=== PATIENT | male | born 1960 | race Caucasian/White ===

== ENCOUNTER 2019-10-15 21:32 | Emergency (ER) | payer OTHER, SELFPAY ==
--- NOTE | ~2019-10-15 | CT_ITS ---
EXAMINATION: CT abdomen pelvis w con DATE: 10/15/2019 22:41 INDICATION: Abdominal pain. TECHNIQUE: Computed tomography (CT) of the abdomen and pelvis was performed with 100 mL Omnipaque 350 intravenous contrast. Automated exposure control and iterative reconstruction technique were employe d. The dose-length product was 1466.07 mGy-cm. COMPARISON: None. FINDINGS: The visualized portions of the lung bases demonstrate mild atelectasis. Scattered calcified pulmonary nodules and calcified hilar and mediastinal lymph nodes are consistent with old granulomat ous disease. No pleural effusion. The heart size is normal. There are coronary artery calcifications. No pericardial effusion. The liver and gallbladder are normal. Calcifications in the spleen are cons istent with old granulomatous disease. The pancreas, adrenal glands, and left kidney are normal. Ther e is an 8 mm cyst in right kidney. There is a decreased right-sided contrast nephrogram. There is mil d right hydronephrosis and hydroureter. There is a 4 mm stone at right ureterovesicular junction. The prostate is mildly enlarged. There is diverticulosis of the colon without evidence of diverticulitis . There are no dilated loops of bowel. The appendix is normal. There are no pathologically enlarged l ymph nodes. There is no free intraperitoneal fluid. There is moderate lumbar spondylosis and mild tho racic spondylosis. IMPRESSION: 1. 4 mm stone at right ureterovesicular junction with mild right hydronephrosis and hydroureter. Reviewed, dictated and finalized at location A.
[2019-10-15 21:39] VITALS: BP 143/84; PULSE 74; RESP 16; TEMP 36.6; O2SAT 98
--- NOTE | 2019-10-15 21:49 | ED.ABDPAIN ---
HPI - Abdominal Pain General Chief Complaint: Abdominal Pain Stated Complaint: abd pain Time Seen by Provider: 10/15/19 21:45 Source: patient Mode of arrival: EMS Limitations: no limitations History of Present Illness HPI narrative: Right abdominal pain started at 4:30 PM today, steady, associated with nausea and vomiting. Sharp, stabbing. No aggravating or relieving factors. History of diabetes, hypertension, hyperlipidemia, patient does not smoke and drinks daily. Currently patient feeling much better after getting Toradol in the ambulance. Related Data Home Medications Medication Instructions Recorded Confirmed pen needle, diabetic 32 gauge x #100 each 06/19/19 10/05/1903/06 aspirin 81 mg tablet,delayed 81 mg PO DAILY 06/22/19 10/05/19 release Allergies Allergy/AdvReac Type Severity Reaction Status Date / Time latex Allergy Mild Redness of Verified 10/15/19 21:41 Skin No Known Drug Allergies Allergy Unknown Unknown Verified 10/15/19 21:41 Review of Systems Review of Systems: Narrative: CONSTITUTIONAL: Denies fever, chills, or sweats. EYES: Denies visual changes, redness, or discharge. ENT: Denies rhinorrhea, congestion, sore throat, or otalgia. CARDIOVASCULAR: Denies chest pain, palpitations, or edema. RESPIRATORY: Denies cough or dyspnea. GASTROINTESTINAL: Denies abdominal pain, nausea, vomiting, or diarrhea. GENITOURINARY: Denies dysuria or hematuria. SKIN: Denies rash or itching. MUSCULOSKELETAL: Denies back pain, joint pain, or myalgia. NEUROLOGIC: Denies headache, numbness, or weakness. PSYCHIATRIC: Denies anxiety or depression. PMFSH Past Medical History Medical History Urinary frequency Family History Family History Mother Hypertension Father Patient's father is in good health Social History Social History Social History: no Smoking status: Former smoker Tobacco type: cigarettes Second hand tobacco smoke exposure: No Alcohol intake: current Drinks per week: 3 Substance use: never Substance use type: does not use Gender identity (if verbalized by the patient): Male Exam Narrative: Exam Narrative: General appearance: Well-developed, well-nourished, obese, not in pain or distress Skin: Normal color Head: Normocephalic, nontraumatic Eyes: Clear conjunctiva ENT: Oropharynx normal, ears normal, nose normal Neck: Supple, nontender Chest and respiratory: Airway patent, no respiratory distress, no accessory muscle use Heart: Regular rate/rhythm Abdomen: Soft, moderate tenderness left lower quadrant and right flank, no organomegaly, quiet bowel sounds Vascular: Normal peripheral pulses, normal capillary refill. 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, no gross motor deficit Course Course Emergency Course: Stable Vital Signs Vital signs: Vital Signs Temperature 36.6 C 10/15/19 21:39 Pulse Rate 74 10/15/19 21:39 Respiratory Rate 16 10/15/19 21:39 Blood Pressure 143/84 H 10/15/19 21:39 Pulse Oximetry 98 10/15/19 21:39 Temperature 36.6 C 10/15/19 21:39 Pulse Rate 75 10/15/19 23:30 Respiratory Rate 16 10/15/19 23:30 Blood Pressure 152/82 H 10/15/19 23:30 Pulse Oximetry 98 10/15/19 23:30 MDM - Abdominal Pain MDM Narrative Medical decision making narrative: The plan to get labs, CT abdomen and pelvis with IV contrast, IV fluid, IV morphine and Zofran. Further plan to follow Blood work-up in the CAT scan showed 5 mm kidne
[2019-10-15 22:00] LABS: Basophils Percent Auto 0.3 % (0.2-1.2); Eosinophils Percent Auto 0.2 % (0-4.4); Hematocrit 41.6 % (42.0-52.0); Hemoglobin 14.5 g/dL (14.0-18.0); Immature Granulocyte Absolute 0.08 K/mm3 (0.00-0.031); Immature Granulocyte Percent A 0.5 % (0-0.5); Lymphocytes Absolute Auto 0.88 K/mm3 (0.9-3.2); Mean Corpuscular HGB Conc 34.9 g/dl (32-36); Mean Corpuscular Hemoglobin 31.3 pg (26-34); Mean Corpuscular Volume 89.7 fl (80-100); Mean Platelet Volume 9.8 fl (7.4-10.4); Monocytes Absolute Auto 0.5 K/mm3 (0.1-0.6); Monocytes Percent Auto 3.4 % (2.6-8.5); Neutrophils Absolute Auto 13.1 K/mm3 (1.3-6.7); Neutrophils Percent Auto 89.6 % (45.5-73.1); Platelet Count Result 155 k/mm3 (150-375); Red Blood Count 4.64 M/mm3 (4.6-6.20); Red Cell Distribution Width 12.6 % (11.5-14.5); White Blood Count 14.6 K/mm3 (4.5-10.0)
[2019-10-15 22:09] LABS: Anion Gap 8 mmol/L (8-16); Blood Urea Nitrogen 16 mg/dL (9-20); Carbon Dioxide 23 mmol/L (22-30); Chloride 107 mmol/L (98-107); Estimated CRCL calculation 99 ml/min; Estimated Glomerular Filt Rate > 60; Glucose 170 mg/dL (75-110); Potassium 4.7 mmol/L (3.4-5.0); Sodium 138 mmol/L (137-145)
[2019-10-15] MEDS: SODIUM CHLORIDE 0.9% IV 1,000 ML 999 ML IV CONT (22:26)
[2019-10-15 22:29] LABS: Add Urine Microscopic? YES; Appearance Urine Clear (Clear); Bilirubin Urine Negative (Negative); Blood Urine 1+ (Negative); Color Urine Yellow (Yellow); Glucose Urine UA Negative (Negative); Ketones Urine 1+ mg/dL (Negative); Leukocyte Esterase Ur Negative LEU/UL (Negative); Mucus Urine Rare /lpf; Nitrate Urine Negative (Negative); Protein Urine Negative (Negative); RBC Urine 51-75 /hpf (0-2); Specific Grav Ur 1.028 (1.001-1.035); Squamous Epithelial Cell Urine Rare /hpf (Few); Urobilinogen Urine Negative mg/dL (<2.0); WBC Urine 0-3 /hpf
[2019-10-15 23:30] VITALS: BP 152/82; PULSE 75; RESP 16; O2SAT 98
[2019-10-16] MEDS: TAMSULOSIN HCL 0.4 MG CAPSULE PO (00:12)
[2019-10-16 00:34] VITALS: BP 147/79; PULSE 86; RESP 18; TEMP 36.2; O2SAT 100
== END 2019-10-16 00:39 | disposition home or self-care (01) ==
PROVIDERS: Emergency Medicine; Emergency Provider Emergency Medicine; PCP Nurse Practitioner
DX: N13.2 Hydronephrosis with renal and ureteral calculous obstruction (principal); I10 Essential (primary) hypertension; E78.5 Hyperlipidemia, unspecified; E11.9 Type 2 diabetes mellitus without complications; Z79.82 Long term (current) use of aspirin; Z87.891 Personal history of nicotine dependence
CPT/HCPCS: 36415; 51701; 74177; 80048; 81001; 85025; 99284; A9270; J7030; Q9967

== ENCOUNTER 2022-05-19 13:59 | Outpatient (CLI) | payer OTHER, SELFPAY ==
--- NOTE | 2022-05-19 | ECG_ITS ---
Measurements Intervals [place] Rate: 85 P: 70 LA: 144 QRS: 34 QRSD: 139 T: 43 QT: 405 QTc: 483 Interpretive Statements SINUS RHYTHM RIGHT BUNDLE BRANCH BLOCK ABNORMAL ECG NO PREVIOUS ECG AVAILABLE FOR COMPARISON Electronically Signed On 05-19-2022 14:33:40 CDT by Josh Carrasco D.O.
--- NOTE | ~2022-05-19 | XR_ITS ---
EXAMINATION: XR chest 2V DATE: 05/19/2022 14:39 INDICATION: Encounter for other preprocedural examination TECHNIQUE: Frontal and lateral views of the chest are obtained COMPARISON: None available FINDINGS: There is a nodular opacity of the right midlung zone. Calcified pulmonary nodules and calci fied bilateral hilar and mediastinal lymph nodes are consistent with old granulomatous disease. No p leural effusion or pneumothorax. The cardiomediastinal silhouette is normal. There is mild thoracic s pondylosis. A suture anchor is noted in the left humeral head. IMPRESSION: 1. Nodular opacity of the right midlung zone. Further evaluation with CT of the chest is recommended. Reviewed, dictated and finalized at location L.
== END 2022-05-19 14:00 | disposition home or self-care (01) ==
LOC: ANHLAB 14:02 → ANHCARD 14:03
PROVIDERS: PCP Internal Medicine; Visit Provider Internal Medicine
DX: Z01.818 Encounter for other preprocedural examination (principal); R91.8 Other nonspecific abnormal finding of lung field; I45.10 Unspecified right bundle-branch block
CPT/HCPCS: 71046; 93005

== ENCOUNTER 2022-05-27 14:38 | Outpatient (CLI) | payer OTHER, SELFPAY ==
--- NOTE | ~2022-05-27 | CT_ITS ---
EXAMINATION: CT diagnostic chest wo con DATE: 05/27/2022 15:00 INDICATION: Nodular opacity right mid lung zone identified on 05/19/2022 2 view chest radiographic exa mination TECHNIQUE: Computed tomography (CT) of the chest was performed without intravenous contrast. Automate d exposure control and iterative reconstruction technique were employed. Exam dose: 548.01 mGy-cm to chelly exam DLP. COMPARISON: 05/19/2022 2 view chest FINDINGS: There are numerous calcified pulmonary granulomas scattered throughout both lungs. There ar e calcified bilateral hilar and mediastinal lymph nodes, numerous calcifications spleen, consistent w ith old granulomatous disease. No pulmonary infiltrate or consolidation or suspicious pulmonary mass lesion. Normal heart size. No thoracic aortic aneurysm. There is aortic, great vessel and prominent coronary artery calcification. No pericardial or pleural effusion. No hilar or mediastinal mass lesion or lymphadenopathy is detected. Normal morphology of the adrenal glands. Degenerative changes of the cervical and thoracic spine. IMPRESSION: Extensive old pulmonary granulomatous disease; no suspicious pulmonary mass lesion Reviewed, dictated and finalized at Location A. Reviewed, dictated and finalized at location B. IMPRESSION: Extensive old pulmonary granulomatous disease; no suspicious pulmo nary mass lesion
== END 2022-05-27 14:39 | disposition home or self-care (01) ==
PROVIDERS: PCP Internal Medicine; Visit Provider Internal Medicine
DX: R91.1 Solitary pulmonary nodule (principal); R91.8 Other nonspecific abnormal finding of lung field
CPT/HCPCS: 71250

== ENCOUNTER 2022-10-03 15:14 | Inpatient (IN) | payer OTHER, SELFPAY ==
[2022-10-03] VITALS (9 sets, daily range): BP systolic 137–149; BP diastolic 59–78; PULSE 75–81; RESP 16–18; TEMP 35.6–36.6; O2SAT 94–100; BMI 37.2
--- NOTE | ~2022-10-03 | US_ITS ---
EXAMINATION: US renal BI DATE: 10/09/2022 12:50 INDICATION: Acute kidney injury. TECHNIQUE: Multiple ultrasound grayscale images of the kidneys were obtained. COMPARISON: CT abdomen and pelvis 10/15/2019 FINDINGS: The right kidney measures 13.2 x 7.5 x 7.9 cm. The left kidney measures 13.2 x 6.6 x 5.7 cm. The kidn eys demonstrate normal parenchymal echogenicity. There is no hydronephrosis. The bladder is not well distended. IMPRESSION: 1. Normal kidneys. No hydronephrosis. Reviewed, dictated and finalized at location A.
--- NOTE | ~2022-10-03 | XR_ITS ---
Left foot Technique: AP, oblique, and lateral views were obtained. Clinical History: Gangrenous great toe Findings: No acute fracture or dislocation is seen. Osseous alignment is anatomic. Joint spaces are p reserved without erosive or degenerative change. Soft tissue ulcer noted the medial aspect of the gre at toe distally. Impression: No radiographic evidence for osteomyelitis. Soft tissue ulcer at the medial aspect of the distal great toe. Reviewed, dictated and finalized at location M. Impression: No radiographic evidence for osteomyelitis. Soft tissue ulcer at the medial aspect of the distal great toe.
--- NOTE | ~2022-10-03 | US_ITS ---
EXAMINATION: US arterial duplex LE DATE: 10/04/2022 10:45 INDICATION: Swelling and poor vascular flow to the lower extremities TECHNIQUE: Multiple grayscale and Doppler ultrasound images of the arteries of the bilateral lower li mbs were obtained. COMPARISON: None FINDINGS: Mild scattered atherosclerotic plaque without evident hemodynamically significant stenosis on the gra yscale imaging of the visualized portion of the right common femoral, femoral, profunda femoral, popl iteal, posterior tibial, anterior tibial and dorsalis pedis arteries. The right peroneal artery is no t clearly visualized. Arterial waveforms with brisk systolic upstrokes throughout the arteries of the right lower limb. Mild scattered atherosclerotic plaque without evident hemodynamically significant stenosis on the gra yscale imaging of the visualized portion of the right common femoral, femoral, profunda femoral, popl iteal, posterior tibial, anterior tibial and dorsalis pedis arteries. The left peroneal artery is not clearly visualized. Arterial waveforms with brisk systolic upstrokes throughout the arteries of the right lower limb. IMPRESSION: 1. Mild nonhemodynamically significant plaque scattered throughout the arteries of both lower limbs, all with brisk systolic upstrokes on spectral color Doppler Reviewed, dictated and finalized at location B. IMPRESSION: 1. Mild nonhemodynamically significant plaque scattered throughout the arteries of both lower limbs, all with brisk systolic upstrokes on spectral color Doppl er
--- NOTE | 2022-10-03 15:32 | ED.EXTPRO ---
HPI - Extremity Problem General Chief complaint: Extremity Problem,Nontraumatic Stated complaint: L LEG WOUNDS, DIABETIC Time Seen by Provider: 10/03/22 15:28 Source: patient Mode of arrival: ambulatory Limitations: no limitations History of Present Illness HPI Narrative: 61 years old white male came to the emergency room by private car complaining of right and left big toe. Patient reports intermittent trouble with that toe over 1 year. Got worse in June 2022, was seen by his family physician within 10 days ago who ordered blood test for that toe. Patient could not take it anymore, pain got worse and stinky and more rotten looking. He denies any fever, chills, nausea, vomiting or trouble breathing. History of diabetes on metformin., Hypertension, drinks alcohol daily, no smoking or drug abuse. Related Data Home Medications Medication Instructions Recorded Confirmed aspirin 81 mg tablet,delayed 81 mg PO DAILY 06/22/19 08/31/22 release Allergies Allergy/AdvReac Type Severity Reaction Status Date / Time latex Allergy Mild Redness of Verified 08/31/22 08:00 Skin Review of Systems Review of Systems: All systems reviewed & are unremarkable except as noted in HPI and below PMFSH Past Medical History Medical History Benign essential hypertension DM w/o complication type II, uncontrolled Elevated PSA Morbid obesity JO (obstructive sleep apnea) Other and unspecified hyperlipidemia Urinary frequency Surgical History Surgical History S/P rotator cuff repair Family History Family History Mother Hypertension Father Patient's father is in good health Social History Social History Smoking packs per day: 2 Smoking cigarettes per day: 40.0 Years smoked: 20 Smoking pack-years: 40.00 Smoking status: Former smoker Tobacco type: cigarettes Second hand tobacco smoke exposure: No Smoking end date: 03/01/00 Alcohol intake: current Drinks per week: 30 Substance use: never Substance use type: does not use Lack of Transportation: No Lack of Food: Never True Current Housing: I Have Housing Concerned About Future Housing: No Difficulty Paying Gas/Electric Bills: No Difficulty Paying for Meds: No Currently Unemployed: No Education: Trade/Vocational Certificate Difficulty w/ Childcare or Family Care: No Gender identity (if verbalized by the patient): Male Exam Narrative: General appearance: Well-developed, well-nourished Skin: Normal color Head: Normocephalic, nontraumatic Eyes: Clear conjunctiva ENT: Oropharynx normal, ears normal, nose normal Neck: Supple, nontender Chest and respiratory: Airway patent, no respiratory distress, no accessory muscle use Heart: Regular rate/rhythm Abdomen: Soft, nontender, no organomegaly, quiet bowel sounds Vascular: Normal peripheral pulses, diminution of capillary refill Musculoskeletal: Left big toe black, gangrenous, stinky Neurologic: Alert and oriented ?3, [employer]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
--- NOTE | 2022-10-03 15:41 | ECG_ITS ---
Measurements Intervals [place] Rate: 72 P: 50 OH: 149 QRS: 14 QRSD: 134 T: -6 QT: 407 QTc: 447 Interpretive Statements SINUS RHYTHM RIGHT BUNDLE BRANCH BLOCK [120+ ms QRS DURATION, UPRIGHT V1, 40+ ms S IN I/aVL/V4/V5/V6] LOW VOLTAGE EKG COMPARED TO ECG 05/19/2022 14:21:00 NO SIGNIFICANT CHANGES Electronically Signed On 10-04-2022 8:30:01 CDT by Heide Campuzano M.D.
[2022-10-03 15:56] LABS: Basophils Percent Auto 0.4 % (0.2-1.2); Eosinophils Absolute Auto 0.4 K/mm3 (0-0.3); Eosinophils Percent Auto 4.3 % (0-4.4); Hematocrit 39.9 % (42.0-52.0); Hemoglobin 12.9 g/dL (14.0-18.0); Immature Granulocyte Absolute 0.05 K/mm3 (0.00-0.031); Immature Granulocyte Percent A 0.5 % (0-0.5); Lymphocytes Absolute Auto 1.12 K/mm3 (0.9-3.2); Lymphocytes Percent Auto 10.9 % (18.3-44.2); Mean Corpuscular HGB Conc 32.3 g/dl (32-36); Mean Corpuscular Hemoglobin 30.1 pg (26-34); Mean Corpuscular Volume 93.2 fl (80-100); Mean Platelet Volume 9.2 fl (7.4-10.4); Monocytes Absolute Auto 0.6 K/mm3 (0.1-0.6); Monocytes Percent Auto 5.9 % (2.6-8.5); Platelet Count Result 320 k/mm3 (150-375); Red Blood Count 4.28 M/mm3 (4.6-6.20); Red Cell Distribution Width 14.8 % (11.5-14.5); White Blood Count 10.3 K/mm3 (4.5-10.0)
[2022-10-03 16:07] LABS: INR 1.1; Prothrombin Time 14.5 Seconds (11.1-14.7)
[2022-10-03 16:08] LABS: Partial Thromboplastin Time 39.1 SECONDS (22.3-36.8)
[2022-10-03 16:13] LABS: Alanine Aminotransferase 16 U/L (6-50); Albumin Level 4.1 g/dL (3.5-5.1); Alkaline Phosphatase 71 U/L (38-126); Anion Gap 10 mmol/L (8-16); Aspartate Amino Transferase 22 U/L (17-59); Bilirubin,Total 0.8 mg/dL (0.2-1.3); Blood Urea Nitrogen 12 mg/dL (9-20); Calcium 9.5 mg/dL (8.4-10.2); Carbon Dioxide 27 mmol/L (22-30); Chloride 102 mmol/L (98-107); Estimated CRCL calculation 125 ml/min; Estimated Glomerular Filt Rate > 60; Glucose 128 mg/dL (65-110); Potassium 4.5 mmol/L (3.4-5.0); Sodium 139 mmol/L (137-145)
[2022-10-03] MEDS: SODIUM CHLORIDE 0.9% IV 1,000 ML 999 ML IV CONT (16:18)
[2022-10-03] MEDS: VANCOMYCIN 1,250 MG/NS 250 ML 1,250 MG/250 ML BAG 166.67 MG IVPB ×2 (16:40→18:34)
[2022-10-03] MEDS: PIPERACILLN/TAZ 3.375GM/NS50ML 3.375 GM/50 ML BAG IVPB ×2 (16:49→23:54)
--- NOTE | 2022-10-03 18:53 | PC.NURSE ---
Patient arrived to the floor at shift change. He was oriented to room and vital signs were taken. Patient has no questions at this time.
--- NOTE | 2022-10-03 19:56 | PM.IMHP ---
H&P: HPI History of Present Illness Date/Time: 10/03/22 19:56 Chief Complaint: Wound to left great toe Narrative: This is a 61-year-old male patient who has hypertension and diabetes. The patient came to the emergency room with complaints of left big toe infection. The patient stated that this infection started 1 year ago. The patient stated that he believes it started as is sore from a new pair of boots that he wore to work. The patient saw his primary care doctor 10 days ago ordered blood test. The patient stated that he was supposed to have arterial Dopplers performed and see a vascular physician but he will be another month before he get in. The patient stated that he is having a large amount of drainage to his left great toe. The patient stated he change dressing to the left great toe 3 times today. His white count is 10.3. H&H is 12.9 and 39.9. Foot x-ray shows no radiographic evidence of osteomyelitis. Soft tissue ulcer at the medial aspect of the distal great toe. However the left toe has gangrene and has black eschar. Patient has a odorous smell coming from the left great toe. The patient was started on vanco and Zosyn. Surgery was consulted. The patient is being admitted to inpatient status on the date of service of 10/04/2019 3p Review of Systems Review of Systems: All systems reviewed & are unremarkable except as noted in HPI and below Constitutional: Constitutional: Reports as per HPI and Reports no additional constitutional complaints Eyes: Eyes: Reports as per HPI and Reports no additional eye complaints ENT: Reports system reviewed and no additional complaints, except as documented and Reports Normal hearing present Cardiovascular: Cardiovascular: Reports no additional cardiovascular complaints Respiratory: Respiratory: Reports no additional respiratory complaints and Reports no additional respiratory complaints Gastrointestinal: Gastrointestinal: Reports as per HPI and Reports no additional gastrointestinal complaints Musculoskeletal: Musculoskeletal: Reports no additional musculoskeletal complaints Integumentary/Breasts: Skin/Breast: Reports system reviewed and no additional complaints, except as docu and Reports as per HPI Neurologic: Reports system reviewed and no additional complaints, except as documented, Reports as per HPI and Reports Normal hearing present Psychiatric: Psychiatric: Reports no additional psychiatric complaints and Reports as per HPI Endocrine: Endocrine: Reports no additional endocrine complaints Hematologic/Lymphatic: Hematologic/Lymphatic: Reports no additional hematologic/lymphatic complaints Allergic/Immunologic: Allergic/Immunologic: Reports no additional allergic/immunologic complaints PMFSH Past Medical History Medical History Benign essential hypertension DM w/o complication type II, uncontrolled Elevated PSA Morbid obesity JO (obstructive sleep apnea) Other and unspecified hyperlipidemia Urinary frequency Surgical History Surgical History (Updated 10/04/22 @ 00:31 by Hermila Gibson NP) History of total knee arthroplasty S/P rotator cuff repair Family History Family History Mother Hypertension Father Patient's father is in good health Social History Social History (Updated 10/04/22 @ 00:32 by Hermila Gibson NP) Social History: The patient was 1 time for a year and is now . He is currently unemployed. 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 He has no children. He is a former smoker. No alcohol marijuana or illicit drugs. Code status full code Smoking packs per day: 2 Smoking cigarettes per day: 40.0 Years smoked: 20 Smoking pack-years: 40.00 Smoking status: Former smoker Tobacco type: cigarettes Second hand tobacco smoke exposure: Yes
[2022-10-03 20:47] LABS: Glucose Point of Care 68 mg/dl (65-105)
[2022-10-03 22:34] LABS: Glucose Point of Care 133 mg/dl (65-105)
[2022-10-03] MEDS: diphenhydrAMINE HCl CAP 25 MG CAPSULE PO (23:16)
[2022-10-03] MEDS: SODIUM CHLORIDE 0.9% IV 1,000 ML 125 ML IV CONT (23:53)
[2022-10-04] MEDS: HYDROmorphone HCL INJ (*CRX) 1 MG/ML SYR 0.5 MG IV PUSH ×3 (00:01→09:08)
[2022-10-04 02:08] VITALS: RESP 15
[2022-10-04 06:00] VITALS: BP 134/74; PULSE 69; RESP 20; TEMP 36.6; O2SAT 100
[2022-10-04] MEDS: PIPERACILLN/TAZ 3.375GM/NS50ML 3.375 GM/50 ML BAG IVPB ×3 (06:00→20:55)
[2022-10-04 06:36] LABS: Basophils Percent Auto 0.4 % (0.2-1.2); Eosinophils Absolute Auto 0.6 K/mm3 (0-0.3); Eosinophils Percent Auto 6.2 % (0-4.4); Hematocrit 33.8 % (42.0-52.0); Hemoglobin 10.5 g/dL (14.0-18.0); Immature Granulocyte Absolute 0.05 K/mm3 (0.00-0.031); Immature Granulocyte Percent A 0.6 % (0-0.5); Lymphocytes Absolute Auto 1.31 K/mm3 (0.9-3.2); Lymphocytes Percent Auto 14.7 % (18.3-44.2); Mean Corpuscular HGB Conc 31.1 g/dl (32-36); Mean Corpuscular Hemoglobin 29.4 pg (26-34); Mean Corpuscular Volume 94.7 fl (80-100); Mean Platelet Volume 9.4 fl (7.4-10.4); Monocytes Absolute Auto 0.8 K/mm3 (0.1-0.6); Monocytes Percent Auto 8.9 % (2.6-8.5); Neutrophils Absolute Auto 6.2 K/mm3 (1.3-6.7); Neutrophils Percent Auto 69.2 % (45.5-73.1); Platelet Count Result 269 k/mm3 (150-375); Red Blood Count 3.57 M/mm3 (4.6-6.20); Red Cell Distribution Width 14.6 % (11.5-14.5); White Blood Count 8.9 K/mm3 (4.5-10.0)
[2022-10-04 06:41] LABS: Lactic Acid Reflex 1.1 mmol/L (0.7-2.0)
[2022-10-04 06:42] LABS: Alanine Aminotransferase 13 U/L (6-50); Alkaline Phosphatase 53 U/L (38-126); Anion Gap 3 mmol/L (8-16); Aspartate Amino Transferase 18 U/L (17-59); Bilirubin,Total 0.5 mg/dL (0.2-1.3); Blood Urea Nitrogen 10 mg/dL (9-20); Calcium 8.2 mg/dL (8.4-10.2); Carbon Dioxide 25 mmol/L (22-30); Chloride 106 mmol/L (98-107); Estimated CRCL calculation 125 ml/min; Estimated Glomerular Filt Rate > 60; Glucose 130 mg/dL (65-110); Potassium 4.1 mmol/L (3.4-5.0); Sodium 134 mmol/L (137-145)
[2022-10-04 07:20] LABS: Hemoglobin A1C 5.3 % (<5.7)
[2022-10-04 07:43] LABS: Glucose Point of Care 125 mg/dl (65-105)
[2022-10-04] MEDS: lisinopriL 10 MG TABLET 30 MG PO (09:04)
[2022-10-04] MEDS: ASPIRIN 81 MG ENTERIC TABLET PO (09:04)
[2022-10-04] MEDS: SODIUM CHLORIDE 0.9% IV 1,000 ML 125 ML IV CONT (09:04)
[2022-10-04] MEDS: PIOGLITAZONE HCL 30 MG TABLET PO (09:04)
[2022-10-04 09:39] VITALS: O2SAT 95
[2022-10-04 11:34] LABS: Glucose Point of Care 109 mg/dl (65-105)
--- NOTE | 2022-10-04 12:14 | PM.CNGS ---
Assessment and Plan Assessment and plan (1) Gangrenous toe: Code(s): I96 - Gangrene, not elsewhere classified Status: Acute Assessment and Plan: The patient has evidence of a gangrenous left great toe. The skin and subcutaneous tissue appears to be extensively involved. I discussed with patient that even if there is no signs of osteomyelitis, once the infection was adequately treated he would have no tissue overlying the bone and would have exposed bone. Amputation of the great toe appears to be the only reasonable treatment option to gain control of this infection. Will continue IV antibiotics today to control infection. Ordered local wound care with Dakin's solution. Will plan for left great toe amputation tomorrow in the OR. I have discussed the procedure as well as the typical healing recovery. Questions were answered. (2) Diabetic foot infection: Code(s): E11.628 - Type 2 diabetes mellitus with other skin complications; L08.9 - Local infection of the skin and subcutaneous tissue, unspecified Status: Acute (3) Wound of left lower extremity: Qualifiers: Encounter type: initial encounter Qualified Code(s): S81.802A - Unspecified open wound, left lower leg, initial encounter Code(s): S81.802A - Unspecified open wound, left lower leg, initial encounter Status: Acute Assessment and Plan: Patient also has a chronic wound of his left lateral lower leg. This appears to be chronic and does not appear infected. Will apply a silver gel to wound daily to help with autolytic debridement. (4) DM type 2 (diabetes mellitus, type 2): Qualifiers: Diabetes mellitus group home insulin use: without group home use Diabetes mellitus complication status: without complication Qualified Code(s): E11.9 - Type 2 diabetes mellitus without complications Code(s): E11.9 - Type 2 diabetes mellitus without complications Status: Acute (5) JO on CPAP: Code(s): G47.33 - Obstructive sleep apnea (adult) (pediatric); Z99.89 - Dependence on other enabling machines and devices Status: Acute History of Present Illness Consult details Consult date: 10/04/22 Reason for consult: other (Gangrene of left great toe) Requesting physician: Angel Low MD Narrative: This is a 61-year-old man who presented to the emergency department yesterday with a worsening infection on his toe. He states that over the past 3-4 days he has had significant changes to a wound on his left great toe. He has a history of an infection several years ago but then this resolved with local wound care. Over the past couple months he has started to notice some problems with a wound on his toe but this was fairly stable. It then all the sudden got much worse in the last several days and he started experiencing more redness on his foot and black discoloration on the toe itself. He has a history of diabetes but this has been well controlled lately. He denies any claudication or any other history of vascular insufficiency. In the emergency department he was noticed to have a gangrenous left great toe. He was also noted to have another wound infection on his left calf area. An x-ray was performed of his foot which showed evidence of soft tissue infection but no clear evidence of osteomyelitis. He was then admitted for further treatment. Review of Systems Review of Systems: All systems reviewed & are unremarkable except as noted in HPI and below Constitutional: Constitutional: Denies chills and Denies fever(s) Eyes: Eyes: Denies change in vision ENT: Denies hearing loss, Denies neck pain and Denies sore throat Cardiovascular: Cardiovascular: Denies chest pain and Denies dyspnea Respiratory: Respiratory: Denies cough, Denies dyspnea and Denies wheezing Gastrointestinal: Gastrointestinal: Denies change in bowel habits, Denies nausea and Denies vomiting Genitourinary: Genitourinary: Denies hematuria
--- NOTE | 2022-10-04 13:29 | PM.IMPN ---
Progress Note: A&P Assessment and Plan (1) Gangrenous toe: Code(s): I96 - Gangrene, not elsewhere classified Status: Acute Assessment and Plan: Surgery has been consulted. He has gangrene to the left great toe. Patient was started on vancomycin and Zosyn. Blood cultures and wound cultures are pending. Continue with analgesics. Arteriolar Dopplers have been ordered. White count is 10.3. Continue to monitor CBC and lactic. (2) JO on CPAP: Code(s): G47.33 - Obstructive sleep apnea (adult) (pediatric); Z99.89 - Dependence on other enabling machines and devices Status: Acute Assessment and Plan: Continue with home settings. (3) DM type 2 (diabetes mellitus, type 2): Qualifiers: Diabetes mellitus terminal manager insulin use: without correction use Diabetes mellitus complication status: without complication Qualified Code(s): E11.9 - Type 2 diabetes mellitus without complications Code(s): E11.9 - Type 2 diabetes mellitus without complications Status: Acute Assessment and Plan: Accu-Cheks AC and and HS with sliding scale insulin and hypoglycemic protocol. Check A1c continue with Actos. (4) Benign essential hypertension: Code(s): I10 - Essential (primary) hypertension Status: Acute Assessment and Plan: Continue with lisinopril. Subjective Date/time seen: 10/04/22 13:29 Interval history: no new issues Exam Const: General: cooperative, comfortable, no acute distress, well developed, alert, awake, Physically active, ill appearing, average body habitus, well nourished and overweight Nutritional Appearance: average body habitus, well nourished and overweight Orientation/consciousness: oriented to person, oriented to place, oriented to time and patient oriented x3 Limitations: no limitations HENMT: Head: normal to inspection, No palpable skull fracture present, normocephalic and atraumatic Ears: hearing grossly normal bilaterally and external ears normal Face/Nose/Sinus: Normal external nose present and Normal nares present Mouth: Yes Normal oral and palatal mucosa present Eyes: General: appearance normal, both eyes and all related structures Alignment and Position: alignment normal Periorbital: periorbital findings normal Eyelids: eyelids normal Sclera: sclerae normal Pupils: Equal, round and reactive pupils present EOM: EOMs intact bilaterally Neck: Neck: normal visual inspection, full ROM, no lymphadenopathy, trachea midline and supple Chest: Chest palpation & inspection: normal inspection of the chest Resp: Effort & Inspection: normal respiratory effort Auscultation: clear to auscultation bilaterally Cardio: Palpation: normal PMI Rate: regular rate Rhythm: regular rhythm Heart sounds: S1 normal heart sound present and S2 normal heart sound present Peripheral pulses: Peripheral pulses 2+ throughout GI: Inspection: normal to inspection Auscultation: normal bowel sounds Rectal Exam: deferred Back/Spine/Pelvis: Cervical Spine: cervical ROM normal Skin: General skin exam: normal color Lesions: no lesions Rashes: no rashes Trauma: no lacerations or abrasions Hair: male pattern alopecia Nails: normal Other: Necrotic great toe on the left Neuro: General: oriented to person, oriented to place, oriented to time and patient oriented x3 Cranial nerves: Yes Equal, round and reactive pupils present and Yes Normal hearing present Cognition (Neuro): normal cognition Speech: normal speech Sensory Exam: normal sensation Extrem: General: normal to inspection Right upper extremity: normal to inspection and shoulder/upper arm Left upper extremity: normal to inspection and shoulder/upper arm Right lower extremity: normal to inspection Left lower extremity: edema Details: 2+ and foot Other: Gangrenous necrotic left great toe Psych: Appearance: grossly normal Mental Status: mental status grossly normal Speech and movement:
[2022-10-04] MEDS: HYDROcodone/acetaminophen (*CRX) 5-325 MG TABLET 1 TAB PO ×2 (13:40→19:12)
[2022-10-04 14:00] VITALS: BP 123/60; PULSE 70; RESP 20; TEMP 37.2; O2SAT 99
[2022-10-04 16:47] LABS: Glucose Point of Care 136 mg/dl (65-105)
--- NOTE | 2022-10-04 18:19 | PC.NURSE ---
When I was administering morning medications, pt's 0600 zosyn was not given per the MAR. This RN called the night RN to clarify if they had given the 0600 dose. They stated they had, but that they had forgotten to scan it. This RN documented against it to show it had been given and to allow me to give the daytime doses. Pharmacy and hot car charger aware.
[2022-10-04 20:00] VITALS: PULSE 70; RESP 16; O2SAT 98
[2022-10-04 22:00] VITALS: BP 121/68; PULSE 70; RESP 20; TEMP 36.6; O2SAT 98
[2022-10-04 22:12] LABS: Glucose Point of Care 146 mg/dl (65-105)
[2022-10-05] VITALS (12 sets, daily range): BP systolic 130–166; BP diastolic 57–78; PULSE 67–75; RESP 12–20; TEMP 36.1–36.6; O2SAT 94–100
[2022-10-05] MEDS: PIPERACILLN/TAZ 3.375GM/NS50ML 3.375 GM/50 ML BAG IVPB ×5 (00:10→23:56)
[2022-10-05] MEDS: HYDROcodone/acetaminophen (*CRX) 5-325 MG TABLET 1 TAB PO ×2 (00:11→10:50)
[2022-10-05] MEDS: SODIUM CHLORIDE 0.9% IV 1,000 ML 125 ML IV CONT ×2 (05:21→10:53)
[2022-10-05 05:41] LABS: Basophils Absolute Auto 0.1 K/mm3 (0.0-0.1); Basophils Percent Auto 0.7 % (0.2-1.2); Eosinophils Absolute Auto 0.5 K/mm3 (0-0.3); Eosinophils Percent Auto 5.5 % (0-4.4); Hematocrit 34.5 % (42.0-52.0); Hemoglobin 10.9 g/dL (14.0-18.0); Immature Granulocyte Absolute 0.05 K/mm3 (0.00-0.031); Immature Granulocyte Percent A 0.6 % (0-0.5); Lymphocytes Absolute Auto 1.21 K/mm3 (0.9-3.2); Lymphocytes Percent Auto 14.2 % (18.3-44.2); Mean Corpuscular HGB Conc 31.6 g/dl (32-36); Mean Corpuscular Hemoglobin 29.9 pg (26-34); Mean Corpuscular Volume 94.5 fl (80-100); Mean Platelet Volume 9.1 fl (7.4-10.4); Monocytes Absolute Auto 0.7 K/mm3 (0.1-0.6); Monocytes Percent Auto 7.9 % (2.6-8.5); Neutrophils Absolute Auto 6.1 K/mm3 (1.3-6.7); Neutrophils Percent Auto 71.1 % (45.5-73.1); Platelet Count Result 276 k/mm3 (150-375); Red Blood Count 3.65 M/mm3 (4.6-6.20); Red Cell Distribution Width 14.8 % (11.5-14.5); White Blood Count 8.5 K/mm3 (4.5-10.0)
[2022-10-05 05:51] LABS: Anion Gap 6 mmol/L (8-16); Blood Urea Nitrogen 7 mg/dL (9-20); Calcium 8.5 mg/dL (8.4-10.2); Carbon Dioxide 27 mmol/L (22-30); Chloride 104 mmol/L (98-107); Estimated CRCL calculation 125 ml/min; Estimated Glomerular Filt Rate > 60; Glucose 105 mg/dL (65-110); Potassium 3.9 mmol/L (3.4-5.0); Sodium 137 mmol/L (137-145)
[2022-10-05 06:12] LABS: Vancomycin Trough 12.4 ug/mL (10.0-20.0)
[2022-10-05 08:12] LABS: Glucose Point of Care 142 mg/dl (65-105)
[2022-10-05] MEDS: PIOGLITAZONE HCL 30 MG TABLET PO (08:49)
[2022-10-05] MEDS: lisinopriL 10 MG TABLET 30 MG PO (08:50)
[2022-10-05] MEDS: ASPIRIN 81 MG ENTERIC TABLET PO (08:56)
--- NOTE | 2022-10-05 11:10 | PM.IMPN ---
Progress Note: A&P Assessment and Plan (1) Gangrenous toe: Code(s): I96 - Gangrene, not elsewhere classified Status: Acute Assessment and Plan: Surgery has been consulted. He has gangrene to the left great toe. Patient was started on vancomycin and Zosyn. Blood cultures and wound cultures are pending. Continue with analgesics. Arteriolar Dopplers have been ordered. White count is 10.3. Continue to monitor CBC and lactic. (2) JO on CPAP: Code(s): G47.33 - Obstructive sleep apnea (adult) (pediatric); Z99.89 - Dependence on other enabling machines and devices Status: Acute Assessment and Plan: Continue with home settings. (3) DM type 2 (diabetes mellitus, type 2): Qualifiers: Diabetes mellitus patient monitor insulin use: without fpc use Diabetes mellitus complication status: without complication Qualified Code(s): E11.9 - Type 2 diabetes mellitus without complications Code(s): E11.9 - Type 2 diabetes mellitus without complications Status: Acute Assessment and Plan: Accu-Cheks AC and and HS with sliding scale insulin and hypoglycemic protocol. Check A1c continue with Actos. (4) Benign essential hypertension: Code(s): I10 - Essential (primary) hypertension Status: Acute Assessment and Plan: Continue with lisinopril. Subjective Date/time seen: 10/05/22 11:10 Interval history: No complaints Exam Const: General: cooperative, comfortable, no acute distress, well developed, alert, awake, Physically active, ill appearing, average body habitus, well nourished and overweight Nutritional Appearance: average body habitus, well nourished and overweight Orientation/consciousness: oriented to person, oriented to place, oriented to time and patient oriented x3 Limitations: no limitations HENMT: Head: normal to inspection, No palpable skull fracture present, normocephalic and atraumatic Ears: hearing grossly normal bilaterally and external ears normal Face/Nose/Sinus: Normal external nose present and Normal nares present Mouth: Yes Normal oral and palatal mucosa present Eyes: General: appearance normal, both eyes and all related structures Alignment and Position: alignment normal Periorbital: periorbital findings normal Eyelids: eyelids normal Sclera: sclerae normal Pupils: Equal, round and reactive pupils present EOM: EOMs intact bilaterally Neck: Neck: normal visual inspection, full ROM, no lymphadenopathy, trachea midline and supple Chest: Chest palpation & inspection: normal inspection of the chest Resp: Effort & Inspection: normal respiratory effort Auscultation: clear to auscultation bilaterally Cardio: Palpation: normal PMI Rate: regular rate Rhythm: regular rhythm Heart sounds: S1 normal heart sound present and S2 normal heart sound present Peripheral pulses: Peripheral pulses 2+ throughout GI: Inspection: normal to inspection Auscultation: normal bowel sounds Rectal Exam: deferred Back/Spine/Pelvis: Cervical Spine: cervical ROM normal Skin: General skin exam: normal color Lesions: no lesions Rashes: no rashes Trauma: no lacerations or abrasions Hair: male pattern alopecia Nails: normal Other: Necrotic great toe on the left Neuro: General: oriented to person, oriented to place, oriented to time and patient oriented x3 Cranial nerves: Yes Equal, round and reactive pupils present and Yes Normal hearing present Cognition (Neuro): normal cognition Speech: normal speech Sensory Exam: normal sensation Extrem: General: normal to inspection Right upper extremity: normal to inspection and shoulder/upper arm Left upper extremity: normal to inspection and shoulder/upper arm Right lower extremity: normal to inspection Left lower extremity: edema Details: 2+ and foot Other: Gangrenous necrotic left great toe Psych: Appearance: grossly normal Mental Status: mental status grossly normal Speech and movement:
[2022-10-05 11:57] LABS: Glucose Point of Care 121 mg/dl (65-105)
--- NOTE | 2022-10-05 13:38 | WPDHPUPDATE1 ---
History and Physical Update Update Date/Time: 10/05/22 13:38 History and Physical has been reviewed, including an updated exam of the patient. There are NO changes in the patient's condition. Risks, benefits, and alternatives have been discussed and questions answered. Patient agrees to proceed with procedure.
[2022-10-05 14:17] LABS: Glucose Point of Care 109 mg/dl (65-105)
--- NOTE | 2022-10-05 14:55 | WPDANESEPPF ---
Anes - Initial Pre Proc Eval Procedure: Operation Date: 10/05/22 16:00 Proposed Procedures p Left Great Toe Amputation - Ritchie Torres DO Date/Time: 10/05/22 14:55 Surgeon: Bradley Cifuentes MD Pre Op Diagnosis: Diabetic Foot, Gangrenous Left Big Toe Patient Data Age: 61 Gender: M Height: 1.8 m Weight: 121 kg Last Vital Signs Temp 36.2 C L 10/05/22 14:05 Pulse 72 10/05/22 14:05 Resp 16 10/05/22 14:05 BP 146/70 H 10/05/22 14:05 Pulse Ox 99 10/05/22 14:05 O2 Del Method Room Air 10/05/22 14:05 Allergies Allergy/AdvReac Type Severity Reaction Status Date / Time latex Allergy Mild Redness of Verified 08/31/22 08:00 Skin Home Medications Medication Instructions Recorded Confirmed Type aspirin 81 mg tablet,delayed 81 mg PO DAILY 06/22/19 10/03/22 History release pioglitazone 30 mg tablet 30 mg PO DAILY #90 tabs 02/06/22 10/03/22 Rx lisinopril 30 mg tablet 30 mg PO DAILY #90 tabs 08/24/22 10/03/22 Rx metformin 1,000 mg tablet 1,000 mg PO BID 10/03/22 10/03/22 History Laboratory Tests 10/04/22 10/04/22 10/05/22 16:40 20:47 05:32 WBC 8.5 K/mm3 (4.5-10.0) RBC 3.65 L M/mm3 (4.6-6.20) Hgb 10.9 L g/dL (14.0-18.0) Hct 34.5 L % (42.0-52.0) MCV 94.5 fl (80-100) MCH 29.9 pg (26-34) MCHC 31.6 L g/dl (32-36) RDW 14.8 H % (11.5-14.5) Plt Count 276 k/mm3 (150-375) MPV 9.1 fl (7.4-10.4) Immature Gran % (Auto) 0.6 H % (0-0.5) Neut % (Auto) 71.1 % (45.5-73.1) Lymph % (Auto) 14.2 L % (18.3-44.2) [place] % (Auto) 7.9 % (2.6-8.5) Eos % (Auto) 5.5 H % (0-4.4) Baso % (Auto) 0.7 % (0.2-1.2) Lymph # (Auto) 1.21 K/mm3 (0.9-3.2) [place] # (Auto) 0.7 H K/mm3 (0.1-0.6) Eos # (Auto) 0.5 H K/mm3 (0-0.3) Baso # (Auto) 0.1 K/mm3 (0.0-0.1) Abs Immat Gran (auto) 0.05 H K/mm3 (0.00-0.031) Absolute Neuts (auto) 6.1 K/mm3 (1.3-6.7) Absolute Nucleated RBC 0.0 K/mm3 (0.0-0.012) Nucleated RBC % 0.0 % (0.0-0.2) Sodium 137 mmol/L (137-145) Potassium 3.9 mmol/L (3.4-5.0) Chloride 104 mmol/L (98-107) Carbon Dioxide 27 mmol/L (22-30) Anion Gap 6 L mmol/L (8-16) BUN 7 L mg/dL (9-20) Creatinine 0.70 mg/dL (0.7-1.3) Estim Creat Clear Calc 125 ml/min Estimated GFR > 60 (59 - ) Glucose 105 mg/dL (65-110) POC Capillary Glucose 136 H mg/dl 146 H mg/dl (65-105) (65-105) Calcium 8.5 mg/dL (8.4-10.2) Vancomycin Trough 12.4 ug/mL (10.0-20.0) 10/05/22 10/05/22 10/05/22 07:54 11:44 14:13 WBC RBC Hgb Hct MCV MCH MCHC RDW Plt Count MPV Immature Gran % (Auto) Neut % (Auto) Lymph % (Auto) [place] % (Auto) Eos % (Auto) Baso % (Auto) Lymph # (Auto) [place] # (Auto) Eos # (Auto) Baso # (Auto) Abs Immat Gran (auto) Absolute Neuts (auto) Absolute Nucleated RBC Nucleated RBC % Sodium Potassium Chloride Carbon Dioxide Anion Gap BUN Creatinine Estim Creat Clear Calc Estimated GFR Glucose POC Capillary Glucose 142 H mg/dl 121 H mg/dl 109 H mg/dl (65-105) (65-105) (65-105) Calcium Vancomycin Trough Patient hx anesthesia problems: none Family hx anesthesia problems: none Results Review: All pre-operative results and documents have been reviewed as p
--- NOTE | 2022-10-05 16:46 | P.OP_ITS ---
Procedure Note - Detailed Date of Procedure 10/05/22 Pre-op Diagnosis Diabetic Foot, Gangrenous Left Great Toe Post-op Diagnosis Same Procedure Performed Left 1st toe ray amputation Surgeon Ritchie Torres, DO Anesthesia General and Local (0.5% bupivacaine) Indications This is a 61-year-old man who presented with a gangrenous left great toe. He was experiencing a wound on his toe that worsened over the past several days. It has become black and has a foul smelling odor. Most of the toe appeared necrotic and gangrenous. He was admitted to the hospital and started on broad- spectrum IV antibiotics. I discussed treatment options with the patient. Decision was made to proceed with left great toe amputation. Findings Left great toe ray amputation was performed. The great toe had evidence of gangrenous necrosis. An incision was made back on the forefoot to excise all of the necrotic tissue. The metatarsal head was also excised to allow for tissue coverage over the remaining bone. The specimen was sent to the lab for pathology. Description of Procedure Procedure as well as risks, benefits, and alternatives were discussed with the patient. Written consent was obtained and placed in chart prior to procedure. Patient was brought back to surgical suite. He was placed supine on operating table. Time-out was done to confirm patient and procedure. He was then intubated by the anesthesia department. His left foot was prepped and draped in sterile fashion using Betadine prep. 0.5% bupivacaine was infiltrated locally around the medial forefoot and toe. An elliptical incision was made using a 15 blade scalpel. This encompassed the necrotic toes and and was back proximal enough on the forefoot skin to allow for healthy tissue for healing. The subcutaneous tissue was then dissected using electrocautery and then the muscular and tendinous attachments around the phalanx was dissected free using electrocautery. Then identified the metatarsal head and dissected the attachments to this to allow for resection of the metatarsal head. There appeared to be adequate healthy muscle and soft tissue to close over the wound. The bone was then transected just proximal to the metatarsal head using the [place] saw. Hemostasis was then achieved with electrocautery. There were a few remaining ligamentous attachments along the posterior side of the bone in these were then transected using electrocautery. This freed up the specimen completely it was removed and sent to the lab for pathology. A rasp was then used to curve the edges of the proximal bone. The area was then irrigated with sterile saline. No other abnormalities were noted. Hemostasis appeared adequate. The soft tissue was then closed over the bone using 0 Vicryl simple interrupted sutures. The skin edges appeared to come together without tension. The skin was then reapproximated using 3-0 Prolene simple interrupted sutures. Xeroform gauze, 4x4s, and Kerlix wrap was then used for dressings. The patient was then awakened from anesthesia, extubated, and transferred to recovery. Estimated Blood Loss 10 Pathology Yes (Left great toe) Complications No immediate complications Condition Stable Disposition Floor [facility] Billing Surgery - Charge Forward: Surgery Billing
[2022-10-05] MEDS: LACTATED RINGERS 1,000 ML 30 ML IV CONT ×2 (16:47→17:15)
[2022-10-05 17:07] LABS: Glucose Point of Care 87 mg/dl (65-105)
[2022-10-05] MEDS: HYDROmorphone HCL INJ (*CRX) 1 MG/ML SYR 0.5 MG IV PUSH (18:55)
[2022-10-05 20:24] LABS: Glucose Point of Care 93 mg/dl (65-105)
[2022-10-05] MEDS: HYDROmorphone HCL INJ (*CRX) 1 MG/ML SYR IV PUSH (20:46)
[2022-10-06] MEDS: HYDROcodone/acetaminophen (*CRX) 10-325 MG TABLET 1 TAB PO ×4 (00:26→20:29)
--- NOTE | 2022-10-06 00:30 | PC.NURSE ---
Patient c/o difficulty urinating. Was able to void 200 ml. Bladder scan done, showing 746 ml. Patient then able to void [address] Woodward orders to straight cath patient and if retaining again, to put in dupont catheter.
[2022-10-06] MEDS: ONDANSETRON INJ 4 MG/2 ML VIAL IV PUSH (00:42)
[2022-10-06 03:16] VITALS: BP 141/77; PULSE 75; RESP 12; TEMP 36.3; O2SAT 100
[2022-10-06] MEDS: PIPERACILLN/TAZ 3.375GM/NS50ML 3.375 GM/50 ML BAG IVPB (05:58)
[2022-10-06] MEDS: LACTATED RINGERS 1,000 ML 100 ML IV CONT (05:59)
[2022-10-06 07:27] LABS: Estimated CRCL calculation 82 ml/min; Estimated Glomerular Filt Rate > 60
[2022-10-06 08:15] LABS: Glucose Point of Care 137 mg/dl (65-105)
--- NOTE | 2022-10-06 08:57 | PCPTNOTE ---
Attempted PT evaluation, pt in too much pain at this time and just received pain medication. Will follow.
[2022-10-06] MEDS: ASPIRIN 81 MG ENTERIC TABLET PO (09:05)
[2022-10-06] MEDS: lisinopriL 10 MG TABLET 30 MG PO (09:05)
[2022-10-06] MEDS: PIOGLITAZONE HCL 30 MG TABLET PO (09:05)
--- NOTE | 2022-10-06 09:13 | WPDANESPN ---
Anes - Prog Note Post-Op Date/Time: 10/06/22 09:13 Cardiovascular status: normal Respiratory status: normal Airway patency: baseline Mental status: baseline Post-Op hydration status: normal Vital Signs: Last Vital Signs Temp 36.3 C L 10/06/22 03:16 Pulse 75 10/06/22 03:16 Resp 12 10/06/22 03:16 BP 141/77 H 10/06/22 03:16 Pulse Ox 100 10/06/22 03:16 O2 Del Method Room Air 10/05/22 20:00 O2 Flow Rate 10 10/05/22 17:00 Pain Score (VAS): 0 I/O: Intake & Output 10/05/22 10/06/22 10/06/22 23:59 07:59 15:59 Intake Total 1400 850 Output Total 1400 Balance 1400 -550 Laboratory Tests 10/05/22 05:32 10/06/22 07:05 10/05/22 10/05/22 10/05/22 11:44 14:13 17:04 Creatinine Estim Creat Clear Calc Estimated GFR POC Capillary Glucose 121 H 109 H 87 10/05/22 10/06/22 10/06/22 20:22 07:05 08:01 Creatinine 1.10 Estim Creat Clear Calc 82 Estimated GFR > 60 POC Capillary Glucose 93 137 H Microbiology 10/04/22 04:57 Toe Left Great Wound Culture - Preliminary Staphylococcus aureus Proteus Mirabilis Post-procedural complaints: none Patient Feedback: Patient satisfied with anesthetic care.
[2022-10-06 09:45] VITALS: BP 140/72; PULSE 68; RESP 16; TEMP 36.6; O2SAT 100
--- NOTE | 2022-10-06 10:45 | PM.PNGS ---
Progress Note: A&P Assessment and Plan (1) Gangrenous toe: Code(s): I96 - Gangrene, not elsewhere classified Status: Acute Assessment and Plan: Doing well on POD#1. PT/OT ordered for help with ambulation and weight bearing. Subjective Subjective Date/Time Seen: 10/06/22 10:45 Interval history: Doing well this AM. Tolerating diet. Had some urinary retention last night but doing better this AM. Pain controlled. Exam Skin: Other: Dressing dry. No significant tenderness or erythema. Objective Data Vital Signs Vital Signs: Vital Signs - 24 hr 10/05/22 14:05 10/05/22 16:47 10/05/22 17:00 Temperature 36.2 C L 36.2 C L Pulse Rate 72 75 71 Respiratory Rate 16 18 19 Blood Pressure 146/70 H 130/57 L 144/67 H Pulse Oximetry 99 100 100 Oxygen Delivery Room Air Simple Face Mask Simple Face Mask Oxygen Flow Rate 6 10 10/05/22 17:15 10/05/22 17:30 10/05/22 17:45 Temperature Pulse Rate 73 73 69 Respiratory Rate 16 14 13 Blood Pressure 149/78 H 141/77 H 166/72 H Pulse Oximetry 98 95 94 Oxygen Delivery Room Air Room Air Room Air Oxygen Flow Rate 10/05/22 20:00 10/05/22 19:37 10/05/22 22:48 Temperature 36.1 C L 36.1 C L Pulse Rate 72 72 67 Respiratory Rate 12 12 14 Blood Pressure 145/68 H 137/70 Pulse Oximetry 98 98 99 Oxygen Delivery Room Air Oxygen Flow Rate 10/06/22 03:16 10/06/22 09:45 Temperature 36.3 C L 36.6 C Pulse Rate 75 68 Respiratory Rate 12 16 Blood Pressure 141/77 H 140/72 Pulse Oximetry 100 100 Oxygen Delivery Oxygen Flow Rate Intake/Output Intake/Output: Intake & Output 10/03/22 10/04/22 10/05/22 10/06/22 23:59 23:59 23:59 23:59 Intake Total 1300 4162 3100 1330 Output Total 1400 Balance 1300 4162 3100 -70 Meds/Results Medications: Active Medications Generic Name Dose Route Start Last Admin Trade Name Freq PRN Reason Stop Dose Admin Acetaminophen 650 mg 10/03/22 18:07 Acetaminophen 325 Mg Tablet PO Q4H PRN Mild Pain (1-3) or Fever Hydrocodone Bitart/Acetaminophen 1 tab 10/05/22 17:52 Hydrocodone/Acetaminophen (*Crx) 5-325 Mg Tablet PO Q4H PRN Pain Rated 4-6 Hydrocodone Bitart/Acetaminophen 1 tab 10/05/22 17:52 10/06/22 08:30 Hydrocodone/Acetaminophen (*Crx) 10-325 Mg Tablet PO 1 tab Q6H PRN Administration Pain Rated 7-10 Aspirin 81 mg 10/04/22 09:00 10/05/22 08:56 Aspirin 81 Mg Enteric Tablet PO 81 mg DAILY SANTY Administration Dextrose 12.5 gm 10/04/22 00:22 Dextrose 50% 25 Gm/50 Ml Syringe IV PUSH PRN PRN Hypoglycemia Protocol Enoxaparin Sodium 40 mg 10/06/22 09:00 Enoxaparin 40 Mg/0.4 Ml Syringe SUB-Q DAILY SANTY Glucagon 1 mg 10/04/22 00:22 Glucagon For Inj 1 Mg Vial IM PRN PRN Hypoglycemia Protocol Glucose 15 gm 10/04/22 00:22 Glucose Oral Gel 15 Gm Of Glucse In 37.5 Gm Tube PO PRN PRN Hypoglycemia Protocol Hydromorphone HCl 0.5 mg 10/05/22 17:52 10/05/22 18:55 Hydromorphone Hcl Inj (*Crx) 1 Mg/Ml Syr IV PUSH 0.5 mg Q2H PRN Administration Pain Rated 4-6 Hydromorphone HCl 1 mg 10/05/22 17:52 10/05/22 20:46 Hydromorphone Hcl Inj (*Crx) 1 Mg/Ml Syr IV PUSH 1 mg Q2H PRN Administration Pain Rated 7-10 Piperacillin/Tazobactam/Dextrose 3.375 gm in 50 mls @ 100 mls/hr 10/04/22 00:00 10/06/22 06:28 Zosyn 3.375 Gm/Ns 50 Ml IVPB Infused Q6H SANTY Infusion Dextrose 1,000 mls @ 100 mls/hr 10/04/22 00:22 Dextrose 5% 1,000 Ml IVPB PRN PRN Hypoglycemia Protocol Vancomycin HCl 1,750 mg in 500 mls @ 250 mls/hr 10/05/22 07:00 10/06/22 06:30 Vancomycin 1,750 Mg/D5w 500 Ml IVPB 250 mls/hr Q12H SANTY Administration Insulin Aspart 2 - 5 units 10/04/22 08:00 10/05/22 19:01 Insulin Aspart (*Bkc) 100 Units/Ml SUB-Q Not Given [facility] Protocol Insulin Aspart 1 - 2 units 10/04/22 21:00 10/05/22 20:34 Insu
[2022-10-06 11:49] LABS: Glucose Point of Care 156 mg/dl (65-105)
--- NOTE | 2022-10-06 11:53 | PM.IMPN ---
Progress Note: A&P Assessment and Plan (1) Gangrenous toe: Code(s): I96 - Gangrene, not elsewhere classified Status: Acute Assessment and Plan: sp surgical intervention Patient was started on vancomycin and Zosyn. Blood cultures and wound cultures are pending. (2) JO on CPAP: Code(s): G47.33 - Obstructive sleep apnea (adult) (pediatric); Z99.89 - Dependence on other enabling machines and devices Status: Acute Assessment and Plan: Continue with home settings. (3) DM type 2 (diabetes mellitus, type 2): Qualifiers: Diabetes mellitus custodial insulin use: without extermination supervisor use Diabetes mellitus complication status: without complication Qualified Code(s): E11.9 - Type 2 diabetes mellitus without complications Code(s): E11.9 - Type 2 diabetes mellitus without complications Status: Acute Assessment and Plan: Accu-Cheks AC and and HS with sliding scale insulin and hypoglycemic protocol. Check A1c continue with Actos. (4) Benign essential hypertension: Code(s): I10 - Essential (primary) hypertension Status: Acute Assessment and Plan: Continue with lisinopril. Subjective Date/time seen: 10/06/22 11:53 Interval history: no complaints Exam Const: General: cooperative, comfortable, no acute distress, well developed, alert, awake, Physically active, ill appearing, average body habitus, well nourished and overweight Nutritional Appearance: average body habitus, well nourished and overweight Orientation/consciousness: oriented to person, oriented to place, oriented to time and patient oriented x3 Limitations: no limitations HENMT: Head: normal to inspection, No palpable skull fracture present, normocephalic and atraumatic Ears: hearing grossly normal bilaterally and external ears normal Face/Nose/Sinus: Normal external nose present and Normal nares present Mouth: Yes Normal oral and palatal mucosa present Eyes: General: appearance normal, both eyes and all related structures Alignment and Position: alignment normal Periorbital: periorbital findings normal Eyelids: eyelids normal Sclera: sclerae normal Pupils: Equal, round and reactive pupils present EOM: EOMs intact bilaterally Neck: Neck: normal visual inspection, full ROM, no lymphadenopathy, trachea midline and supple Chest: Chest palpation & inspection: normal inspection of the chest Resp: Effort & Inspection: normal respiratory effort Auscultation: clear to auscultation bilaterally Cardio: Palpation: normal PMI Rate: regular rate Rhythm: regular rhythm Heart sounds: S1 normal heart sound present and S2 normal heart sound present Peripheral pulses: Peripheral pulses 2+ throughout GI: Inspection: normal to inspection Auscultation: normal bowel sounds Rectal Exam: deferred Back/Spine/Pelvis: Cervical Spine: cervical ROM normal Skin: General skin exam: normal color Lesions: no lesions Rashes: no rashes Trauma: no lacerations or abrasions Hair: male pattern alopecia Nails: normal Other: Necrotic great toe on the left Neuro: General: oriented to person, oriented to place, oriented to time and patient oriented x3 Cranial nerves: Yes Equal, round and reactive pupils present and Yes Normal hearing present Cognition (Neuro): normal cognition Speech: normal speech Sensory Exam: normal sensation Extrem: General: normal to inspection Right upper extremity: normal to inspection and shoulder/upper arm Left upper extremity: normal to inspection and shoulder/upper arm Right lower extremity: normal to inspection Left lower extremity: edema Details: 2+ and foot Other: Gangrenous necrotic left great toe Psych: Appearance: grossly normal Mental Status: mental status grossly normal Speech and movement: Normal speech and movement present Affect: normal affect Attitude: cooperative Thought process: Normal thought process present Insight: Good insight present (Psych)
[2022-10-06] MEDS: cefTRIAXone 2 GM/NS 100 ML 2 GM/100 ML BAG IVPB (12:45)
[2022-10-06 14:46] VITALS: BP 152/86; PULSE 72; RESP 18; TEMP 36.6; O2SAT 99
[2022-10-06 17:31] LABS: Glucose Point of Care 121 mg/dl (65-105)
[2022-10-06 18:27] LABS: Vancomycin Trough 27.2 ug/mL (10.0-20.0)
[2022-10-06] MEDS: ENOXAPARIN 40 MG/0.4 ML SYRINGE SUB-Q (18:39)
[2022-10-06 19:37] VITALS: BP 165/76; PULSE 80; RESP 18; TEMP 35.8; O2SAT 96
[2022-10-06 21:58] LABS: Glucose Point of Care 132 mg/dl (65-105)
[2022-10-07] VITALS (7 sets, daily range): BP systolic 130–164; BP diastolic 64–88; PULSE 68–85; RESP 16–20; TEMP 35.7–36.4; O2SAT 97–100
[2022-10-07] MEDS: HYDROcodone/acetaminophen (*CRX) 10-325 MG TABLET 1 TAB PO ×3 (05:09→18:30)
[2022-10-07 08:19] LABS: Glucose Point of Care 113 mg/dl (65-105)
[2022-10-07] MEDS: ASPIRIN 81 MG ENTERIC TABLET PO (08:33)
[2022-10-07] MEDS: ENOXAPARIN 40 MG/0.4 ML SYRINGE SUB-Q (08:34)
[2022-10-07] MEDS: lisinopriL 10 MG TABLET 30 MG PO (08:35)
[2022-10-07] MEDS: SILVERGEL (ELTA) 45 ML 1 APPLIC TOPICAL (08:36)
[2022-10-07] MEDS: PIOGLITAZONE HCL 30 MG TABLET PO (08:37)
[2022-10-07] MEDS: ONDANSETRON INJ 4 MG/2 ML VIAL IV PUSH (09:19)
--- NOTE | 2022-10-07 11:18 | PM.PNGS ---
Progress Note: A&P Assessment and Plan (1) Gangrenous toe: Code(s): I96 - Gangrene, not elsewhere classified Status: Acute Assessment and Plan: Continue PT/OT and local wound care. Stimulate bowels Hopefully home in next 1-2 days. Subjective Subjective Date/Time Seen: 10/07/22 11:18 Interval history: Tolerating foot pain. Mostly having nausea and dry heaves. No BM for several days. Exam Extrem: Other: Mild ecchymosis at inferior part of incision. Incision intact with sutures. Mild erythema across forefoot. Objective Data Vital Signs Vital Signs: Vital Signs - 24 hr 10/06/22 14:22 10/06/22 14:46 10/06/22 20:10 Temperature 36.6 C Pulse Rate 72 Respiratory Rate 18 Blood Pressure 152/86 H Pulse Oximetry 99 Oxygen Delivery Room Air Room Air Fraction of Inspired Oxygen 10/07/22 00:30 10/06/22 19:37 10/07/22 03:07 Temperature 35.8 C L Pulse Rate 80 Respiratory Rate 16 18 Blood Pressure 165/76 H Pulse Oximetry 96 Oxygen Delivery Autopap Autopap Fraction of Inspired Oxygen 10/07/22 06:06 10/07/22 04:45 10/07/22 08:37 Temperature 35.7 C L Pulse Rate 85 Respiratory Rate 19 20 Blood Pressure 154/88 H Pulse Oximetry 97 97 Oxygen Delivery Autopap Room Air Fraction of Inspired Oxygen 21 Intake/Output Intake/Output: Intake & Output 10/04/22 10/05/22 10/06/22 10/07/22 23:59 23:59 23:59 23:59 Intake Total 4162 3100 2760 440 Output Total 1400 Balance 4162 3100 1360 440 Meds/Results Medications: Active Medications Generic Name Dose Route Start Last Admin Trade Name Freq PRN Reason Stop Dose Admin Acetaminophen 650 mg 10/03/22 18:07 Acetaminophen 325 Mg Tablet PO Q4H PRN Mild Pain (1-3) or Fever Hydrocodone Bitart/Acetaminophen 1 tab 10/05/22 17:52 Hydrocodone/Acetaminophen (*Crx) 5-325 Mg Tablet PO Q4H PRN Pain Rated 4-6 Hydrocodone Bitart/Acetaminophen 1 tab 10/05/22 17:52 10/07/22 05:09 Hydrocodone/Acetaminophen (*Crx) 10-325 Mg Tablet PO 1 tab Q6H PRN Administration Pain Rated 7-10 Al Hydrox/Mg Hydrox/Simethicone 30 ml 10/07/22 09:31 Mag Hydrox/Al Hydrox/Simeth 30 Ml Udc PO Q6H PRN Indigestion Aspirin 81 mg 10/04/22 09:00 10/07/22 08:33 Aspirin 81 Mg Enteric Tablet PO 81 mg DAILY SANTY Administration Dextrose 12.5 gm 10/04/22 00:22 Dextrose 50% 25 Gm/50 Ml Syringe IV PUSH PRN PRN Hypoglycemia Protocol Enoxaparin Sodium 40 mg 10/06/22 09:00 10/07/22 08:34 Enoxaparin 40 Mg/0.4 Ml Syringe SUB-Q 40 mg DAILY SANTY Administration Glucagon 1 mg 10/04/22 00:22 Glucagon For Inj 1 Mg Vial IM PRN PRN Hypoglycemia Protocol Glucose 15 gm 10/04/22 00:22 Glucose Oral Gel 15 Gm Of Glucse In 37.5 Gm Tube PO PRN PRN Hypoglycemia Protocol Hydromorphone HCl 0.5 mg 10/05/22 17:52 10/05/22 18:55 Hydromorphone Hcl Inj (*Crx) 1 Mg/Ml Syr IV PUSH 0.5 mg Q2H PRN Administration Pain Rated 4-6 Hydromorphone HCl 1 mg 10/05/22 17:52 10/05/22 20:46 Hydromorphone Hcl Inj (*Crx) 1 Mg/Ml Syr IV PUSH 1 mg Q2H PRN Administration Pain Rated 7-10 Dextrose 1,000 mls @ 100 mls/hr 10/04/22 00:22 Dextrose 5% 1,000 Ml IVPB PRN PRN Hypoglycemia Protocol Ceftriaxone Sodium 2 gm in 100 mls @ 200 mls/hr 10/06/22 12:30 10/06/22 13:15 Rocephin 2 Gm/Ns 100 Ml IVPB Infused DAILY@1200 SANTY Infusion Vancomycin HCl 1,750 mg in 500 mls @ 250 mls/hr 10/07/22 09:00 Vancomycin 1,750 Mg/D5w 500 Ml IVPB Q18H [facility] Insulin Aspart 2 - 5 units 10/04/22 08:00 10/07/22 08:25 Insulin Aspart (*Bkc) 100 Units/Ml SUB-Q Not Given TIDWM [facility] Protocol Insulin Aspart 1 - 2 units 10/04/22 21:00 10/07/22 05:07 Insulin Aspart (*Bkc) 100 Units/Ml SUB-Q Not Given HS [facility] Protocol Lisinopril 30 mg 10/04/22 09:00 10/07/22 08:35
--- NOTE | 2022-10-07 11:18 | PM.IMPN ---
Progress Note: A&P Assessment and Plan (1) Gangrenous toe: Code(s): I96 - Gangrene, not elsewhere classified Status: Acute Assessment and Plan: Cultures noted Status post surgical intervention. Continue vanc and Rocephin. (2) JO on CPAP: Code(s): G47.33 - Obstructive sleep apnea (adult) (pediatric); Z99.89 - Dependence on other enabling machines and devices Status: Acute Assessment and Plan: Continue with home settings. (3) DM type 2 (diabetes mellitus, type 2): Qualifiers: Diabetes mellitus termite control servicer insulin use: without termite control servicer use Diabetes mellitus complication status: without complication Qualified Code(s): E11.9 - Type 2 diabetes mellitus without complications Code(s): E11.9 - Type 2 diabetes mellitus without complications Status: Acute Assessment and Plan: Accu-Cheks AC and and HS with sliding scale insulin and hypoglycemic protocol. Check A1c continue with Actos. (4) Benign essential hypertension: Code(s): I10 - Essential (primary) hypertension Status: Acute Assessment and Plan: Continue with lisinopril. Subjective Date/time seen: 10/07/22 11:18 Interval history: No new complaint Exam Const: General: cooperative, comfortable, no acute distress, well developed, alert, awake, Physically active, ill appearing, average body habitus, well nourished and overweight Nutritional Appearance: average body habitus, well nourished and overweight Orientation/consciousness: oriented to person, oriented to place, oriented to time and patient oriented x3 Limitations: no limitations HENMT: Head: normal to inspection, No palpable skull fracture present, normocephalic and atraumatic Ears: hearing grossly normal bilaterally and external ears normal Face/Nose/Sinus: Normal external nose present and Normal nares present Mouth: Yes Normal oral and palatal mucosa present Eyes: General: appearance normal, both eyes and all related structures Alignment and Position: alignment normal Periorbital: periorbital findings normal Eyelids: eyelids normal Sclera: sclerae normal Pupils: Equal, round and reactive pupils present EOM: EOMs intact bilaterally Neck: Neck: normal visual inspection, full ROM, no lymphadenopathy, trachea midline and supple Chest: Chest palpation & inspection: normal inspection of the chest Resp: Effort & Inspection: normal respiratory effort Auscultation: clear to auscultation bilaterally Cardio: Palpation: normal PMI Rate: regular rate Rhythm: regular rhythm Heart sounds: S1 normal heart sound present and S2 normal heart sound present Peripheral pulses: Peripheral pulses 2+ throughout GI: Inspection: normal to inspection Auscultation: normal bowel sounds Rectal Exam: deferred Back/Spine/Pelvis: Cervical Spine: cervical ROM normal Skin: General skin exam: normal color Lesions: no lesions Rashes: no rashes Trauma: no lacerations or abrasions Hair: male pattern alopecia Nails: normal Other: Necrotic great toe on the left Neuro: General: oriented to person, oriented to place, oriented to time and patient oriented x3 Cranial nerves: Yes Equal, round and reactive pupils present and Yes Normal hearing present Cognition (Neuro): normal cognition Speech: normal speech Sensory Exam: normal sensation Extrem: General: normal to inspection Right upper extremity: normal to inspection and shoulder/upper arm Left upper extremity: normal to inspection and shoulder/upper arm Right lower extremity: normal to inspection Left lower extremity: edema Details: 2+ and foot Other: Gangrenous necrotic left great toe Psych: Appearance: grossly normal Mental Status: mental status grossly normal Speech and movement: Normal speech and movement present Affect: normal affect Attitude: cooperative Thought process: Normal thought process present Insight: Good insight present (Psych) Judgement: Good judgement present (
[2022-10-07 12:22] LABS: Glucose Point of Care 154 mg/dl (65-105)
[2022-10-07] MEDS: cefTRIAXone 2 GM/NS 100 ML 2 GM/100 ML BAG IVPB (15:03)
[2022-10-07 16:48] LABS: Glucose Point of Care 148 mg/dl (65-105)
--- NOTE | 2022-10-07 17:14 | PC.NURSE ---
I have reviewed and agree with Mary SOUSA's charting.
[2022-10-07] MEDS: LORATADINE 5 MG TABLET PO (17:42)
[2022-10-07 21:12] LABS: Glucose Point of Care 151 mg/dl (65-105)
[2022-10-08 00:35] VITALS: RESP 17
[2022-10-08] MEDS: HYDROcodone/acetaminophen (*CRX) 10-325 MG TABLET 1 TAB PO ×2 (04:54→14:53)
[2022-10-08 06:00] VITALS: BP 150/81; PULSE 70; RESP 20; TEMP 35.5; O2SAT 98
[2022-10-08 06:33] LABS: Estimated CRCL calculation 33 ml/min; Estimated Glomerular Filt Rate 23
[2022-10-08 07:59] LABS: Glucose Point of Care 135 mg/dl (65-105)
[2022-10-08] MEDS: LORATADINE 5 MG TABLET PO (09:23)
[2022-10-08] MEDS: ENOXAPARIN 40 MG/0.4 ML SYRINGE SUB-Q (09:24)
[2022-10-08] MEDS: lisinopriL 10 MG TABLET 30 MG PO (09:25)
[2022-10-08] MEDS: polyethylene glycoL 3350 17 GM POWD.PACK PO (09:26)
[2022-10-08] MEDS: PIOGLITAZONE HCL 30 MG TABLET PO (09:26)
[2022-10-08] MEDS: ASPIRIN 81 MG ENTERIC TABLET PO (09:26)
--- NOTE | 2022-10-08 11:37 | PM.DS ---
DS: Admitting Diagnosis Discharge Date October 08, 2022 Admitting Diagnosis Diabetic foot ulcer DS: Discharge Diagnosis Discharge Diagnosis (1) Gangrenous toe: Code(s): I96 - Gangrene, not elsewhere classified Status: Acute Assessment and Plan: Cultures noted Status post surgical intervention. Continue vanc and Rocephin. (2) JO on CPAP: Code(s): G47.33 - Obstructive sleep apnea (adult) (pediatric); Z99.89 - Dependence on other enabling machines and devices Status: Acute Assessment and Plan: Continue with home settings. (3) DM type 2 (diabetes mellitus, type 2): Qualifiers: Diabetes mellitus intermediate project manager insulin use: without skilled nursing use Diabetes mellitus complication status: without complication Qualified Code(s): E11.9 - Type 2 diabetes mellitus without complications Code(s): E11.9 - Type 2 diabetes mellitus without complications Status: Acute Assessment and Plan: Accu-Cheks AC and and HS with sliding scale insulin and hypoglycemic protocol. Check A1c continue with Actos. (4) Benign essential hypertension: Code(s): I10 - Essential (primary) hypertension Status: Acute Assessment and Plan: Continue with lisinopril. DS: Summary Hospital Course Hospital Course: Patient was admitted foot diabetic foot ulcer had toe amputation. Did well postop. Seven days of antibiotics on discharge. Follow-up with surgery after discharge. Otherwise patient is stable and can be discharged Time Spent with Patient Time attestation: Total time spent providing and/or coordinating discharge services: Exam Const: General: cooperative, comfortable, no acute distress, well developed, alert, awake, Physically active, ill appearing, average body habitus, well nourished and overweight Nutritional Appearance: average body habitus, well nourished and overweight Orientation/consciousness: oriented to person, oriented to place, oriented to time and patient oriented x3 Limitations: no limitations HENMT: Head: normal to inspection, No palpable skull fracture present, normocephalic and atraumatic Ears: hearing grossly normal bilaterally and external ears normal Face/Nose/Sinus: Normal external nose present and Normal nares present Mouth: Yes Normal oral and palatal mucosa present Eyes: General: appearance normal, both eyes and all related structures Alignment and Position: alignment normal Periorbital: periorbital findings normal Eyelids: eyelids normal Sclera: sclerae normal Pupils: Equal, round and reactive pupils present EOM: EOMs intact bilaterally Neck: Neck: normal visual inspection, full ROM, no lymphadenopathy, trachea midline and supple Chest: Chest palpation & inspection: normal inspection of the chest Resp: Effort & Inspection: normal respiratory effort Auscultation: clear to auscultation bilaterally Cardio: Palpation: normal PMI Rate: regular rate Rhythm: regular rhythm Heart sounds: S1 normal heart sound present and S2 normal heart sound present Peripheral pulses: Peripheral pulses 2+ throughout GI: Inspection: normal to inspection Auscultation: normal bowel sounds Rectal Exam: deferred Back/Spine/Pelvis: Cervical Spine: cervical ROM normal Skin: General skin exam: normal color Lesions: no lesions Rashes: no rashes Trauma: no lacerations or abrasions Hair: male pattern alopecia Nails: normal Other: Necrotic great toe on the left Neuro: General: oriented to person, oriented to place, oriented to time and patient oriented x3 Cranial nerves: Yes Equal, round and reactive pupils present and Yes Normal hearing present Cognition (Neuro): normal cognition Speech: normal speech Sensory Exam: normal sensation Extrem: General: normal to inspection Right upper extremity: normal to inspection and shoulder/upper arm Left upper extremity: normal to inspection and shoulder/upper arm Right lower extremity: normal to inspection Left lower
[2022-10-08] MEDS: HYDROcodone/acetaminophen (*CRX) 5-325 MG TABLET 1 TAB PO (11:54)
[2022-10-08 11:57] LABS: Glucose Point of Care 150 mg/dl (65-105)
[2022-10-08] MEDS: cefTRIAXone 2 GM/NS 100 ML 2 GM/100 ML BAG IVPB (14:06)
[2022-10-08 14:55] VITALS: BP 152/95; PULSE 70; RESP 18; TEMP 36.4; O2SAT 100
[2022-10-08] MEDS: SODIUM CHLORIDE 0.9% IV 1,000 ML 50 ML IV CONT (16:26)
--- NOTE | 2022-10-08 16:30 | PM.PNGS ---
Progress Note: A&P Assessment and Plan (1) Gangrenous toe: Code(s): I96 - Gangrene, not elsewhere classified Status: Acute Assessment and Plan: Continue PT/OT and local wound care. Stimulate bowels Home tomorrow if kidney function improved. Subjective Subjective Date/Time Seen: 10/08/22 16:30 Interval history: nausea improved, he thinks it was the higher dose hydrocodone that caused it. was hoping to discharge today but Cr elevated and discharge on hold. Exam Extrem: Other: Mild ecchymosis at inferior part of incision. Incision intact with sutures. Mild erythema across forefoot. Objective Data Vital Signs Vital Signs: Vital Signs - 24 hr 10/07/22 20:10 10/07/22 22:00 10/08/22 00:35 Temperature 36.2 C L Pulse Rate 68 80 Respiratory Rate 16 16 17 Blood Pressure 164/77 H Pulse Oximetry 100 100 Oxygen Delivery Room Air Autopap Fraction of Inspired Oxygen 21 10/08/22 06:00 10/08/22 14:55 10/08/22 09:20 Temperature 35.5 C L 36.4 C Pulse Rate 70 70 Respiratory Rate 20 18 Blood Pressure 150/81 H 152/95 H Pulse Oximetry 98 100 Oxygen Delivery Room Air Fraction of Inspired Oxygen Intake/Output Intake/Output: Intake & Output 10/05/22 10/06/22 10/07/22 10/08/22 23:59 23:59 23:59 23:59 Intake Total 3100 2760 1920 930 Output Total 1400 Balance 3100 1360 1920 930 Meds/Results Medications: Active Medications Generic Name Dose Route Start Last Admin Trade Name Freq PRN Reason Stop Dose Admin Acetaminophen 650 mg 10/03/22 18:07 Acetaminophen 325 Mg Tablet PO Q4H PRN Mild Pain (1-3) or Fever Hydrocodone Bitart/Acetaminophen 1 tab 10/05/22 17:52 10/08/22 11:54 Hydrocodone/Acetaminophen (*Crx) 5-325 Mg Tablet PO 1 tab Q4H PRN Administration Pain Rated 4-6 Hydrocodone Bitart/Acetaminophen 1 tab 10/05/22 17:52 10/08/22 14:53 Hydrocodone/Acetaminophen (*Crx) 10-325 Mg Tablet PO 1 tab Q6H PRN Administration Pain Rated 7-10 Al Hydrox/Mg Hydrox/Simethicone 30 ml 10/07/22 09:31 Mag Hydrox/Al Hydrox/Simeth 30 Ml Udc PO Q6H PRN Indigestion Amoxicillin/Clavulanate Potassium 1 tablet 10/09/22 09:00 Amoxicillin/Clavulanate K 875-125 Mg Tab PO Q12HR [facility]ANT[facility] Aspirin 81 mg 10/04/22 09:00 10/08/22 09:26 Aspirin 81 Mg Enteric Tablet PO 81 mg DAILY SANTY Administration Dextrose 12.5 gm 10/04/22 00:22 Dextrose 50% 25 Gm/50 Ml Syringe IV PUSH PRN PRN Hypoglycemia Protocol Doxycycline Hyclate 100 mg 10/08/22 21:00 Doxycycline Hyclate 100 Mg Tablet PO Q12HR [facility] Enoxaparin Sodium 40 mg 10/06/22 09:00 10/08/22 09:24 Enoxaparin 40 Mg/0.4 Ml Syringe SUB-Q 40 mg DAILY SANTY Administration Glucagon 1 mg 10/04/22 00:22 Glucagon For Inj 1 Mg Vial IM PRN PRN Hypoglycemia Protocol Glucose 15 gm 10/04/22 00:22 Glucose Oral Gel 15 Gm Of Glucse In 37.5 Gm Tube PO PRN PRN Hypoglycemia Protocol Hydromorphone HCl 0.5 mg 10/05/22 17:52 10/05/22 18:55 Hydromorphone Hcl Inj (*Crx) 1 Mg/Ml Syr IV PUSH 0.5 mg Q2H PRN Administration Pain Rated 4-6 Hydromorphone HCl 1 mg 10/05/22 17:52 10/05/22 20:46 Hydromorphone Hcl Inj (*Crx) 1 Mg/Ml Syr IV PUSH 1 mg Q2H PRN Administration Pain Rated 7-10 Dextrose 1,000 mls @ 100 mls/hr 10/04/22 00:22 Dextrose 5% 1,000 Ml IVPB PRN PRN Hypoglycemia Protocol Sodium Chloride 1,000 mls @ 50 mls/hr 10/08/22 14:40 10/08/22 16:26 Normal Saline Iv IV CONT 50 mls/hr .Q20H SANT[facility] Administration Insulin Aspart 2 - 5 units 10/04/22 08:00 10/08/22 13:47 Insulin Aspart (*Bkc) 100 Units/Ml SUB-Q Not Given TIDWM [facility] Protocol Insulin Aspart 1 - 2 units 10/04/22 21:00 10/08/22 02:43 Insulin Aspart (*Bkc) 100 Units/Ml SUB-Q Not Given HS [facility] Protocol Lisinopril 30 mg 10/04/22 09:00 10/08/22 09:25 Lisin
[2022-10-08 17:04] LABS: Glucose Point of Care 107 mg/dl (65-105)
--- NOTE | 2022-10-08 18:42 | PC.NURSE ---
I reviewed Mary Linares's charting and agree with her charting
[2022-10-08 20:55] LABS: Glucose Point of Care 131 mg/dl (65-105)
[2022-10-08] MEDS: SENNA/DOCUSATE SODIUM TABLET 1 TAB PO (21:21)
[2022-10-08] MEDS: DOXYCYCLINE HYCLATE 100 MG TABLET PO (21:21)
[2022-10-08 22:00] VITALS: BP 169/93; PULSE 77; RESP 16; TEMP 36.1; O2SAT 100
[2022-10-08] MEDS: ONDANSETRON INJ 4 MG/2 ML VIAL IV PUSH (22:05)
[2022-10-08 22:15] VITALS: O2SAT 99
[2022-10-08] MEDS: diphenhydrAMINE HCl CAP 25 MG CAPSULE PO (23:29)
[2022-10-09 00:30] VITALS: RESP 19
[2022-10-09 06:00] VITALS: BP 141/68; PULSE 73; RESP 16; TEMP 36.1; O2SAT 99
[2022-10-09 06:46] LABS: Anion Gap 8 mmol/L (8-16); Blood Urea Nitrogen 20 mg/dL (9-20); Carbon Dioxide 23 mmol/L (22-30); Chloride 107 mmol/L (98-107); Estimated CRCL calculation 31 ml/min; Estimated Glomerular Filt Rate 21; Glucose 118 mg/dL (65-110); Potassium 4.2 mmol/L (3.4-5.0); Sodium 138 mmol/L (137-145)
[2022-10-09 07:55] LABS: Glucose Point of Care 112 mg/dl (65-105)
[2022-10-09] MEDS: DOXYCYCLINE HYCLATE 100 MG TABLET PO ×2 (08:45→20:18)
[2022-10-09] MEDS: LORATADINE 5 MG TABLET PO (08:45)
[2022-10-09] MEDS: ENOXAPARIN 40 MG/0.4 ML SYRINGE SUB-Q (08:45)
[2022-10-09] MEDS: PIOGLITAZONE HCL 30 MG TABLET PO (08:46)
[2022-10-09] MEDS: AMOXICILLIN/CLAVULANATE K 875-125 MG TAB 1 TABLET PO ×2 (08:50→20:18)
[2022-10-09] MEDS: MAG HYDROX/AL HYDROX/SIMETH 30 ML UDC PO (08:50)
[2022-10-09] MEDS: ASPIRIN 81 MG ENTERIC TABLET PO (08:50)
[2022-10-09] MEDS: polyethylene glycoL 3350 17 GM POWD.PACK PO (08:50)
[2022-10-09] MEDS: SODIUM CHLORIDE 0.9% IV 1,000 ML 50 ML IV CONT (09:00)
[2022-10-09 11:51] LABS: Glucose Point of Care 129 mg/dl (65-105)
--- NOTE | 2022-10-09 11:53 | PM.PNGS ---
Progress Note: A&P Assessment and Plan (1) Gangrenous toe: Code(s): I96 - Gangrene, not elsewhere classified Status: Acute Assessment and Plan: Continue local wound care Oral antibiotics for 1 more week Home when Kidney function improves. Subjective Subjective Date/Time Seen: 10/09/22 11:53 Interval history: Pain improving. Ambulating with boot with minimal difficulty. Exam Extrem: Other: Mild ecchymosis at inferior part of incision. Incision intact with sutures. Mild erythema across forefoot. Objective Data Vital Signs Vital Signs: Vital Signs - 24 hr 10/08/22 14:55 10/08/22 22:00 10/08/22 22:15 Temperature 36.4 C 36.1 C L Pulse Rate 70 77 Respiratory Rate 18 16 Blood Pressure 152/95 H 169/93 H Pulse Oximetry 100 100 99 Oxygen Delivery Room Air 10/09/22 00:30 10/09/22 06:00 Temperature 36.1 C L Pulse Rate 73 Respiratory Rate 19 16 Blood Pressure 141/68 H Pulse Oximetry 99 Oxygen Delivery Autopap Intake/Output Intake/Output: Intake & Output 10/06/22 10/07/22 10/08/22 10/09/22 23:59 23:59 23:59 23:59 Intake Total 2760 1920 1570 1915 Output Total 1400 350 Balance 1360 1920 1570 1565 Meds/Results Medications: Active Medications Generic Name Dose Route Start Last Admin Trade Name Freq PRN Reason Stop Dose Admin Acetaminophen 650 mg 10/03/22 18:07 Acetaminophen 325 Mg Tablet PO Q4H PRN Mild Pain (1-3) or Fever Hydrocodone Bitart/Acetaminophen 1 tab 10/05/22 17:52 10/08/22 11:54 Hydrocodone/Acetaminophen (*Crx) 5-325 Mg Tablet PO 1 tab Q4H PRN Administration Pain Rated 4-6 Hydrocodone Bitart/Acetaminophen 1 tab 10/05/22 17:52 10/08/22 14:53 Hydrocodone/Acetaminophen (*Crx) 10-325 Mg Tablet PO 1 tab Q6H PRN Administration Pain Rated 7-10 Al Hydrox/Mg Hydrox/Simethicone 30 ml 10/07/22 09:31 10/09/22 08:50 Mag Hydrox/Al Hydrox/Simeth 30 Ml Udc PO 30 ml Q6H PRN Administration Indigestion Amoxicillin/Clavulanate Potassium 1 tablet 10/09/22 09:00 10/09/22 08:50 Amoxicillin/Clavulanate K 875-125 Mg Tab PO 1 tablet Q12HR [facility]ANT[facility] Administration Aspirin 81 mg 10/04/22 09:00 10/09/22 08:50 Aspirin 81 Mg Enteric Tablet PO 81 mg DAILY SANTY Administration Dextrose 12.5 gm 10/04/22 00:22 Dextrose 50% 25 Gm/50 Ml Syringe IV PUSH PRN PRN Hypoglycemia Protocol Doxycycline Hyclate 100 mg 10/08/22 21:00 10/09/22 08:45 Doxycycline Hyclate 100 Mg Tablet PO 100 mg Q12HR [facility] Administration Enoxaparin Sodium 40 mg 10/06/22 09:00 10/09/22 08:45 Enoxaparin 40 Mg/0.4 Ml Syringe SUB-Q 40 mg DAILY SANTY Administration Glucagon 1 mg 10/04/22 00:22 Glucagon For Inj 1 Mg Vial IM PRN PRN Hypoglycemia Protocol Glucose 15 gm 10/04/22 00:22 Glucose Oral Gel 15 Gm Of Glucse In 37.5 Gm Tube PO PRN PRN Hypoglycemia Protocol Hydromorphone HCl 0.5 mg 10/05/22 17:52 10/05/22 18:55 Hydromorphone Hcl Inj (*Crx) 1 Mg/Ml Syr IV PUSH 0.5 mg Q2H PRN Administration Pain Rated 4-6 Hydromorphone HCl 1 mg 10/05/22 17:52 10/05/22 20:46 Hydromorphone Hcl Inj (*Crx) 1 Mg/Ml Syr IV PUSH 1 mg Q2H PRN Administration Pain Rated 7-10 Dextrose 1,000 mls @ 100 mls/hr 10/04/22 00:22 Dextrose 5% 1,000 Ml IVPB PRN PRN Hypoglycemia Protocol Sodium Chloride 1,000 mls @ 50 mls/hr 10/08/22 14:40 10/09/22 09:00 Normal Saline Iv IV CONT 50 mls/hr .Q20H [facility] Administration Insulin Aspart 2 - 5 units 10/04/22 08:00 10/09/22 08:43 Insulin Aspart (*Bkc) 100 Units/Ml SUB-Q Not Given TIDWM [facility] Protocol Insulin Aspart 1 - 2 units 10/04/22 21:00 10/08/22 21:22 Insulin Aspart (*Bkc) 100 Units/Ml SUB-Q Not Given HS [facility] Protocol Lisinopril 30 mg 10/04/22 09:00 10/08/22 09:25 Lisinopril 10 Mg Tablet PO 30 mg DAILY SANTY Administration Loratadin
[2022-10-09 11:55] LABS: Eosinophil Urine None Seen % (None Seen); Urine Eos QC 2nd Tech Confirmed
--- NOTE | 2022-10-09 12:50 | PCPTNOTE ---
Informed Dr. Torres patient met PT goals and is independent in mobility while maintaining his weight bearing restrictions. PT services will be discontinued.
--- NOTE | 2022-10-09 13:43 | PM.IMPN ---
Progress Note: A&P Assessment and Plan (1) Gangrenous toe: Code(s): I96 - Gangrene, not elsewhere classified Status: Acute Assessment and Plan: Cultures noted Status post surgical intervention. Continue oral abx (2) JO on CPAP: Code(s): G47.33 - Obstructive sleep apnea (adult) (pediatric); Z99.89 - Dependence on other enabling machines and devices Status: Acute Assessment and Plan: Continue with home settings. (3) DM type 2 (diabetes mellitus, type 2): Qualifiers: Diabetes mellitus terminologist insulin use: without fdc use Diabetes mellitus complication status: without complication Qualified Code(s): E11.9 - Type 2 diabetes mellitus without complications Code(s): E11.9 - Type 2 diabetes mellitus without complications Status: Acute Assessment and Plan: Accu-Cheks AC and and HS with sliding scale insulin and hypoglycemic protocol. Check A1c continue with Actos. (4) Benign essential hypertension: Code(s): I10 - Essential (primary) hypertension Status: Acute Assessment and Plan: Continue with lisinopril. (5) Acute kidney failure: Code(s): N17.9 - Acute kidney failure, unspecified Status: Acute Assessment and Plan: likely 2/2 abx now on oral abx ivf will likely improve renal us noted Subjective Date/time seen: 10/09/22 13:43 Interval history: doing ok cr about the same has urine output Exam Const: General: cooperative, comfortable, no acute distress, well developed, alert, awake, Physically active, ill appearing, average body habitus, well nourished and overweight Nutritional Appearance: average body habitus, well nourished and overweight Orientation/consciousness: oriented to person, oriented to place, oriented to time and patient oriented x3 Limitations: no limitations HENMT: Head: normal to inspection, No palpable skull fracture present, normocephalic and atraumatic Ears: hearing grossly normal bilaterally and external ears normal Face/Nose/Sinus: Normal external nose present and Normal nares present Mouth: Yes Normal oral and palatal mucosa present Eyes: General: appearance normal, both eyes and all related structures Alignment and Position: alignment normal Periorbital: periorbital findings normal Eyelids: eyelids normal Sclera: sclerae normal Pupils: Equal, round and reactive pupils present EOM: EOMs intact bilaterally Neck: Neck: normal visual inspection, full ROM, no lymphadenopathy, trachea midline and supple Chest: Chest palpation & inspection: normal inspection of the chest Resp: Effort & Inspection: normal respiratory effort Auscultation: clear to auscultation bilaterally Cardio: Palpation: normal PMI Rate: regular rate Rhythm: regular rhythm Heart sounds: S1 normal heart sound present and S2 normal heart sound present Peripheral pulses: Peripheral pulses 2+ throughout GI: Inspection: normal to inspection Auscultation: normal bowel sounds Rectal Exam: deferred Back/Spine/Pelvis: Cervical Spine: cervical ROM normal Skin: General skin exam: normal color Lesions: no lesions Rashes: no rashes Trauma: no lacerations or abrasions Hair: male pattern alopecia Nails: normal Other: Necrotic great toe on the left Neuro: General: oriented to person, oriented to place, oriented to time and patient oriented x3 Cranial nerves: Yes Equal, round and reactive pupils present and Yes Normal hearing present Cognition (Neuro): normal cognition Speech: normal speech Sensory Exam: normal sensation Extrem: General: normal to inspection Right upper extremity: normal to inspection and shoulder/upper arm Left upper extremity: normal to inspection and shoulder/upper arm Right lower extremity: normal to inspection Left lower extremity: edema Details: 2+ and foot Other: Gangrenous necrotic left great toe Psych: Appearance: grossly normal Mental Status: mental status grossly mason
[2022-10-09 14:47] VITALS: BP 140/70; PULSE 72; RESP 16; TEMP 36.6; O2SAT 100
[2022-10-09 16:54] LABS: Glucose Point of Care 103 mg/dl (65-105)
[2022-10-09] MEDS: HYDROcodone/acetaminophen (*CRX) 5-325 MG TABLET 1 TAB PO (18:26)
--- NOTE | 2022-10-09 18:52 | PC.NURSE ---
Patient foot dressing changed by MD. Watts leg dressing changed and wound cleansed, silver gel applied. Patient is ready to go home. Creatinine was still high today. Fluids continue.
[2022-10-09] MEDS: SENNA/DOCUSATE SODIUM TABLET 1 TAB PO (20:18)
[2022-10-09 20:19] LABS: Glucose Point of Care 129 mg/dl (65-105)
[2022-10-09] MEDS: ONDANSETRON INJ 4 MG/2 ML VIAL IV PUSH (20:53)
[2022-10-09 22:00] VITALS: BP 153/76; PULSE 76; RESP 18; TEMP 35.9; O2SAT 100
[2022-10-10] VITALS: RESP 17
[2022-10-10 06:00] VITALS: BP 154/81; PULSE 71; RESP 20; TEMP 36.2; O2SAT 97
[2022-10-10 07:48] LABS: Glucose Point of Care 98 mg/dl (65-105)
[2022-10-10] MEDS: AMOXICILLIN/CLAVULANATE K 875-125 MG TAB 1 TABLET PO (08:24)
[2022-10-10] MEDS: DOXYCYCLINE HYCLATE 100 MG TABLET PO (08:24)
[2022-10-10] MEDS: PIOGLITAZONE HCL 30 MG TABLET PO (08:24)
[2022-10-10] MEDS: ENOXAPARIN 40 MG/0.4 ML SYRINGE SUB-Q (08:24)
[2022-10-10] MEDS: ASPIRIN 81 MG ENTERIC TABLET PO (08:25)
[2022-10-10] MEDS: LORATADINE 5 MG TABLET PO (08:25)
[2022-10-10] MEDS: ONDANSETRON INJ 4 MG/2 ML VIAL IV PUSH (08:25)
[2022-10-10] MEDS: SILVERGEL (ELTA) 45 ML 1 APPLIC TOPICAL (08:32)
[2022-10-10 10:50] LABS: Anion Gap 8 mmol/L (8-16); Blood Urea Nitrogen 24 mg/dL (9-20); Calcium 8.8 mg/dL (8.4-10.2); Carbon Dioxide 22 mmol/L (22-30); Chloride 108 mmol/L (98-107); Estimated CRCL calculation 29 ml/min; Estimated Glomerular Filt Rate 20; Glucose 148 mg/dL (65-110); Potassium 4.4 mmol/L (3.4-5.0); Sodium 138 mmol/L (137-145)
[2022-10-10 11:42] LABS: Glucose Point of Care 155 mg/dl (65-105)
--- NOTE | 2022-10-10 13:39 | PC.NURSE ---
pt left AMA. provider and motor vehicles supervisor notified. pt was explained risks upon leaving. pt was instructed to come to ED if he has worsening or emergency symptoms.
--- NOTE | 2022-11-09 11:36 | P.DS_ITS ---
DS: Admitting Diagnosis Discharge Date 10/10/22 Admitting Diagnosis gangrene toe DS: Summary Hospital Course Hospital Course: left ama on 10/10 Time Spent with Patient Time attestation: Total time spent providing and/or coordinating discharge services: DS: Data Data Completed and Pending Completed studies during hospitalization: Pending at discharge 10/05/22 16:31 Surgical [PTH] Routine Discharge Plan Discharge Attending physician on discharge: Geraldo Lima Consulting providers: Ritchie Torres; Hermila Gibson; Haroon Sarabia; Jamie Keller V.; Heide Campuzano; Jesus Gramajo Discharging Clinician: Geraldo Lima Patient Disposition: Left Against Medical Advice Activity: as tolerated Diet: as tolerated Wound Care Instructions: change dressing daily Discharge Instructions: Postoperative instructions * Change bandage daily with 4 x 4 gauze and Kerlix wrap. * Apply Neosporin to incision daily * Keep leg elevated while sitting or laying in bed * Maintaining a walking boot at all times while up and active Patient Instructions: Antibiotic Form, Hydrocodone/Acetaminophen (By mouth), Chronic Wounds (DC), Toe Amputation (DC) Stand Alone Forms: General Discharge Information Follow-up/Referrals: Alhaji Kim MD [Primary Care Provider] - 1 Week (Follow up with Dr. Kim's office on 10/12/22 at 12:45 pm) Ritchie Torres DO [Physician] - 2 Weeks Discharge Medications: Continued aspirin 81 mg tablet,delayed release (DR/EC) 81 mg PO DAILY metformin 1,000 mg tablet 1,000 mg PO BID pioglitazone 30 mg tablet 30 mg PO DAILY Qty: 90 1RF lisinopril 30 mg tablet 30 mg PO DAILY Qty: 90 1RF Date of admission: 10/03/22 18:08 Primary Care Provider: Alhaji Kim Admitting Provider: Bradlye Cifuentes Attending physician on admission: Geraldo Lima Condition: Stable
== END 2022-10-10 13:40 | disposition left against medical advice (07) | DRG 256 ==
LOC: ANHED 18:24 → ANH3MEDSUR 18:36
PROVIDERS: Nurse Practitioner; Surgery; Admitting Provider Family Medicine; Emergency Provider Emergency Medicine; PCP Family Medicine; Visit Provider Chiropractor
PROC: 0Y6Q0Z0 Detachment at Left 1st Toe, Complete, Open Approach (ICD-10-PCS; principal; 2022-10-05 16:00)
DX: E11.52 Type 2 diabetes mellitus with diabetic peripheral angiopathy with gangrene (principal); I96 Gangrene, not elsewhere classified; L97.829 Non-pressure chronic ulcer of other part of left lower leg with unspecified severity; B96.4 Proteus (mirabilis) (morganii) as the cause of diseases classified elsewhere; B95.61 Methicillin susceptible Staphylococcus aureus infection as the cause of diseases classified elsewhere; I10 Essential (primary) hypertension; E11.621 Type 2 diabetes mellitus with foot ulcer; L97.524 Non-pressure chronic ulcer of other part of left foot with necrosis of bone; L08.9 Local infection of the skin and subcutaneous tissue, unspecified; R33.9 Retention of urine, unspecified; E66.01 Morbid (severe) obesity due to excess calories; G47.33 Obstructive sleep apnea (adult) (pediatric); Z99.89 Dependence on other enabling machines and devices; Z87.891 Personal history of nicotine dependence; Z79.84 Long term (current) use of oral hypoglycemic drugs; Z79.82 Long term (current) use of aspirin
CPT/HCPCS: 36415; 73630; 76775; 80048; 80053; 80202; 82565; 82948; 83036; 83605; 85025; 85610; 85730; 85999; 86140; 87040; 87070; 87077; 87186; 87205; 88305; 88311; 93005; 93925; 96361; 96374; 96375; 96376; 97116; 97161; 97165; 97530; 97535; 99285; A9270; J0696; J1170; J1650; J2371; J2405; J2543; J2704; J3010; J3370; J7030; J7120

== ENCOUNTER 2022-12-17 07:21 | Outpatient (RCR) | payer BC, SELFPAY ==
[2022-11-05 10:30] VITALS: BMI 37.2
--- NOTE | 2022-12-09 14:45 | P.PNWOUND_ITS ---
Wound Care Note Date/Time: 12/03/22 12:00 History: Presented to [facility] with a gangrenous left great toe on 10/03/2022. He had noticed a chronic wound for a couple months prior to this, but then a few days earlier this became much more swollen and red. His foot x-ray did not show any evidence of osteomyelitis, but the entire soft tissue around the toe appeared to have wet gangrene and necrosis. Wound history: Patient underwent left 1st toe ray amputation on 10/05/2022. He was discharged from the hospital on 10/08/2022. Sutures removed 10/14/2022, and patient was noted to have a partial wound dehiscence at that time. Wound care instructions given including silver gel daily wound care. He was referred to the [facility] for continued assistance with routine wound care. He has been doing silver gel daily to the at. Wound width: 5.5 Wound length: 2.3 Wound depth: 3.5 Drainage: Moderate greenish yellow foul-smelling drainage Surrounding tissue appearance: Skin appears healthy, but wound bed with yellow slough and some necrotic debris Tunneling: None noted Percentage granulation tissue: 0% Treatment/Procedures: Bedside debridement with scissors by wound care nurse Assessment and Plan Assessment and plan (1) Gangrenous toe: Code(s): I96 - Gangrene, not elsewhere classified Status: Acute Assessment and Plan: * Will have patient stop silver gel and santal and switch to Dakin's soaked gauze dressing changes daily. Discussed continued close wound care. Patient instructed to elevate left leg whenever possible. Will have patient follow-up in wound clinic in 2 weeks. Might need to consider peripheral artery disease workup if continuing to have healing problems. (2) Diabetic foot infection: Code(s): E11.628 - Type 2 diabetes mellitus with other skin complications; L08.9 - Local infection of the skin and subcutaneous tissue, unspecified Status: Acute (3) DM type 2 (diabetes mellitus, type 2): Qualifiers: Diabetes mellitus technician terminal and repeater insulin use: without retirement use Diabetes mellitus complication status: without complication Qualified Code(s): E11.9 - Type 2 diabetes mellitus without complications Code(s): E11.9 - Type 2 diabetes mellitus without complications Status: Acute Exam Extrem: Other: Open wound on left foot at 1st toe amputation site. There continues to be poor signs of healing with yellow slough and necrotic tissue within the wound bed.
--- NOTE | ~2022-12-17 | XR_ITS ---
Left foot Technique: AP, oblique, and lateral views were obtained. Clinical History: Osteomyelitis Findings: Patient is status post transmetatarsal amputation of the first metatarsal. Remaining osseou s structures appear intact. No definite radiographic evidence for osteomyelitis. Remaining joint spac es are intact. Probable postoperative change at the infiltration site versus soft tissue ulcer. Soft tissues are unremarkable. Impression: No definite radiographic evidence for osteomyelitis. Transmetatarsal amputation of the great toe. Soft tissue ulcer versus postoperative change at the amputation site. Correlate with physical exam/cl inical history. Reviewed, dictated and finalized at location . Impression: No definite radiographic evidence for osteomyelitis. Transmetatarsal amputation of the great toe. Soft tissue ulcer versus postoperative change at the amputation site. Correlate with physical exam/clinical history.
--- NOTE | ~2022-12-17 | XR_ITS ---
AP and lateral views of the left tibia/fibula Clinical History: Foreign body Findings: No acute fracture or dislocation is seen. Osseous alignment is anatomic. Moderate tricompar tmental degenerative change at the knee noted. There are somewhat linear/like calcifications in the s ubcutaneous soft tissues extensively in the calf. Extensive vascular calcifications are noted. Impression: No definite radiopaque foreign body seen. Extensive soft tissue calcifications are present. Correlate for dermatomyositis, or possibly venous stasis calcifications. Moderate tricompartmental degenerative change of the knee. Reviewed, dictated and finalized at location M. Impression: No definite radiopaque foreign body seen. Extensive soft tissue calcifications are present. Correlate for dermatomyositis, or possibly venous stasis calcifica tions. Moderate tricompartmental degenerative change of the knee.
--- NOTE | 2022-12-17 12:39 | WPDWOUNDNOTE ---
Wound Care Note Date/Time: 12/17/22 12:39 History: Presented to [facility] with a gangrenous left great toe on 10/03/2022.? He had noticed a chronic wound for a couple months prior to this, but then a few days earlier this became much more swollen and red.? His foot x-ray did not show any evidence of osteomyelitis, but the entire soft tissue around the toe appeared to have wet gangrene and necrosis. Wound history: Patient underwent left 1st toe ray amputation on 10/05/2022.? He was discharged from the hospital on 10/08/2022.? Sutures removed 10/14/2022, and patient was noted to have a partial wound dehiscence at that time.? Wound care instructions given including silver gel daily wound care.? He was referred to the Wound Care Clinic for continued assistance with routine wound care. His wound has continued to worsen despite aggressive local wound care. He also has a chronic ulcer on his lateral calf region which has worsened despite local wound care. He is now noticing some black areas to the bottom of the foot wound and his 2nd and 3rd toes are now showing erythema and blistering. Wound width: 6.5 cm Wound length: 2.6 cm Wound depth: 2 cm Drainage: Foul smelling Surrounding tissue appearance: infected, indurated, erythematous Percentage granulation tissue: 0% Assessment and Plan Assessment and plan (1) Wound of left lower extremity: Qualifiers: Encounter type: initial encounter Qualified Code(s): S81.802A - Unspecified open wound, left lower leg, initial encounter Code(s): S81.802A - Unspecified open wound, left lower leg, initial encounter Status: Acute Assessment and Plan: Had extensive discussion with patient about his poor healing and signs of worsening infection. His diabetes has been well controlled, so I am concerned that there are other vascular issues contributing to his healing problems. There is a high probability that he will need a more proximal amputation, but he might continue to have healing problems and ultimately require above knee amputation. Patient needs more urgent workup and treatment and I have recommended that he be re-admitted to the hospital. He does not want to go straight into the hospital today but is willing to come in tomorrow morning. Will check CBC, BMP this afternoon and if GFR is not too low, will plan to get CTA LLE once he is admitted. Will also plan for IV antibiotics. Discussed possibility of needing to be transferred to a facility that has vascular surgery. Patient in agreement with this plan. (2) Diabetic foot infection: Code(s): E11.628 - Type 2 diabetes mellitus with other skin complications; L08.9 - Local infection of the skin and subcutaneous tissue, unspecified Status: Acute (3) Venous insufficiency: Code(s): I87.2 - Venous insufficiency (chronic) (peripheral) Status: Acute (4) DM type 2 (diabetes mellitus, type 2): Qualifiers: Diabetes mellitus complication status: without complication Diabetes mellitus penitentiary insulin use: without terminal operator use Qualified Code(s): E11.9 - Type 2 diabetes mellitus without complications Code(s): E11.9 - Type 2 diabetes mellitus without complications Status: Acute (5) Acute kidney failure: Code(s): N17.9 - Acute kidney failure, unspecified Status: Acute Exam Extrem: Other: Left foot wound--necrotic debris and exudate within the wound bed, skin becoming necrotic on planar medial surface. Left lateral calf wound--Chronic open ulcer with calcification in wound bed. Slight exudate and chronic granulation tissue. Left dorsalis pedis and post tib pulses difficult to palpate, but dopplerable.
== END 2023-01-25 09:50 | disposition home or self-care (01) ==
LOC: ANHWOC 07:21
PROVIDERS: PCP Nurse Practitioner Family; Visit Provider Surgery
DX: I96 Gangrene, not elsewhere classified (principal)
CPT/HCPCS: 73590; 73620; 99213; G0463

== ENCOUNTER 2022-12-17 14:01 | Outpatient (CLI) | payer BC, SELFPAY ==
[2022-12-17 14:22] LABS: Basophils Absolute Auto 0.05 K/mm3 (0.00-0.10); Basophils Percent Auto 0.5 % (0.0-1.0); Eosinophils Absolute Auto 0.21 K/mm3 (0.02-0.50); Eosinophils Percent Auto 1.9 % (1.0-6.0); Hematocrit 30.6 % (40.0-54.0); Hemoglobin 9.7 g/dL (14.0-18.0); Immature Granulocyte Absolute 0.11 K/mm3 (0.00-0.00); Lymphocytes Absolute Auto 0.86 K/mm3 (1.10-4.50); Lymphocytes Percent Auto 7.8 % (18.0-42.0); Mean Corpuscular HGB Conc 31.7 g/dL (32.0-36.0); Mean Corpuscular Hemoglobin 27.8 pg (27.0-31.0); Mean Corpuscular Volume 87.7 fL (78.0-102.0); Monocytes Absolute Auto 0.83 K/mm3 (0.10-0.90); Monocytes Percent Auto 7.5 % (2.0-11.0); Neutrophils Percent Auto 81.3 % (50.0-70.0); Platelet Count Result 336 K/mm3 (150-420); Red Blood Count 3.49 M/mm3 (4.70-6.10); White Blood Count 11.1 K/mm3 (4.8-10.8)
[2022-12-17 14:49] LABS: Anion Gap 11 mmol/L (8-16); Blood Urea Nitrogen 31 mg/dL (7-18); Calcium 9.6 mg/dL (8.5-10.1); Carbon Dioxide 23 mmol/L (21-32); Chloride 107 mmol/L (98-108); Estimated Glomerular Filt Rate 39; Glucose 122 mg/dL (70-99); Magnesium 1.8 mg/dL (1.8-2.4); Osmolality Calculated 299 mOsm/kg (285-295); Phosphorus 3.7 mg/dL (2.6-4.7); Potassium 5.3 mmol/L (3.5-5.1); Sodium 141 mmol/L (136-145)
== END 2022-12-17 14:02 | disposition home or self-care (01) ==
LOC: CHSLAB 14:05
PROVIDERS: PCP Surgery; Visit Provider Surgery
DX: L08.9 Local infection of the skin and subcutaneous tissue, unspecified (principal); E11.628 Type 2 diabetes mellitus with other skin complications
CPT/HCPCS: 36415; 80048; 83735; 84100; 85025

== ENCOUNTER 2022-12-18 13:16 | Inpatient (IN) | payer BC, OTHER, SELFPAY ==
--- NOTE | ~2022-12-18 | CT_ITS ---
EXAMINATION: CTA LE DATE: 12/19/2022 12:27 INDICATION: Nonhealing left foot wound. TECHNIQUE: Computed tomographic angiography (CTA) of the pelvis and and both lower extremities was pe rformed with 150 mL Omnipaque-350 intravenous contrast. Automated exposure control and iterative katrina nstruction technique were employed. The dose-length product was 1322.34 mGy-cm. Volume rendered 3D-re constructions of the arteries were created by the technologist on a separate workstation. This examin ation was originally ordered as routine. Request to a grade to STAT priority was received at [facility] 7:10 PM on 12/19/2022. COMPARISON: CT abdomen and pelvis 10/15/2019. FINDINGS: PELVIC VASCULATURE: Extensive calcifications. No severe stenosis. RIGHT LOWER EXTREMITY VASCULATURE: Extensive atherosclerotic calcifications. A portion of the popliteal artery is obscured by beam harde gallito artifact. Right lower leg and foot flow difficult to visualize given the severe circumferential arterial wall calcification. Probable slow flow in small branch vessels. LEFT LOWER EXTREMITY VASCULATURE: Extensive calcifications. Moderate short segment stenosis in the distal left femoral artery. Left low er leg flow, below the level of the trifurcation is difficult to visualize given the severe circumfer ential arterial wall calcification. Probable slow flow in small branch vessels. ADDITIONAL FINDINGS: Bilateral leg subcutaneous edema, most severe in the left foot. Status post left great toe amputation . Subcutaneous gas adjacent to the left second metatarsal joint. Focal erosions noted in the first an d second metatarsal heads in the proximal aspect of the left second proximal phalange. Gas in the lef t second MTP joint. IMPRESSION: Limited examination, given severe circumferential arterial calcification in the arteries of the legs and feet, which obscures contrast visualization. Slow 2 vessel flow below the level of the ankle is s uspected bilaterally, given apparent flow and small branch vessels. No severe proximal stenosis detected, noting that a short segment of the right popliteal artery is ob scured by metal artifact. Findings suspicious for osteomyelitis of the left first and second metatarsal heads and the left seco nd proximal phalange, with possible septic arthritis of the left second MTP joint. Reviewed, dictated and finalized at location K. IMPRESSION: Limited examination, given severe circumferential arterial calcification in the arteries of the legs and feet, which obscures contrast visualization. Slow 2 v essel flow below the level of the ankle is suspected bilaterally, given apparen t flow and small branch vessels. No severe proximal stenosis detected, noting that a short segment of the right popliteal artery is obscured by metal artifact. Findings suspicious for osteomyelitis of the left first and second metatarsal h lisa and the left second proximal phalange, with possible septic arthritis of t he left second MTP joint.
--- NOTE | 2022-12-18 12:00 | ADMGEN ---
This patient, Carl Villafuerte, was admitted to [facility] Surg Room 326-01 @ 1200. Patient/family oriented to hospital policies and general routines including ID bracelet, bed and alarms, visiting hours, pain management, procedures, bathroom and other care routines, personal items, smoking policy, room service/diet, and visiting hours. Information on how to activate the Rapid Response Team has been discussed. Patient/Family are encouraged to report perceived risks to care and to ask questions if they do not understand what they are told or what they should do.
[2022-12-18 12:21] LABS: Glucose Point of Care 192 mg/dl (65-105)
[2022-12-18 13:32] VITALS: BP 177/79; PULSE 74; RESP 24; TEMP 36.1; O2SAT 100
--- NOTE | 2022-12-18 14:43 | PM.IMHP ---
H&P: HPI History of Present Illness Date/Time: 12/18/22 14:43 Chief Complaint: Nonhealing left foot wound and left leg wound Narrative: This is a 62-year-old man who presents with a nonhealing left foot wound that now appears infected. He has a history of a gangrenous left great toe and underwent left great toe amputation on 10/05/2022. He was also experiencing a left calf wound that had been present for a couple months and he had been treating this with topical wound care. He has been seeing the wound care nurses and daily dressing changes have been performed by the patient at home. He continues to have worsening wound healing problems and more signs of infection of the open wound. He is diabetic but his blood sugars have been fairly well controlled as of late. He denies prior history of peripheral vascular disease, but he does have extensive calcifications visible on his leg x-ray concerning for possible peripheral vascular disease. He was seen in the Wound Care Clinic yesterday and continues to deteriorate with his wound. His dorsalis pedis and posterior tibial pulses were difficult to palpate, but they were dopplerable. He now presents as a direct admit for further treatment of the foot wound with antibiotics and further workup for vascular disease. Review of Systems Review of Systems: All systems reviewed & are unremarkable except as noted in HPI and below Constitutional: Constitutional: Denies chills and Denies fever(s) Eyes: Eyes: Denies change in vision ENT: Denies hearing loss, Denies neck pain and Denies sore throat Cardiovascular: Cardiovascular: Denies chest pain and Denies dyspnea Respiratory: Respiratory: Denies cough, Denies dyspnea and Denies wheezing Gastrointestinal: Gastrointestinal: Denies change in bowel habits, Denies nausea and Denies vomiting Genitourinary: Genitourinary: Denies hematuria and Denies dysuria Musculoskeletal: Musculoskeletal: Denies arthralgias, Denies joint swelling and Denies neck pain Integumentary/Breasts: Skin/Breast: Reports as per HPI Allergic/Immunologic: Allergic/Immunologic: Denies wheezing PMFSH Past Medical History Medical History Benign essential hypertension DM w/o complication type II, uncontrolled Elevated PSA Morbid obesity JO (obstructive sleep apnea) Other and unspecified hyperlipidemia Urinary frequency Surgical History Surgical History Amputated toe of left foot Left 1st toe ray amputation on 10/05/22 [facility] History of total knee arthroplasty S/P rotator cuff repair Family History Family History Mother Hypertension Father Patient's father is in good health Social History Social History Social History: The patient was 1 time for a year and is now . He is currently unemployed. 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 He has no children. He is a former smoker. No alcohol marijuana or illicit drugs. Code status full code Smoking packs per day: 2 Smoking cigarettes per day: 40.0 Years smoked: 20 Smoking pack-years: 40.00 Smoking status: Former smoker Second hand tobacco smoke exposure: Yes Alcohol intake: current Drinks per week: 3 Substance use: never Substance use type: does not use Lack of Transportation: No Lack of Food: Never True Current Housing: I Have Housing Concerned About Future Housing: No Difficulty Paying Gas/Electric Bills: No Difficulty Paying for Meds: No Currently Unemployed: No Education: Trade/Vocational Certificate Difficulty w/ Childcare or Family Care: No Living arrangements: with family Gender identity (if verbalized by the patient): Male Spiritual care concerns: No Me
[2022-12-18 15:32] LABS: Estimated Glomerular Filt Rate 41
[2022-12-18] MEDS: SODIUM CHLORIDE 0.9% IV 1,000 ML 80 ML IV CONT (15:53)
[2022-12-18] MEDS: CEFEPIME 2 GM/NS 50 ML 2 GM/50 ML BAG IVPB (15:53)
[2022-12-18] MEDS: metroNIDAZOLE 500 MG/ISO 100ML 500 MG/100 ML BAG 100 MG IVPB ×2 (16:26→23:52)
[2022-12-18 16:34] LABS: Glucose Point of Care 102 mg/dl (65-105)
[2022-12-18] MEDS: VANCOMYCIN 1,250 MG/NS 250 ML 1,250 MG/250 ML BAG 166.67 MG IVPB ×2 (17:50→19:40)
--- NOTE | 2022-12-18 17:56 | PM.IMCN ---
Assessment and Plan Assessment and plan (1) Non-healing amputation site: Code(s): T87.89 - Other complications of amputation stump Status: Acute (2) DM type 2 (diabetes mellitus, type 2): Qualifiers: Diabetes mellitus complication status: without complication Diabetes mellitus snf insulin use: without intermodal dispatcher use Qualified Code(s): E11.9 - Type 2 diabetes mellitus without complications Code(s): E11.9 - Type 2 diabetes mellitus without complications Status: Acute (3) HTN (hypertension): Code(s): I10 - Essential (primary) hypertension Status: Acute Plan Problem List 1. nonhealing amputation site follows with Wound Clinic, admitted by Noah Torres for further workup for vascular disease and antibiotics. If vasc issue, will likely need transfer for vasc services. patient is aware and agreeable. Wound Care BID Changed dressing twice daily with Dakins solution soaked gauze and Kerlix wrap Apply Silver gel to left calf wound daily with 4x4 gauze and tape CTA AIF to be done tomorrow CTA lower extremity, left to be done tomorrow metformin held gentle fluids pre and post testing - 80 ml/hr of NS cefepime, flagyl and vanc initiated Zofran p.r.n. [place] and Tylenol p.r.n. 2. diabetes, type 2 hypoglycemia protocol POC blood glucose ACHS correct regimen ordered - low dose TIDWM and HS A1C to be updated metformin held due to impending CT scans w/con. continue home Actos 3. HTN continue lisinopril and ASA daily monitor blood pressure Chronic Conditions - see above - Benadryl p.r.n. for allergies held - CPAP for JO Diet: diabetic GI Prophylaxis: not currently indicated DVT Prophylaxis: enoxaparin 40 Lines: pIV Code Status: Full Code HPI Data of Consult Consult date: 12/18/22 Requesting Physician: Ritchie Torres DO Primary Care Provider: Ritchie Torres DO Consult Narrative Reason for consult: Med Managment Narrative: Carl Villafuerte is a 62 year old male presents here as a direct admission via surgical service for chronic wound to left foot. Patient reports that he has had a wound that initially developed over a year ago. Wound appeared to the forefoot just proximal to his 1st toe on the L. Patient reports that he was able to care for the wound initially at home with keeping it clean, dry, and applying Neosporin. Wound resolved for some time, however it returned shortly after he had a knee replacement in May of 2022. wound reoccurred in same area as his previous wound. Area rapidly got worse and he underwent a amputation of his left 1st toe. Patient has been following with the Wound Clinic since, however he recently had a 1 month gap due to the cost and changing insurances. Now reports that his 2nd toe has begun to turn black, has skin sloughing, foul odor and a blackening area to his forefoot just proximal to his 2nd toe. over the last week his 2nd toe and 3rd toe have become more red swollen and he has begun to have some peeling. Redness now extending to mid foot and 2nd through 5th toes on the left. initially believed to be related to his diabetes. However he also has a chronic wound to his left lateral calf. Area has begun developing calcium plaques which was removed by the wound clinic. plaque quickly returned which prompted need for further investigation along with worsening wound. Here now for evaluation of his vasculature system and possibility of amputation. [facility] Past Medical History Medical History Benign essential hypertension DM w/o complication type II, uncontrolled Elevated PSA Morbid obesity Non-healing amputation site JO (obstructive sleep apnea) Other and unspecified hyperlipidemia Urinary frequency Surgical History Surgical History Amputated toe of left foot
[2022-12-18] MEDS: HYDROcodone/acetaminophen (*CRX) 5-325 MG TABLET 1 TAB PO (19:46)
[2022-12-18 19:52] VITALS: BP 135/58; PULSE 76; RESP 16; TEMP 36.4; O2SAT 100
[2022-12-18] MEDS: SOD HYPOCHLORITE 1/4 STRENGTH 473 ML 1 APPLIC TOPICAL (20:36)
[2022-12-18] MEDS: diphenhydrAMINE HCl CAP 25 MG CAPSULE PO (20:36)
[2022-12-18 20:40] LABS: Glucose Point of Care 140 mg/dl (65-105)
[2022-12-19] VITALS (7 sets, daily range): BP systolic 136–163; BP diastolic 57–82; PULSE 70–76; RESP 16–20; TEMP 35.6–36.5; O2SAT 99–100
[2022-12-19] MEDS: CEFEPIME 1 GM/NS 50 ML 1 GM/50 ML BAG IVPB ×2 (04:43→17:07)
[2022-12-19] MEDS: HYDROcodone/acetaminophen (*CRX) 5-325 MG TABLET 1 TAB PO ×3 (05:43→21:09)
[2022-12-19] MEDS: metroNIDAZOLE 500 MG/ISO 100ML 500 MG/100 ML BAG 100 MG IVPB ×3 (05:44→21:10)
[2022-12-19 07:52] LABS: Hematocrit 29.7 % (42.0-52.0); Hemoglobin 9.1 g/dL (14.0-18.0); Mean Corpuscular HGB Conc 30.6 g/dl (32-36); Mean Corpuscular Hemoglobin 27.2 pg (26-34); Mean Corpuscular Volume 88.7 fl (80-100); Mean Platelet Volume 9.2 fl (7.4-10.4); Platelet Count Result 343 k/mm3 (150-375); Red Blood Count 3.35 M/mm3 (4.6-6.20); Red Cell Distribution Width 14.9 % (11.5-14.5); White Blood Count 10.8 K/mm3 (4.5-10.0)
[2022-12-19 08:07] LABS: Hemoglobin A1C 5.5 % (<5.7)
[2022-12-19 08:08] LABS: Alanine Aminotransferase 20 U/L (6-50); Albumin Level 3.6 g/dL (3.5-5.1); Alkaline Phosphatase 87 U/L (38-126); Anion Gap 11 mmol/L (8-16); Aspartate Amino Transferase 21 U/L (17-59); Bilirubin,Total 0.6 mg/dL (0.2-1.3); Blood Urea Nitrogen 28 mg/dL (9-20); Calcium 9.4 mg/dL (8.4-10.2); Carbon Dioxide 18 mmol/L (22-30); Chloride 108 mmol/L (98-107); Estimated CRCL calculation 56 ml/min; Estimated Glomerular Filt Rate 44; Glucose 106 mg/dL (65-110); Magnesium 1.7 mg/dL (1.6-2.3); Potassium 4.7 mmol/L (3.4-5.0); Sodium 137 mmol/L (137-145)
[2022-12-19 08:15] LABS: Glucose Point of Care 105 mg/dl (65-105)
[2022-12-19] MEDS: ASPIRIN 81 MG ENTERIC TABLET PO (08:48)
[2022-12-19] MEDS: lisinopriL 10 MG TABLET 30 MG PO (08:48)
[2022-12-19] MEDS: ENOXAPARIN 40 MG/0.4 ML SYRINGE SUB-Q (08:48)
[2022-12-19] MEDS: SOD HYPOCHLORITE 1/4 STRENGTH 473 ML 1 APPLIC TOPICAL ×2 (08:48→21:13)
[2022-12-19] MEDS: PIOGLITAZONE HCL 30 MG TABLET PO (08:48)
[2022-12-19] MEDS: SILVERGEL (ELTA) 45 ML 1 APPLIC TOPICAL (08:48)
--- NOTE | 2022-12-19 09:08 | PM.IMPN ---
Progress Note: A&P Assessment and Plan (1) Non-healing amputation site: Code(s): T87.89 - Other complications of amputation stump Status: Acute Assessment and Plan: 1.? nonhealing amputation site ?follows with Wound Clinic, admitted by Noah Torres for? further workup for vascular disease and antibiotics. If vasc issue, will likely need transfer for vasc services. patient is aware and agreeable. ?Wound Care BID Changed dressing twice daily with Dakins solution soaked gauze and Kerlix wrap Apply Silver gel to left calf wound daily with 4x4 gauze and tape ?CTA AIF? to be done tomorrow ?CTA lower extremity, left to be done tomorrow ?metformin held ?gentle fluids pre and post testing - 80 ml/hr of NS ?cefepime, flagyl and vanc initiated ?Zofran p.r.n. ?[place] and Tylenol p.r.n. Add miralax and senna to prevent constipation with narcotic use (2) DM type 2 (diabetes mellitus, type 2): Qualifiers: Diabetes mellitus complication status: without complication Diabetes mellitus penitentiary insulin use: without penitentiary use Qualified Code(s): E11.9 - Type 2 diabetes mellitus without complications Code(s): E11.9 - Type 2 diabetes mellitus without complications Status: Acute Assessment and Plan: 2.? diabetes, type 2 ?hypoglycemia protocol ?POC blood glucose ACHS ?correct regimen ordered - low dose TIDWM and HS ?A1C 5.5 ?metformin held due to impending CT scans w/con. ?continue home Actos (3) HTN (hypertension): Code(s): I10 - Essential (primary) hypertension Status: Acute Assessment and Plan: 3.? HTN ?continue lisinopril and ASA daily ?monitor blood pressure (4) Anemia: Code(s): D64.9 - Anemia, unspecified Status: Acute Assessment and Plan: Hemoglobin in April of this year was 14.3. Steady decline noted since September of this year. Hemoglobin 9.1 No active bleeding Add on anemia panel for the a.m. Plan Diet: diabetic GI Prophylaxis: not currently indicated DVT Prophylaxis: enoxaparin 40 Lines: pIV Code Status: Full Code Awaiting CTA left extremity results. Subjective Date/time seen: 12/19/22 09:08 Interval history: HPI obtained from chart, Carl Villafuerte is a 62 year old male? presents here as a direct admission via surgical service for chronic wound to left foot. Patient reports that he has had a wound that initially developed over a year ago.? Wound appeared to the forefoot just proximal to his 1st toe on the L. Patient reports that he was able to care for the wound initially at home with keeping it clean, dry, and applying Neosporin. ? Wound resolved for some time, however it returned shortly after he had a knee replacement in May of 2022.? wound reoccurred in same area as his previous wound.? Area rapidly got worse and he underwent a amputation of his left 1st toe.? Patient has been following with the Wound Clinic since, however he recently had a 1 month gap due to the cost and changing insurances.? Now reports that his 2nd toe has begun to turn black, has skin sloughing, foul odor and a blackening area to his forefoot just proximal to his 2nd toe.? over the last week his 2nd toe and 3rd toe have become more red swollen and he has begun to have some peeling.? Redness now extending to mid foot and 2nd through 5th toes on the left.? initially believed to be related to his diabetes.? However he also has a chronic wound to his left lateral calf.? Area has begun developing calcium plaques which was removed by the wound clinic. plaque quickly returned which prompted need for further investigation along with worsening wound.? Here now for evaluation of his vasculature system and possibility of amputation. 12/19-Patient is seen at the bedside with his sister present. He has had his CTA of the left leg completed, just waiting for results to be posted. He is overall doing well but is anxious about possibly having to have mor
[2022-12-19 11:39] LABS: Glucose Point of Care 209 mg/dl (65-105)
[2022-12-19] MEDS: INSULIN ASPART (*BKC) 100 UNITS/ML SUB-Q (12:09)
--- NOTE | 2022-12-19 14:41 | PM.PNGS ---
Progress Note: A&P Assessment and Plan (1) Diabetic foot infection: Code(s): E11.628 - Type 2 diabetes mellitus with other skin complications; L08.9 - Local infection of the skin and subcutaneous tissue, unspecified Status: Acute Assessment and Plan: Patient has nonhealing left foot diabetic wound. CT AIF angiogram done today to see if there are any flow-limiting lesions that can be treated with angioplasty and stenting. Reading is still pending on the arteriogram. He otherwise remained stable and will continue IV antibiotics. If arteriogram shows any flow-limiting lesions that can be treated with vascular intervention that he may need transfer to vascular surgeon [place]. If it is all small vessel disease that amputation may be necessary. Subjective Subjective Date/Time Seen: 12/19/22 14:41 Interval history: Patient sitting up in chair without specific complaints. Minor pain in the left foot. He did have his CT AIF arteriogram today. Reading is still pending. Exam Extrem: Other: Left foot is dressed with dry gauze. There is an odor from the left foot. Objective Data Vital Signs Vital Signs: Vital Signs - 24 hr 12/18/22 19:52 12/18/22 20:00 12/19/22 03:25 Temperature 36.4 C Pulse Rate 76 76 Respiratory Rate 16 17 Blood Pressure 135/58 L Pulse Oximetry 100 100 Oxygen Delivery Room Air Autopap 12/19/22 03:30 12/19/22 05:35 12/19/22 08:00 Temperature 35.6 C L Pulse Rate 71 73 Respiratory Rate 20 18 Blood Pressure 136/57 L Pulse Oximetry 100 99 Oxygen Delivery Autopap Room Air Intake/Output Intake/Output: Intake & Output 12/16/22 12/17/22 12/18/22 12/19/22 23:59 23:59 23:59 23:59 Intake Total 1320 740 Balance 1320 740 Meds/Results Medications: Active Medications Generic Name Dose Route Start Last Admin Trade Name Freq PRN Reason Stop Dose Admin Acetaminophen 650 mg 12/18/22 13:16 Acetaminophen 325 Mg Tablet PO Q4H PRN Mild Pain (1-3) or Fever Hydrocodone Bitart/Acetaminophen 1 tab 12/18/22 13:16 12/19/22 12:40 Hydrocodone/Acetaminophen (*Crx) 5-325 Mg Tablet PO 1 tab Q4H PRN Administration Moderate Pain (4-6) Aspirin 81 mg 12/19/22 09:00 12/19/22 08:48 Aspirin 81 Mg Enteric Tablet PO 81 mg DAILY SANTY Administration Dextrose 12.5 gm 12/18/22 18:00 Dextrose 50% 25 Gm/50 Ml Syringe IV PUSH PRN PRN Hypoglycemia Protocol Enoxaparin Sodium 40 mg 12/19/22 09:00 12/19/22 08:48 Enoxaparin 40 Mg/0.4 Ml Syringe SUB-Q 40 mg DAILY SANTY Administration Glucagon 1 mg 12/18/22 18:00 Glucagon For Inj 1 Mg Vial IM PRN PRN Hypoglycemia Protocol Glucose 15 gm 12/18/22 18:00 Glucose Oral Gel 15 Gm Of Glucse In 37.5 Gm Tube PO PRN PRN Hypoglycemia Protocol Sodium Chloride 1,000 mls @ 80 mls/hr 12/18/22 13:20 12/19/22 09:47 Normal Saline Iv IV CONT Not Given .[id number] SANTY Metronidazole 500 mg in 100 mls @ 100 mls/hr 12/18/22 17:00 12/19/22 13:21 Flagyl 500 Mg/Iso Soln 100 Ml IVPB 100 mls/hr Q8HR SANTY Administration Cefepime HCl 1 gm in 50 mls @ 100 mls/hr 12/19/22 05:00 12/19/22 05:13 Maxipime 1 Gm/Ns 50 Ml IVPB 0 mls/hr Q12H SANTY Infusion Vancomycin HCl 1,500 mg in 500 mls @ 250 mls/hr 12/19/22 18:00 Vancomycin 1,500 Mg/D5w 500 Ml IVPB Q24H SANTY Dextrose 1,000 mls @ 100 mls/hr 12/18/22 18:00 Dextrose 5% 1,000 Ml IVPB PRN PRN Hypoglycemia Protocol Insulin Aspart 2 - 5 units 12/19/22 08:00 12/19/22 12:09 Insulin Aspart (*Bkc) 100 Units/Ml SUB-Q 2 units TIDWM SANTY Administration Protocol Insulin Aspart 1 - 2 units 12/18/22 21:00 12/18/22 20:32 Insulin Aspart (*Bkc) 100 Units/Ml SUB-Q Not Given HS SANTY Protocol Lisinopril 30 mg 12/19/22 09:00 12/19/22 08:48 Lisinopril 10 Mg Tablet PO 30 mg DAILY SANTY Administration Ondansetron HCl 4
[2022-12-19 17:09] LABS: Glucose Point of Care 106 mg/dl (65-105)
[2022-12-19] MEDS: VANCOMYCIN HCL 1,500 MG in SODIUM CHLORIDE 0.9% IV 500 ML 250 MG IVPB (18:08)
[2022-12-19] MEDS: SENNA/DOCUSATE SODIUM TABLET 1 TAB PO (21:10)
[2022-12-19 21:24] LABS: Glucose Point of Care 121 mg/dl (65-105)
[2022-12-20] MEDS: SODIUM CHLORIDE 0.9% IV 1,000 ML 80 ML IV CONT ×2 (02:12→13:58)
[2022-12-20 02:50] VITALS: PULSE 73; O2SAT 100
[2022-12-20] MEDS: CEFEPIME 1 GM/NS 50 ML 1 GM/50 ML BAG IVPB ×2 (05:12→16:39)
[2022-12-20 05:23] VITALS: BP 166/68; PULSE 70; RESP 16; TEMP 36.2; O2SAT 100
[2022-12-20] MEDS: metroNIDAZOLE 500 MG/ISO 100ML 500 MG/100 ML BAG 100 MG IVPB ×3 (05:39→23:23)
[2022-12-20 06:32] LABS: Basophils Absolute Auto 0.1 K/mm3 (0.0-0.1); Basophils Percent Auto 0.7 % (0.2-1.2); Eosinophils Absolute Auto 0.3 K/mm3 (0-0.3); Eosinophils Percent Auto 3.4 % (0-4.4); Hematocrit 31.1 % (42.0-52.0); Hemoglobin 9.5 g/dL (14.0-18.0); Immature Granulocyte Absolute 0.09 K/mm3 (0.00-0.031); Immature Granulocyte Percent A 0.9 % (0-0.5); Lymphocytes Absolute Auto 1.05 K/mm3 (0.9-3.2); Lymphocytes Percent Auto 10.7 % (18.3-44.2); Mean Corpuscular HGB Conc 30.5 g/dl (32-36); Mean Corpuscular Hemoglobin 27.2 pg (26-34); Mean Corpuscular Volume 89.1 fl (80-100); Monocytes Absolute Auto 0.9 K/mm3 (0.1-0.6); Monocytes Percent Auto 8.9 % (2.6-8.5); Neutrophils Absolute Auto 7.4 K/mm3 (1.3-6.7); Neutrophils Percent Auto 75.4 % (45.5-73.1); Platelet Count Result 320 k/mm3 (150-375); Red Blood Count 3.49 M/mm3 (4.6-6.20); Red Cell Distribution Width 14.9 % (11.5-14.5); White Blood Count 9.8 K/mm3 (4.5-10.0)
[2022-12-20 06:49] LABS: Alanine Aminotransferase 17 U/L (6-50); Albumin Level 3.6 g/dL (3.5-5.1); Alkaline Phosphatase 76 U/L (38-126); Anion Gap 9 mmol/L (8-16); Aspartate Amino Transferase 20 U/L (17-59); Bilirubin,Total 0.5 mg/dL (0.2-1.3); Blood Urea Nitrogen 25 mg/dL (9-20); Calcium 9.6 mg/dL (8.4-10.2); Carbon Dioxide 20 mmol/L (22-30); Chloride 109 mmol/L (98-107); Estimated CRCL calculation 56 ml/min; Estimated Glomerular Filt Rate 44; Glucose 104 mg/dL (65-110); Magnesium 1.7 mg/dL (1.6-2.3); Potassium 4.9 mmol/L (3.4-5.0); Sodium 138 mmol/L (137-145)
[2022-12-20 06:56] LABS: Iron 39 ug/dL (49-181)
[2022-12-20 07:06] LABS: Percent Iron Saturation 15 % (20-50)
--- NOTE | 2022-12-20 08:02 | P.PNIM_ITS ---
Progress Note: A&P Assessment and Plan (1) Non-healing amputation site: Code(s): T87.89 - Other complications of amputation stump Status: Acute Assessment and Plan: 1.? nonhealing amputation site * ?follows with Wound Clinic, admitted by Noah Torres for? further workup for vascular disease and antibiotics. If vasc issue, will likely need transfer for vasc services. patient is aware and agreeable. * ?Wound Care BID Changed dressing twice daily with Dakins solution soaked gauze and Kerlix wrap Apply Silver gel to left calf wound daily with 4x4 gauze and tape * ?CTA AIF? to be done tomorrow * ?CTA lower extremity, left to be done tomorrow * ?metformin held * ?gentle fluids pre and post testing - 80 ml/hr of NS * ?cefepime, flagyl and vanc initiated * ?Zofran p.r.n. * ?[place] and Tylenol p.r.n. * Add miralax and senna to prevent constipation with narcotic use * CTA BLE IMPRESSION: Limited examination, given severe circumferential arterial calcification in the arteries of the legs and feet, which obscures contrast visualization. Slow 2 vessel flow below the level of the ankle is suspected bilaterally, given appare nt flow and small branch vessels. No severe proximal stenosis detected, noting that a short segment of the right popliteal artery is obscured by metal artifact. Findings suspicious for osteomyelitis of the left first and second metatarsal heads and the left second proximal phalange, with possible septic arthritis of the left second MTP joint. (2) DM type 2 (diabetes mellitus, type 2): Qualifiers: Diabetes mellitus complication status: without complication Diabetes mellitus fdc insulin use: without fdc use Qualified Code(s): E11.9 - Type 2 diabetes mellitus without complications Code(s): E11.9 - Type 2 diabetes mellitus without complications Status: Acute Assessment and Plan: 2.? diabetes, type 2 * ?hypoglycemia protocol * ?POC blood glucose ACHS * ?correct regimen ordered - low dose TIDWM and HS * ?A1C 5.5 * ?metformin held due to impending CT scans w/con. * ?continue home Actos (3) HTN (hypertension): Code(s): I10 - Essential (primary) hypertension Status: Acute Assessment and Plan: 3.? HTN * ?continue lisinopril and ASA daily * ?monitor blood pressure * Consistently high in the 150-160's. * Increasing lisinopril to 40 mg PO daily. (4) Anemia: Code(s): D64.9 - Anemia, unspecified Status: Acute Assessment and Plan: Hemoglobin in April of this year was 14.3. Steady decline noted since September of this year. * Hemoglobin 9.1 * No active bleeding * Add on anemia panel for the a.m--Fe deficiency on labs. Add ferrous sulfate. Plan Diet: diabetic GI Prophylaxis: not currently indicated DVT Prophylaxis: enoxaparin 40 Lines: pIV Code Status: Full Code CTA results are indicating need for vascular intervention. Will speak with general surgery and then initiate transfer to [facility] or [facility] based on patient preference. Awaiting Dr Chavez to see the patient on Wednesday before starting transfer per Dr Garcia. Subjective Date/time seen: 12/20/22 08:02 Interval history: HPI obtained from chart, Carl Villafuerte is a 62 year old male? presents here as a direct admission via surgical service for chronic wound to left foot. Patient reports that he has had a wound that initially developed over a year ago.? Wound appeared to the forefoot just proximal to his 1st toe on the L. Patient reports that he was able to care for the wound initially at home
--- NOTE | 2022-12-20 08:02 | PM.IMPN ---
Progress Note: A&P Assessment and Plan (1) Non-healing amputation site: Code(s): T87.89 - Other complications of amputation stump Status: Acute Assessment and Plan: 1.? nonhealing amputation site ?follows with Wound Clinic, admitted by Noah Torres for? further workup for vascular disease and antibiotics. If vasc issue, will likely need transfer for vasc services. patient is aware and agreeable. ?Wound Care BID Changed dressing twice daily with Dakins solution soaked gauze and Kerlix wrap Apply Silver gel to left calf wound daily with 4x4 gauze and tape ?CTA AIF? to be done tomorrow ?CTA lower extremity, left to be done tomorrow ?metformin held ?gentle fluids pre and post testing - 80 ml/hr of NS ?cefepime, flagyl and vanc initiated ?Zofran p.r.n. ?[place] and Tylenol p.r.n. Add miralax and senna to prevent constipation with narcotic use CTA BLE IMPRESSION: Limited examination, given severe circumferential arterial calcification in the arteries of the legs and feet, which obscures contrast visualization. Slow 2 vessel flow below the level of the ankle is suspected bilaterally, given apparent flow and small branch vessels. No severe proximal stenosis detected, noting that a short segment of the right popliteal artery is obscured by metal artifact. Findings suspicious for osteomyelitis of the left first and second metatarsal heads and the left second proximal phalange, with possible septic arthritis of the left second MTP joint. (2) DM type 2 (diabetes mellitus, type 2): Qualifiers: Diabetes mellitus complication status: without complication Diabetes mellitus senior living insulin use: without sword swallower use Qualified Code(s): E11.9 - Type 2 diabetes mellitus without complications Code(s): E11.9 - Type 2 diabetes mellitus without complications Status: Acute Assessment and Plan: 2.? diabetes, type 2 ?hypoglycemia protocol ?POC blood glucose ACHS ?correct regimen ordered - low dose TIDWM and HS ?A1C 5.5 ?metformin held due to impending CT scans w/con. ?continue home Actos (3) HTN (hypertension): Code(s): I10 - Essential (primary) hypertension Status: Acute Assessment and Plan: 3.? HTN ?continue lisinopril and ASA daily ?monitor blood pressure Consistently high in the 150-160's. Increasing lisinopril to 40 mg PO daily. (4) Anemia: Code(s): D64.9 - Anemia, unspecified Status: Acute Assessment and Plan: Hemoglobin in April of this year was 14.3. Steady decline noted since September of this year. Hemoglobin 9.1 No active bleeding Add on anemia panel for the a.m--Fe deficiency on labs. Add ferrous sulfate. Plan Diet: diabetic GI Prophylaxis: not currently indicated DVT Prophylaxis: enoxaparin 40 Lines: pIV Code Status: Full Code CTA results are indicating need for vascular intervention. Will speak with general surgery and then initiate transfer to [facility] or [facility] based on patient preference. Awaiting Dr Chavez to see the patient on Wednesday before starting transfer per Dr Garcia. Subjective Date/time seen: 12/20/22 08:02 Interval history: HPI obtained from chart, Carl Villafuerte is a 62 year old male? presents here as a direct admission via surgical service for chronic wound to left foot. Patient reports that he has had a wound that initially developed over a year ago.? Wound appeared to the forefoot just proximal to his 1st toe on the L. Patient reports that he was able to care for the wound initially at home with keeping it clean, dry, and applying Neosporin. ? Wound resolved for some time, however it returned shortly after he had a knee replacement in May of 2022.? wound reoccurred in same area as his previous wound.? Area rapidly got worse and he underwent a amputation of his left 1st toe.? Patient has been following with the Wound Clinic since, however he recently had a 1 month gap due to the cost and changing i
[2022-12-20 08:08] LABS: Glucose Point of Care 97 mg/dl (65-105)
[2022-12-20] MEDS: polyethylene glycoL 3350 17 GM POWD.PACK PO (09:42)
[2022-12-20] MEDS: ENOXAPARIN 40 MG/0.4 ML SYRINGE SUB-Q (09:42)
[2022-12-20] MEDS: ASPIRIN 81 MG ENTERIC TABLET PO (09:43)
[2022-12-20] MEDS: lisinopriL 20 MG TABLET 40 MG PO (09:43)
[2022-12-20] MEDS: PIOGLITAZONE HCL 30 MG TABLET PO (09:43)
[2022-12-20] MEDS: HYDROcodone/acetaminophen (*CRX) 5-325 MG TABLET 1 TAB PO (09:43)
[2022-12-20] MEDS: FERROUS SULFATE 325 MG TABLET DR PO ×2 (09:45→16:35)
[2022-12-20] MEDS: ONDANSETRON INJ 4 MG/2 ML VIAL IV PUSH (09:53)
[2022-12-20 10:16] LABS: Folic Acid 7.8 ng/mL (2.76->20)
--- NOTE | 2022-12-20 11:21 | PM.PNGS ---
Progress Note: A&P Assessment and Plan (1) Non-healing amputation site: Code(s): T87.89 - Other complications of amputation stump Status: Acute Assessment and Plan: Patient has nonhealing wound of left toe amputation site. CT arteriogram AIF yesterday intention with distal femoral artery flow-limiting lesion. After care was discussed with the patient tomorrow the findings and discuss further with the patient the options of referral to a vascular surgeon in [place] for attempt at vascular intervention for limb salvage versus proceeding with left lower extremity BKA. For now continue with IV antibiotics and local wound care. Patient's creatinine remains stable at 1.6 to 1.7 after the contrast load for the arteriogram. Subjective Subjective Date/Time Seen: 12/20/22 11:21 Interval history: Patient without new complaints. Had CT angiogram AIF yesterday. Results do show some significant plaque in the left femoral artery. Full reading as noted below. His white blood count is normal. No fever. He continues on IV antibiotics. Exam Extrem: Other: Left foot wound with stable erythema and drainage. No ascending erythema on the foot or leg. Objective Data Vital Signs Vital Signs: Vital Signs - 24 hr 12/19/22 14:00 12/19/22 21:15 12/19/22 20:00 Temperature 36.5 C 36.0 C L Pulse Rate 76 70 Respiratory Rate 16 16 Blood Pressure 158/82 H 163/76 H Pulse Oximetry 100 100 100 Oxygen Delivery Room Air 12/19/22 23:30 12/20/22 02:50 12/20/22 05:23 Temperature 36.2 C L Pulse Rate 70 73 70 Respiratory Rate 16 Blood Pressure 166/68 H Pulse Oximetry 99 100 100 Oxygen Delivery Autopap Autopap Intake/Output Intake/Output: Intake & Output 12/17/22 12/18/22 12/19/22 12/20/22 23:59 23:59 23:59 23:59 Intake Total 1320 2208 1560 Balance 1320 2208 1560 Meds/Results Medications: Active Medications Generic Name Dose Route Start Last Admin Trade Name Freq PRN Reason Stop Dose Admin Acetaminophen 650 mg 12/18/22 13:16 Acetaminophen 325 Mg Tablet PO Q4H PRN Mild Pain (1-3) or Fever Hydrocodone Bitart/Acetaminophen 1 tab 12/18/22 13:16 12/20/22 09:43 Hydrocodone/Acetaminophen (*Crx) 5-325 Mg Tablet PO 1 tab Q4H PRN Administration Moderate Pain (4-6) Aspirin 81 mg 12/19/22 09:00 12/20/22 09:43 Aspirin 81 Mg Enteric Tablet PO 81 mg DAILY SANTY Administration Dextrose 12.5 gm 12/18/22 18:00 Dextrose 50% 25 Gm/50 Ml Syringe IV PUSH PRN PRN Hypoglycemia Protocol Enoxaparin Sodium 40 mg 12/19/22 09:00 12/20/22 09:42 Enoxaparin 40 Mg/0.4 Ml Syringe SUB-Q 40 mg DAILY SANTY Administration Ferrous Sulfate 325 mg 12/20/22 09:00 Ferrous Sulfate [address] PO BID SANTY Glucagon 1 mg 12/18/22 18:00 Glucagon For Inj 1 Mg Vial IM PRN PRN Hypoglycemia Protocol Glucose 15 gm 12/18/22 18:00 Glucose Oral Gel 15 Gm Of Glucse In 37.5 Gm Tube PO PRN PRN Hypoglycemia Protocol Sodium Chloride 1,000 mls @ 80 mls/hr 12/18/22 13:20 12/20/22 02:12 Normal Saline Iv IV CONT 80 mls/hr .[id number] SANTY Administration Metronidazole 500 mg in 100 mls @ 100 mls/hr 12/18/22 17:00 12/20/22 06:35 Flagyl 500 Mg/Iso Soln 100 Ml IVPB Infused Q8HR SANTY Infusion Cefepime HCl 1 gm in 50 mls @ 100 mls/hr 12/19/22 05:00 12/20/22 05:39 Maxipime 1 Gm/Ns 50 Ml IVPB Infused Q12H SANTY Infusion Dextrose 1,000 mls @ 100 mls/hr 12/18/22 18:00 Dextrose 5% 1,000 Ml IVPB PRN PRN Hypoglycemia Protocol Vancomycin HCl 1,500 mg/ 500 mls @ 250 mls/hr 12/19/22 18:00 12/19/22 20:08 Sodium Chloride IVPB Infused Q24H SANTY Infusion Insulin Aspart 2 - 5 units 12/19/22 08:00 12/19/22 17:02 Insulin Aspart (*Bkc) 100 Units/Ml SUB-Q Not Given TIDWM SANTY Protocol Insulin Aspart 1 - 2 units 12/18/22 21:00 12/20/22 00:06 Insulin Aspa
[2022-12-20 11:48] LABS: Glucose Point of Care 174 mg/dl (65-105)
[2022-12-20] MEDS: SOD HYPOCHLORITE 1/4 STRENGTH 473 ML 1 APPLIC TOPICAL ×2 (13:58→20:26)
[2022-12-20 14:46] VITALS: BP 138/68; PULSE 70; RESP 16; TEMP 36.4; O2SAT 100
[2022-12-20 16:38] LABS: Glucose Point of Care 175 mg/dl (65-105)
[2022-12-20] MEDS: VANCOMYCIN HCL 1,500 MG in SODIUM CHLORIDE 0.9% IV 500 ML 250 MG IVPB (20:21)
[2022-12-20] MEDS: SENNA/DOCUSATE SODIUM TABLET 1 TAB PO (20:23)
[2022-12-20] MEDS: SIMETHICONE 80 MG TAB.CHEW PO (20:27)
[2022-12-20 20:56] LABS: Glucose Point of Care 123 mg/dl (65-105)
[2022-12-20 22:00] VITALS: BP 146/79; PULSE 74; RESP 18; TEMP 36.2; O2SAT 100
[2022-12-20 23:00] VITALS: PULSE 72; O2SAT 99
[2022-12-21 02:38] VITALS: PULSE 71; O2SAT 100
[2022-12-21] MEDS: CEFEPIME 1 GM/NS 50 ML 1 GM/50 ML BAG IVPB ×2 (05:13→16:20)
[2022-12-21] MEDS: SODIUM CHLORIDE 0.9% IV 1,000 ML 80 ML IV CONT (05:56)
[2022-12-21] MEDS: metroNIDAZOLE 500 MG/ISO 100ML 500 MG/100 ML BAG 100 MG IVPB ×2 (05:56→14:55)
[2022-12-21 06:00] VITALS: BP 172/83; PULSE 83; RESP 16; TEMP 36.2; O2SAT 100
[2022-12-21 06:27] LABS: Basophils Absolute Auto 0.1 K/mm3 (0.0-0.1); Basophils Percent Auto 0.5 % (0.2-1.2); Eosinophils Absolute Auto 0.3 K/mm3 (0-0.3); Eosinophils Percent Auto 2.7 % (0-4.4); Hematocrit 29.4 % (42.0-52.0); Hemoglobin 9.1 g/dL (14.0-18.0); Immature Granulocyte Absolute 0.12 K/mm3 (0.00-0.031); Immature Granulocyte Percent A 1.1 % (0-0.5); Lymphocytes Absolute Auto 1.06 K/mm3 (0.9-3.2); Lymphocytes Percent Auto 9.7 % (18.3-44.2); Mean Corpuscular Hemoglobin 27.2 pg (26-34); Mean Corpuscular Volume 87.8 fl (80-100); Monocytes Absolute Auto 0.9 K/mm3 (0.1-0.6); Neutrophils Absolute Auto 8.5 K/mm3 (1.3-6.7); Platelet Count Result 340 k/mm3 (150-375); Red Blood Count 3.35 M/mm3 (4.6-6.20); Red Cell Distribution Width 14.8 % (11.5-14.5); White Blood Count 10.9 K/mm3 (4.5-10.0)
[2022-12-21 06:42] LABS: Alanine Aminotransferase 16 U/L (6-50); Albumin Level 3.5 g/dL (3.5-5.1); Alkaline Phosphatase 75 U/L (38-126); Anion Gap 9 mmol/L (8-16); Aspartate Amino Transferase 21 U/L (17-59); Bilirubin,Total 0.5 mg/dL (0.2-1.3); Blood Urea Nitrogen 23 mg/dL (9-20); Calcium 9.4 mg/dL (8.4-10.2); Carbon Dioxide 20 mmol/L (22-30); Chloride 108 mmol/L (98-107); Estimated CRCL calculation 60 ml/min; Estimated Glomerular Filt Rate 47; Glucose 109 mg/dL (65-110); Magnesium 1.7 mg/dL (1.6-2.3); Potassium 4.6 mmol/L (3.4-5.0); Sodium 137 mmol/L (137-145)
[2022-12-21 07:49] LABS: Glucose Point of Care 115 mg/dl (65-105)
[2022-12-21] MEDS: ENOXAPARIN 40 MG/0.4 ML SYRINGE SUB-Q (09:32)
[2022-12-21] MEDS: ASPIRIN 81 MG ENTERIC TABLET PO (09:33)
[2022-12-21] MEDS: PIOGLITAZONE HCL 30 MG TABLET PO (09:33)
[2022-12-21] MEDS: FERROUS SULFATE 325 MG TABLET DR PO ×2 (09:33→16:20)
[2022-12-21] MEDS: lisinopriL 20 MG TABLET 40 MG PO (09:33)
[2022-12-21] MEDS: SOD HYPOCHLORITE 1/4 STRENGTH 473 ML 1 APPLIC TOPICAL (09:33)
[2022-12-21] MEDS: polyethylene glycoL 3350 17 GM POWD.PACK PO (09:33)
[2022-12-21] MEDS: HYDROcodone/acetaminophen (*CRX) 5-325 MG TABLET 1 TAB PO (09:39)
[2022-12-21 11:33] LABS: Glucose Point of Care 142 mg/dl (65-105)
--- NOTE | 2022-12-21 12:12 | P.PNIM_ITS ---
Progress Note: A&P Assessment and Plan (1) Non-healing amputation site: Code(s): T87.89 - Other complications of amputation stump Status: Acute Assessment and Plan: 1.? nonhealing amputation site * ?follows with Wound Clinic, admitted by Noah Torres for? further workup for vascular disease and antibiotics. If vasc issue, will likely need transfer for vasc services. patient is aware and agreeable. * ?Wound Care BID Changed dressing twice daily with Dakins solution soaked gauze and Kerlix wrap Apply Silver gel to left calf wound daily with 4x4 gauze and tape * ?CTA AIF? to be done tomorrow * ?CTA lower extremity, left to be done tomorrow * ?metformin held * ?gentle fluids pre and post testing - 80 ml/hr of NS * ?cefepime, flagyl and vanc initiated * ?Zofran p.r.n. * ?[place] and Tylenol p.r.n. * Add miralax and senna to prevent constipation with narcotic use * CTA BLE IMPRESSION: Limited examination, given severe circumferential arterial calcification in the arteries of the legs and feet, which obscures contrast visualization. Slow 2 vessel flow below the level of the ankle is suspected bilaterally, given appare nt flow and small branch vessels. No severe proximal stenosis detected, noting that a short segment of the right popliteal artery is obscured by metal artifact. Findings suspicious for osteomyelitis of the left first and second metatarsal heads and the left second proximal phalange, with possible septic arthritis of the left second MTP joint. (2) DM type 2 (diabetes mellitus, type 2): Qualifiers: Diabetes mellitus intermission coordinator insulin use: without group home use Diabetes mellitus complication status: without complication Qualified Code(s): E11.9 - Type 2 diabetes mellitus without complications Code(s): E11.9 - Type 2 diabetes mellitus without complications Status: Acute Assessment and Plan: 2.? diabetes, type 2 * ?hypoglycemia protocol * ?POC blood glucose ACHS * ?correct regimen ordered - low dose TIDWM and HS * ?A1C 5.5 * ?metformin held due to impending CT scans w/con. * ?continue home Actos (3) HTN (hypertension): Code(s): I10 - Essential (primary) hypertension Status: Acute Assessment and Plan: 3.? HTN * ?continue lisinopril and ASA daily * ?monitor blood pressure * Consistently high in the 150-160's. * Increasing lisinopril to 40 mg PO daily. (4) Anemia: Code(s): D64.9 - Anemia, unspecified Status: Acute Assessment and Plan: Hemoglobin in April of this year was 14.3. Steady decline noted since September of this year. * Hemoglobin 9.1 * No active bleeding * Add on anemia panel for the a.m--Fe deficiency on labs. Add ferrous sulfate. Plan Diet: diabetic GI Prophylaxis: not currently indicated DVT Prophylaxis: enoxaparin 40 Lines: pIV Code Status: Full Code CTA results are indicating need for vascular intervention. Will speak with general surgery and then initiate transfer to [facility] or [facility] based on patient preference. Awaiting Dr Chavez to see the patient on Wednesday before starting transfer per Dr Garcia. Subjective Date/time seen: 12/21/22 12:12 Interval history: HPI obtained from chart, Carl Villafuerte is a 62 year old male? presents here as a direct admission via surgical service for chronic wound to left foot. Patient reports that he has had a wound that initially developed over a year ago.? Wound appeared to the forefoot just proximal to his 1st toe on the L. Patient reports that he was able to care for the wound initially at home w
--- NOTE | 2022-12-21 12:12 | PM.IMPN ---
Progress Note: A&P Assessment and Plan (1) Non-healing amputation site: Code(s): T87.89 - Other complications of amputation stump Status: Acute Assessment and Plan: 1.? nonhealing amputation site ?follows with [facility], admitted by Noah Torres for? further workup for vascular disease and antibiotics. If vasc issue, will likely need transfer for vasc services. patient is aware and agreeable. ?Wound Care BID Changed dressing twice daily with Dakins solution soaked gauze and Kerlix wrap Apply Silver gel to left calf wound daily with 4x4 gauze and tape ?CTA AIF? to be done tomorrow ?CTA lower extremity, left to be done tomorrow ?metformin held ?gentle fluids pre and post testing - 80 ml/hr of NS ?cefepime, flagyl and vanc initiated ?Zofran p.r.n. ?[place] and Tylenol p.r.n. Add miralax and senna to prevent constipation with narcotic use CTA BLE IMPRESSION: Limited examination, given severe circumferential arterial calcification in the arteries of the legs and feet, which obscures contrast visualization. Slow 2 vessel flow below the level of the ankle is suspected bilaterally, given apparent flow and small branch vessels. No severe proximal stenosis detected, noting that a short segment of the right popliteal artery is obscured by metal artifact. Findings suspicious for osteomyelitis of the left first and second metatarsal heads and the left second proximal phalange, with possible septic arthritis of the left second MTP joint. (2) DM type 2 (diabetes mellitus, type 2): Qualifiers: Diabetes mellitus senior living insulin use: without senior living use Diabetes mellitus complication status: without complication Qualified Code(s): E11.9 - Type 2 diabetes mellitus without complications Code(s): E11.9 - Type 2 diabetes mellitus without complications Status: Acute Assessment and Plan: 2.? diabetes, type 2 ?hypoglycemia protocol ?POC blood glucose ACHS ?correct regimen ordered - low dose TIDWM and HS ?A1C 5.5 ?metformin held due to impending CT scans w/con. ?continue home Actos (3) HTN (hypertension): Code(s): I10 - Essential (primary) hypertension Status: Acute Assessment and Plan: 3.? HTN ?continue lisinopril and ASA daily ?monitor blood pressure Consistently high in the 150-160's. Increasing lisinopril to 40 mg PO daily. (4) Anemia: Code(s): D64.9 - Anemia, unspecified Status: Acute Assessment and Plan: Hemoglobin in April of this year was 14.3. Steady decline noted since September of this year. Hemoglobin 9.1 No active bleeding Add on anemia panel for the a.m--Fe deficiency on labs. Add ferrous sulfate. Plan Diet: diabetic GI Prophylaxis: not currently indicated DVT Prophylaxis: enoxaparin 40 Lines: pIV Code Status: Full Code CTA results are indicating need for vascular intervention. Will speak with general surgery and then initiate transfer to [facility] or [facility] based on patient preference. Awaiting Dr Chavez to see the patient on Wednesday before starting transfer per Dr Garcia. Subjective Date/time seen: 12/21/22 12:12 Interval history: HPI obtained from chart, Carl Villafuerte is a 62 year old male? presents here as a direct admission via surgical service for chronic wound to left foot. Patient reports that he has had a wound that initially developed over a year ago.? Wound appeared to the forefoot just proximal to his 1st toe on the L. Patient reports that he was able to care for the wound initially at home with keeping it clean, dry, and applying Neosporin. ? Wound resolved for some time, however it returned shortly after he had a knee replacement in May of 2022.? wound reoccurred in same area as his previous wound.? Area rapidly got worse and he underwent a amputation of his left 1st toe.? Patient has been following with the Wound Clinic since, however he recently had a 1 month gap due to the cost and changing i
[2022-12-21 14:00] VITALS: BP 127/60; PULSE 79; RESP 22; TEMP 36.6; O2SAT 98
--- NOTE | 2022-12-21 14:49 | PM.TDS ---
Transfer Discharge Sum: Prov Provider Date of admission: 12/18/22 13:16 Primary care physician: Ritchie Torres DO Admitting clinician: Ritchie Torres DO Consults: 12/18/22 Consult to Physician Routine Comment: spoke to gregory @[phone] (,) Consulting Provider: Geraldo Lima call circuit worker/MD group to consult: Hospitalist Reason for consultation: Diabetes, CKD, left foot wound Has provider been notified: Yes Attending physician on discharge: Ritchie Torres Discharging clinician: Ritchie Torres Anticipated date of transfer: 12/21/22 Receiving physician/facility: [facility] in [place]--hospitalist with vascular surgery consult DS: Admitting Diagnosis Discharge Date 12/21/2022 Admitting Diagnosis Nonhealing amputation site left foot, type 2 diabetes, wound of left lower extremity, chronic kidney disease, obstructive sleep apnea DS: Discharge Diagnosis Discharge Diagnosis (1) Non-healing amputation site: Code(s): T87.89 - Other complications of amputation stump Status: Acute (2) Wound of left lower extremity: Qualifiers: Encounter type: initial encounter Qualified Code(s): S81.802A - Unspecified open wound, left lower leg, initial encounter Code(s): S81.802A - Unspecified open wound, left lower leg, initial encounter Status: Acute (3) Diabetic foot infection: Code(s): E11.628 - Type 2 diabetes mellitus with other skin complications; L08.9 - Local infection of the skin and subcutaneous tissue, unspecified Status: Acute (4) JO on CPAP: Code(s): G47.33 - Obstructive sleep apnea (adult) (pediatric); Z99.89 - Dependence on other enabling machines and devices Status: Acute (5) DM type 2 (diabetes mellitus, type 2): Qualifiers: Diabetes mellitus complication status: without complication Diabetes mellitus jail insulin use: without jail use Qualified Code(s): E11.9 - Type 2 diabetes mellitus without complications Code(s): E11.9 - Type 2 diabetes mellitus without complications Status: Acute Transfer Discharge Sum: Med Medications Active and Home Medications: Home Medications aspirin 81 mg tablet,delayed release 81 mg PO DAILY 06/22/19 [History Confirmed 12/18/22] lisinopril 30 mg tablet 30 mg PO DAILY #90 tabs 12/09/22 [Rx Confirmed 12/18/22] pioglitazone 30 mg tablet 30 mg PO DAILY #90 tabs 12/09/22 [Rx Confirmed 12/18/22] diphenhydramine HCl 25 mg capsule (Benadryl) 25 mg PO BID PRN Allergy Symptoms 12/18/22 [History Confirmed 12/18/22] metformin 1,000 mg tablet 1,000 mg PO BID 12/18/22 [History Confirmed 12/18/22] Active Medications Acetaminophen (Acetaminophen 325 Mg Tablet) 650 mg PO Q4H PRN PRN Reason: Mild Pain (1-3) or Fever Hydrocodone Bitart/Acetaminophen (Hydrocodone/Acetaminophen (*Crx) 5-325 Mg Tablet) 1 tab PO Q4H PRN PRN Reason: Moderate Pain (4-6) Last Admin: 12/21/22 09:39 Dose: 1 tab Aspirin (Aspirin 81 Mg Enteric Tablet) 81 mg PO DAILY COUNT INCLUDES THE [facility] Last Admin: 12/21/22 09:33 Dose: 81 mg Calcium Carbonate (Calcium Carbonate (Tums) 500 Mg (200 Mg Elemental)) 200 mg PO Q6H PRN PRN Reason: Indigestion Dextrose (Dextrose 50% 25 Gm/50 Ml Syringe) 12.5 gm IV PUSH PRN PRN; Protocol PRN Reason: Hypoglycemia Enoxaparin Sodium (Enoxaparin 40 Mg/0.4 Ml Syringe) 40 mg SUB-Q DAILY COUNT INCLUDES THE [facility] Last Admin: 12/21/22 09:32 Dose: 40 mg Ferrous Sulfate (Ferrous Sulfate [address]) 325 mg PO BID COUNT INCLUDES THE [facility] Last Admin: 12/21/22 09:33 Dose: 325 mg Glucagon (Glucagon For Inj 1 Mg Vial) 1 mg IM PRN PRN; Protocol PRN Reason: Hypoglycemia Glucose (Glucose Oral Gel 15 Gm Of Glucse In 37.5 Gm Tube) 15 gm PO PRN PRN; Protocol PRN Reason: Hypoglycemia Sodium Chloride (Normal Saline Iv) 1,000 mls @ 75 mls/hr IV CONT .[id number] COUNT INCLUDES THE [facility] Last Admin: 12/21/22 05:56 Dose: 80 mls/hr Metronidazole (Flagyl 500 Mg/Iso Soln 100 Ml) 500 mg in 100 mls @ 100 mls/hr IVPB Q8HR COUNT INCLUDES THE [facility] Last Infusion:
[2022-12-21 16:15] LABS: Glucose Point of Care 109 mg/dl (65-105)
[2022-12-21] MEDS: LORATADINE 10 MG TABLET PO (16:20)
== END 2022-12-21 19:15 | disposition short-term general hospital (02) | DRG 540 ==
PROVIDERS: Nurse Practitioner Acute Care; Admitting Provider Surgery; PCP Surgery; Visit Provider Surgery
DX: M86.172 Other acute osteomyelitis, left ankle and foot (principal); L97.228 Non-pressure chronic ulcer of left calf with other specified severity; L97.528 Non-pressure chronic ulcer of other part of left foot with other specified severity; T87.89 Other complications of amputation stump; Z89.412 Acquired absence of left great toe; E11.621 Type 2 diabetes mellitus with foot ulcer; E11.22 Type 2 diabetes mellitus with diabetic chronic kidney disease; E78.5 Hyperlipidemia, unspecified; E66.01 Morbid (severe) obesity due to excess calories; D63.1 Anemia in chronic kidney disease; G47.33 Obstructive sleep apnea (adult) (pediatric); I12.9 Hypertensive chronic kidney disease with stage 1 through stage 4 chronic kidney disease, or unspecified chronic kidney disease; N18.9 Chronic kidney disease, unspecified; Z79.82 Long term (current) use of aspirin; Z79.84 Long term (current) use of oral hypoglycemic drugs; Z87.891 Personal history of nicotine dependence; Z68.39 Body mass index [BMI] 39.0-39.9, adult; Z96.659 Presence of unspecified artificial knee joint; Z99.89 Dependence on other enabling machines and devices
CPT/HCPCS: 36415; 73706; 80053; 80202; 82565; 82607; 82746; 82948; 83036; 83540; 83550; 83735; 85025; 85027; 87040; A9270; J0692; J1650; J1815; J1836; J2405; J3370; J7030; J7040; Q9967

== ENCOUNTER 2023-08-26 14:42 | Outpatient (CLI) | payer BC, SELFPAY ==
[2023-08-26 16:33] LABS: Anion Gap 9 mmol/L (4-12); Blood Urea Nitrogen 37 mg/dL (9-20); Calcium 9.8 mg/dL (8.4-10.2); Carbon Dioxide 20 mmol/L (22-30); Chloride 112 mmol/L (98-107); Estimated Glomerular Filt Rate 41; Glucose 88 mg/dL (65-110); Potassium 5.7 mmol/L (3.4-5.0); Sodium 141 mmol/L (137-145)
== END 2023-08-26 14:43 | disposition home or self-care (01) ==
LOC: ANHLAB 14:43
PROVIDERS: PCP Nurse Practitioner; Visit Provider Nurse Practitioner
DX: E87.5 Hyperkalemia (principal)
CPT/HCPCS: 36415; 80048

== ENCOUNTER 2024-09-04 12:00 | Emergency (ER) | payer BC, SELFPAY ==
--- NOTE | ~2024-09-04 | XR_ITS ---
EXAM: XR foot RT min 3V DATE: 09/04/2024 15:16 HISTORY: right diabetic foot infection, wound 2nd toe . COMPARISON: None available. FINDINGS: Normal mineralization. Subacute/chronic oblique fracture of the proximal right first phala nx. Avulsion fracture along the dorsal aspect of the right second distal phalanx. Overlying soft tiss ue sonolucency which appears to extend to bone. No lytic or blastic lesion. Scattered degenerative ch anges. Soft tissue swelling about the foot and ankle, with vascular and dermal calcifications. IMPRESSION: Right second toe soft tissue defect that appears to extend to the fracture bed of a subac point lay ira/chronic dorsal avulsion fracture, making infection/osteomyelitis likely. Septic arthritis involvi ng the right second DIP joint is not excluded. Subacute/chronic fracture of the right distal first ph alanx. Consider MR of the foot without and with contrast for further evaluation Reviewed, dictated and finalized at location K. IMPRESSION: Right second toe soft tissue defect that appears to extend to the f racture bed of a subacute/chronic dorsal avulsion fracture, making infection/os teomyelitis likely. Septic arthritis involving the right second DIP joint is no t excluded. Subacute/chronic fracture of the right distal first phalanx. Consid er MR of the foot without and with contrast for further evaluation
--- OUTSIDE RECORDS SUMMARY | 2024-09-04 12:03 | XMS_ITS | Clinical Summary ---
Author Organization [facility] [employer] Address [address] [place] [place] [address] Care Team Providers Care Infection Control Nurse Name Role Phone Gavino Srivastava Primary Care Provider Source Comments [facility] [employer],non-owned Affiliates and Associated Physician Practices is amultiple site organization consisting of ambulatory clinics and hospital sitesin [place], [place], [place] and [place]. This disclosure is being madepursuant to the Care Everywhere program and may not contain all information available regarding this patient. Last updated [employer] Allergies No known active allergies Medications * Be aware that medications may not be up to date on this document. Alwaysverify current medications with the patient. glucosamine (Glucosamine) 500 MG capsule Take 2 (two) capsules by mouth 3 times daily with meals Active gabapentin (Neurontin) 300 MG capsule Take 1 (one) capsule by mouth 2 times daily 3 Active atorvastatin (Lipitor) 80 MG tablet Take 1 (one) tablet by mouth at bedtime 3 Active finasteride (Proscar) 5 MG tablet 3 Active tamsulosin (Flomax) 0.4 MG capsule 3 Active metFORMIN CR osmotic 24hr (Fortamet) 1000 MG (OSM) tablet Take 1 (one) tablet by mouth 2 times daily Active naproxen sodium (Aleve) 220 MG tablet Take 1 (one) tablet by mouth 2 times daily as needed for Pain Active aspirin (Aspirin) 81 MG chew tablet Take 1 (one) tablet by mouth once daily Active lisinopril (Prinivil; Zestril) 30 MG tablet Take 1 (one) tablet by mouth once daily Active acetaminophen (Tylenol) 500 MG capsule Take 1 (one) capsule by mouth every 6 hours as needed for Fever or Pain 30 capsule 3 4 Active oxyCODONE, immediate release, (Roxicodone) 5 MG tabletIndicatio ns:Wound of left lower extremity, subsequent encounter Take 1 (one) tablet by mouth every 6 hours as needed for Pain (breakthrough pain not controlled with Tylenol/Ibuprof en) 3 tablet 4 Active Active Problems Problem Noted Date Diagnosed Date Peripheral vascular disease 08/02/2023 Abnormal gait 01/08/2023 Alcohol abuse 01/08/2023 Type 2 diabetes mellitus with hyperglycemia 12/30 Below-knee amputation 01/07/2023 GENIE (acute kidney injury) 12/22/2022 Type 2 diabetes mellitus wit h circulatory disorder, without long-term current use of insulin 12/22/2022 Essential hypertension 12/22/2022 Gangrene of toe of left foot 12/21/2022 Arthritis of right knee 06/23/2022 Encounters Date Type Department Care Team Description 08/11/2024 Telephone [facility] - Vascular Surgery [address] [place] [address], [place] [address] Daniel Holder MD Pre Authorization from Last 3 Months Immunizations Immunization Administration Dates Next Due Covid Yulissa primary monovalent 12+ yr 0.5mL Social History Tobacco Use Types Packs/Day Years Used Date Smoking Tobacco: Former Cigarettes Q uit: 1998 Smokeless Tobacco: Never Tobacco Cessation:Counseling Given: No Alcohol Use Standard Drinks/Week Comments Yes 0 (1 standard drink = 0.6 oz pure alcohol) Former daily ETOH use, now only 1 time a week AUDIT-C Answer Date Recorded Q1: How often do you have a drink containing alcohol? Never 10/22/2023 Q2: How many drinks containi ng alcohol do you have on a typical day when you are drinking? Patient does not drink Q3: How often do you have si x or more drinks on one occasion? Never 10/22/2023 Overall Financial Resource Strain (CARDIA) Answe r Date Recorded How hard is it for you to pa y for the very basics like food, housing, medical care, and heating? Not hard at all 12/21/2022 [facility] Occupat ional Health - Occupational Stress Questionnaire Answer Date Recorded Do you feel stress - tense, restless, nervous, or anxious, or unable to sleep at night because your mind is troubled all the time - these days? Only a little 12/21/2022 Hunger Vital Sign Answer Date Recorded Within the past 12 months, y ou worried that your food would run out before you got the money to buy more. Never true 12/24/19 Within the past 12 months, t he food you bought just didn't last and you didn't have money to get more. Never true 12/23/2022 PRAPARE - Transportation Answer Date Re corded In the past 12 months, has l ack of transportation kept you from medical appointments or from getting medications? No 11/30 In the past 12 months, has l ack of transportation kept you from meetings, work, or from getting things needed for daily living? No 12/21/2022 Housing Stability Vital Sign Answer Randy e Recorded In the last 12 months, was t here a time when you were not able to pay the mortgage or rent on time? No 12/21/2022 In the last 12 months, how many places have you lived? 1 12/21/2022 In the last 12 months, was t here a time when you did not have a steady place to sleep or slept in a [place] health care facility (including now)? No 12/21/2022 Sex and Gender Information Value Date Recorded Sex Assigned at Not on file Legal Sex Male 12:25 PM CDT Gender Identity Not on file Sexual Orientation Not on file Last Filed Vital Signs Vital Sign Reading Time Taken Comments Blood Pressure 131/84 12/15/2023 12:26 PM CDT Pulse 68 12/15/2023 12:26 PM CDT Temperature 36.3 C (97.3 F) 12/15/2023 12:26 PM CDT Respiratory Rate 18 12/15/2023 12:26 PM CDT Oxygen Saturation 98% 12/15/2023 12:26 PM CDT Inhaled Oxygen Concentration - - Weight 123.4 kg (272 lb) 12/15/2023 12:26 PM CDT Height 180.3 cm (5' 11) 12/15/2023 12:26 PM CDT Body Mass Index 37.94 12/15/2023 12:26 PM CDT Plan of Treatment Health Maintenance Due Date Last Done Comments COLOGUARD (AGES 45-75) - COLON CA SCREENING 1959 COLON MONITORING 1959 COLONOSCOPY - COLON CA SCREENING 1959 CT COLONOGRAPHY - COLON CA SCREENING 1959 Colorectal Cancer Screening 1959 FIT - COLON CA SCREENING 1959 FLEX SIG - COLON CA SCREENING 1959 HIV SCREENING 11/26/1974 HEPATITIS C SCREENING 11/22/1977 DTAP/TDAP/TD VACCINES (1 - Tdap) 11/26/1978 PNEUMOCOCCAL VACCINE 50+ (1 of 2 - PCV) 11/26/1978 ZOSTER VACCINE (1 of 2) 11/26/2009 Respiratory Syncytial Virus (RSV) Vaccine Pt: or over 60 yrs (1 - Risk 60-74 years 1-dose series) 2019 DIABETES RETINOPATHY SCREENING 12/22/2022 DIABETES-FOOT EXAM WITH MONOFILAMENT 12/22/2022 DIABETES-HGB A1C 06/23/2023 12/22/2022 COVID-19 VACCINE (2 - 2023- season) 2023 03/01/2021 DEPRESSION SCREENING 03/01/2024 DIABETES - URINE PROTEIN SCREENING 03/01/2024 01/12/2023, 01/12/2023, 01/12/2023 DIABETES-SERUM CREATININE 08/01/20242023, 04/05/2023, 01/21/2023, Additional history exists INFLUENZA VACCINE (#1) 2024 HEPATITIS B VACCINE Aged Out No longe r eligible based on patient's age to complete this topic HIB VACCINE Aged Out No longer eligi ble based on patient's age to complete this topic HPV VACCINE Aged Out No longer eligi ble based on patient's age to complete this topic MENINGOCOCCAL (Group B) VACCINE SHARED DECISION-MAKING Aged Out No longer eligible based on patient's age to complete this topic MENINGOCOCCAL GROUPS A/C/Y/W VACCINE Aged Out No longer eligible based on patient's age to complete this topic Medical Devices Implanted Type Area Heading Saw Operator Device Identifier Shelf Expiration Date Model / Serial / Lot Tidial Bearing Insert Implanted:Qty: 1 on 06/23/2022 by Daniel Corey MD at [facility] Right: Knee [employer] [id number] 04/15/2027 [id number]-G-70 9-E / / [id number] Cmpnt Fem Kn Rt 6 Crcte Rtn Bead Trthln Implanted:Qty: 1 on 06/23/2022 by Daniel Corey MD at [facility] Right: Knee [employer] 05/04/2027 [id number] / / [id number] Bsplt Tib Trthln 7 Kn Tritanium Implanted:Qty: 1 on 06/23/2022 by Daniel Corey MD at [facility] Right: Knee [employer] 04/21/2027 [id number]-B-[id number] 0 / / [id number] 7x10cm [employer] Mesh Omega3 Lf - [id number] Implanted:Qty: 1 on 04/05/2023 by Daniel Holder MD at [facility] Left: Knee [employer] 04/06/2024 [id number] / [id number] / Integra Mesh Dermal Regeneration Template Implanted:Qty: 1 on 08/02/2023 by Daniel Holder MD at [facility] Left: Leg Integra [employer] Bobbi 10/29/2024 [id number] / / [id number] Procedures Procedure Name Priority Date/Time Associated Diagnosis Comments COMPREHENSIVE METABOLIC PANEL Timed 08/02/2023 7:00 AM CDT Preoperative testing MICROALB/CREAT RATIO URINE RANDOM PANEL Routine 01/12/2023 1:39 PM PANEL FITTER HEMOGLOBIN A1C Routine 12/22/2022 5:15 AM CDT from Last 3 Months or Most Recently Relevant to Health Maintenance Results * (ABNORMAL) COMPREHENSIVE METABOLIC PANEL (08/02/2023 7:00 AM [facility]) [facility] Glucose 97 70 - 105 mg/dL 08/02/2023 7:40 AM [facility] Sodium 142 136 - 145 mmol/L 08/02/2023 7:40 AM [facility] Potassium 5.1 3.5 - 5.1 mmol/L 08/02/2023 7:40 AM [facility] Chloride 115(H) 98 - 107 mmol/L 08/02/2023 7:40 AM [facility] CO2 18(L) 22 - 29 mmol/L 08/02/2023 7:40 AM [facility] Calcium 9.6 8.4 - 10.4 mg/dL 08/02/2023 7:40 AM [facility] Anion Gap 9 6 - 16 mmol/L 08/02/2023 7:40 AM [facility] BUN 47(H) 7 - 26 mg/dL 08/02/2023 7:40 AM [facility] Creatinine 1.77(H) 0.72 - 1.25 mg/dL 08/02/2023 7:40 AM [facility] Alkaline Phosphatase 87 40 - 150 U/L 08/02/2023 7:40 AM [facility] ALT 27 0 - 55 U/L 08/02/2023 7:40 AM [facility] AST 20 5 - 34 U/L 08/02/2023 7:40 AM [facility] Protein Total 7.1 6.4 - 8.3 gm/dL 08/02/2023 7:40 AM [facility] Albumin 3.2(L) 3.4 - 5.0 gm/dL 08/02/2023 7:40 AM [facility] Bilirubin Total 0.5 0.2 - 1.2 mg/dL 08/02/2023 7:40 AM [facility] eGFR by CKD-EPI 43(L) >=90 mL/min/1.7 3 m2 08/02/2023 7:40 AM [facility] Blood BLOOD SPECIMEN / Unknown Venipuncture / Unknown 08/02/2023 7:00 AM CDT 08/02/2023 7:13 AM CDT Jaci Carmichael SUPERVISOR [employer] LAB - CHEMISTRY ORDER BETH Final Result [facility] [address] [place] [address] * (ABNORMAL) MICROALB/CREAT RATIO URINE RANDOM PANEL (01/12/2023 1:39 PM PANEL FITTER) Creatinine Urine 70.01 mg/dL 01/13/20 5:54 PM PANEL FITTER [facility] Microalbumin Urine 2.2 mg/dL 01/12/2023 5:54 PM PANEL FITTER [facility] Microalbumin/Crea tinine Ratio 31(H) <30 mg/g 01/12/2023 5:54 PM PANEL FITTER [facility] Urine URINE SPECIMEN OBTAINED BY CLEAN CATCH PROCEDURE / Unknown 01/12/2023 1:39 PM PANEL FITTER 01/12/2023 5:21 PM PANEL FITTER Latanya Dowd SUPER[employer]OR [employer] [facility] - URINE CHEMISTRY ORDE RABLES Final Result [facility] [address] [place] [address] * (ABNORMAL) HEMOGLOBIN A1C (12/22/2022 5:15 AM CDT) Hemoglobin A1c 5.8(H) <5.7 % 12/22/2022 6:48 AM CDT [facility] Estimated Average Glucose 120 mg/dL 12/22/2022 6:48 AM CDT [facility] Blood BLOOD SPECIMEN / Unknown Lab Venipuncture / Unknown 12/22/2022 5:15 AM CDT 12/22/2022 6:16 AM CDT Narrative [facility] - 12/22/2022 6:48 AM CDT HbA1c Interpretation: Normal: < 5.7% Pre-diabetes: 5.7-6.4% Diabetes: Equal to or greater than 6.5% Test results diagnostic of diabetes should be repeated for confirmation. Treatment target values recommended by ADA and other clinical organizations should be used to evaluate metabolic control in patients. This test should not replace glucose testing for patients with Type 1 diabetes, pediatric patients, or women. Falsely low HbA1c results may be observed in patients with clinical conditions that shorten erythrocyte life span or decrease mean erythrocyte age such as the presence of unstable hemoglobin variants, elevated hemoglobin F level or other causes of hemolytic anemia. HbA1c may not accurately reflect glycemic control when clinical conditions that affect erythrocyte survival are present. Severe Iron deficiency anemia may yield falsely high results. Hemoglobin A1c assay should not be used to diagnose or monitor diabetes in patients with malignancy, recent blood transfusion, chronic kidney or liver disease. This method may yield falsely low results when hemoglobin (HbF) exceeds 5% in the specimen. The Chavez Alinity assay for the measurement of HbA1c is a National Glycohemoglobin Standardization Program (NGSP) certified method. us Jesus Reddy DO LAB - CHEMISTRY ORDERABLES Fi nal Result [facility] [address] [place] [address] from Last 3 Months or Most Recently Relevant to Health Maintenance Insurance [facility] Advance Directives * Full Code (Latest Code Status on File) Date Activated Date Inactivated Comments 01/08/2023 10:47 AM 01/22/2023 12:55 PM * Full Code Date Activated Date Inactivated Comments 12/21/2022 9:17 PM 01/07/2023 10:22 PM * Full Code Date Activated Date Inactivated Comments 12/21/2022 8:19 PM 12/21/2022 9:17 PM * Full Code Date Activated Date Inactivated Comments 06/23/2022 5:25 PM 06/24/2022 6:12 PM Care Teams Infection Control Nurse Relationship Specialty Start Date End Date Gavino Srivastava, SUPERVISOR [employer] [address] [place] [address] PCP - General Nurse Practitioner 03/11/23
--- OUTSIDE RECORDS SUMMARY | 2024-09-04 12:03 | XMS_ITS | Clinical Summary ---
Author Organization [facility] Address [address] [place] [address] Care Team Providers Care Purification Supervisor Name Role Phone Unavailable Primary Care Provider Unavailabl e Allergies No known active allergies Medications aspirin 81 MG chewable tabletIndicatio ns:Peripheral Arterial Disease Chew 1 tablet (81 mg total) in the morning. Indications: Disease of the Peripheral Arteries. 0 3 Active atorvastatin (LIPITOR) 80 MG tablet Take 1 tablet (80 mg total) by mouth nightly. 30 tablet 3 Active finasteride (PROSCAR) 5 MG tablet Take 1 tablet (5 mg total) by mouth in the morning. 30 tablet 3 Active tamsulosin (FLOMAX) 0.4 MG capsule Take 2 capsules (0.8 mg total) by mouth nightly. 30 capsule 3 Active Active Problems Problem Noted Date Diagnosed Date Abnormal gait 01/08/2023 Alcohol abuse 01/08/2023 Peripheral vascular disease 01/08/2023 Type 2 diabetes mellitus with hyperglycemia 12/30 Status post BKA 01/07/2023 Immunizations Immunization Administration Dates Next Due Moderna SARS-CoV-2 Vaccination 03/01/2021 Family History Medical History Relation Name Comments Diabetes Mother Hypertension Mother Relation Name Status Comments Mother Social History Tobacco Use Types Packs/Day Years Used Date Smoking Tobacco: Former Cigarettes 3 24 0 03/01/1976 - 03/01/2000 Smokeless Tobacco: Never Tobacco Cessation:Counseling Given: No Comments:Pt. Quit smoking already. Alcohol Use Standard Drinks/Week Comments Yes 36 (1 standard drink = 0.6 oz pu re alcohol) Sex and Gender Information Value Date Recorded Sex Assigned at Not on file Legal Sex Male 4:43 PM EDT Gender Identity Not on file Sexual Orientation Not on file Last Filed Vital Signs Vital Sign Reading Time Taken Comments Blood Pressure 145/78 01/22/2023 7:50 AM SANDER HAND Pulse 71 01/22/2023 7:50 AM SANDER HAND Temperature 36.6 C (97.8 F) 01/22/2023 7:50 AM SANDER HAND Respiratory Rate 18 01/22/2023 7:50 AM SANDER HAND Oxygen Saturation 95% 01/22/2023 7:50 AM SANDER HAND Inhaled Oxygen Concentration - - Weight 107 kg (236 lb) 01/07/2023 9:52 PM SANDER HAND Height 180.3 cm (5' 11) 01/07/2023 9:52 PM SANDER HAND Body Mass Index 32.92 01/07/2023 9:52 PM SANDER HAND Plan of Treatment Health Maintenance Due Date Last Done Comments CT Colonography 1959 Colonoscopy 1959 Colorectal Cancer Screening 1959 FIT-DNA (Cologuard) 1959 FIT 1959 FOBT 1959 Sigmoidoscopy 1959 Annual Visit Topic 11/26/1960 MMR Vaccines (1 of 1 - Stand felipe series) 11/26/1960 Hepatitis C Screening 11/26/1977 DTaP/Tdap/Td Vaccines (1 - Tdap) 11/26/1978 PSA Test 11/26/2014 HIB Vaccines Aged Out No longer eligi ble based on patient's age to complete this topic HPV Vaccines Aged Out No longer eligi ble based on patient's age to complete this topic Hepatitis A Vaccines Aged Out No long er eligible based on patient's age to complete this topic Hepatitis B Vaccines Aged Out No long er eligible based on patient's age to complete this topic IPV Vaccines Aged Out No longer eligi ble based on patient's age to complete this topic Meningococcal Vaccine Aged Out No eder christa eligible based on patient's age to complete this topic Pneumococcal Vaccine: Pediat rics (0 to 5 years) and At-Risk Patients (6 to 64 Years) Aged Out No longer eligible b ased on patient's age to complete this topic Advance Directives * Full Resuscitation (Latest Code Status on File) Date Activated Date Inactivated Comments 01/08/2023 12:01 AM 01/22/2023 3:07 PM Question Answer Comments I have discussed this order with the patient or his/her surrogate and have received informed consent. Yes
[2024-09-04 12:10] VITALS: BP 127/67; PULSE 62; RESP 14; TEMP 36.4; O2SAT 100
--- NOTE | 2024-09-04 13:41 | ED_ITS ---
HPI - Wound/Laceration General Chief Complaint: Wound/Laceration <Miranda Rodriguez PA-C - Last Filed: 09/05/24 09:59> Stated Complaint: toe infection <Miranda Rodriguez PA-C - Last Filed: 09/05/24 09:59> Time Seen by Provider: 09/04/24 13:41 <Miranda Rodriguez PA-C - Last Filed: 09/05/24 09:59> Focused HPI: This is a 63 year old male that presents to the ER for toe infection. Reports he broke his 1st and 2nd toe a couple months ago. Reports he was initially healing okay. Over the last week he has noticed redness, swelling, abnormal coloration to the right 2nd toe. He has had to have amputation to the left lower extremity due to diabetic wounds. Reports subjective fevers. GENERAL: Well-appearing, well-nourished, and in no acute distress. HEAD: Normocephalic, atraumatic. CHEST: Clear to auscultation. ?No respiratory distress. HEART: Regular rate and rhythm.? NEURO: ?Alert and oriented x3. EXTREMITY: Left 2nd toe bruised, pale, wet, surrounding redness Patient screened in triage and initial orders placed.? ?Additional care and disposition to be based upon?diagnostic testing and treatment. <Miranda Rodriguez PA-C - Last Filed: 09/05/24 09:59> History of Present Illness HPI narrative: Agree with above HPI <Dagoberto Carr MD - Last Filed: 09/04/24 19:17> Related Data Home Medications: Home Medications ?Medication ?Instructions ?Recorded ?Confirmed ?Last Taken ?Type aspirin 81 mg tablet,delayed 81 mg PO DAILY 06/22/19 08/26/23 12/18/22 09:00 History release diphenhydramine HCl 25 mg capsule 25 mg PO BID PRN Allergy Symptoms 12/18/22 08/26/23 Unknown History (Benadryl) <Miranda Rodriguez PA-C - Last Filed: 09/05/24 09:59> Allergies/Adverse Reactions: Allergies Allergy/AdvReac Type Severity Reaction Status Date / Time No Known Allergies Allergy Verified 03/30/24 13:47 <Miranda Rodriguez PA-C - Last Filed: 09/05/24 09:59> Review of Systems 2 Review of Systems: All systems reviewed & are unremarkable except as noted in HPI and below <Dagoberto Carr MD - Last Filed: 09/04/24 19:17> [facility] Past Medical History Medical History: Medical History (Updated 09/05/24 @ 09:59 by Miranda Rodriguez PA-C) Body mass index (BMI) of 40.1 to 44.9 in adult Non-healing amputation site Morbid obesity JO (obstructive sleep apnea) Elevated PSA Urinary frequency Other and unspecified hyperlipidemia Benign essential hypertension DM w/o complication type II, uncontrolled <Miranda Rodriguez PA-C - Last Filed: 09/05/24 09:59> Surgical History Surgical History: Surgical History Amputated toe of left foot Left 1st toe ray amputation on 10/05/22 [facility] History of total knee arthroplasty S/P rotator cuff repair <Miranda Rodriguez PA-C - Last Filed: 09/05/24 09:59> Family History Family History: Family History (Updated 03/30/24 @ 14:51 by ROSHAN Vallecillo) Mother Hypertension Father Sibling No problems noted. <Miranda Rodriguez PA-C - Last Filed: 09/05/24 09:59> Social History Social History: Social History (Updated 03/30/24 @ 14:52 by ROSHAN Vallecillo) Social History: The patient was 1 time for a year and is now . He is currently unemployed. 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 He has no children. He is a former smoker. No alcohol marijuana or illicit drugs. Code status full code Smoking packs per day: 2 Smoking cigarettes per day: 40.0 Years smoked: 20 Smoking pack-years: 40.00 Smoking status: Former smoker Second hand tobacco smoke exposure: Yes Alcohol intake: current Drinks per week: 3 Substance use: never Substance use type: does not use Do You Feel Safe in your Home?: Yes Lack of Transportation: No Lack of Food: Never True Current Housing: I Have Housing Concerned About Future Housing: No Difficulty Paying Gas/Electric Bills: No Difficulty Paying for Meds: No Currently Unemployed: No Education: Trade/Vocational Certificate Difficulty w/ Childcare or Family Care: No Living arrangements: alone Occupation/Education: unemployed Additional occupation/education comments: 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 HEAD: normocephalic, atraumatic. EYES: PERRLA/EOMI, conjunctivae clear. NOSE: Normal no drainage EARS:TMS clear with good light reflex. THROAT: Pharynx clear, no exudate. NECK: Supple. No adenopathy, no masses. RESPIRATORY: Airway patent, respirations nonlabored. Clear to auscultation bilaterally, no rales, rhonchi, wheezing. CARDIOVASCULAR: Regular rate and rhythm without murmurs rubs or gallops. ABDOMINAL: Soft, nontender, nondistended, normal bowel sounds MUSCULOSKELETAL: Boggy appearing and pale 2nd toe with blood blister on lateral aspect of 2nd toe of right foot NEURO: Alert. Cranial nerves II through XII intact. Good gait. Good coordination SKIN: Warm, dry. Normal Color <Dagoberto Carr MD - Last Filed: 09/04/24 19:17> Course Vital Signs Vital signs: Vital Signs Temperature 97.5 F L 09/04/24 12:10 Pulse Rate 62 09/04/24 12:10 Respiratory Rate 14 09/04/24 12:10 Blood Pressure 127/67 09/04/24 12:10 Pulse Oximetry 100 09/04/24 12:10 Oxygen Delivery Room Air 09/04/24 12:10 Temperature 97.5 F L 09/04/24 12:10 Pulse Rate 62 09/04/24 12:10 Respiratory Rate 14 09/04/24 12:10 Blood Pressure 127/67 09/04/24 12:10 Pulse Oximetry 100 09/04/24 12:10 Oxygen Delivery Room Air 09/04/24 12:10 <Miranda Rodriguez PA-C - Last Filed: 09/05/24 09:59> Vital Signs Temperature 97.5 F L 09/04/24 12:10 Pulse Rate 62 09/04/24 12:10 Respiratory Rate 14 09/04/24 12:10 Blood Pressure 127/67 09/04/24 12:10 Pulse Oximetry 100 09/04/24 12:10 Oxygen Delivery Room Air 09/04/24 12:10 Temperature 97.5 F L 09/04/24 12:10 Pulse Rate 62 09/04/24 12:10 Respiratory Rate 14 09/04/24 12:10 Blood Pressure 127/67 09/04/24 12:10 Pulse Oximetry 100 09/04/24 12:10 Oxygen Delivery Room Air 09/04/24 12:10 <Dagoberto Carr MD - Last Filed: 09/04/24 19:17> MDM - Wound/Laceration MDM Narrative Medical decision making narrative: 63 old male presenting emergency department for evaluation for worsening right 2nd toe. Patient states he does have a prior history of fracture on that foot began having worsening infection that toe just few days ago. X-ray shows Right second toe soft tissue defect that appears to extend to the fracture bed of a subacute/chronic dorsal avulsion fracture, making infection/osteomyelitis likely. Septic arthritis involving the right second DIP joint is not excluded. Subacute/chronic fracture of the right distal first phalanx. Consider MR of the foot without and with contrast for further evaluation. Surgery was consulted and patient was started on cefepime, Flagyl and vancomycin. Blood cultures were ordered. Case was discussed with surgery and Orthopedics. Orthopedics surgeon on-call preferred that the consult go to General surgery. General surgery felt the patient would be better served at [facility] where the patient has had previous amputations and has required consultation by vascular surgery. Discussed case with the hospitalist and patient was accepted for transfer to [facility]. Patient family were updated on the reason for transfer and plan for transfer. All questions were addressed patient was well-appearing at time of transfer. <Dagoberto Carr MD - Last Filed: 09/04/24 19:17> Differential Diagnosis Differential diagnosis: Likely abscess and other (Osteomyelitis, septic arthritis, neck fracture) <Dagoberto Carr MD - Last Filed: 09/04/24 19:17> Lab Data Attestation: I reviewed the patient's lab results. <Dagoberto Carr MD - Last Filed: 09/04/24 19:17> Result diagrams: 09/04/24 15:30 09/04/24 15:30 <Miranda Rodriguez PA-C - Last Filed: 09/05/24 09:59> Labs: Lab Results 09/04/24 09/04/24 09/04/24 Range/Units 15:30 15:31 15:33 WBC 14.1 H (4.5-10.0) K/mm3 RBC 3.68 L (4.6-6.20) M/mm3 Hgb 8.6 L (14.0-18.0) g/dL Hct 28.7 L (42.0-52.0) % MCV 78.0 L (80-100) fl MCH 23.4 L (26-34) pg MCHC 30.0 L (32-36) g/dl RDW 16.7 H (11.5-14.5) % Plt Count 329 (150-375) k/mm3 MPV 9.2 (7.4-10.4) fl Immature Gran % (Auto) 0.6 H (0-0.5) % Neut % (Auto) 81.0 H (45.5-73.1) % Lymph % (Auto) 7.9 L (18.3-44.2) % [place] % (Auto) 8.9 H (2.6-8.5) % Eos % (Auto) 1.2 (0-4.4) % Baso % (Auto) 0.4 (0.2-1.2) % Lymph # (Auto) 1.11 (0.9-3.2) K/mm3 [place] # (Auto) 1.3 H (0.1-0.6) K/mm3 Eos # (Auto) 0.2 (0-0.3) K/mm3 Baso # (Auto) 0.1 (0.0-0.1) K/mm3 Abs Immat Gran (auto) 0.09 H (0.00-0.031) K/mm3 Absolute Neuts (auto) 11.5 H (1.3-6.7) K/mm3 Absolute Nucleated RBC 0.000 (0.0-0.012) K/mm3 Nucleated RBC % 0.0 (0.0-0.2) % ESR 121 H (0-20) mm/hr PT 15.6 H (11.1-14.7) Seconds INR 1.3 APTT 43.3 H (22.3-36.8) Seconds Sodium 138 (137-145) mmol/L Potassium 5.3 H (3.4-5.0) mmol/L Chloride 111 H (98-107) mmol/L Carbon Dioxide 17 L (22-30) mmol/L Anion Gap 10 (4-12) mmol/L BUN 35 H (9-20) mg/dL Creatinine 1.99 H (0.7-1.3) mg/dL Estim Creat Clear Calc 46 ml/min Estimated GFR 34 L (59 - ) Glucose 123 H (65-110) mg/dL Hemoglobin A1c 5.5 (<5.7) % Lactic Acid 1.4 (0.7-2.0) mmol/L Calcium 9.4 (8.4-10.2) mg/dL Total Bilirubin 0.5 (0.2-1.3) mg/dL AST 29 (17-59) U/L ALT 22 (6-50) U/L Alkaline Phosphatase 96 (38-126) U/L C-Reactive Protein 30.0 H (<1.0) mg/dL Total Protein 7.3 (6.3-8.2) g/dL Albumin 3.5 (3.5-5.1) g/dL <Miranda Rodriguez PA-C - Last Filed: 09/05/24 09:59> Lab Results 09/04/24 09/04/24 09/04/24 Range/Units 15:30 15:31 15:33 WBC 14.1 H (4.5-10.0) K/mm3 RBC 3.68 L (4.6-6.20) M/mm3 Hgb 8.6 L (14.0-18.0) g/dL Hct 28.7 L (42.0-52.0) % MCV 78.0 L (80-100) fl MCH 23.4 L (26-34) pg MCHC 30.0 L (32-36) g/dl RDW 16.7 H (11.5-14.5) % Plt Count 329 (150-375) k/mm3 MPV 9.2 (7.4-10.4) fl Immature Gran % (Auto) 0.6 H (0-0.5) % Neut % (Auto) 81.0 H (45.5-73.1) % Lymph % (Auto) 7.9 L (18.3-44.2) % [place] % (Auto) 8.9 H (2.6-8.5) % Eos % (Auto) 1.2 (0-4.4) % Baso % (Auto) 0.4 (0.2-1.2) % Lymph # (Auto) 1.11 (0.9-3.2) K/mm3 [place] # (Auto) 1.3 H (0.1-0.6) K/mm3 Eos # (Auto) 0.2 (0-0.3) K/mm3 Baso # (Auto) 0.1 (0.0-0.1) K/mm3 Abs Immat Gran (auto) 0.09 H (0.00-0.031) K/mm3 Absolute Neuts (auto) 11.5 H (1.3-6.7) K/mm3 Absolute Nucleated RBC 0.000 (0.0-0.012) K/mm3 Nucleated RBC % 0.0 (0.0-0.2) % ESR 121 H (0-20) mm/hr PT 15.6 H (11.1-14.7) Seconds INR 1.3 APTT 43.3 H (22.3-36.8) Seconds Sodium 138 (137-145) mmol/L Potassium 5.3 H (3.4-5.0) mmol/L Chloride 111 H (98-107) mmol/L Carbon Dioxide 17 L (22-30) mmol/L Anion Gap 10 (4-12) mmol/L BUN 35 H (9-20) mg/dL Creatinine 1.99 H (0.7-1.3) mg/dL Estim Creat Clear Calc 46 ml/min Estimated GFR 34 L (59 - ) Glucose 123 H (65-110) mg/dL Hemoglobin A1c 5.5 (<5.7) % Lactic Acid 1.4 (0.7-2.0) mmol/L Calcium 9.4 (8.4-10.2) mg/dL Total Bilirubin 0.5 (0.2-1.3) mg/dL AST 29 (17-59) U/L ALT 22 (6-50) U/L Alkaline Phosphatase 96 (38-126) U/L C-Reactive Protein 30.0 H (<1.0) mg/dL Total Protein 7.3 (6.3-8.2) g/dL Albumin 3.5 (3.5-5.1) g/dL <Dagoberto Carr MD - Last Filed: 09/04/24 19:17> Imaging Data Radiologist's impression: Impressions Foot X-Ray 09/04/24 15:19 IMPRESSION: Right second toe soft tissue defect that appears to extend to the fracture bed of a subacute/chronic dorsal avulsion fracture, making infection/osteomyelitis likely. Septic arthritis involving the right second DIP joint is not excluded. Subacute/chronic fracture of the right distal first phalanx. Consider MR of the foot without and with contrast for further evaluation <Dagoberto Carr MD - Last Filed: 09/04/24 19:17> Critical Care Time Critical Care Time Critical Care Time: No <Miranda Rodriguez PA-C - Last Filed: 09/05/24 09:59> Discharge Plan Discharge Clinical Impression: Osteomyelitis Qualifiers: Osteomyelitis type: unspecified type Osteomyelitis location: foot Laterality: r ight Qualified Code(s): M86.9 - Osteomyelitis, unspecified <Miranda Rodriguez PA-C - Last Filed: 09/05/24 09:59> Patient Disposition: Acute Care Hospital <Miranda Rodriguez PA-C - Last Filed: 09/05/24 09:59> Condition: Stable <Miranda Rodriguez PA-C - Last Filed: 09/05/24 09:59> Patient Language: Kuwaiti <Miranda Rodriguez PA-C - Last Filed: 09/05/24 09:59> Prescriptions: No Action aspirin 81 mg tablet,delayed release (DR/EC) 81 mg PO DAILY atorvastatin [Lipitor] 20 mg tablet 20 mg PO DAILY Qty: 90 2RF propranolol 10 mg tablet 10 mg PO Q12H Qty: 60 5RF diphenhydramine HCl [Benadryl] 25 mg Capsule 25 mg PO BID PRN (Reason: Allergy Symptoms) gabapentin 300 mg capsule 300 mg PO TID Qty: 270 1RF metformin 1,000 mg tablet See Rx Instructions .ROUTE .COMPLEX Qty: 180 1RF Dose Instruction: TAKE 1 TABLET BY MOUTH TWICE DAILY Rx Instructions: TAKE 1 TABLET BY MOUTH TWICE DAILY tamsulosin 0.4 mg capsule 0.4 mg PO QHS Qty: 90 1RF lisinopril 30 mg tablet 30 mg PO DAILY Qty: 90 3RF <Miranda Rodriguez PA-C - Last Filed: 09/05/24 09:59> Follow-up/Referrals: Gavino Srivastava APRN [Primary Care Provider] - <Miranda Rodriguez PA-C - Last Filed: 09/05/24 09:59>
--- OUTSIDE RECORDS SUMMARY | 2024-09-04 13:55 | XMS_ITS | Clinical Summary ---
Author Organization [facility] Address [address] [place] [address] Care Team Providers Care Zinc Plate Grainer Name Role Phone Unavailable Primary Care Provider [...] Comments Blood Pressure 145/78 01/22/2023 7:50 AM TRIAL MGR Pulse 71 01/22/2023 7:50 AM TRIAL MGR Temperature 36.6 C (97.8 F) 01/22/2023 7:50 AM TRIAL MGR Respiratory Rate 18 01/22/2023 7:50 AM TRIAL MGR Oxygen Saturation 95% 01/22/2023 7:50 AM TRIAL MGR Inhaled Oxygen Concentration - - Weight 107 kg (236 lb) 01/07/2023 9:52 PM TRIAL MGR Height 180.3 cm (5' 11) 01/07/2023 9:52 PM TRIAL MGR Body Mass Index 32.92 01/07/2023 9:52 PM TRIAL MGR Plan of Treatment Health Maintenance Due Date [...]
--- OUTSIDE RECORDS SUMMARY | 2024-09-04 13:55 | XMS_ITS | Clinical Summary ---
Author Organization [facility] Address [address] [facility] [place] [address] Care Team Providers Care Transition Program Manager Name Role Phone Gavino Srivastava Primary Care Provider Source Comments [facility],non-owned Affiliates and Associated Physician Practices is amultiple site organization consisting of ambulatory clinics and hospital sitesin [place], [place], [place] and [place]. This disclosure is being madepursuant to the Care Everywhere program and may not contain all information available regarding this patient. Last updated 17.[facility] Allergies No known active allergies Medications * [...] Telephone [facility] - Vascular Surgery [address] [place] [address], [place] [address] Daniel Holder MD Pre Authorization [...] and heating? Not hard at all 12/21/2022 [facility] - Occupational Stress [...] place to sleep or slept in a longterm (including now)? No 12/21/2022 Sex and Gender [...] this topic Medical Devices Implanted Type Area Photofinishing Laboratory Worker Device Identifier Shelf Expiration Date Model / Serial / Lot Tidial Bearing Insert Implanted:Qty: 1 on 06/23/2022 by Daniel Corey MD at [facility] Right: Knee [employer] [id number] 04/15/2027 5531-G-70 9-E / / [id number] Cmpnt Fem Kn Rt 6 Crcte Rtn Bead Trthln Implanted:Qty: 1 on 06/23/2022 by Daniel Corey MD at [facility] Right: Knee [employer] 05/04/2027 [id number] / / [id number] Bsplt Tib Trthln 7 Kn Tritanium Implanted:Qty: 1 on 06/23/2022 by Daniel Corey MD at [facility] Right: Knee [employer] 04/21/2027 [id number]-B-70 0 / / [id number] Drsg 7x10cm Kerecis Or Mesh Omega3 Lf - [id number] Implanted:Qty: 1 on 04/05/2023 by Daniel Holder MD at [facility] Left: Knee [employer] 04/06/2024 [id number] [id number] / [id number] / Integra Mesh Dermal Regeneration Template Implanted:Qty: 1 on 08/02/2023 by Daniel Holder MD at [facility] Left: Leg Integra [employer] Bobbi 10/29/2024 [id number] / / [id number] Procedures Procedure Name Priority Date/Time Associated Diagnosis Comments COMPREHENSIVE METABOLIC PANEL Timed 08/02/2023 7:00 AM CDT Preoperative testing MICROALB/CREAT RATIO URINE RANDOM PANEL Routine 01/12/2023 1:39 PM PEELER OPERATOR HEMOGLOBIN A1C Routine 12/22/2022 5:15 AM CDT from Last 3 Months or Most Recently Relevant to Health Maintenance Results * (ABNORMAL) COMPREHENSIVE METABOLIC PANEL (08/02/2023 7:00 AM [facility] Glucose 97 70 - 105 mg/dL 08/02/2023 7:40 AM [facility] Sodium 142 136 - 145 mmol/L 08/02/2023 7:40 AM [facility] Potassium 5.1 3.5 - 5.1 mmol/L 08/02/2023 7:40 AM [facility] Chloride 115(H) 98 - 107 mmol/L 08/02/2023 7:40 AM [facility] CO2 18(L) 22 - 29 mmol/L 08/02/2023 7:40 AM [facility] Calcium 9.6 8.4 - 10.4 mg/dL 08/02/2023 7:40 AM [facility] Anion Gap 9 6 - 16 mmol/L 08/02/2023 7:40 AM [facility] BUN 47(H) 7 - 26 mg/dL 08/02/2023 7:40 AM [facility] Creatinine 1.77(H) 0.72 - 1.25 mg/dL 08/02/2023 7:40 AM [facility] Alkaline Phosphatase 87 40 - 150 U/L 08/02/2023 7:40 AM [facility] ALT 27 0 - 55 U/L 08/02/2023 7:40 AM [facility] AST 20 5 - 34 U/L 08/02/2023 7:40 AM [facility] Protein Total 7.1 6.4 - 8.3 gm/dL 08/02/2023 7:40 AM [facility] Albumin 3.2(L) 3.4 - 5.0 gm/dL 08/02/2023 7:40 AM [facility] Bilirubin Total 0.5 0.2 - 1.2 mg/dL 08/02/2023 7:40 AM [facility] eGFR by CKD-EPI 43(L) >=90 mL/min/1.7 3 m2 08/02/2023 7:40 AM [facility] Blood BLOOD SPECIMEN / Unknown Venipuncture / Unknown 08/02/2023 7:00 AM CDT 08/02/2023 7:13 AM CDT Jaci Carmichael WORKFORCE MANAGEMENT MANAGER-[facility] - CHEMISTRY ORDER BETH Final Result [facility] [address] [place] [address] * (ABNORMAL) MICROALB/CREAT RATIO URINE RANDOM PANEL (01/12/2023 1:39 PM PEELER OPERATOR) Creatinine Urine 70.01 mg/dL 01/13/20 5:54 PM PEELER OPERATOR [facility] Microalbumin Urine 2.2 mg/dL 01/12/2023 5:54 PM PEELER OPERATOR [facility] Microalbumin/Crea tinine Ratio 31(H) <30 mg/g 01/12/2023 5:54 PM PEELER OPERATOR [facility] Urine URINE SPECIMEN OBTAINED BY CLEAN CATCH PROCEDURE / Unknown 01/12/2023 1:39 PM PEELER OPERATOR 01/12/2023 5:21 PM PEELER OPERATOR Latanya Dowd WORKFORCE MANAGEMENT MANAGER-[facility] - URINE CHEMISTRY ORDE RABLES Final Result [facility] [address] [place] [address] * (ABNORMAL) HEMOGLOBIN A1C (12/22/2022 5:15 AM CDT) Hemoglobin A1c 5.8(H) <5.7 % 12/22/2022 6:48 AM CDT [facility] Estimated Average Glucose 120 mg/dL 12/22/2022 6:48 AM CDT [facility] Blood BLOOD SPECIMEN / Unknown Lab Venipuncture / Unknown 12/22/2022 5:15 AM CDT 12/22/2022 6:16 AM CDT Narrative [facility] - 12/22/2022 6:48 AM CDT HbA1c [...] LAB - CHEMISTRY ORDERABLES Fi nal Result [facility] [address] [place] [address] from Last 3 Months or Most Recently Relevant to Health Maintenance Insurance [facility] Advance Directives * Full Code (Latest Code [...] 5:25 PM 06/24/2022 6:12 PM Care Teams Transition Program Manager Relationship Specialty Start Date End Date Gavino Srivastava, WORKFORCE MANAGEMENT MANAGER-CHIEF PAYROLL CLERK [address] [place] [address] PCP - General Nurse Practitioner 03/11/23
[2024-09-04 15:46] LABS: Hematocrit 28.7 % (42.0-52.0); Hemoglobin 8.6 g/dL (14.0-18.0); Immature Granulocyte Percent A 0.6 % (0-0.5); Lymphocytes Absolute Auto 1.11 K/mm3 (0.9-3.2); Mean Corpuscular HGB Conc 30.0 g/dl (32-36); Mean Corpuscular Hemoglobin 23.4 pg (26-34); Mean Corpuscular Volume 78.0 fl (80-100); Nucleated Red Blood Cells Absolute Auto 0.000 K/mm3 (0.0-0.012); Nucleated Red Blood Cells Perc 0.0 % (0.0-0.2); Platelet Count Result 329 k/mm3 (150-375); Red Blood Count 3.68 M/mm3 (4.6-6.20); White Blood Count 14.1 K/mm3 (4.5-10.0)
[2024-09-04] MEDS: CEFEPIME 2 GM in SODIUM CHLORIDE 0.9% IV 50 ML 100 ML IVPB (15:46)
[2024-09-04 15:57] LABS: INR 1.3; Prothrombin Time 15.6 Seconds (11.1-14.7)
[2024-09-04 15:58] LABS: Partial Thromboplastin Time 43.3 Seconds (22.3-36.8)
[2024-09-04 16:01] LABS: Alanine Aminotransferase 22 U/L (6-50); Albumin Level 3.5 g/dL (3.5-5.1); Alkaline Phosphatase 96 U/L (38-126); Anion Gap 10 mmol/L (4-12); Aspartate Amino Transferase 29 U/L (17-59); Bilirubin,Total 0.5 mg/dL (0.2-1.3); Blood Urea Nitrogen 35 mg/dL (9-20); Calcium 9.4 mg/dL (8.4-10.2); Carbon Dioxide 17 mmol/L (22-30); Chloride 111 mmol/L (98-107); Estimated CRCL calculation 46 ml/min; Estimated Glomerular Filt Rate 34; Glucose 123 mg/dL (65-110); Potassium 5.3 mmol/L (3.4-5.0); Sodium 138 mmol/L (137-145); Total Protein 7.3 g/dL (6.3-8.2)
[2024-09-04 16:14] LABS: Hemoglobin A1C 5.5 % (<5.7)
--- NOTE | 2024-09-04 16:38 | P.CONGS_ITS ---
Assessment and Plan Assessment and plan (1) Osteomyelitis of second toe of right foot: Code(s): M86.9 - Osteomyelitis, unspecified Status: Acute Assessment and Plan: * The patient has a right 2nd toe ulcer with bone exposed and surrounding cellulitis and some ischemic changes of the skin localized to the 2nd toe. There is erythema of the distal forefoot but this does not extend proximally. Plain films in the ER showed findings of osteomyelitis of the right 2nd toe with an avulsion fracture and possible septic arthritis of the right 2nd DIP joint. His distal pulses are weak and I am unable to palpate a posterior tibial pulse. He has a significant history of peripheral vascular disease and is s/p left BKA. He followed with a vascular surgeon at [facility] where he had previous vascular workup and was reportedly told he had PAD in the right leg as well. Discussed the patient's case with Dr. Cooper. He would recommend transfer back to [facility] where vascular surgery would be available and where he had previous vascular workup. (2) Diabetic toe ulcer: Code(s): E11.621 - Type 2 diabetes mellitus with foot ulcer; L97.509 - Non-pressure chronic ulcer of other part of unspecified foot with unspecified severity Status: Acute (3) Peripheral arterial disease: Code(s): I73.9 - Peripheral vascular disease, unspecified Status: Acute (4) Venous insufficiency: Code(s): I87.2 - Venous insufficiency (chronic) (peripheral) Status: Acute (5) DM type 2 (diabetes mellitus, type 2): Qualifiers: Diabetes mellitus complication status: without complication Diabetes mellitus [facility] insulin use: without [facility] use Qualified Code(s): E11.9 - Type 2 diabetes mellitus without complications Code(s): E11.9 - Type 2 diabetes mellitus without complications Status: Acute (6) Morbid obesity: Code(s): E66.01 - Morbid (severe) obesity due to excess calories Status: Acute (7) Below-knee amputation of left lower extremity: Code(s): S88.112A - Complete traumatic amputation at level between knee and ankle, left lower leg, initial encounter Status: Acute History of Present Illness Consult details Consult date: 09/05/24 Reason for consult: other (Diabetic toe) Requesting physician: Dagoberto Carr MD Narrative: This is a 63 year old diabetic male with history of peripheral vascular disease s/p left BKA in 2022, and multiple other medical problems, who we have been asked to see in surgical consultation by the ED physician for a diabetic toe infection. The patient hit is toe on the drain in his shower about 6 months ago. It bent his toe back and he was told by his PCP that he broke his toe. It was swollen and painful, but eventually improved with time. Then, over the past few days to a week, he noticed redness, swelling and yesterday saw dark discoloration of his right 2nd toe. He has had diabetic wounds in the past and wanted to get seen before this was worse. In the ED, plain films of the left foot showed right 2nd toe soft tissue defect that appears to extend to the fracture bed of a subacute/chronic dorsal avulsion fracture, making infection/osteomyelitis likely. Septic arthritic involving the right 2nd DIP joint is not excluded. Subacute/chronic fracture of the right distal 1st phalanx. He is now seen in the ER. He reports having significant healing issues in the past. He had his left BKA in 2022 and just recently was able to be fitted for a prosthetic due to prolonged healing and required a skin graft. He has had issues with healing from all of his surgeries on his legs, including a right TKA. His BKA was performed by a vascular surgeon at [facility] in [place] and he was told at that time that he had significant peripheral arterial disease even in the right leg. He denies having any stents or surgical intervention to the right leg. He has neuropathy. He does report some pain in the ball of his foot. This is worse with walking. Review of Systems 2 Review of Systems: All systems reviewed & are unremarkable except as noted in HPI and below PMFSH Past Medical History Medical History (Updated 09/05/24 @ 13:59 by DEVIKA Little) Body mass index (BMI) of 40.1 to 44.9 in adult Non-healing amputation site Morbid obesity JO (obstructive sleep apnea) Elevated PSA Urinary frequency Other and unspecified hyperlipidemia Benign essential hypertension DM w/o complication type II, uncontrolled Surgical History Surgical History Amputated toe of left foot Left 1st toe ray amputation on 10/05/22 [facility] History of total knee arthroplasty S/P rotator cuff repair Family History Family History Mother Hypertension Father Sibling No problems noted. Social History Social History Social History: The patient was 1 time for a year and is now . He is currently unemployed. 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 He has no children. He is a former smoker. No alcohol marijuana or illicit drugs. Code status full code Smoking packs per day: 2 Smoking cigarettes per day: 40.0 Years smoked: 20 Smoking pack-years: 40.00 Smoking status: Former smoker Second hand tobacco smoke exposure: Yes Alcohol intake: current Drinks per week: 3 Substance use: never Substance use type: does not use Do You Feel Safe in your Home?: Yes Lack of Transportation: No Lack of Food: Never True Current Housing: I Have Housing Concerned About Future Housing: No Difficulty Paying Gas/Electric Bills: No Difficulty Paying for Meds: No Currently Unemployed: No Education: Trade/Vocational Certificate Difficulty w/ Childcare or Family Care: No Living arrangements: alone Occupation/Education: unemployed Additional 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/education 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 Gender identity (if verbalized by the patient): Male Spiritual care concerns: No Meds Home Medications and Allergies Home Medications ?Medication ?Instructions ?Recorded ?Confirmed ?Type aspirin 81 mg tablet,delayed 81 mg PO DAILY 06/22/19 08/26/23 History release diphenhydramine HCl 25 mg capsule 25 mg PO BID PRN Allergy Symptoms 12/18/22 08/26/23 History (Benadryl) gabapentin 300 mg capsule 300 mg PO TID #270 caps 08/13/23 08/26/23 Rx metformin 1,000 mg tablet See Rx Instructions .Route 02/09/24 Rx .COMPLEX #180 tabs tamsulosin 0.4 mg capsule 0.4 mg PO QHS #90 caps 03/15/24 Rx atorvastatin 20 mg tablet (Lipitor) 20 mg PO DAILY #90 tabs 03/30/24 03/30/24 Rx propranolol 10 mg tablet 10 mg PO Q12H #60 tabs 03/30/24 03/30/24 Rx lisinopril 30 mg tablet 30 mg PO DAILY #90 tabs 08/07/24 Rx Allergies Allergy/AdvReac Type Severity Reaction Status Date / Time No Known Allergies Allergy Verified 03/30/24 13:47 Vital Signs Vital Signs - 24 hr 09/04/24 12:10 Temperature 97.5 F L Pulse Rate 62 Respiratory Rate 14 Blood Pressure 127/67 Pulse Oximetry 100 Oxygen Delivery Room Air Exam 2 Const: General: comfortable and no acute distress Nutritional Appearance: o bese Orientation/consciousness: patient oriented x3 HENMT: Head: normocephalic and atraumatic Ears: hearing grossly normal bilaterally Mouth: Yes moist mucous membranes Eyes: General: appearance normal, both eyes and all related structures P upils: Equal, round and reactive pupils present Neck: Neck: normal visual inspection and full ROM Resp: Effort & Inspection: no respiratory distress Auscultation: clear to auscultation bilaterally Cardio: Rate: regular rate Rhythm: regular rhythm GI: Inspection: non-distended GI Palp: Yes Soft to palpation, No Tenderness to palpation present (GI) and No Guarding due to palpation present (GI) A uscultation: normal bowel sounds Skin: General skin exam: normal color Neuro: General: moves all extremities and no focal motor deficits Speech: n ormal speech Extrem: General: amputation noted Below the knee: left (Healed with scaring at stump) Other: Right 2nd toe has an open wound at the nail bed with no toenail present, bone is obviously exposed at this wound. There is swelling and tenderness of the entire 2nd toe with redness extending dorsally onto the forefoot but does not progress to the midfoot or ankle. The lateral aspect and entire plantar aspect of the toe is purple, and the toe is cool. The rest of the foot is warm with good capillary refill. He has diffuse 2-3+ edema of the right foot. Pedal pulse is very weak but palpable and I am unable to palpate a posterior tibial pulse. He can wiggle his toes. Other than the 2nd toe, the rest of the foot has good color with no pallor. Psych: Mental Status: mental status grossly normal Attitude: cooperative Insight: Good insight present (Psych) Judgement: Good judgement present (Psych) Results Labs 09/04/24 15:30 09/04/24 15:30 Labs: Abnormal lab results 09/04/24 Range/Units 15:30 WBC 14.1 H (4.5-10.0) K/mm3 RBC 3.68 L (4.6-6.20) M/mm3 Hgb 8.6 L (14.0-18.0) g/dL Hct 28.7 L (42.0-52.0) % MCV 78.0 L (80-100) fl MCH 23.4 L (26-34) pg MCHC 30.0 L (32-36) g/dl RDW 16.7 H (11.5-14.5) % Immature Gran % (Auto) 0.6 H (0-0.5) % Neut % (Auto) 81.0 H (45.5-73.1) % Lymph % (Auto) 7.9 L (18.3-44.2) % Garvin % (Auto) 8.9 H (2.6-8.5) % Garvin # (Auto) 1.3 H (0.1-0.6) K/mm3 Abs Immat Gran (auto) 0.09 H (0.00-0.031) K/mm3 Absolute Neuts (auto) 11.5 H (1.3-6.7) K/mm3 ESR 121 H (0-20) mm/hr PT 15.6 H (11.1-14.7) Seconds APTT 43.3 H (22.3-36.8) Seconds Potassium 5.3 H (3.4-5.0) mmol/L Chloride 111 H (98-107) mmol/L Carbon Dioxide 17 L (22-30) mmol/L BUN 35 H (9-20) mg/dL Creatinine 1.99 H (0.7-1.3) mg/dL Estimated GFR 34 L (59 - ) Glucose 123 H (65-110) mg/dL Diabetes panel 09/04/24 09/04/24 Range/Units 15:30 15:33 Sodium 138 (137-145) mmol/L Potassium 5.3 H (3.4-5.0) mmol/L Chloride 111 H (98-107) mmol/L Carbon Dioxide 17 L (22-30) mmol/L BUN 35 H (9-20) mg/dL Creatinine 1.99 H (0.7-1.3) mg/dL Glucose 123 H (65-110) mg/dL Hemoglobin A1c 5.5 (<5.7) % Calcium 9.4 (8.4-10.2) mg/dL AST 29 (17-59) U/L ALT 22 (6-50) U/L Alkaline Phosphatase 96 (38-126) U/L Total Protein 7.3 (6.3-8.2) g/dL Albumin 3.5 (3.5-5.1) g/dL Calcium panel 09/04/24 Range/Units 15:30 Calcium 9.4 (8.4-10.2) mg/dL Albumin 3.5 (3.5-5.1) g/dL Pituitary panel 09/04/24 Range/Units 15:30 Sodium 138 (137-145) mmol/L Potassium 5.3 H (3.4-5.0) mmol/L Chloride 111 H (98-107) mmol/L Carbon Dioxide 17 L (22-30) mmol/L BUN 35 H (9-20) mg/dL Creatinine 1.99 H (0.7-1.3) mg/dL Glucose 123 H (65-110) mg/dL Calcium 9.4 (8.4-10.2) mg/dL Adrenal panel 09/04/24 Range/Units 15:30 Sodium 138 (137-145) mmol/L Potassium 5.3 H (3.4-5.0) mmol/L Chloride 111 H (98-107) mmol/L Carbon Dioxide 17 L (22-30) mmol/L BUN 35 H (9-20) mg/dL Creatinine 1.99 H (0.7-1.3) mg/dL Glucose 123 H (65-110) mg/dL Calcium 9.4 (8.4-10.2) mg/dL Total Bilirubin 0.5 (0.2-1.3) mg/dL AST 29 (17-59) U/L ALT 22 (6-50) U/L Alkaline Phosphatase 96 (38-126) U/L Total Protein 7.3 (6.3-8.2) g/dL Albumin 3.5 (3.5-5.1) g/dL All other labs normal. Imaging Additional studies: ITS Impressions Foot X-Ray 09/04/24 15:19 IMPRESSION: Right second toe soft tissue defect that appears to extend to the fracture bed of a subacute/chronic dorsal avulsion fracture, making infection/osteomyelitis likely. Septic arthritis involving the right second DIP joint is not excluded. Subacute/chronic fracture of the right distal first phalanx. Consider MR of the foot without and with contrast for further evaluation
[2024-09-04] MEDS: metroNIDAZOLE 500 MG/ISO 100ML 500 MG/100 ML BAG 100 MG IVPB (16:56)
[2024-09-04 16:58] LABS: CRP 30.0 mg/dL (<1.0)
[2024-09-04] MEDS: VANCOMYCIN 1,250 MG/NS 250 ML 1,250 MG/250 ML BAG 166.67 MG IVPB ×2 (17:59→20:02)
== END 2024-09-04 20:30 | disposition short-term general hospital (02) ==
PROVIDERS: Physician Assistant; Emergency Provider Emergency Medicine; PCP Nurse Practitioner
DX: E11.69 Type 2 diabetes mellitus with other specified complication (principal); M86.171 Other acute osteomyelitis, right ankle and foot; E11.51 Type 2 diabetes mellitus with diabetic peripheral angiopathy without gangrene; I73.9 Peripheral vascular disease, unspecified; E11.621 Type 2 diabetes mellitus with foot ulcer; L97.529 Non-pressure chronic ulcer of other part of left foot with unspecified severity; I10 Essential (primary) hypertension; I87.2 Venous insufficiency (chronic) (peripheral); E78.5 Hyperlipidemia, unspecified; E66.01 Morbid (severe) obesity due to excess calories; Z68.41 Body mass index [BMI] 40.0-44.9, adult; Z87.891 Personal history of nicotine dependence; Z89.512 Acquired absence of left leg below knee; Z79.82 Long term (current) use of aspirin; Z79.84 Long term (current) use of oral hypoglycemic drugs; Z79.899 Other long term (current) drug therapy; G47.33 Obstructive sleep apnea (adult) (pediatric)
CPT/HCPCS: 36415; 73630; 80053; 83036; 83605; 85025; 85610; 85652; 85730; 86140; 87040; 96365; 96366; 96367; 96368; 99285; J0692; J1836; J3373

== ENCOUNTER 2024-11-05 10:07 | Emergency (ER) | payer MEDICARE, SELFPAY ==
--- NOTE | ~2024-11-05 | CT_ITS ---
EXAMINATION: CT hand RT wo con COMPARISON: None HISTORY: pain TECHNIQUE: Axial images were obtained without IV contrast. Sagittal, coronal reconstruction images were obtained from the axial views. CT scan performed using dose optimization techniques including the following automated exposure control; adjustment of mA and/or kV; use of iterative reconstruction technique. Automatic exposure control was used to reduce radiation dose. Permanent radiation dose record is archived to PACS. FINDINGS: No fracture is identified. Moderate degenerative change of the first metacarpal carpal joint. No osseous destruction. Soft tissues are unremarkable. IMPRESSION: No acute fracture Reviewed, dictated and finalized at location A. IMPRESSION: No acute fracture
--- NOTE | ~2024-11-05 | CT_ITS ---
EXAMINATION: CT wrist RT wo con COMPARISON: None HISTORY: pain TECHNIQUE: Axial images were obtained without IV contrast. Sagittal, coronal reconstruction images were obtained from the axial views. CT scan performed using dose optimization techniques including the following automated exposure control; adjustment of mA and/or kV; use of iterative reconstruction technique. Automatic exposure control was used to reduce radiation dose. Permanent radiation dose record is archived to PACS. FINDINGS: There is no fracture or dislocation. The carpal arches are intact. There are no areas of osseous destruction identified. There is no osteonecrosis. Moderate degenerative changes of the first metacarpal carpal joint. Soft tissue vascular calcifications are noted. IMPRESSION: No acute fracture. Degenerative changes detailed above. Reviewed, dictated and finalized at location A.
[2024-11-05 10:17] VITALS: BP 161/91; PULSE 69; RESP 16; TEMP 36.8; O2SAT 98
--- NOTE | 2024-11-05 11:20 | ED.GENADULT ---
HPI - General Adult General Chief complaint: Extremity Injury, Upper Stated complaint: wrist pain Time Seen by Provider: 11/05/24 10:18 History of Present Illness HPI narrative: 63-year-old male presents to the emergency department for evaluation for persistent right hand pain. Patient did strain his hand/wrist approximately 2 weeks ago. Patient is currently residing in a rehab facility due to bilateral BKA eyes. Patient does use his hand with crutches he to ambulate. Patient states he has been wrapping the hand and that has been helping to control the pain. Facility provider stated that they were unable to order a CT scan at the facility so he needed to be transferred to the emergency department for further evaluation. Patient denies any other pain or complaints and patient is resting comfortably. Related Data Home Medications ?Medication ?Instructions ?Recorded ?Confirmed ?Last Taken ?Type acetaminophen 500 mg tablet 500 mg PO Q6H PRN fever or pain 10/25/24 10/25/24 Unknown History aspirin 81 mg tablet 81 mg PO DAILY 10/25/24 10/25/24 Unknown History atorvastatin 20 mg tablet (Lipitor) 20 mg PO QHS 10/25/24 10/25/24 10/24/24 History benzonatate 100 mg capsule 100 mg PO TID PRN cough 10/25/24 10/25/24 Unknown History bisacodyl 10 mg rectal suppository 10 mg RECTAL DAILY PRN constipation 10/25/24 10/25/24 Unknown History diclofenac sodium 1 % topical gel 2 g topical QID 10/25/24 10/25/24 Unknown History (Arthritis Pain (diclofenac)) ferrous sulfate 325 mg (65 mg 325 mg PO Q2D 10/25/24 10/25/24 Unknown History iron) tablet finasteride 5 mg tablet 5 mg PO DAILY 10/25/24 10/25/24 Unknown History folic acid 1 mg tablet 1 mg PO DAILY 10/25/24 10/25/24 Unknown History gabapentin 400 mg capsule 400 mg PO .qam and noon 10/25/24 10/25/24 Unknown History gabapentin 600 mg tablet 600 mg PO HS 10/25/24 10/25/24 Unknown History glucosamine sulfate 1,000 mg tablet 2,000 mg PO BID 10/25/24 10/25/24 Unknown History insulin aspart U-100 100 unit/mL 3 unit subcut TID 10/25/24 10/25/24 Unknown History subcutaneous solution (Novolog U-100 Insulin aspart) insulin glargine 100 unit/mL 4 unit subcut QHS 10/25/24 10/25/24 Unknown History subcutaneous solution (Lantus U-100 Insulin) lidocaine 5 % topical patch 3 patch topical DAILY 10/25/24 10/25/24 Unknown History lisinopril 10 mg tablet 10 mg PO DAILY 10/25/24 10/25/24 Unknown History melatonin 3 mg tablet 3 mg PO HS 10/25/24 10/25/24 Unknown History methocarbamol 750 mg tablet 750 mg PO Q8H 10/25/24 10/25/24 Unknown History miconazole nitrate 2 % topical 1 applic topical BID 10/25/24 10/25/24 Unknown History ointment (Critic-Aid Clear AF (miconazole)) ondansetron 4 mg disintegrating 4 mg PO Q6H PRN nausea and vomiting 10/25/24 10/25/24 Unknown History tablet polyethylene glycol 3350 17 gram 17 g PO DAILY 10/25/24 10/25/24 Unknown History oral powder packet sennosides 8.6 mg-docusate sodium 2 tab-cap PO BID 10/25/24 10/25/24 Unknown History 50 mg tablet (Senna with Docusate Sodium) Allergies Allergy/AdvReac Type Severity Reaction Status Date / Time No Known Allergies Allergy Verified 10/25/24 18:18 Review of Systems Review of Systems: All systems reviewed & are unremarkable except as noted in HPI and below PMFSH Past Medical History Medical History Body mass index (BMI) of 40.1 to 44.9 in adult Non-healing amputation site Morbid obesity JO (obstructive sleep apnea) Elevated PSA Urinary frequency Other and unspecified hyperlipidemia Benign essential hypertension DM w/o complication type II, uncontrolled Surgical History Surgical History Amputated toe of left foot Left 1st toe ray amputation on 10/05/22 [facility] History of total knee arthroplasty S/P rotator cuff repair Family History Family History Mother Hypertension Father Sibling No problems noted. Social History Social History Social History: The patient was 1 time for a year and is now . He is currently unemployed. 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 He has no children. He is a former smoker. No alcohol marijuana or illicit drugs. Code status full code Smoking packs per day: 2 Smoking cigarettes per day: 40.0 Years smoked: 20 Smoking pack-years: 40.00 Smoking status: Former smoker Second hand tobacco smoke exposure: Yes Alcohol intake: former Drinks per week: 3 Substance use: never Substance use type: does not use Do You Feel Safe in your Home?: Yes Lack of Transportation: No Lack of Food: Never True Current Housing: I Have Housing Concerned About Future Housing: No Difficulty Paying Gas/Electric Bills: No Difficulty Paying for Meds: No Currently Unemployed: No Education: High School Diploma/GED Difficulty w/ Childcare or Family Care: No Living arrangements: alone Occupation/Education: unemployed 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 HEAD: normocephalic, atraumatic. EYES: PERRLA/EOMI, conjunctivae clear. NOSE: Normal no drainage EARS:TMS clear with good light reflex. THROAT: Pharynx clear, no exudate. NECK: Supple. No adenopathy, no masses. RESPIRATORY: Airway patent, respirations nonlabored. Clear to auscultation bilaterally, no rales, rhonchi, wheezing. CARDIOVASCULAR: Regular rate and rhythm without murmurs rubs or gallops. ABDOMINAL: Soft, nontender, nondistended, normal bowel sounds MUSCULOSKELETAL: Right lateral hand tenderness to palpation with no deformity or ecchymosis or edema NEURO: Alert. Cranial nerves II through XII intact. Good gait. Good coordination SKIN: Warm, dry. Normal Color Course Vital Signs Vital signs: Vital Signs Temperature 98.3 F 11/05/24 10:17 Pulse Rate 69 11/05/24 10:17 Respiratory Rate 16 11/05/24 10:17 Blood Pressure 161/91 H 11/05/24 10:17 Pulse Oximetry 98 11/05/24 10:17 Oxygen Delivery Room Air 11/05/24 10:17 Temperature 97.8 F 11/05/24 11:39 Pulse Rate 64 11/05/24 11:39 Respiratory Rate 16 11/05/24 11:39 Blood Pressure 152/88 H 11/05/24 11:39 Pulse Oximetry 98 11/05/24 11:39 Oxygen Delivery Room Air 11/05/24 10:17 Medical Decision Making MDM Narrative Medical decision making narrative: [age] old male present to the ED for evaluation for right hand pain. CT of hand and wrist were negative for acute abnormality. Suspect patient most likely has a hand strain rather than an occult fracture due to the negative imaging. Patient was advised to do wraps for comfort and medications for pain control. All questions concerns were addressed. CT was ordered because the patient was referred for CT imaging as he had had negative x-rays as outpatient but was still having persistent symptoms. Differential Diagnosis Differential Diagnosis: Wrist fracture, hand fracture, wrist sprain, hand strain Vital Signs Vital Signs: Vital Signs Temperature 98.3 F 11/05/24 10:17 Pulse Rate 69 11/05/24 10:17 Respiratory Rate 16 11/05/24 10:17 Blood Pressure 161/91 H 11/05/24 10:17 Pulse Oximetry 98 11/05/24 10:17 Oxygen Delivery Room Air 11/05/24 10:17 Temperature 97.8 F 11/05/24 11:39 Pulse Rate 64 11/05/24 11:39 Respiratory Rate 16 11/05/24 11:39 Blood Pressure 152/88 H 11/05/24 11:39 Pulse Oximetry 98 11/05/24 11:39 Oxygen Delivery Room Air 11/05/24 10:17 Imaging Data Radiologist's impression: Impressions Wrist CT 11/05/24 10:39 IMPRESSION: No acute fracture. Degenerative changes detailed above. Hand CT 11/05/24 11:15 IMPRESSION: No acute fracture Discharge Plan Discharge Clinical Impression: Hand pain, right Patient Disposition: Home Condition: Stable Instructions: Antibiotic Form, Arthralgia (ED) Additional Instructions: Hand wrap for comfort. Tylenol and ibuprofen for pain control. Have close follow-up with Orthopedics or Hand. If you have any worsening symptoms then please call or return to the emergency department. Patient Language: Thai Prescriptions: No Action propranolol 10 mg tablet 10 mg PO Q12H Qty: 60 5RF metformin 1,000 mg tablet See Rx Instructions .ROUTE .COMPLEX Qty: 180 1RF Dose Instruction: TAKE 1 TABLET BY MOUTH TWICE DAILY Rx Instructions: TAKE 1 TABLET BY MOUTH TWICE DAILY tamsulosin 0.4 mg capsule 0.4 mg PO QHS Qty: 90 1RF (DME) cpap face mask See Rx Instructions .Route .MEDSUPPLY Qty: 1 0RF Rx Instructions: Pt needs new face mask as his was thrown away by hospital staff. Pt's sister states she has the order process started with you and that you are just waiting for this order. acetaminophen 500 mg tablet 500 mg PO Q6H PRN (Reason: fever or pain) atorvastatin [Lipitor] 20 mg tablet 20 mg PO QHS benzonatate 100 mg capsule 100 mg PO TID PRN (Reason: cough) bisacodyl 10 mg suppository 10 mg RECTAL DAILY PRN (Reason: constipation) diclofenac sodium [Arthritis Pain (diclofenac)] 1 % gel 2 g topical QID Rx Instructions: apply to single elbow, wrist or hand; for hand includes palm/fingers/back of hand gabapentin 600 mg tablet 600 mg PO HS insulin glargine [Lantus U-100 Insulin] 100 unit/mL solution 4 unit subcut QHS polyethylene glycol 3350 17 gram powder in packet 17 g PO DAILY sennosides-docusate sodium [Senna with Docusate Sodium] 8.6-50 mg tablet 2 tab-cap PO BID gabapentin 400 mg capsule 400 mg PO .qam and noon melatonin 3 mg tablet 3 mg PO HS methocarbamol 750 mg tablet 750 mg PO Q8H Critic-Aid Clear AF(miconazol) 2 % ointment 1 applic topical BID insulin aspart U-100 [Novolog U-100 Insulin aspart] 100 unit/mL solution 3 unit subcut TID Rx Instructions: with meals ferrous sulfate 325 mg (65 mg iron) tablet 325 mg PO Q2D lisinopril 10 mg tablet 10 mg PO DAILY lidocaine 5 % adhesive patch,medicated 3 patch topical DAILY Rx Instructions: leave on most painful area for up to 12 hrs folic acid 1 mg tablet 1 mg PO DAILY aspirin 81 mg tablet 81 mg PO DAILY ondansetron 4 mg tablet,disintegrating 4 mg PO Q6H PRN (Reason: nausea and vomiting) finasteride 5 mg tablet 5 mg PO DAILY glucosamine sulfate 1,000 mg tablet 2,000 mg PO BID Rx Instructions: administer with meals Follow-up/Referrals: Sourav Sanches MD [Physician, Plastic Surgery] Gavino Srivastava APRN [Primary Care Provider, Internal Medicine]
[2024-11-05 11:39] VITALS: BP 152/88; PULSE 64; RESP 16; TEMP 36.6; O2SAT 98
== END 2024-11-05 12:34 | disposition home or self-care (01) ==
PROVIDERS: Emergency Provider Emergency Medicine; PCP Nurse Practitioner
DX: M79.641 Pain in right hand (principal); G47.30 Sleep apnea, unspecified; I10 Essential (primary) hypertension; E11.9 Type 2 diabetes mellitus without complications; Z79.4 Long term (current) use of insulin
CPT/HCPCS: 73200; 99284

== ENCOUNTER 2024-11-23 12:00 | Outpatient (NON) | payer MEDICARE, SELFPAY ==
--- NOTE | 2024-11-23 | CONSULT_PTH ---
PATIENT: Carl Villafuerte LOC: [facility] U#:[id number] AGE/SX: 63/M ROOM: RE11/23/[address]: Gavino Srivastava APRN : 1960 BED: DIS: 11/23/2024 SPEC #: [id number] RECD: 11/23/24 12:47 STATUS: MARTIN REQ #: [id number] NEREIDA: 11/23/24 00:[address]: Gavino Srivastava DEPT: [facility] Consult RECD BY: Trinity Escamilla MLT, ([facility]) Tissues: A - Peripheral Smear Procedures: Hematology Consult
[2024-11-23 12:10] LABS: Hematocrit 31.0 % (40.0-54.0); Hemoglobin 9.5 g/dL (14.0-18.0); Mean Corpuscular HGB Conc 30.6 g/dL (32-36); Mean Corpuscular Hemoglobin 28.7 pg (27.0-31.0); Mean Corpuscular Volume 93.7 fL (78.0-102.0); Platelet Count Result 225 K/mm3 (150-420); Red Blood Count 3.31 M/mm3 (4.70-6.10); White Blood Count 7.7 K/mm3 (4.8-10.8)
[2024-11-23 12:25] LABS: Anion Gap 12 mmol/L (4-12); Blood Urea Nitrogen 24 mg/dL (9-20); Calcium 9.1 mg/dL (8.4-10.2); Carbon Dioxide 19 mmol/L (22-30); Chloride 112 mmol/L (98-107); Estimated Glomerular Filt Rate 38; Glucose 76 mg/dL (65-110); Osmolality Calculated 299 mOsm/kg (285-295); Potassium 5.5 mmol/L (3.4-5.0); Sodium 143 mmol/L (137-145)
--- OUTSIDE RECORDS SUMMARY | 2024-11-23 14:32 | XMS_ITS | Clinical Summary ---
Author Organization [facility] Address [address] [place] [address] Care Team Providers Care Licensing Court Magistrate Name Role Phone Unavailable Primary Care Provider [...] Comments Blood Pressure 145/78 01/22/2023 7:50 AM DIMENSIONAL INSPECTOR Pulse 71 01/22/2023 7:50 AM DIMENSIONAL INSPECTOR Temperature 36.6 C (97.8 F) 01/22/2023 7:50 AM DIMENSIONAL INSPECTOR Respiratory Rate 18 01/22/2023 7:50 AM DIMENSIONAL INSPECTOR Oxygen Saturation 95% 01/22/2023 7:50 AM DIMENSIONAL INSPECTOR Inhaled Oxygen Concentration - - Weight 107 kg (236 lb) 01/07/2023 9:52 PM DIMENSIONAL INSPECTOR Height 180.3 cm (5' 11) 01/07/2023 9:52 PM DIMENSIONAL INSPECTOR Body Mass Index 32.92 01/07/2023 9:52 PM DIMENSIONAL INSPECTOR Plan of Treatment Health Maintenance Due Date [...]
--- OUTSIDE RECORDS SUMMARY | 2024-11-23 14:32 | XMS_ITS | Clinical Summary ---
Author Organization [facility] Address [address] [place] [address] Care Team Providers Care Medical Collector Name Role Phone Gavino Srivastava Primary Care Provider Source Comments [facility],non-owned Affiliates and Associated Physician Practices is amultiple site organization consisting of ambulatory clinics and hospital sitesin [place], [place], [place] and [place]. This disclosure is being madepursuant to the Care Everywhere program and may not contain all information available regarding this patient. Last updated 17.[facility] Allergies No known active allergies Medications * Be aware that medications may not be up to date on this document. Alwaysverify current medications with the patient. GLUCOSAMINE SULFATE PO Take 2,000 mg by mouth 2 times daily Active finasteride (Proscar) 5 MG tablet Take 1 (one) tablet by mouth once daily 01/23/20 23 Active tamsulosin (Flomax) 0.4 MG capsule Take 1 (one) capsule by mouth once daily 01/23/20 23 Active aspirin (Aspirin) 81 MG chew tablet Take 1 (one) tablet by mouth once daily Active acetaminophen (Tylenol) 500 MG capsule Take 1 (one) capsule by mouth every 6 hours as needed for Fever or Pain 30 capsule 3 10/22/19 24 Active propranolol (Inderal) 10 MG tablet Take 1 (one) tablet by mouth 2 times daily Active atorvastatin (Lipitor) 20 MG tablet Take 1 (one) tablet by mouth at bedtime 06/30/19 25 Active metFORMIN (Glucophage) 1000 MG tablet Take 1 (one) tablet by mouth 2 times daily 07/31/19 25 Active benzonatate (Tessalon) 100 MG capsule Take 1 (one) capsule by mouth 3 times daily as needed for Cough 10/24/19 Active bisacodyl (Dulcolax) 10 MG suppository Insert 1 (one) suppository into the rectum once daily as needed for Constipation 10/24/19 Active diclofenac sodium (Voltaren) 1 % gel Apply 2 (two) g to affected area 4 times daily 10/24/19 Active ferrous sulfate 325 (65 FE) MG tablet Take 1 (one) tablet by mouth every 2 days 10/25/19 Active folic acid (Folvite) 1 MG tablet Take 1 (one) tablet by mouth once daily 10/25/19 25 Active gabapentin (Neurontin) 400 MG capsule Take 1 (one) capsule by mouth every Morning and Noon 10/24/19 25 Active gabapentin (Neurontin) 600 MG tablet Take 1 (one) tablet by mouth at bedtime 10/24/19 Active insulin aspart (NovoLOG) pen Inject 5 (five) Units subcutaneously 3 times daily with meals 10/24/19 Active insulin glargine (Lantus/Semglee ) 100 units/mL pen Inject 4 (four) Units subcutaneously at bedtime 10/24/19 25 Active lidocaine (Lidoderm) 5 % patch Apply 1 (one) patch to skin once daily as needed (If still has neck pain) Apply patch to most painful area and remove after 12 hours. May reapply a new patch 12 hours later. 10/24/19 Active lidocaine (Lidoderm) 5 % patch Apply 2 (two) patches to skin once daily Apply patch to most painful area and remove after 12 hours. May reapply a new patch 12 hours later. 10/25/19 25 Active lisinopril (Prinivil; Zestril) 10 MG tablet Take 1 (one) tablet by mouth once daily 10/25/19 25 Active melatonin 3 MG tablet Take 1 (one) tablet by mouth at bedtime 10/24/19 25 Active methocarbamol (Robaxin) 750 MG tablet Take 1 (one) tablet by mouth every 8 hours 10/24/19 25 Active miconazole (Criticaid-Af) 2 % ointment Apply to affected area 2 times daily 10/24/19 25 Active ondansetron, disintegrating, (Zofran ODT) 4 MG tablet Take 1 (one) tablet by mouth every 6 hours as needed for Nausea/Vomiting Allow tablet to dissolve on the tongue 10/24/19 Active polyethylene glycol 3350 (Miralax) 17 g packet Take 17 (seventeen) g by mouth once daily 10/25/19 Active senna-docusate (Senokot-S) 8.6-50 MG tablet Take 2 (two) tablets by mouth 2 times daily 10/24/19 Active sulfamethoxazol e-trimethoprim (Bactrim DS; Septra DS) 800-160 MG tablet Take 1 (one) tablet by mouth every 12 hours for 7 days 14 tablet 11/22/19 25 Active gabapentin (Neurontin) 300 MG capsule Take 1 (one) capsule by mouth 2 times daily 01/08/20 025 Discontin ued(Dose Adjustmen t) naproxen sodium (Aleve) 220 MG tablet Take 1 (one) tablet by mouth 2 times daily as needed for Pain Discontin ued(Clini mook Decision) lisinopril (Prinivil; Zestril) 30 MG tablet Take 1 (one) tablet by mouth once daily 025 Discontin ued(Dose Adjustmen t) amLODIPine (Norvasc) 5 MG tablet Take 1 (one) tablet by mouth once daily 08/30/19 025 Discontin ued(List Clean-Up) oxyCODONE, immediate release, (Roxicodone) 5 MG tabletIndicatio ns:Peripheral vascular disease,Below-k nee amputation of right lower extremity, initial encounter ([facility]) Take 1 (one) tablet by mouth every 4 hours as needed 10/24/19 025 Discontin ued(Tx Complete) Active Problems Problem Noted Date Diagnosed Date History of alcohol abuse 10/09/2024 Medication-induced delirium, acute, hyperactive 10/07/2024 Gangrene 10/07/2024 Delirium 10/02/2024 Acute blood loss anemia 09/27/2024 S/P transmetatarsal amputation of foot, right Osteomyelitis of right foot, unspecified type Assessment & Plan (09/25/2024 2:34 PM CDT): - s/p right second toe amputation application of skin substitute Scalloped viable bone with surrounding acute inflammatory infiltrate, consistent with acute osteomyelitis , intra op cx noted - ID following: Plan to continue ceftriaxone to complete x 4-6 weeks of treatment. - Podiatry following: Discussed case today. Patient is developing wet gangrene for which he will be schedule for TMA tomorrow instead of outpatient. Assessment & Plan (09/24/2024 11:07 AM CDT): - s/p right second toe amputation application of skin substitute Scalloped viable bone with surrounding acute inflammatory infiltrate, consistent with acute osteomyelitis , intra op cx noted - ID following: Plan to continue ceftriaxone to complete x 4 weeks - Podiatry following: Plan for RLE Guillotine TMA in 4-6 weeks pending clinical progression. Peripheral vascular disease 08/02/2023 Assessment & Plan (09/25/2024 2:34 PM CDT): - S/p diagnostic angiogram on 09/07, DVA on 09/15, > Hold plavix 75mg qd and eliquis 5mg bid for procedure tomorrow. > Continue Lipitor 20mg qd > He will need follow up with IR as outpatient. Assessment & Plan (09/24/2024 11:07 AM CDT): - S/p diagnostic angiogram on 09/07, DVA on 09/15, > Continue plavix 75mg qd, eliquis 5mg bid, lipitor 20mg qd > He will need follow up with IR as outpatient. Abnormal gait 01/08/2023 Alcohol abuse 01/08/2023 Type 2 diabetes mellitus with hyperglycemia 12/30 Below-knee amputation 01/07/2023 Assessment & Plan (09/25/2024 2:34 PM CDT): - s/p right second toe amputation application of skin substitute Scalloped viable bone with surrounding acute inflammatory infiltrate, consistent with acute osteomyelitis , intra op cx noted - ID following: Plan to continue ceftriaxone to complete x 4-6 weeks of treatment. - Podiatry following: Discussed case today. Patient is developing wet gangrene for which he will be schedule for TMA tomorrow instead of outpatient. Assessment & Plan (09/24/2024 11:07 AM CDT): - s/p right second toe amputation application of skin substitute Scalloped viable bone with surrounding acute inflammatory infiltrate, consistent with acute osteomyelitis , intra op cx noted - ID following: Plan to continue ceftriaxone to complete x 4 weeks - Podiatry following: Plan for RLE Guillotine TMA in 4-6 weeks pending clinical progression. GENIE (acute kidney injury) 12/22/2022 Uncontrolled type 2 diabetes mellitus with hyper glycemia 12/22/2022 Essential hypertension 12/22/2022 Assessment & Plan (09/25/2024 2:34 PM CDT): - BP is stable and controlled. - Continue hydralazine 100mg tid, amlodipine 10mg qd, lisinopril 40mg qd Assessment & Plan (09/24/2024 11:07 AM CDT): - BP is stable and controlled. - Continue hydralazine 100mg tid, amlodipine 10mg qd, lisinopril 40mg qd Arthritis of right knee 06/23/2022 Sleep apnea Overview (09/24/2024): CPAP Assessment & Plan (09/25/2024 2:34 PM CDT): > Continue CPAP at bedtime. Discussed the patient the importance of wear his CPAP machine during night. Assessment & Plan (09/24/2024 11:07 AM CDT): > Continue CPAP at bedtime. Discussed the patient the importance of were his CPAP machine during night. Resolved Problems Problem Noted Date Diagnosed Date Resolved Date Gangrene of toe of right foot 09/05/2024 10/07/2024 Assessment & Plan (09/25/2024 2:34 PM CDT): - s/p right second toe amputation application of skin substitute Scalloped viable bone with surrounding acute inflammatory infiltrate, consistent with acute osteomyelitis , intra op cx noted - ID following: Plan to continue ceftriaxone to complete x 4-6 weeks of treatment. - Podiatry following: Discussed case today. Patient is developing wet gangrene for which he will be schedule for TMA tomorrow instead of outpatient. Assessment & Plan (09/24/2024 11:07 AM CDT): - s/p right second toe amputation application of skin substitute Scalloped viable bone with surrounding acute inflammatory infiltrate, consistent with acute osteomyelitis , intra op cx noted - ID following: Plan to continue ceftriaxone to complete x 4 weeks - Podiatry following: Plan for RLE Guillotine TMA in 4-6 weeks pending clinical progression. Gangrene of toe of left foot 12/21/2022 09/05/2024 Encounters Date Type Department Care Team Description 11/21/2024 12:54 PM CDT - 11/21/2024 5:20 PM CDT Emergency [facility] [address] [place] [address] Julius Miller MD Bitter, Cindy C, MD Cellulitis of right lower extremity (Primary Dx); Postoperative surgical complication involving musculoskeletal system associated with musculoskeletal procedure, unspecified complication Discharge Disposition: Home or Self Care 11/21/2024 Travel 11/20/2024 Telephone [facility] - Vascular Surgery [address] [place] [address] Daniel Holder MD Wound/Incision Check; Infection 11/15/2024 10:30 AM CDT Office Visit [facility] Vascular Surgery [address], [address] [place] [address] Raul Hardwick MD Volkerding, Andrea M, MD Marudhai, Suganya, MD Hambolu, Kehinde, MD Flores, MD Sera Miranda Sabina, MD Pereira, Keith J, MD Patel, Paragkumar, MD Nahata, Ankit, MD Seleznev, Ilya, MD Nangle, Joanna Santo, DO Fountain-Karmen, MD Gallo Khanan Matthew R, MD 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) (Primary Dx) 11/15/2024 Travel 10/13/2024 2:20 PM CDT - 10/13/2024 4:07 PM CDT Surgery [facility] [address] [place] [id number] Daniel Holder MD BELOW-KNEE AMPUTATION - RIGHT 10/13/2024 2:04 PM CDT Anesthesia Event [facility] [address] [place] [phone] Chapin Palmer MD Schoenbeck, Alex C, ERP ENGINEER-ROLL PANNER 10/05/2024 12:25 PM CDT Anesthesia Event [facility] [address] [place] [phone] Ismael Redman MD 09/26/2024 7:23 AM CDT Anesthesia Event [facility] [address] [place] [phone] Juan Carlos Stanford MD 09/26/2024 7:15 AM CDT - 09/26/2024 8:37 AM CDT Surgery [facility] [address] [place] [phone] Pablo Ortiz, DPM AMPUTATION TRANSMETATARSAL - RIGHT 09/15/2024 11:40 AM CDT Anesthesia Event [facility] [address] [place] [id number] Juan Carlos Stanford MD Ruter, Mark A, ERP ENGINEER-ROLL PANNER 09/07/2024 11:47 AM CDT Anesthesia Event [facility] [address] [place] [phone] Joel Livingston MD 09/05/2024 4:00 PM CDT Anesthesia Event [facility] [address] [place] [phone] Katrin Galvan MD Will, Margaret H, ERP ENGINEER-ROLL PANNER 09/05/2024 3:24 PM CDT - 09/05/2024 4:28 PM CDT Surgery [facility] [address] [place] [id number] Pablo Ortiz, DPM RIGHT SECOND TOE AMPUTATION 09/04/2024 8:51 PM CDT - 10/25/2024 5:22 PM CDT Hospital Encounter 1E Surg - [facility] [address] [place] [phone] Raul Hardwick MD Volkerding, MD Dagoberto Urbano Suganya, MD Hambolu, Kehinde, MD Flores, MD Sera Miranda Sabina, MD Pereira, MD Mitch Aparicio, MD Dipak Knapp Ankit, MD Seleznev, Ilya, MD Nangle, Joanna Santo, DO Guzmán, MD Marcus Khanna, MD Yovani Storey, MD Charlie Hospitalist Discharge Disposition: Rehab:Inpatient 09/04/2024 Travel 09/04/2024 Telephone [facility] [address] [place] [address] Raul Hardwick MD Hospitalization from Last 3 Months Immunizations Immunization Administration Dates Next Due Covid Moderna primary monovalent 12+ yr 0.5mL Social History Tobacco Use Types Packs/Day Years Used Date Smoking Tobacco: Former Cigarettes Q uit: 1998 Passive Smoke Exposure: Past Smokeless Tobacco: Never Tobacco Cessation:Counseling Given: Not Answered Alcohol Use Standard Drinks/Week Comments Yes 0 (1 standard drink = 0.6 oz pure alcohol) Former daily ETOH use, now only 1 time a week AUDIT-C Answer Date Recorded Q1: How often do you have a drink containing alcohol? Never 09/04/2024 Q2: How many drinks containi ng alcohol do you have on a typical day when you are drinking? Patient does not drink Q3: How often do you have si x or more drinks on one occasion? Never 09/04/2024 Overall Financial Resource Strain (CARDIA) Answe r Date Recorded How hard is it for you to pa y for the very basics like food, housing, medical care, and heating? Not hard at all 09/04/2024 PHQ-2 Answer Date Recorded Patient Health Questionnaire-2 Score 0 11/15/2024 [facility] [place] [facility] Occupat ional [facility] - Occupational Stress Questionnaire Answer Date Recorded Do you feel stress - tense, restless, nervous, or anxious, or unable to sleep at night because your mind is troubled all the time - these days? Only a little 09/04/2024 Hunger Vital Sign Answer Date Recorded Within the past 12 months, y ou worried that your food would run out before you got the money to buy more. Never true 09/05/19 25 Within the past 12 months, t he food you bought just didn't last and you didn't have money to get more. Never true 09/04/2024 PRAPARE - Transportation Answer Date Re corded In the past 12 months, has l ack of transportation kept you from medical appointments or from getting medications? No 08/2024 In the past 12 months, has l ack of transportation kept you from meetings, work, or from getting things needed for daily living? No 09/04/2024 Housing Stability Vital Sign Answer Randy e [...] place to sleep or slept in a prison (including now)? No 12/21/2022 Housing Stability Vital Sign Answer Randy e Recorded In the last 12 months, was t here a time when you were not able to pay the mortgage or rent on time? No 09/04/2024 In the past 12 months, how m any times have you moved where you were living? 1 09/04/2024 At any time in the past 12 m [facility] were you homeless or living in a prison (including now)? No 09/04/2024 Sex and Gender Information Value Date Recorded Sex Assigned at Not on file Legal Sex Male 12:25 PM CDT Gender Identity Not on file Sexual Orientation Not on file Last Filed Vital Signs Vital Sign Reading Time Taken Comments Blood Pressure 157/75 11/21/2024 5:02 PM CDT Pulse 63 11/21/2024 5:02 PM CDT Temperature 36.7 C (98.1 F) 11/21/2024 11:00 AM CDT Respiratory Rate 14 11/21/2024 11:00 AM CDT Oxygen Saturation 100% 11/21/2024 5:02 PM CDT Inhaled Oxygen Concentration 21% 10/05/2024 1 1:26 PM CDT Weight 99.8 kg (220 lb) 11/21/2024 11:00 AM CDT Height 177.8 cm (5' 10) 11/21/2024 11:00 AM CDT Body Mass Index 31.57 11/21/2024 11:00 AM CDT Plan of Treatment Upcoming Encounters Date Type Department Care Team (Late st Contact Info) Description 11/29/2024 11:15 AM CDT Office Visit [facility] - Vascular Surgery [address] [place] [address], [place] [address] Thu Platt MD [facility] [place] [address] Health Maintenance Due Date Last Done Comments COLOGUARD (AGES 45-75) - COLON CA SCREENING 1959 COLON MONITORING 1959 COLONOSCOPY - COLON CA SCREENING 1959 CT COLONOGRAPHY - COLON CA SCREENING 1959 Colorectal Cancer Screening 1959 FIT - COLON CA SCREENING 1959 FLEX SIG - COLON CA SCREENING 1959 MEDICARE AWV 12 MONTHS 1959 HIV SCREENING 11/26/1974 HEPATITIS C SCREENING 11/22/1977 DTAP/TDAP/TD VACCINES (1 - Tdap) 11/26/1978 PNEUMOCOCCAL VACCINE 50+ (1 of 2 - PCV) 11/26/1978 ZOSTER VACCINE (1 of 2) 11/26/2009 Respiratory Syncytial Virus (RSV) Vaccine Pt: or over 60 yrs (1 - Risk 60-74 years 1-dose series) 2019 DIABETES RETINOPATHY SCREENING 12/22/2022 DIABETES-FOOT EXAM WITH MONOFILAMENT 12/22/2022 DIABETES - URINE PROTEIN SCREENING 03/01/2024 01/12/2023, 01/12/2023, 01/12/2023 COVID-19 VACCINE ( season) 2024 03/01/2021, 07/23/2020, 06/25/2020 INFLUENZA VACCINE (#1) 2024 DIABETES-HGB A1C 03/18/2025 09/15/2024, 08/2024, 12/22/2022 DIABETES-SERUM CREATININE 11/21/20252024, 10/25/2024, 10/23/2024, Additional history exists DEPRESSION SCREENING Completed 11/15/2024 HEPATITIS B VACCINE Aged Out No longe [...] this topic Medical Devices Implanted Type Area Yolk Spray Drier Device Identifier Shelf Expiration Date Model / Serial / Lot Vascular Closure Device Other (Type not listed) Right: Groin 06/07/2026 / / [id number] Stent - Vascular-10/06/19 Implanted:10/05 (Quantity not on file) Stent - Vascular 11/28/2026 / [id number] / Tidial Bearing Insert Implanted:Qty: 1 on 06/23/2022 by Daniel oCrey MD at [facility] Right: Knee [employer] [id number] 04/15/2027 5531-G-7 09-E / / [id number] Cmpnt Fem Kn Rt 6 Crcte Rtn Bead Trthln Implanted:Qty: 1 on 06/23/2022 by Daniel Corey MD at [facility] Right: Knee [employer] 05/04/2027 [id number] / / [id number] Bsplt Tib Trthln 7 Kn Tritanium Implanted:Qty: 1 on 06/23/2022 by Daniel Corey MD at [facility] Right: Knee [employer] 04/21/2027 5536-B-7 00 / / [id number] Drsg 7x10cm Kerecis Or Mesh Omega3 Lf - [id number] Implanted:Qty: 1 on 04/05/2023 by Daniel Holder MD at [facility] Left: Knee [employer] 04/06/2024 [id number] / [id number] / Integra Mesh Dermal Regeneration Template Implanted:Qty: 1 on 08/02/2023 by Daniel Holder MD at [facility] Left: Leg Integra [employer] Bobbi 10/29/2024 [id number] / / [id number] Drsg Wnd Mtrx Puraply Sx 5x5cm Implanted:Qty: 1 on 09/05/2024 by Pablo Ortiz DPM at [facility] Right: Toe [employer] 05/03/2025 [id number] / / [id number] .1.1A Graft Skn Surgiclose 95cm M2 Melany Omega3 Implanted:Qty: 1 on 10/13/2024 by Daniel Holder MD at [facility] Right: Knee [employer] 09/20/2026 [id number] / / [id number] Procedures Procedure Name Priority Date/Time Associated Diagnosis Comments CT LOWER EXT RIGHT WO CONTRAST STAT 11/21/2024 3:55 PM CDT Postoperative surgical complication involving musculoskeletal system associated with musculoskeletal procedure, unspecified complication ERYTHROCYTE SEDIMENTATION RATE STAT 11/21/2024 11:54 AM CDT C-REACTIVE PROTEIN MIRNA 11/21/2024 11:54 AM CDT CBC W AUTO DIFFERENTIAL STAT 11/21/2024 11:54 AM CDT COMPREHENSIVE METABOLIC PANEL STAT 11/21/2024 11:54 AM CDT CARDIAC RHYTHM STRIP ORDER 10/26/2024 5:25 PM CDT GLUCOSE - POINT OF CARE Routine 10/25/2024 1:16 PM CDT GLUCOSE - POINT OF CARE Routine 10/25/2024 8:42 AM CDT CBC W/O DIFFERENTIAL AM Draw 10/25/2024 1:27 AM CDT BASIC METABOLIC PANEL (CALCIUM TOTAL) AM Draw 10/25/2024 1:27 AM CDT MAGNESIUM BLOOD Routine 10/25/2024 1:27 AM CDT GLUCOSE - POINT OF CARE Routine 10/24/2024 8:11 PM CDT GLUCOSE - POINT OF CARE Routine 10/24/2024 6:16 PM CDT GLUCOSE - POINT OF CARE Routine 10/24/2024 12:57 PM CDT GLUCOSE - POINT OF CARE Routine 10/24/2024 8:23 AM CDT GLUCOSE - POINT OF CARE Routine 10/23/2024 9:46 PM CDT GLUCOSE - POINT OF CARE Routine 10/23/2024 6:33 PM CDT GLUCOSE - POINT OF CARE Routine 10/23/2024 1:01 PM CDT GLUCOSE - POINT OF CARE Routine 10/23/2024 9:08 AM CDT BASIC METABOLIC PANEL (CALCIUM TOTAL) AM Draw 10/23/2024 3:38 AM CDT GLUCOSE - POINT OF CARE Routine 10/22/2024 11:51 PM CDT GLUCOSE - POINT OF CARE Routine 10/22/2024 7:34 PM CDT GLUCOSE - POINT OF CARE Routine 10/22/2024 2:10 PM CDT GLUCOSE - POINT OF CARE Routine 10/22/2024 8:42 AM CDT CBC W/O DIFFERENTIAL Routine 10/22/2024 8:35 AM CDT BASIC METABOLIC PANEL (CALCIUM TOTAL) Routine 10/22/2024 8:35 AM CDT GLUCOSE - POINT OF CARE Routine 10/21/2024 10:18 PM CDT GLUCOSE - POINT OF CARE Routine 10/21/2024 7:06 PM CDT GLUCOSE - POINT OF CARE Routine 10/21/2024 1:11 PM CDT GLUCOSE - POINT OF CARE Routine 10/21/2024 9:38 AM CDT BASIC METABOLIC PANEL (CALCIUM TOTAL) Routine 10/21/2024 4:08 AM CDT CBC W/O DIFFERENTIAL Routine 10/21/2024 4:08 AM CDT GLUCOSE - POINT OF CARE Routine 10/20/2024 8:32 PM CDT GLUCOSE - POINT OF CARE Routine 10/20/2024 6:40 PM CDT GLUCOSE - POINT OF CARE Routine 10/20/2024 1:16 PM CDT GLUCOSE - POINT OF CARE Routine 10/20/2024 8:37 AM CDT GLUCOSE - POINT OF CARE Routine 10/19/2024 9:31 PM CDT GLUCOSE - POINT OF CARE Routine 10/19/2024 8:19 PM CDT GLUCOSE - POINT OF CARE Routine 10/19/2024 6:35 PM CDT GLUCOSE - POINT OF CARE Routine 10/19/2024 1:05 PM CDT GLUCOSE - POINT OF CARE Routine 10/19/2024 8:45 AM CDT GLUCOSE - POINT OF CARE Routine 10/18/2024 9:54 PM CDT GLUCOSE - POINT OF CARE Routine 10/18/2024 6:37 PM CDT GLUCOSE - POINT OF CARE Routine 10/18/2024 1:11 PM CDT GLUCOSE - POINT OF CARE Routine 10/18/2024 8:44 AM CDT GLUCOSE - POINT OF CARE Routine 10/17/2024 8:38 PM CDT GLUCOSE - POINT OF CARE Routine 10/17/2024 6:19 PM CDT GLUCOSE - POINT OF CARE Routine 10/17/2024 1:23 PM CDT CBC W/O DIFFERENTIAL Routine 10/17/2024 9:23 AM CDT GLUCOSE - POINT OF CARE Routine 10/17/2024 9:13 AM CDT GLUCOSE - POINT OF CARE Routine 10/16/2024 8:44 PM CDT GLUCOSE - POINT OF CARE Routine 10/16/2024 7:00 PM CDT GLUCOSE - POINT OF CARE Routine 10/16/2024 1:52 PM CDT GLUCOSE - POINT OF CARE Routine 10/16/2024 9:08 AM CDT MAGNESIUM BLOOD Routine 10/16/2024 4:03 AM CDT CBC W/O DIFFERENTIAL AM Draw 10/16/2024 4:03 AM CDT BASIC METABOLIC PANEL (CALCIUM TOTAL) AM Draw 10/16/2024 4:03 AM CDT GLUCOSE - POINT OF CARE Routine 10/15/2024 9:50 PM CDT GLUCOSE - POINT OF CARE Routine 10/15/2024 7:34 PM CDT TRANSFUSE RED BLOOD CELL LEUKOREDUCED UNIT(S) Routine 10/15/2024 6:27 PM CDT HGB HCT PANEL Routine 10/15/2024 1:42 PM CDT GLUCOSE - POINT OF CARE Routine 10/15/2024 1:37 PM CDT GLUCOSE - POINT OF CARE Routine 10/15/2024 9:08 AM CDT GLUCOSE - POINT OF CARE Routine 10/14/2024 9:52 PM CDT GLUCOSE - POINT OF CARE Routine 10/14/2024 7:58 PM CDT GLUCOSE - POINT OF CARE Routine 10/14/2024 1:25 PM CDT GLUCOSE - POINT OF CARE Routine 10/14/2024 9:06 AM CDT CBC W/O DIFFERENTIAL AM Draw 10/14/2024 5:39 AM CDT BASIC METABOLIC PANEL (CALCIUM TOTAL) AM Draw 10/14/2024 5:39 AM CDT HGB HCT PANEL Routine 10/13/2024 11:59 PM CDT GLUCOSE - POINT OF CARE Routine 10/13/2024 9:41 PM CDT GLUCOSE - POINT OF CARE Routine 10/13/2024 6:40 PM CDT GLUCOSE - POINT OF CARE Routine 10/13/2024 4:17 PM CDT TRANSFUSE RED BLOOD CELL LEUKOREDUCED UNIT(S) Routine 10/13/2024 3:50 PM CDT PATHOLOGY TISSUE EXAM (STL) Routine 10/13/2024 2:52 PM CDT Diagnosis unknown LARYNGEAL MASK AIRWAY Routine 10/13/2024 2:26 PM CDT PREPARE RBC LEUKOREDUCED UNIT Routine 10/13/2024 2:07 PM CDT TYPE + SCREEN PANEL STAT 10/13/2024 2 :07 PM CDT PREPARE RBC LEUKOREDUCED UNIT STAT 10/13/2024 2:07 PM CDT Gangrene (HCC) Acute blood loss anemia Below-knee amputation of right lower extremity, initial encounter ([facility]) [place] AMPUTATION LOW LEG THRU TIB/FIB 10/13/2024 1:54 PM CDT Diagnosis unknown Special Needs ### 004 ### POTASSIUM BLOOD STAT 10/13/2024 12:49 PM CDT GLUCOSE - POINT OF CARE Routine 10/13/2024 11:34 AM CDT GLUCOSE - POINT OF CARE Routine 10/13/2024 7:56 AM CDT CBC W AUTO DIFFERENTIAL AM Draw 10/13/2024 4:18 AM CDT BASIC METABOLIC PANEL (CALCIUM TOTAL) AM Draw 10/13/2024 4:18 AM CDT GLUCOSE - POINT OF CARE Routine 10/12/2024 8:10 PM CDT GLUCOSE - POINT OF CARE Routine 10/12/2024 4:26 PM CDT GLUCOSE - POINT OF CARE Routine 10/12/2024 11:33 AM CDT GLUCOSE - POINT OF CARE Routine 10/12/2024 8:09 AM CDT GLUCOSE - POINT OF CARE Routine 10/11/2024 7:52 PM CDT GLUCOSE - POINT OF CARE Routine 10/11/2024 5:12 PM CDT GLUCOSE - POINT OF CARE Routine 10/11/2024 11:37 AM CDT GLUCOSE - POINT OF CARE Routine 10/11/2024 7:50 AM CDT TSH REFLEX FREE T4 Routine 10/11/2024 5: 47 AM CDT CBC W AUTO DIFFERENTIAL Routine 10/11/2024 5:47 AM CDT GLUCOSE - POINT OF CARE Routine 10/10/2024 8:23 PM CDT GLUCOSE - POINT OF CARE Routine 10/10/2024 5:20 PM CDT GLUCOSE - POINT OF CARE Routine 10/10/2024 11:54 AM CDT GLUCOSE - POINT OF CARE Routine 10/10/2024 8:03 AM CDT FOLATE Routine 10/10/2024 2:10 AM CDT VITAMIN B12 AM Draw 10/10/2024 2:10 AM CDT CBC W AUTO DIFFERENTIAL Routine 10/10/2024 2:10 AM CDT GLUCOSE - POINT OF CARE Routine 10/09/2024 9:18 PM CDT GLUCOSE - POINT OF CARE Routine 10/09/2024 8:35 PM CDT GLUCOSE - POINT OF CARE Routine 10/09/2024 5:15 PM CDT GLUCOSE - POINT OF CARE Routine 10/09/2024 11:40 AM CDT GLUCOSE - POINT OF CARE Routine 10/09/2024 7:41 AM CDT RENAL FUNCTION PANEL AM Draw 10/09/2024 5:52 AM CDT CBC W AUTO DIFFERENTIAL Routine 10/09/2024 5:52 AM CDT GLUCOSE - POINT OF CARE Routine 10/08/2024 8:17 PM CDT GLUCOSE - POINT OF CARE Routine 10/08/2024 5:31 PM CDT GLUCOSE - POINT OF CARE Routine 10/08/2024 11:56 AM CDT GLUCOSE - POINT OF CARE Routine 10/08/2024 8:08 AM CDT RENAL FUNCTION PANEL AM Draw 10/08/2024 4:55 AM CDT CBC W AUTO DIFFERENTIAL Routine 10/08/2024 4:55 AM CDT GLUCOSE - POINT OF CARE Routine 10/07/2024 8:47 PM CDT GLUCOSE - POINT OF CARE Routine 10/07/2024 5:18 PM CDT HGB HCT PANEL Routine 10/07/2024 4:30 PM CDT GLUCOSE - POINT OF CARE Routine 10/07/2024 12:17 PM CDT GLUCOSE - POINT OF CARE Routine 10/07/2024 8:09 AM CDT CBC W AUTO DIFFERENTIAL Routine 10/07/2024 4:58 AM CDT URINALYSIS REFLEX TO MICROSCOPIC NO CULTURE Routine 10/07/2024 12:42 AM CDT HGB HCT PANEL Timed 10/06/2024 11:05 PM CDT PAD (peripheral artery disease) GLUCOSE - POINT OF CARE Routine 10/06/2024 8:12 PM CDT GLUCOSE - POINT OF CARE Routine 10/06/2024 5:10 PM CDT HGB HCT PANEL Timed 10/06/2024 12:00 PM CDT PAD (peripheral artery disease) GLUCOSE - POINT OF CARE Routine 10/06/2024 11:56 AM CDT PT EVAL AND TREAT Routine 10/06/2024 11:42 AM CDT OT EVAL AND TREAT Routine 10/06/2024 11:42 AM CDT GLUCOSE - POINT OF CARE Routine 10/06/2024 8:58 AM CDT COAGULATION PANEL W D-DIMER AM Draw 10/06/2024 4:35 AM CDT PHOSPHORUS BLOOD Routine 10/06/2024 4:35 AM CDT MAGNESIUM BLOOD Routine 10/06/2024 4:35 AM CDT COMPREHENSIVE METABOLIC PANEL AM Draw 10/06/2024 4:35 AM CDT CBC W AUTO DIFFERENTIAL Routine 10/06/2024 4:35 AM CDT GLUCOSE - POINT OF CARE Routine 10/05/2024 9:37 PM CDT HGB HCT PANEL Timed 10/05/2024 8:27 PM CDT PAD (peripheral artery disease) GLUCOSE - POINT OF CARE Routine 10/05/2024 6:38 PM CDT TRANSFUSE RED BLOOD CELL LEUKOREDUCED UNIT(S) STAT 10/05/2024 6:12 PM CDT GLUCOSE - POINT OF CARE Routine 10/05/2024 5:08 PM CDT CK BLOOD Routine 10/05/2024 4:09 PM CDT RENAL FUNCTION PANEL Timed 10/05/2024 4:09 PM CDT PTT Timed 10/05/2024 4:09 PM CDT PAD (peripheral artery disease) HGB HCT PANEL Timed 10/05/2024 4:09 PM CDT PAD (peripheral artery disease) FIBRINOGEN ACTIVITY Timed 10/05/2024 4 :09 PM CDT PAD (peripheral artery disease) GLUCOSE - POINT OF CARE Routine 10/05/2024 4:08 PM CDT IR THROMBOLYSIS RECHECK Routine 10/05/2024 3:07 PM CDT PAD (peripheral artery disease) S/P transmetatarsal amputation of foot, right (HCC) ACT LR - POCT ([facility]) Routine 10/05/2024 2:28 PM CDT ACT LR - POCT ([facility]) Routine 10/05/2024 1:25 PM CDT ACT LR - POCT ([facility]) Routine 10/05/2024 12:55 PM CDT ACT LR - POCT ([facility]) Routine 10/05/2024 11:51 AM CDT GLUCOSE - POINT OF CARE Routine 10/05/2024 9:23 AM CDT RENAL FUNCTION PANEL Timed 10/05/2024 6:45 AM CDT PTT Timed 10/05/2024 6:45 AM CDT PAD (peripheral artery disease) HGB HCT PANEL Timed 10/05/2024 6:45 AM CDT PAD (peripheral artery disease) FIBRINOGEN ACTIVITY Timed 10/05/2024 6 :45 AM CDT PAD (peripheral artery disease) TRANSFUSE RED BLOOD CELL LEUKOREDUCED UNIT(S) Routine 10/05/2024 5:28 AM CDT TRANSFUSE RED BLOOD CELL LEUKOREDUCED UNIT(S) Routine 10/05/2024 5:07 AM CDT PREPARE RBC LEUKOREDUCED UNIT Routine 10/05/2024 3:23 AM CDT PREPARE RBC LEUKOREDUCED UNIT STAT 10/05/2024 3:23 AM CDT TYPE + SCREEN PANEL STAT 10/05/2024 3 :23 AM CDT PREPARE RBC LEUKOREDUCED UNIT Routine 10/05/2024 3:23 AM CDT PT-INR Routine 10/05/2024 3:23 AM CDT NURSING TRANSFUSION INSTRUCTIONS Routine 10/05/2024 3:06 AM CDT NURSING TRANSFUSION INSTRUCTIONS Routine 10/05/2024 3:06 AM CDT OBTAIN CONSENT FOR TRANSFUSION Routine 10/05/2024 3:06 AM CDT DIFFERENTIAL MANUAL Routine 10/05/2024 1 :04 AM CDT CBC W AUTO DIFFERENTIAL Routine 10/05/2024 1:04 AM CDT RENAL FUNCTION PANEL Timed 10/05/2024 1:04 AM CDT PTT Timed 10/05/2024 1:04 AM CDT PAD (peripheral artery disease) FIBRINOGEN ACTIVITY Timed 10/05/2024 1 :04 AM CDT PAD (peripheral artery disease) PTT Timed 10/04/2024 9:18 PM CDT PAD (peripheral artery disease) FIBRINOGEN ACTIVITY Timed 10/04/2024 9 :18 PM CDT PAD (peripheral artery disease) GLUCOSE - POINT OF CARE Routine 10/04/2024 9:14 PM CDT RENAL FUNCTION PANEL Timed 10/04/2024 7:13 PM CDT HGB HCT PANEL Timed 10/04/2024 7:13 PM CDT PAD (peripheral artery disease) GLUCOSE - POINT OF CARE Routine 10/04/2024 7:09 PM CDT RENAL FUNCTION PANEL Timed 10/04/2024 1:56 PM CDT PT-INR Routine 10/04/2024 1:56 PM CDT HGB HCT PANEL Timed 10/04/2024 1:48 PM CDT PAD (peripheral artery disease) FIBRINOGEN ACTIVITY Timed 10/04/2024 1 :48 PM CDT PAD (peripheral artery disease) GLUCOSE - POINT OF CARE Routine 10/04/2024 1:45 PM CDT IR THROMBOLYSIS ARTERIAL Routine 10/04/2024 11:18 AM CDT PAD (peripheral artery disease) S/P transmetatarsal amputation of foot, right (HCC) GLUCOSE - POINT OF CARE Routine 10/04/2024 8:24 AM CDT RENAL FUNCTION PANEL AM Draw 10/04/2024 4:12 AM CDT CBC W/O DIFFERENTIAL AM Draw 10/04/2024 4:12 AM CDT GLUCOSE - POINT OF CARE Routine 10/03/2024 8:12 PM CDT GLUCOSE - POINT OF CARE Routine 10/03/2024 4:47 PM CDT IR ANGIOGRAM RIGHT LEG Routine 10/03/2024 10:57 AM CDT Osteomyelitis of right foot, unspecified type (HCC) PAD (peripheral artery disease) S/P transmetatarsal amputation of foot, right (HCC) GLUCOSE - POINT OF CARE Routine 10/03/2024 8:02 AM CDT MAGNESIUM BLOOD Routine 10/03/2024 4:56 AM CDT RENAL FUNCTION PANEL AM Draw 10/03/2024 4:56 AM CDT CBC W/O DIFFERENTIAL AM Draw 10/03/2024 4:56 AM CDT GLUCOSE - POINT OF CARE Routine 10/02/2024 7:55 PM CDT GLUCOSE - POINT OF CARE Routine 10/02/2024 4:52 PM CDT GLUCOSE - POINT OF CARE Routine 10/02/2024 11:58 AM CDT GLUCOSE - POINT OF CARE Routine 10/02/2024 7:53 AM CDT GLUCOSE - POINT OF CARE Routine 10/02/2024 5:49 AM CDT CBC W/O DIFFERENTIAL AM Draw 10/02/2024 4:18 AM CDT MAGNESIUM BLOOD Routine 10/02/2024 4:18 AM CDT RENAL FUNCTION PANEL AM Draw 10/02/2024 4:18 AM CDT GLUCOSE - POINT OF CARE Routine 10/01/2024 11:37 PM CDT GLUCOSE - POINT OF CARE Routine 10/01/2024 7:20 PM CDT GLUCOSE - POINT OF CARE Routine 10/01/2024 5:17 PM CDT GLUCOSE - POINT OF CARE Routine 10/01/2024 12:08 PM CDT GLUCOSE - POINT OF CARE Routine 10/01/2024 9:17 AM CDT GLUCOSE - POINT OF CARE Routine 10/01/2024 7:50 AM CDT BASIC METABOLIC PANEL (CALCIUM TOTAL) AM Draw 10/01/2024 1:59 AM CDT CBC W/O DIFFERENTIAL AM Draw 10/01/2024 1:59 AM CDT GLUCOSE - POINT OF CARE Routine 09/30/2024 7:43 PM CDT GLUCOSE - POINT OF CARE Routine 09/30/2024 5:18 PM CDT VAS RIGHT ARTERIAL DUPLEX LE Routine 09/30/2024 2:55 PM CDT Osteomyelitis of right foot, unspecified type (HCC) PAD (peripheral artery disease) GLUCOSE - POINT OF CARE Routine 09/30/2024 12:09 PM CDT CBC W AUTO DIFFERENTIAL Routine 09/30/2024 9:46 AM CDT BASIC METABOLIC PANEL (CALCIUM TOTAL) Routine 09/30/2024 9:46 AM CDT GLUCOSE - POINT OF CARE Routine 09/30/2024 7:55 AM CDT GLUCOSE - POINT OF CARE Routine 09/29/2024 7:30 PM CDT GLUCOSE - POINT OF CARE Routine 09/29/2024 5:30 PM CDT GLUCOSE - POINT OF CARE Routine 09/29/2024 11:57 AM CDT BASIC METABOLIC PANEL (CALCIUM TOTAL) Routine 09/29/2024 9:56 AM CDT CBC W AUTO DIFFERENTIAL Routine 09/29/2024 9:56 AM CDT GLUCOSE - POINT OF CARE Routine 09/29/2024 8:12 AM CDT GLUCOSE - POINT OF CARE Routine 09/28/2024 8:23 PM CDT PT EVAL AND TREAT Routine 09/28/2024 3:0 8 PM CDT OT EVAL AND TREAT Routine 09/28/2024 3:0 8 PM CDT GLUCOSE - POINT OF CARE Routine 09/28/2024 11:50 AM CDT MAGNESIUM BLOOD Routine 09/28/2024 8:27 AM CDT CBC W AUTO DIFFERENTIAL AM Draw 09/28/2024 8:27 AM CDT COMPREHENSIVE METABOLIC PANEL AM Draw 09/28/2024 8:27 AM CDT GLUCOSE - POINT OF CARE Routine 09/28/2024 8:09 AM CDT TRANSFUSE RED BLOOD CELL LEUKOREDUCED UNIT(S) Routine 09/27/2024 11:51 PM CDT GLUCOSE - POINT OF CARE Routine 09/27/2024 8:57 PM CDT GLUCOSE - POINT OF CARE Routine 09/27/2024 5:19 PM CDT CBC W/O DIFFERENTIAL Routine 09/27/2024 4:30 PM CDT GLUCOSE - POINT OF CARE Routine 09/27/2024 12:15 PM CDT GLUCOSE - POINT OF CARE Routine 09/27/2024 8:09 AM CDT TRANSFUSE RED BLOOD CELL LEUKOREDUCED UNIT(S) Routine 09/27/2024 6:47 AM CDT CBC W AUTO DIFFERENTIAL AM Draw 09/27/2024 4:19 AM CDT COMPREHENSIVE METABOLIC PANEL AM Draw 09/27/2024 4:19 AM CDT GLUCOSE - POINT OF CARE Routine 09/26/2024 7:55 PM CDT GLUCOSE - POINT OF CARE Routine 09/26/2024 5:13 PM CDT GLUCOSE - POINT OF CARE Routine 09/26/2024 12:29 PM CDT CBC W AUTO DIFFERENTIAL STAT 09/26/2024 10:34 AM CDT Gangrene of toe of right foot (HCC) XR FOOT RIGHT 2VW Routine 09/26/2024 9:5 6 AM CDT Osteomyelitis of right foot, unspecified type (HCC) GLUCOSE - POINT OF CARE Routine 09/26/2024 9:31 AM CDT PATHOLOGY TISSUE EXAM ([facility]) Routine 09/26/2024 8:37 AM CDT Diagnosis unknown CULTURE FUNGUS OTHER+FUNGUS SMEAR STAT 09/26/2024 8:34 AM CDT Diagnosis unknown CULTURE WOUND+GRAM STAIN STAT 09/26/2024 8:34 AM CDT Diagnosis unknown CULTURE ANAEROBE STAT 09/26/2024 8:34 AM CDT Diagnosis unknown [employer] Routine 09/26/2024 7:57 AM CDT TN AMPUTATION FOOT,TRANSMETATARSAL 09/26/2024 6:40 AM CDT Diagnosis unknown Special Needs NEEDS TPS WITH [employer] [address] CBC W AUTO DIFFERENTIAL AM Draw 09/26/2024 3:28 AM CDT COMPREHENSIVE METABOLIC PANEL AM Draw 09/26/2024 3:28 AM CDT GLUCOSE - POINT OF CARE Routine 09/25/2024 9:01 PM CDT PREPARE RBC LEUKOREDUCED UNIT Routine 09/25/2024 6:09 PM CDT PREPARE RBC LEUKOREDUCED UNIT Routine 09/25/2024 6:09 PM CDT PREPARE RBC LEUKOREDUCED UNIT STAT 09/25/2024 6:09 PM CDT Gangrene of toe of right foot (HCC) BLOOD TYPE VERIFICATION Routine 09/25/2024 6:09 PM CDT TYPE + SCREEN PANEL Pre-Op 09/25/2024 6 :09 PM CDT GLUCOSE - POINT OF CARE Routine 09/25/2024 5:25 PM CDT GLUCOSE - POINT OF CARE Routine 09/25/2024 12:55 PM CDT GLUCOSE - POINT OF CARE Routine 09/25/2024 8:42 AM CDT CBC W AUTO DIFFERENTIAL AM Draw 09/25/2024 5:30 AM CDT COMPREHENSIVE METABOLIC PANEL AM Draw 09/25/2024 5:30 AM CDT GLUCOSE - POINT OF CARE Routine 09/24/2024 7:47 PM CDT GLUCOSE - POINT OF CARE Routine 09/24/2024 4:48 PM CDT CBC W AUTO DIFFERENTIAL AM Draw 09/24/2024 2:33 PM CDT COMPREHENSIVE METABOLIC PANEL AM Draw 09/24/2024 2:33 PM CDT GLUCOSE - POINT OF CARE Routine 09/24/2024 7:51 AM CDT GLUCOSE - POINT OF CARE Routine 09/23/2024 7:47 PM CDT GLUCOSE - POINT OF CARE Routine 09/23/2024 5:08 PM CDT GLUCOSE - POINT OF CARE Routine 09/23/2024 12:10 PM CDT CBC W AUTO DIFFERENTIAL AM Draw 09/23/2024 11:29 AM CDT COMPREHENSIVE METABOLIC PANEL AM Draw 09/23/2024 11:29 AM CDT GLUCOSE - POINT OF CARE Routine 09/23/2024 7:52 AM CDT GLUCOSE - POINT OF CARE Routine 09/22/2024 10:21 PM CDT GLUCOSE - POINT OF CARE Routine 09/22/2024 5:00 PM CDT GLUCOSE - POINT OF CARE Routine 09/22/2024 12:39 PM CDT GLUCOSE - POINT OF CARE Routine 09/22/2024 8:05 AM CDT CBC W AUTO DIFFERENTIAL AM Draw 09/22/2024 6:25 AM CDT COMPREHENSIVE METABOLIC PANEL AM Draw 09/22/2024 6:25 AM CDT GLUCOSE - POINT OF CARE Routine 09/21/2024 9:28 PM CDT GLUCOSE - POINT OF CARE Routine 09/21/2024 6:06 PM CDT VAS RIGHT ARTERIAL DUPLEX LE Routine 09/21/2024 5:41 PM CDT PAD (peripheral artery disease) GLUCOSE - POINT OF CARE Routine 09/21/2024 11:59 AM CDT GLUCOSE - POINT OF CARE Routine 09/21/2024 7:53 AM CDT CBC W AUTO DIFFERENTIAL AM Draw 09/21/2024 4:18 AM CDT COMPREHENSIVE METABOLIC PANEL AM Draw 09/21/2024 4:18 AM CDT GLUCOSE - POINT OF CARE Routine 09/20/2024 10:06 PM CDT GLUCOSE - POINT OF CARE Routine 09/20/2024 7:46 PM CDT GLUCOSE - POINT OF CARE Routine 09/20/2024 5:48 PM CDT GLUCOSE - POINT OF CARE Routine 09/20/2024 12:35 PM CDT GLUCOSE - POINT OF CARE Routine 09/20/2024 12:28 PM CDT GLUCOSE - POINT OF CARE Routine 09/20/2024 8:24 AM CDT SLIDE SCAN HEMATOLOGY AM Draw 09/20/2024 4:19 AM CDT CBC W AUTO DIFFERENTIAL AM Draw 09/20/2024 4:19 AM CDT COMPREHENSIVE METABOLIC PANEL AM Draw 09/20/2024 4:19 AM CDT GLUCOSE - POINT OF CARE Routine 09/19/2024 9:45 PM CDT GLUCOSE - POINT OF CARE Routine 09/19/2024 7:39 PM CDT GLUCOSE - POINT OF CARE Routine 09/19/2024 4:54 PM CDT GLUCOSE - POINT OF CARE Routine 09/19/2024 11:42 AM CDT GLUCOSE - POINT OF CARE Routine 09/19/2024 7:40 AM CDT CBC W AUTO DIFFERENTIAL AM Draw 09/19/2024 5:53 AM CDT COMPREHENSIVE METABOLIC PANEL AM Draw 09/19/2024 5:53 AM CDT TRANSFUSE RED BLOOD CELL LEUKOREDUCED UNIT(S) Routine 09/19/2024 12:00 AM CDT TRANSFUSE RED BLOOD CELL LEUKOREDUCED UNIT(S) Routine 09/18/2024 8:46 PM CDT GLUCOSE - POINT OF CARE Routine 09/18/2024 8:30 PM CDT GLUCOSE - POINT OF CARE Routine 09/18/2024 4:49 PM CDT GLUCOSE - POINT OF CARE Routine 09/18/2024 11:50 AM CDT TYPE + SCREEN PANEL STAT 09/18/2024 9 :43 AM CDT PREPARE RBC LEUKOREDUCED UNIT Routine 09/18/2024 9:43 AM CDT GLUCOSE - POINT OF CARE Routine 09/18/2024 8:22 AM CDT GLUCOSE - POINT OF CARE Routine 09/18/2024 5:52 AM CDT DIFFERENTIAL MANUAL AM Draw 09/18/2024 2 :56 AM CDT CBC W AUTO DIFFERENTIAL AM Draw 09/18/2024 2:56 AM CDT COMPREHENSIVE METABOLIC PANEL AM Draw 09/18/2024 2:56 AM CDT GLUCOSE - POINT OF CARE Routine 09/17/2024 7:51 PM CDT GLUCOSE - POINT OF CARE Routine 09/17/2024 5:14 PM CDT GLUCOSE - POINT OF CARE Routine 09/17/2024 12:10 PM CDT GLUCOSE - POINT OF CARE Routine 09/17/2024 8:26 AM CDT GLUCOSE - POINT OF CARE Routine 09/17/2024 5:48 AM CDT CBC W AUTO DIFFERENTIAL AM Draw 09/17/2024 5:26 AM CDT COMPREHENSIVE METABOLIC PANEL AM Draw 09/17/2024 5:26 AM CDT GLUCOSE - POINT OF CARE Routine 09/17/2024 1:13 AM CDT GLUCOSE - POINT OF CARE Routine 09/16/2024 9:14 PM CDT GLUCOSE - POINT OF CARE Routine 09/16/2024 5:20 PM CDT GLUCOSE - POINT OF CARE Routine 09/16/2024 12:18 PM CDT CBC W AUTO DIFFERENTIAL AM Draw 09/16/2024 7:06 AM CDT COMPREHENSIVE METABOLIC PANEL AM Draw 09/16/2024 7:06 AM CDT GLUCOSE - POINT OF CARE Routine 09/16/2024 6:14 AM CDT GLUCOSE - POINT OF CARE Routine 09/16/2024 12:31 AM CDT GLUCOSE - POINT OF CARE Routine 09/15/2024 8:05 PM CDT GLUCOSE - POINT OF CARE Routine 09/15/2024 7:02 PM CDT IR VEIN ARTERIALIZATION TIB PER Routine 09/15/2024 6:22 PM CDT PAD (peripheral artery disease) Osteomyelitis of right foot, unspecified type (HCC) ACT LR - POCT ([facility]) Routine 09/15/2024 6:20 PM CDT ACT LR - POCT ([facility]) Routine 09/15/2024 5:54 PM CDT ACT LR - POCT ([facility]) Routine 09/15/2024 5:29 PM CDT ACT LR - POCT ([facility]) Routine 09/15/2024 4:35 PM CDT ACT LR - POCT ([facility]) Routine 09/15/2024 4:32 PM CDT ACT LR - POCT ([facility]) Routine 09/15/2024 3:57 PM CDT ACT LR - POCT ([facility]) Routine 09/15/2024 3:29 PM CDT [employer] Routine 09/15/2024 12:08 PM CDT GLUCOSE - POINT OF CARE Routine 09/15/2024 8:09 AM CDT HEMOGLOBIN A1C STAT 09/15/2024 5:17 AM CDT CBC W AUTO DIFFERENTIAL AM Draw 09/15/2024 5:17 AM CDT COMPREHENSIVE METABOLIC PANEL AM Draw 09/15/2024 5:17 AM CDT GLUCOSE - POINT OF CARE Routine 09/14/2024 11:59 PM CDT GLUCOSE - POINT OF CARE Routine 09/14/2024 5:30 PM CDT GLUCOSE - POINT OF CARE Routine 09/14/2024 12:00 PM CDT GLUCOSE - POINT OF CARE Routine 09/14/2024 6:24 AM CDT CBC W AUTO DIFFERENTIAL AM Draw 09/14/2024 5:46 AM CDT COMPREHENSIVE METABOLIC PANEL AM Draw 09/14/2024 5:46 AM CDT GLUCOSE - POINT OF CARE Routine 09/14/2024 12:11 AM CDT GLUCOSE - POINT OF CARE Routine 09/13/2024 5:01 PM CDT GLUCOSE - POINT OF CARE Routine 09/13/2024 11:50 AM CDT CBC W AUTO DIFFERENTIAL AM Draw 09/13/2024 7:34 AM CDT COMPREHENSIVE METABOLIC PANEL AM Draw 09/13/2024 7:34 AM CDT GLUCOSE - POINT OF CARE Routine 09/13/2024 6:20 AM CDT GLUCOSE - POINT OF CARE Routine 09/13/2024 12:17 AM CDT GLUCOSE - POINT OF CARE Routine 09/12/2024 4:51 PM CDT GLUCOSE - POINT OF CARE Routine 09/12/2024 11:24 AM CDT CBC W AUTO DIFFERENTIAL STAT 09/12/2024 9:29 AM CDT COMPREHENSIVE METABOLIC PANEL STAT 09/12/2024 9:29 AM CDT GLUCOSE - POINT OF CARE Routine 09/12/2024 8:00 AM CDT GLUCOSE - POINT OF CARE Routine 09/12/2024 5:32 AM CDT GLUCOSE - POINT OF CARE Routine 09/11/2024 11:42 PM CDT GLUCOSE - POINT OF CARE Routine 09/11/2024 7:24 PM CDT GLUCOSE - POINT OF CARE Routine 09/11/2024 4:56 PM CDT GLUCOSE - POINT OF CARE Routine 09/11/2024 11:43 AM CDT RENAL FUNCTION PANEL AM Draw 09/11/2024 6:59 AM CDT CBC W/O DIFFERENTIAL AM Draw 09/11/2024 6:59 AM CDT GLUCOSE - POINT OF CARE Routine 09/11/2024 6:37 AM CDT GLUCOSE - POINT OF CARE Routine 09/11/2024 12:44 AM CDT GLUCOSE - POINT OF CARE Routine 09/10/2024 5:00 PM CDT GLUCOSE - POINT OF CARE Routine 09/10/2024 11:41 AM CDT GLUCOSE - POINT OF CARE Routine 09/10/2024 5:39 AM CDT RENAL FUNCTION PANEL AM Draw 09/10/2024 3:32 AM CDT CBC W/O DIFFERENTIAL AM Draw 09/10/2024 3:32 AM CDT GLUCOSE - POINT OF CARE Routine 09/09/2024 11:01 PM CDT GLUCOSE - POINT OF CARE Routine 09/09/2024 6:05 PM CDT GLUCOSE - POINT OF CARE Routine 09/09/2024 1:17 PM CDT GLUCOSE - POINT OF CARE Routine 09/09/2024 8:43 AM CDT GLUCOSE - POINT OF CARE Routine 09/09/2024 5:00 AM CDT RENAL FUNCTION PANEL AM Draw 09/09/2024 3:23 AM CDT CBC W/O DIFFERENTIAL AM Draw 09/09/2024 3:23 AM CDT GLUCOSE - POINT OF CARE Routine 09/08/2024 10:38 PM CDT GLUCOSE - POINT OF CARE Routine 09/08/2024 5:40 PM CDT GLUCOSE - POINT OF CARE Routine 09/08/2024 11:50 AM CDT GLUCOSE - POINT OF CARE Routine 09/08/2024 6:09 AM CDT RENAL FUNCTION PANEL AM Draw 09/08/2024 4:25 AM CDT CBC W/O DIFFERENTIAL AM Draw 09/08/2024 4:25 AM CDT FERRITIN Routine 09/08/2024 4:25 AM CDT IRON + TRANSFERRIN PANEL Routine 09/08/2024 4:25 AM CDT GLUCOSE - POINT OF CARE Routine 09/08/2024 1:08 AM CDT GLUCOSE - POINT OF CARE Routine 09/07/2024 4:59 PM CDT GLUCOSE - POINT OF CARE Routine 09/07/2024 3:55 PM CDT IR ANGIOGRAM RIGHT LEG Routine 09/07/2024 3:17 PM CDT PAD (peripheral artery disease) Gangrene of toe of right foot (HCC) ACT LR - POCT ([facility]) Routine 09/07/2024 2:48 PM CDT ACT LR - POCT ([facility]) Routine 09/07/2024 2:03 PM CDT ACT LR - POCT ([facility]) Routine 09/07/2024 1:34 PM CDT ACT LR - POCT ([facility]) Routine 09/07/2024 12:56 PM CDT [employer] Routine 09/07/2024 12:12 PM CDT GLUCOSE - POINT OF CARE Routine 09/07/2024 6:11 AM CDT RENAL FUNCTION PANEL AM Draw 09/07/2024 5:25 AM CDT CBC W/O DIFFERENTIAL AM Draw 09/07/2024 5:25 AM CDT GLUCOSE - POINT OF CARE Routine 09/07/2024 1:34 AM CDT VANCOMYCIN LEVEL TROUGH STAT 09/06/2024 4:58 PM CDT GLUCOSE - POINT OF CARE Routine 09/06/2024 4:57 PM CDT IR ANGIOGRAM RIGHT LEG Routine 09/06/2024 12:19 PM CDT Osteomyelitis of right foot, unspecified type (HCC) PAD (peripheral artery disease) PT-INR STAT 09/06/2024 9:56 AM CDT Pre-procedure lab exam GLUCOSE - POINT OF CARE Routine 09/06/2024 6:03 AM CDT RENAL FUNCTION PANEL AM Draw 09/06/2024 5:15 AM CDT CBC W/O DIFFERENTIAL AM Draw 09/06/2024 5:15 AM CDT GLUCOSE - POINT OF CARE Routine 09/06/2024 1:03 AM CDT VANCOMYCIN LEVEL PEAK STAT 09/05/2024 9:18 PM CDT GLUCOSE - POINT OF CARE Routine 09/05/2024 8:12 PM CDT VAS ARTERIAL ANKLE ARM INDEX Routine 09/05/2024 6:15 PM CDT Osteomyelitis of right foot, unspecified type (HCC) PAD (peripheral artery disease) GLUCOSE - POINT OF CARE Routine 09/05/2024 6:10 PM CDT GLUCOSE - POINT OF CARE Routine 09/05/2024 4:59 PM CDT PATHOLOGY TISSUE EXAM (STL) Routine 09/05/2024 4:12 PM CDT Diagnosis unknown CULTURE TISSUE+GRAM STAIN STAT 09/05/2024 4:12 PM CDT Diagnosis unknown CULTURE ANAEROBE STAT 09/05/2024 4:12 PM CDT Diagnosis unknown TN AMPUTATION TOE,I-P JT 09/05/2024 3:50 PM CDT GLUCOSE - POINT OF CARE Routine 09/05/2024 11:52 AM CDT XR FOOT RIGHT 3VW OR MORE Routine 09/05/2024 9:31 AM CDT Osteomyelitis of right foot, unspecified type (HCC) RENAL FUNCTION PANEL Routine 09/05/2024 9:12 AM CDT CBC W/O DIFFERENTIAL Routine 09/05/2024 9:12 AM CDT GLUCOSE - POINT OF CARE Routine 09/05/2024 6:08 AM CDT GLUCOSE - POINT OF CARE Routine 09/05/2024 12:03 AM CDT CULTURE BLOOD Timed 09/04/2024 11:26 PM CDT VANCOMYCIN LEVEL PEAK STAT 09/04/2024 11:18 PM CDT CBC W AUTO DIFFERENTIAL STAT 09/04/2024 11:18 PM CDT COMPREHENSIVE METABOLIC PANEL STAT 09/04/2024 11:18 PM CDT LIPID PROFILE AM Draw 09/04/2024 11:18 PM CDT HEMOGLOBIN A1C Routine 09/04/2024 11:18 PM CDT LACTIC ACID BLOOD REFLEX TO REPEAT Timed 09/04/2024 11:18 PM CDT VITAMIN D 25-HYDROXY AM Draw 09/04/2024 11:18 PM CDT ERYTHROCYTE SEDIMENTATION RATE AM Draw 09/04/2024 11:18 PM CDT C-REACTIVE PROTEIN AM Draw 09/04/2024 11:18 PM CDT CULTURE BLOOD Timed 09/04/2024 11:18 PM CDT MICROALB/CREAT RATIO URINE RANDOM PANEL Routine 01/12/2023 1:39 PM LITERACY TUTOR TRANSFUSE RED BLOOD CELL LEUKOREDUCED UNIT(S) Routine from Last 3 Months or Most Recently Relevant to Health Maintenance Results * CT Lower Ext Right Wo Contrast (11/21/2024 3:55 PM CDT) Anatomical Region Laterality Modality Lower Extremity Computed Tomogra phy 11/21/2024 4:16 PM CDT Impressions 11/21/2024 4:36 PM CDT IMPRESSION: 1.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 2.Diffuse soft tissue edema without evidence of emphysema. 3.Parafascial fluid collection measuring up to 4.6 cm within the deep soft tissue at the posterior medial aspect of the amputation stump may represent an adventitial bursitis versus abscess/phlegmon. Report dictated by Amber Saini MD (IR/DR resident). > Dictated by Amber Saini 11/21/2024 4:16 PM > Dictated by Nurse Practitioner Physician Assistant I, Benito Mendoza MD have personally reviewed and interpreted this examination/study. > Interpreting Provider: Benito Mendoza MD on 11/21/2024 4:36 PM Narrative 11/21/2024 4:36 PM CDT PROCEDURE: CT LOWER EXT RIGHT WO CONTRAST, DATE/TIME OF EXAM: 11/21/2024 3:57 PM, LOCATION [facility] INDICATION: M96.89: Postoperative surgical complication involving musculoskeletal system associated with musculoskeletal procedure, unspecified complication ADDITIONAL CLINICAL INFORMATION: Ordering Provider Reason For Exam: r/o soft tissue gas Technologist Note: Additional: COMPARISON: None. CONTRAST: None TECHNIQUE: CT of the right lower extremity was performed utilizing standard protocol. CT dose reduction technique was used, including Automated Exposure Control. FINDINGS: Postsurgical changes of total knee arthroplasty and below the knee amputation. Hardware appears intact. No evidence of fracture. Atherosclerotic vascular calcifications are present. Diffuse soft tissue edema. Parafascial fluid collection within the deep soft tissue at the posterior medial aspect of the amputation stump measures up to 4.6 cm (series 4, images 112 through 124; series 6 image 56). No evidence of soft tissue emphysema. Fatty infiltration of the musculature. Procedure Note Benito Mendoza MD - 11/21/2024 PROCEDURE: CT LOWER EXT RIGHT WO CONTRAST, DATE/TIME OF EXAM:11/21/2024 3:57 PM, LOCATION [facility] INDICATION: M96.89: Postoperative surgical complication involving musculoskeletal system associated with musculoskeletal procedure, unspecifiedcomplication ADDITIONAL CLINICAL INFORMATION: Ordering Provider Reason For Exam: r/o soft tissue gas Technologist Note: Additional: COMPARISON: None. CONTRAST: None TECHNIQUE: CT of the right lower extremity was performed utilizingstandard protocol. CT dose reduction technique was used, including Automated Exposure Control. FINDINGS: Postsurgical changes of total knee arthroplasty and below the knee amputation. Hardware appears intact. No evidence of fracture. Atherosclerotic vascular calcifications are present. Diffuse soft tissue edema. Parafascial fluid collection within the deep soft tissue at the posterior medial aspect of the amputation stump measures up to 4.6 cm (series 4, images 112 through 124; series 6 image 56). No evidence ofsoft tissue emphysema. Fatty infiltration of the musculature. 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 2.Diffuse soft tissue edema without evidence of emphysema. 3.Parafascial fluid collection measuring up to 4.6 cm within the deepsoft tissue at the posterior medial aspect of the amputation stump mayrepresent an adventitial bursitis versus abscess/phlegmon. Report dictated by Amber Saini MD (IR/DR resident). > Dictated by Amber Saini 11/21/2024 4:16 PM > Dictated by Nurse Practitioner Physician Assistant I, Benito Mendoza MD have personally reviewed and interpreted this examination/study. > Interpreting Provider: Benito Mendoza MD on 11/21/2024 4:36 PM Leah Alvarenga MD CT ORDERABLES Final Result * C-REACTIVE PROTEIN (11/21/2024 11:54 AM CDT) Only the most recent of2 resultswithin the time period is included. C-Reactive Protein 0.5 <=0.5 mg/dL 11/21/2024 1:04 PM CDT [facility] Blood BLOOD SPECIMEN / Unknown Venipuncture / Unknown 11/21/2024 11:54 AM CDT 11/21/2024 12:04 PM CDT Laurel Ponce PA-C LAB - CHEMISTRY ORDERABLES Herminia l Result Performing Organization Address City/[facility]/ZIP Co de Phone Number [address] [address], [facility] [phone] * (ABNORMAL) ERYTHROCYTE SEDIMENTATION RATE (11/21/2024 11:54 AM CDT) Only the most recent of2 resultswithin the time period is included. Erythrocyte Sedimentation Rate Westergren 61(H) 0 - 20 MM/HR 11/21/2024 12:40 PM CDT [facility] Blood BLOOD SPECIMEN / Unknown Venipuncture / Unknown 11/21/2024 11:54 AM CDT 11/21/2024 12:04 PM CDT Laurel Ponce PA-C LAB - HEMATOLOGY ORDERABLES Fin al Result [address] [address], [facility] [phone] * (ABNORMAL) CBC W AUTO DIFFERENTIAL (11/21/2024 11:54 AM CDT) Only the most recent of30 resultswithin the time period is included. WBC 6.7 4.0 - 10.7 x10E9/L 11/21/2024 12:20 PM [facility] RBC Count 3.64(L) 4.30 - 5.80 x10E12/L 11/21/2024 12:20 PM [facility] Hemoglobin 10.3(L) 13.3 - 17.5 g/dL 11/21/2024 12:20 PM [facility] Hematocrit 32.6(L) 38.7 - 51.1 % 11/21/2024 12:20 PM [facility] MCV 89.6 80.0 - 98.0 fL 11/21/2024 12:20 PM [facility] MCH 28.3 26.7 - 33.6 pg 11/21/2024 12:20 PM [facility] MCHC 31.6(L) 31.7 - 36.3 g/dL 11/21/2024 12:20 PM [facility] RDW-CV 17.3(H) 11.3 - 14.8 % 11/21/2024 12:20 PM [facility] Platelet Count 221 150 - 420 x10E9/L 11/21/2024 12:20 PM [facility] MPV 9.7 7.8 - 11.4 fL 11/21/2024 12:20 PM [facility] Neutrophil % 71.9 41.0 - 74.0 % 11/21/2024 12:20 PM [facility] Lymphocyte % 16.3(L) 17.0 - 47.0 % 11/21/2024 12:20 PM [facility] Monocyte % 6.6 3.0 - 11.0 % 11/21/2024 12:20 PM [facility] Eosinophil % 4.2 0.0 - 7.0 % 11/21/2024 12:20 PM [facility] Basophil % 0.7 0.0 - 1.6 % 11/21/2024 12:20 PM [facility] Immature Granulocytes % 0.3 0.0 - 1.0 % 11/21/2024 12:20 PM [facility] Neutrophil Absolute 4.81 1.60 - 7.50 x10E9/L 11/21/2024 12:20 PM [facility] Lymphocyte Absolute 1.09 1.00 - 4.40 x10E9/L 11/21/2024 12:20 PM [facility] Monocyte Absolute 0.44 0.15 - 1.00 x10E9/L 11/21/2024 12:20 PM [facility] Eosinophil Absolute 0.28 0.00 - 0.60 x10E9/L 11/21/2024 12:20 PM [facility] Basophil Absolute 0.05 0.00 - 0.13 x10E9/L 11/21/2024 12:20 PM [facility] Blood BLOOD SPECIMEN / Unknown Venipuncture / Unknown 11/21/2024 11:54 AM CDT 11/21/2024 12:04 PM CDT us Laurel Ponce PA-C LAB - HEMATOLOGY ORDERABLES Fin al Result Performing Organization Address City/State/[facility] Co de Phone Number [address] [address], [facility] [phone] * (ABNORMAL) COMPREHENSIVE METABOLIC PANEL (11/21/2024 11:54 AM CDT) Only the most recent of20 resultswithin the time period is included. BUN 21 7 - 26 mg/dL 11/21/2024 1:04 PM [facility] Creatinine 1.40(H) 0.71 - 1.16 mg/dL 11/21/2024 1:04 PM [facility] Sodium 140 136 - 145 mmol/L 11/21/2024 1:04 PM [facility] Potassium 4.7(H) 3.5 - 4.5 mmol/L 11/21/2024 1:04 PM [facility] Chloride 113(H) 98 - 107 mmol/L 11/21/2024 1:04 PM [facility] CO2 19(L) 22 - 29 mmol/L 11/21/2024 1:04 PM [facility] Glucose 108(H) 70 - 99 mg/dL 11/21/2024 1:04 PM [facility] Calcium 8.4 8.4 - 10.2 mg/dL 11/21/2024 1:04 PM [facility] Protein Total 6.4 6.0 - 8.3 g/dL 11/21/2024 1:04 PM [facility] Albumin 3.2(L) 3.4 - 5.0 g/dL 11/21/2024 1:04 PM [facility] Bilirubin Total 0.3 0.2 - 1.2 mg/dL 11/21/2024 1:04 PM [facility] Alkaline Phosphatase 80 40 - 150 U/L 11/21/2024 1:04 PM [facility] ALT 22 5 - 55 U/L 11/21/2024 1:04 PM [facility] AST 18 5 - 34 U/L 11/21/2024 1:04 PM [facility] Anion Gap 8 6 - 16 11/21/2024 1:04 PM [facility] BUN/Creatinine Ratio 15 7 - 23 11/21/2024 1:04 PM [facility] Osmolality Calculated 294 275 - 295 mOsm/kg 11/21/2024 1:04 PM [facility] Albumin/Globulin Ratio 1.0(L) 1.1 - 2.3 11/21/2024 1:04 PM [facility] eGFR by CKD-EPI 56(L) >=90 mL/min/1.7 3 m2 11/21/2024 1:04 PM [facility] Comment:Estimated Glomerular Filtration Rate (eGFR) calculated using the CKD-EPI Creatinine Equation (2020), per the National Kidney Foundation and [place] [employer]ph[employer] recommendations. Blood BLOOD SPECIMEN / Unknown Venipuncture / Unknown 11/21/2024 11:54 AM CDT 11/21/2024 12:04 PM [facility] us Laurel Ponce PA-C LAB - CHEMISTRY ORDERABLES Herminia malin Result [facility] [address] [place] [address], [facility] [phone] * CARDIAC RHYTHM STRIP ORDER (10/26/2024 5:25 PM CDT) Narrative 10/26/2024 5:25 PM CDT Ordered by an unspecified provider. us Scanned Document CARDIAC SERVICES ORDERABLES Jason eliza Result - Final * (ABNORMAL) GLUCOSE - POINT OF CARE (10/25/2024 1:16 PM CDT) Only the most recent of217 resultswithin the time period is included. [facility] Glucose WB/POC 123(H) 70 - 99 mg/dL 10/25/2024 1:25 PM CDT [facility] Specimen Type Arterial/C apillary 10/25/2024 1:25 PM CDT [facility] Blood BLOOD SPECIMEN / Unknown 10/25/2024 1:16 PM CDT 10/25/2024 1:25 PM CDT Charlie Pina MD LAB - POINT OF CARE ORDERABLES Final Result [facility] [address] [place] [phone] * (ABNORMAL) CBC W/O DIFFERENTIAL (10/25/2024 1:27 AM CDT) Only the most recent of18 resultswithin the time period is included. [facility] WBC 8.4 4.0 - 10.7 x10E9/L 10/25/2024 2:26 AM CDT [facility] RBC Count 2.86(L) 4.30 - 5.80 x10E12/L 10/25/2024 2:26 AM CDT [facility] Hemoglobin 8.1(L) 13.3 - 17.5 g/dL 10/25/2024 2:26 AM CDT [facility] Hematocrit 25.3(L) 38.7 - 51.1 % 10/25/2024 2:26 AM CDT [facility] MCV 88.5 80.0 - 98.0 fL 10/25/2024 2:26 AM CDT [facility] MCH 28.3 26.7 - 33.6 pg 10/25/2024 2:26 AM CDT [facility] MCHC 32.0 31.7 - 36.3 g/dL 10/25/2024 2:26 AM CDT [facility] RDW-CV 18.7(H) 11.3 - 14.8 % 10/25/2024 2:26 AM CDT [facility] Platelet Count 380 150 - 420 x10E9/L 10/25/2024 2:26 AM CDT [facility] MPV 9.3 7.8 - 11.4 fL 10/25/2024 2:26 AM CDT [facility] Blood BLOOD SPECIMEN / Unknown Line Draw / Unknown 10/25/2024 1:27 AM CDT 10/25/2024 2:22 AM CDT Charlie Pina MD LAB - HEMATOLOGY ORDERABLES [facility] al Result [facility] [address] [place] [address] * (ABNORMAL) BASIC METABOLIC PANEL (CALCIUM TOTAL) (10/25/2024 1:27 AM CDT) Only the most recent of10 resultswithin the time period is included. Glucose 100(H) 70 - 99 mg/dL 10/25/2024 2:45 AM CDT [facility] Sodium 140 136 - 145 mmol/L 10/25/2024 2:45 AM CDT [facility] Potassium 5.2(H) 3.5 - 5.1 mmol/L 10/25/2024 2:45 AM CDT [facility] Chloride 109(H) 98 - 107 mmol/L 10/25/2024 2:45 AM CDT [facility] CO2 24 22 - 29 mmol/L 10/25/2024 2:45 AM CDT [facility] Calcium 8.9 8.4 - 10.4 mg/dL 10/25/2024 2:45 AM CDT [facility] Anion Gap 7 6 - 16 mmol/L 10/25/2024 2:45 AM CDT [facility] BUN 32(H) 7 - 26 mg/dL 10/25/2024 2:45 AM CDT [facility] Creatinine 1.62(H) 0.72 - 1.25 mg/dL 10/25/2024 2:45 AM CDT [facility] eGFR by CKD-EPI 47(L) >=90 mL/min/1.7 3 m2 10/25/2024 2:45 AM CDT [facility] Comment:Estimated Glomerular Filtration Rate (eGFR) calculated using the CKD-EPI Creatinine Equation (2020), per the National Kidney Foundation and [place] [employer]ph[employer] recommendations. Blood BLOOD SPECIMEN / Unknown Line Draw / Unknown 10/25/2024 1:27 AM CDT 10/25/2024 2:22 AM CDT Charlie Pina MD LAB - CHEMISTRY ORDERABLES Herminia l Result Performing Organization Address City/[facility]/ZIP Co de Phone Number [facility] [address] [place] [phone] * MAGNESIUM BLOOD (10/25/2024 1:27 AM CDT) Only the most recent of6 resultswithin the time period is included. Magnesium 1.9 1.6 - 2.6 mg/dL 10/25/2024 2:45 AM CDT [facility] Blood BLOOD SPECIMEN / Unknown Line Draw / Unknown 10/25/2024 1:27 AM CDT 10/25/2024 2:22 AM CDT Charlie Pina MD LAB - CHEMISTRY ORDERABLES Herminia l Result Performing Organization Address City/[facility] Co de Phone Number [facility] [address] [place] [phone] * TRANSFUSE RED BLOOD CELL LEUKOREDUCED UNIT(S) (10/15/2024 9:01 PM CDT) Joanna Keenan DO NURSING - BLOOD PROD TRANSFUSI ON Final Result * (ABNORMAL) HGB HCT PANEL (10/15/2024 1:42 PM CDT) Only the most recent of10 resultswithin the time period is included. Hemoglobin 6.7(L) 13.3 - 17.5 g/dL 10/15/2024 2:11 PM [address] [facility] Hematocrit 21.7(L) 38.7 - 51.1 % 10/15/2024 2:11 PM [address] [facility] Blood BLOOD SPECIMEN / Unknown Venipuncture / Unknown 10/15/2024 1:42 PM CDT 10/15/2024 1:50 PM CDT Joanna Keenan DO LAB - HEMATOLOGY ORDERABLES Fi nal Result [facility] [address] [place] [address] * TRANSFUSE RED BLOOD CELL LEUKOREDUCED UNIT(S) (10/13/2024 3:50 PM CDT) Chapin Palmer MD NURSING - BLOOD PROD TRANSFU JACQUES Final Result * PATHOLOGY TISSUE EXAM (STL) (10/13/2024 2:52 PM CDT) Only the most recent of3 resultswithin the time period is included. Case Report Surgical Pathology Report Case: [id number] Authorizing Provider: Daniel Holder MD Collected: 10/13/2024 02:52 PM Ordering Location: [address] TELE Received: 10/16/2024 08:19 AM Pathologist: Patricia Evans MD Specimen: Amputation Leg BK, right BKA 10/18/2024 9:05 AM CDT [facility] Final Diagnosis Extremity, right, below knee amputation - Calcific atherosclerosis with thrombosis - Posterior tibial artery stent - Soft tissue necrosis with acute inflammation and focal acute osteomyelitis - Margins viable and uninvolved by osteomyelitis 10/18/2024 9:05 AM CDT [facility] at 0904 CDT Clinical History The patient is a 63-year-old man. Operative procedure: below-knee amputation - right. 10/18/2024 9:05 AM CDT [facility] Gross Description The requisition and specimen(s) are identified with the patient's name Julianne Villafuerte. Received fresh, specimen A, amputation leg BK right BKA, is a 39.5 cm length (heel to bone resection margin) x 8.3-11.6 cm diameter below the knee resection with a 16.1 cm length portion of foot. There are no toes present with an area of black-brown necrosis at the anterior aspect of the foot. The soft tissue resection margin is viable with the bone extending 2.4 cm from the soft tissue resection margin. The ankle is yellow-green with skin slippage, 4.5 cm from the closest soft tissue resection margin (inked blue). Sectioning of the necrotic area shows yellow-green soft tissue. Sectioning of the remaining tissue shows a yellow-abarca, lobulated and red-brown, striated soft tissue. The vasculature has severe atherosclerosis and a 25.7 cm segment of metallic mesh stent in the posterior tibial artery. Chief Security Officer sections are submitted after selective decalcification as follows: A1: Tibial bone marrow margin A2: Fibula bone marrow margin A3: Closest soft tissue resection margin, perpendicular A4: Area of necrosis A5: Anterior tibial artery, decal A6: Posterior tibial artery, decal A7: Bone underlying area of necrosis, decal /SKS 10/18/2024 9:05 AM [facility] Microscopic Description Microscopic examination substantiates the above diagnosis. 10/18/2024 9:05 AM [facility] Pathologist Location at [facility] 10/18/2024 9:05 AM [facility] Disclaimer All histochemical and/or immunohistochemical results are interpreted with controls that demonstrate appropriate staining reactions before reporting results. Note on use of immunocytochemistry reagents: This test was developed and its performance characteristic determined by [facility], Department of Laboratory Medicine. It has not been cleared or approved by the U.S. Food and Drug Administration (FDA). The FDA has determined that such clearance or approval is not necessary. The test is used for clinical purpose. It should not be regarded as investigational or for research. This laboratory is certified to perform high complexity testing. The performance characteristics of the IHC/MARNI assays have been validated on formalin-fixed paraffin embedded tissues only. The assays have not been validated on decalcified tissues. Results should be interpreted with caution. 10/18/2024 9:05 AM [facility] Embedded Images 10/18/2024 9:05 AM [facility] Pathology/Cytolo gy SPECIMEN OBTAINED BY AMPUTATION / Unknown 10/13/2024 2:52 PM CDT 10/16/2024 8:19 AM CDT Comment:Pre-op diagnosis: Diagnosis unknown [R69] Daniel Holder MD LAB - PATHOLOGY/CYTOLOGY KRUPA ALCOCER Final Result [facility] [address] [place] [address] * LARYNGEAL MASK AIRWAY (10/13/2024 2:26 PM CDT) Narrative Darrell Vasquez APRN-CRNA - 10/13/2024 2:26 PM CDT Darrell Vasquez APRN-CRNA 10/13/2024 2:26 PM LMA Placement Procedure/LDA Note: Patient Location: OR. LMA Insertion Date/Time: 10/13/2024 2:14 PM Procedure: LMA Pretreatment: 100% O2 Induction: standard IV Patient position: sniffing and supine. Mask Ventilation: not attempted Type: LMA Size: 5 Number of Attempts: 1. Placement verified by: bilateral breath sounds, chest auscultation and CO2 monitor Dentition unchanged? Yes Procedure Start Time: 10/13/2024 2:14 PM. Staff Section Anesthesia Provider: Darrell Vasquez APRN-CRNA, Performed the procedure Chapin Palmer MD GENERAL ANESTHESIA ORDERABLE S Final Result * PREPARE (CROSSMATCH) RBC UNIT(S), 1 Units (10/13/2024 2:07 PM CDT) Only the most recent of9 resultswithin the time period is included. Unit Description AS1 LR PRBC [facility] Unit ABO O [facility] Unit Rh POS [facility] Product Number R[address] [facility] Unit Donor # [id number] [facility] Unit Status transfused [facility] Product Code [id number] [facility] Blood Type Barcode [address] [facility] Expiration Date [id number] [facility] Blood Bank BLOOD SPECIMEN / Unknown 10/13/2024 2:07 PM CDT 10/13/2024 2:08 PM CDT Joanna Keenan DO LAB - BLOOD BANK ORDERABLES Fi nal Result Performing Organization Address City/[facility]/ZIP Co de Phone Number [facility] [address] [place] [address] * TYPE + SCREEN PANEL (10/13/2024 2:07 PM CDT) Only the most recent of4 resultswithin the time period is included. Pathologist [facility] ABO Rh O POS 10/13/2024 2:38 PM CDT [facility] Comment:History checked. Antibody Screen NEG 2:38 PM CDT [facility] Blood Bank BLOOD SPECIMEN / Unknown Lab Venipuncture / Unknown 10/13/2024 2:07 PM CDT 10/13/2024 2:08 PM CDT Daniel Holder MD LAB - BLOOD BANK ORDERABLES F inal Result Performing Organization Address [facility] Co de Phone Number [facility] [address] [place] [address] * (ABNORMAL) POTASSIUM BLOOD (10/13/2024 12:49 PM CDT) [facility] Potassium 5.6(H) 3.5 - 5.1 mmol/L 10/13/2024 1:13 PM CDT [facility] Blood BLOOD SPECIMEN / Unknown Clinic Draw / Unknown 10/13/2024 12:49 PM CDT 10/13/2024 12:56 PM CDT Chapin Palmer MD LAB - CHEMISTRY ORDERABLES F inal Result Performing Organization Address City/[facility]/ZIP Co de Phone Number [facility] [address] [place] [address] * TSH REFLEX FREE T4 (10/11/2024 5:47 AM CDT) [facility] TSH 1.855 0.350 - 4.940 uIU/mL 10/11/2024 6:47 AM CDT [facility] Blood BLOOD SPECIMEN / Unknown Venipuncture / Unknown 10/11/2024 5:47 AM CDT 10/11/2024 6:08 AM CDT Joanna E Ree DO LAB - CHEMISTRY ORDERABLES Fin al Result Performing Organization Address City/[facility]/ZIP Co de Phone Number [facility] [address] [place], [place] [phone] * (ABNORMAL) FOLATE (10/10/2024 2:10 AM CDT) Pathologist [facility] Folate 5.8(L) 7.0 - 31.4 ng/mL 10/10/2024 3:22 AM CDT [facility] Blood BLOOD SPECIMEN / Unknown Venipuncture / Unknown 10/10/2024 2:10 AM CDT 10/10/2024 2:30 AM CDT Joanna E Ree DO LAB - CHEMISTRY ORDERABLES Fin al Result Performing Organization Address [facility] de Phone Number [facility] [address] [place] [phone] * VITAMIN B12 (10/10/2024 2:10 AM CDT) Pathologist [facility] Vitamin B12 344 213 - 816 pg/mL 10/10/2024 3:22 AM CDT [facility] Blood BLOOD SPECIMEN / Unknown Venipuncture / Unknown 10/10/2024 2:10 AM CDT 10/10/2024 2:30 AM CDT Joanna E Aminakarlenee DO LAB - CHEMISTRY ORDERABLES Fin al Result Performing Organization Address [facility] de Phone Number [facility] [address] [place] [phone] * (ABNORMAL) RENAL FUNCTION PANEL (10/09/2024 5:52 AM CDT) Only the most recent of17 resultswithin the time period is included. Glucose 154(H) 70 - 99 mg/dL 10/09[facility]2024 6:17 [facility] Sodium 138 136 - 145 mmol/L 10/09/2024 6:17 [facility] Potassium 4.3 3.5 - 5.1 mmol/L 10/09/2024 6:17 AM [facility] Chloride 106 98 - 107 mmol/L 10/09/2024 6:17 AM T [facility] CO2 25 22 - 29 mmol/L 10/09/2024 6:17 AM [facility] Calcium 8.4 8.4 - 10.4 mg/dL 10/09/2024 6:17 AM [facility] Anion Gap 7 6 - 16 mmol/L 10/09/2024 6:17 AM T [facility] BUN 21 7 - 26 mg/dL 10/09/2024 6:17 AM [facility] Creatinine 1.26(H) 0.72 - 1.25 mg/dL 10/09/2024 6:17 AM [facility] Albumin 1.9(L) 3.1 - 4.5 gm/dL 10/09/2024 6:17 AM [facility] Phosphorus 2.7 2.5 - 4.5 mg/dL 10/09/2024 6:17 AM [facility] eGFR by CKD-EPI 64(L) >=90 mL/min/1.7 3 m2 10/09/2024 6:17 AM [facility] Comment:Estimated Glomerular Filtration Rate (eGFR) calculated using the CKD-EPI Creatinine Equation (2020), per the National Kidney Foundation and [place] [employer]ph[employer] recommendations. Blood BLOOD SPECIMEN / Unknown Venipuncture / Unknown 10/09/2024 5:52 AM CDT 10/09/2024 5:58 AM CDT us Jason Ayon MD LAB - CHEMISTRY ORDERABLES Herminia malin Result [facility] [address] [place], [place] [id number] * (ABNORMAL) URINALYSIS REFLEX TO MICROSCOPIC NO CULTURE (10/07/2024 12:42 AM CDT) Color UA Yellow Yellow, Straw 10/07/2024 1:43 AM CDT [facility] Clarity UA Clear Clear 10/07/2024 1:43 AM CDT [facility] Glucose UA Normal Normal 10/07/2024 1:43 AM CDT [facility] Bilirubin UA Negative Negative 10/07/2024 1:43 AM CDT [facility] Ketone UA Negative Negative 10/07/2024 1:43 AM CDT [facility] Specific [place] UA 1.014 1.005 - 1.030 10/07/2024 1:43 AM CDT [facility] Blood UA 2+(A) Negative 10/07/2024 1:43 AM CDT [facility] pH UA 6.0 5.0 - 8.0 10/07/2024 1:43 AM CDT [facility] Protein UA 2+(A) Negative 10/07/2024 1:43 AM CDT [facility] Urobilinogen UA Normal Normal mg/dL 10/07/2024 1:43 AM CDT [facility] Nitrite UA Negative Negative 10/07/2024 1:43 AM CDT [facility] Leukocyte Esterase UA 75 GOMEZ/uL(A) Negative 10/07/2024 1:43 AM CDT [facility] RBC UA 21-50(A) 0 - 5 # /hpf 10/07/2024 1:43 AM CDT [facility] WBC UA 21-50(A) 0 - 5 # /hpf 10/07/2024 1:43 AM CDT [facility] Bacteria UA None Seen None Seen 10/07/2024 1:43 AM CDT [facility] Squamous Epithelial Cells None Seen 0 - 5 /hpf 10/07/2024 1:43 AM CDT [facility] Urine URINE SPECIMEN OBTAINED BY CLEAN CATCH PROCEDURE / Unknown Collection / Unknown 10/07/2024 12:42 AM CDT 10/07/2024 1:12 AM CDT Narrative [facility] - 10/07/2024 1:43 AM CDT us Radha Mai DO LAB - URINALYSIS ORDERABLES Fi nal Result [facility] [id number] [place] [address] * (ABNORMAL) COAGULATION PANEL W D-DIMER (10/06/2024 4:35 AM CDT) PT 17.7(H) 12.1 - 14.8 sec 10/06/2024 5:38 AM [facility] INR 1.5(H) 0.9 - 1.1 10/06/2024 5:38 AM [facility] PTT 44.1(H) 23.0 - 38.4 sec 10/06/2024 5:38 AM [facility] Fibrinogen 581(H) 200 - 400 mg/dL 10/06/2024 5:38 AM [facility] D-Dimer 5.57(H) 0.27 - 0.50 ug/mL FEU 10/06/2024 5:38 AM [facility] Platelet Count 243 150 - 420 x10E9/L 10/06/2024 5:38 AM [facility] Blood BLOOD SPECIMEN / Unknown Venipuncture / Unknown 10/06/2024 4:35 AM CDT 10/06/2024 4:49 AM CDT [facility] LABORATORY - 10/06/2024 5:38 AM CDT Conventional Warfarin Anticoagulant Therapy INR Reference Range: 2.0-3.0 Intensive Warfarin Anticoagulant Therapy INR Reference Range: 2.5-3.5 Heparin Therapeutic Range for PTT: 69.0 - 110.0 seconds. In the absence of clinical symptoms, a value less than or equal to 0.5 mcg/mL FEU significantly decreases the probability of PE/DVT (negative predictive value >95%). 1 mcg/ml FEU = 1 Fibrinogen Equivalent Unit (approximates 0.5 mcg/mL of D- dimer). ISTH DIAGNOSTIC SCORING SYSTEM FOR DIC ---- Score 0 1 2 3 Platelet Count (x10^3/uL) > 100 <100 < 50 N/A PT Prolongation above Upper limit of normal 0-3 3-6 > 6 N/A Range (seconds) Fibrinogen (mg/dL) >100 < 100 N/A N/A D-Dimer (mcg/mL FEU) < 0.50 N/A 0.50-5.0 > 5 Calculate Cumulative Score: > or = 5: compatible with overt DIC < 5: suggestive for non-overt DIC N/A = Non applicable Reference: Br. J. Haematol. 145:24-33,2009. us Roberto Carlos Orozco MD LAB - COAGULATION ORDERABLES Fin al Result [facility] [address] [place], [place] [id number] * PHOSPHORUS BLOOD (10/06/2024 4:35 AM CDT) Phosphorus 3.9 2.5 - 4.5 mg/dL 10/06/2024 5:35 AM CDT [facility] Blood BLOOD SPECIMEN / Unknown Venipuncture / Unknown 10/06/2024 4:35 AM CDT 10/06/2024 4:49 AM CDT us Roberto Carlos Orozco MD LAB - CHEMISTRY ORDERABLES Final Result [facility] [address] [place] [address] * (ABNORMAL) FIBRINOGEN ACTIVITY (10/05/2024 4:09 PM CDT) Only the most recent of5 resultswithin the time period is included. Fibrinogen 584(H) 200 - 400 mg/dL 10/05/2024 4:59 PM CDT [facility] Blood BLOOD SPECIMEN / Unknown Line Draw / Unknown 10/05/2024 4:09 PM CDT 10/05/2024 4:16 PM CDT us Gregoria Berrios MD LAB - COAGULATION ORDERABL ES Final Result [facility] [address] [place] [address] * (ABNORMAL) PTT (10/05/2024 4:09 PM CDT) Only the most recent of4 resultswithin the time period is included. PTT >200.0(HH) 23.0 - 38.4 sec 10/05/2024 5:13 PM CDT [facility] Blood BLOOD SPECIMEN / Unknown Line Draw / Unknown 10/05/2024 4:09 PM CDT 10/05/2024 4:16 PM CDT Narrative [facility] - 10/05/2024 5:13 PM CDT Heparin Therapeutic Range for PTT: 69.0 - 110.0 seconds. us Gregoria Berrios MD LAB - COAGULATION ORDERABL ES Final Result Performing Organization Address City/[facility]/ZIP Co de Phone Number [facility] [address] [place] [address] * CK BLOOD (10/05/2024 4:09 PM CDT) CK 91 30 - 200 U/L 10/05/2024 4:57 PM CDT [facility] Blood BLOOD SPECIMEN / Unknown Line Draw / Unknown 10/05/2024 4:09 PM CDT 10/05/2024 4:16 PM CDT Ra Meyer MD LAB - CHEMISTRY ORDERABLES F inal Result Performing Organization Address [facility] Co de Phone Number [facility] [address] [place] [phone] * IR Thrombolysis Recheck (10/05/2024 3:07 PM CDT) Anatomical Region Laterality Modality Head, Lower Extremity, Upper Extremity, Abdomen X-Ray Angiography 10/16/2024 4:25 PM CDT Impressions 10/16/2024 4:32 PM CDT Impression: Failed attempt at thrombectomy/lysis of the clotted deep venous arterialization circuit. Multiple attempts were made over 4 hours. I, Dr. Jacques, was present and performed/supervised the entire procedure. Moderate sedation on this patient was ordered by me, administered intravenously in my presence, and monitored by the procedure nurse as an independent trained observer who was present throughout the procedure. The following parameters were monitored: oxygen saturation, heart rate, blood pressure, and response to care > Interpreting Provider: Eugene Jacques MD on 10/16/2024 4:32 PM Narrative 10/16/2024 4:32 PM CDT PROCEDURE: IR THROMBOLYSIS RECHECK DATE/TIME OF EXAM: 10/05/2024 3:33 PM CLINICAL INFORMATION: None relevant/not provided if blank. Indication: I73.9: PAD (peripheral artery disease) Z89.431: S/P transmetatarsal amputation of foot, right (HCC) Additional History: History: Status post catheter directed lysis of the deep venous arterialization circuit. Catheter was placed and TPA was infused at 1 mg/h. Operators: 1.Dr. Jacques, Attending Physician Anesthesia: 1.Local anesthesia - 10 mL of 1% lidocaine Sedation: Midazolam 3mg Sedation start time: 1137 hours Procedure start time: 1137 hours Procedure end time: 1507 hours Additional drugs: Heparin 12,000u Contrast: 80 mL of Isovue-370 Fluoroscopy time: 49.1 min Dose: 241 mGy The patient was restless during the beginning of procedure. He was disturbing the sterile field and not following directions. Anesthesia was contacted and they took over sedation/vitals at 1235. Procedure: 1.Angiogram via right groin access showed that there was some area of recanalization in the DVA, however there was no good flow across. 2.Thrombectomy was performed using CatRxand 6 Japanese BOLT catheter from [facility]. 3.During the procedure the upper part of the DVA her to be realigned using a 5 mm by about stent. 4.Repeat thrombectomy was performed. 5.We were unable to open up the DVA. In spite of multiple efforts over 4 hour 6.All catheters and wires were removed, hemostasis achieved with a mYnx device Procedure in detail: The procedure, risks, possible complications, and the use of conscious sedation were explained to the patient and informed consent was obtained. The patient was brought to the angiography suite and placed supine on the table. The right groin and indwelling sheath was prepped and draped in the usual sterile fashion. 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 A qualified radiology nurse monitored the patient s vital signs throughout the procedure. A wire was advanced through the lysis catheter and the catheter was removed over the wire. A 100 cm glide catheter was advanced over the wire to the right tibioperoneal trunk. Angiogram was performed which demonstrated that the DVA was still occluded, however there was some recanalization especially in the distal portion.. Thrombectomy: We decided to perform thrombectomy. Using a CATRx and then a 6 Japanese BOLT catheter multiple passes were made in the posterior tibial artery/vein into the lateral plantar vein. Very small amount of clot could be aspirated. Angioplasty: This was followed by angioplasty of the entire DVA circuit using a 5 mm balloon. In spite of this we were not able to open patent flow into the DVA. Stent placement : At the time of performed your thrombectomy and angioplasty, 2 of the top stents replaced previously got . We were unable to cross of the top and lost wire access. During this time we obtained access into the distal DVA and managed to get a wire up into the popliteal artery, snared it through and through. We then were able to place another Viabahn 5 mm x 10 cm stent within the DVA Once again thrombectomy was performed which failed to recanalized the DVA completely.. In spite of multiple efforts over 4 hours who unable to open the DVA. All catheters and wires were removed. Hemostasis was performed with the Mynx control device, followed by manual pressure.. A sterile dressing was applied. The patient tolerated the procedure well and was transferred to the holding area in stable condition. There were no immediate complications associated with the procedure. Procedure Note Eugene Jacques MD - 10/16/2024 PROCEDURE: IR THROMBOLYSIS RECHECK DATE/TIME OF EXAM: 10/05/2024 3:33 PM CLINICAL INFORMATION: None relevant/not provided if blank. Indication: I73.9: PAD (peripheral artery disease) Z89.431: S/P transmetatarsal amputation of foot, right (HCC) Additional History: History: Status post catheter directed lysis of the deep venous arterialization circuit. Catheter was placed and TPA was infused at 1mg/h. Operators: 1.Dr. Jacques, Attending Physician Anesthesia: 1.Local anesthesia - 10 mL of 1% lidocaine Sedation: Midazolam 3mg Sedation start time: 1137 hours Procedure start time: 1137 hours Procedure end time: 1507 hours Additional drugs: Heparin 12,000u Contrast: 80 mL of Isovue-370 Fluoroscopy time: 49.1 min Dose: 241 mGy The patient was restless during the beginning of procedure. He was disturbing the sterile field and not following directions. Anesthesiawas contacted and they took over sedation/vitals at 1235. Procedure: 1.Angiogram via right groin access showed that there was some area of recanalization in the DVA, however there was no good flow across. 2.Thrombectomy was performed using CatRxand 6 Japanese BOLT catheter from [facility]. 3.During the procedure the upper part of the DVA her to be realignedusing a 5 mm by about stent. 4.Repeat thrombectomy was performed. 5.We were unable to open up the DVA. In spite of multiple efforts over4 hour 6.All catheters and wires were removed, hemostasis achieved with a mYnx device Procedure in detail: The procedure, risks, possible complications, and the use of conscious sedation were explained to the patient and informed consent wasobtained. The patient was brought to the angiography suite and placed supine onthe table. The right groin and indwelling sheath was prepped and draped inthe usual sterile fashion. 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 A qualified radiology nurse monitored the patient s vital signs throughout the procedure. A wire was advanced through the lysis catheter and the catheter wasremoved over the wire. A 100 cm glide catheter was advanced over the wire to the right tibioperoneal trunk. Angiogram was performed which demonstratedthat the DVA was still occluded, however there was some recanalization especially in the distal portion.. Thrombectomy: We decided to perform thrombectomy. Using a CATRx and then a 6 FrenchBOLT catheter multiple passes were made in the posterior tibial artery/veininto the lateral plantar vein. Very small amount of clot could be aspirated. Angioplasty: This was followed by angioplasty of the entire DVA circuit using a 5 mm balloon. In spite of this we were not able to open patent flow into the DVA. Stent placement : At the time of performed your thrombectomy and angioplasty, 2 of the top stents replaced previously got . We were unable to cross ofthe top and lost wire access. During this time we obtained access into the distal DVA and managed to get a wire up into the popliteal artery,snared it through and through. We then were able to place another Viabahn 5 mmx 10 cm stent within the DVA Once again thrombectomy was performed which failed to recanalized theDVA completely.. In spite of multiple efforts over 4 hours who unable toopen the DVA. All catheters and wires were removed. Hemostasis was performed with the Mynx control device, followed bymanual pressure.. A sterile dressing was applied. The patient tolerated the procedure well and was transferred to the holding area in stablecondition. There were no immediate complications associated with the procedure. Impression: Failed attempt at thrombectomy/lysis of the clotted deep venous arterialization circuit. Multiple attempts were made over 4hours. I, Dr. Jacques, was present and performed/supervised the entireprocedure. Moderate sedation on this patient was ordered by me, administered intravenously in my presence, and monitored by the procedure nurse as an independent trained observer who was present throughout the procedure.The following parameters were monitored: oxygen saturation, heart rate,blood pressure, and response to care > Interpreting Provider: Eugene Jacques MD on 10/16/2024 4:32 PM us Kathy FLORES IR ORDERABLES Final Result * (ABNORMAL) ACT LR - POCT ([facility]) (10/05/2024 2:28 PM CDT) Only the most recent of15 resultswithin the time period is included. ACT LR 207(H) 125 - 187 sec 10/05/2024 2:40 PM CDT [facility] Blood BLOOD SPECIMEN / Unknown 10/05/2024 2:28 PM CDT 10/05/2024 2:40 PM CDT us Ra Meyer MD LAB - COAGULATION ORDERABLES Final Result [facility] [address] [place] [address] * TRANSFUSE RED BLOOD CELL LEUKOREDUCED UNIT(S) (10/05/2024 6:16 AM CDT) us Julio Moe MD NURSING - BLOOD PROD TRANSFU JACQUES Final Result * (ABNORMAL) PT-INR (10/05/2024 3:23 AM CDT) Only the most recent of3 resultswithin the time period is included. PT 21.4(H) 12.1 - 14.8 sec 10/05/2024 3:55 AM CDT [facility] INR 1.9(H) 0.9 - 1.1 10/05/2024 3:55 AM CDT [facility] Blood BLOOD SPECIMEN / Unknown Venipuncture / Unknown 10/05/2024 3:23 AM CDT 10/05/2024 3:35 AM CDT Narrative [facility] - 10/05/2024 3:55 AM CDT Conventional Warfarin Anticoagulant Therapy: INR Reference Range: 2.0-3.0 Intensive Warfarin Anticoagulant Therapy: INR Reference Range: 2.5-3.5 us Gregoria Berrios MD LAB - COAGULATION ORDERABL ES Final Result Performing Organization Address [facility] Co de Phone Number [facility] [address] [place], [place] [phone] * (ABNORMAL) DIFFERENTIAL MANUAL (10/05/2024 1:04 AM CDT) Only the most recent of2 resultswithin the time period is included. Neutrophil % 97(H) 41 - 74 % 10/05/2024 4:10 AM CDT [facility] Lymphocyte % 3(L) 17 - 47 % 10/05/2024 4:10 AM CDT [facility] Neutrophil Absolute 23.57(H) 1.60 - 7.50 x10E9/L 10/05/2024 4:10 AM CDT [facility] Lymphocyte Absolute 0.73(L) 1.00 - 4.40 x10E9/L 10/05/2024 4:10 AM CDT [facility] RBC Morphology NORMAL 10/05/2024 4:10 AM CDT [facility] Blood BLOOD SPECIMEN / Unknown Venipuncture / Unknown 10/05/2024 1:04 AM CDT 10/05/2024 1:58 AM CDT Gregoria Berrios MD LAB - HEMATOLOGY ORDERABLE S Final Result Performing Organization Address [facility] Co de Phone Number [facility] [address] [place] [phone] * IR Thrombolysis Arterial (10/04/2024 11:18 AM CDT) Anatomical Region Laterality Modality Pelvis, Upper Extremity, Lower Extremity X-Ray Angiography 10/16/2024 4:19 PM CDT Impressions 10/16/2024 4:25 PM CDT Impression: Initiation of catheter directed lysis within the occluded DVA at 1 mg per hour, as detailed above. Follow up: Patient is brought back to IR in 24 hours for evaluation I, Dr. Jacques, was present and performed/supervised the entire procedure. Moderate sedation on this patient was ordered by me, administered intravenously in my presence, and monitored by the procedure nurse as an independent trained observer who was present throughout the procedure. The following parameters were monitored: oxygen saturation, heart rate, blood pressure, and response to care > Interpreting Provider: Eugene Jacques MD on 10/16/2024 4:25 PM Narrative 10/16/2024 4:25 PM CDT PROCEDURE: IR THROMBOLYSIS ARTERIAL DATE/TIME OF EXAM: 10/04/2024 11:20 AM CLINICAL INFORMATION: None relevant/not provided if blank. Indication: I73.9: PAD (peripheral artery disease) Z89.431: S/P transmetatarsal amputation of foot, right (HCC) Additional History: History: Status post deep vein arterialization, patient presenting with an occluded graft Operators: 1.Dr. Jacques, Attending Physician Anesthesia: 1.Local anesthesia - 10 mL of 1% lidocaine Sedation: Versed: 2 mg, Fentanyl: 100 mcg Sedation start time: 1042 hours Procedure start time: 1042 hours Procedure end time: 1115 hours Additional drugs: 10 mg tPA and Heparin Sodium 1000 mL @ 10 mL/hr Contrast: 20 mL of Isovue-370 Fluoroscopy time: 4.5 min Dose: 4 mGy Procedure: 1.Angiogram of the right lower extremity 2.Placement of a 5 Japanese 40 cm Crystal-Van catheter in the posterior tibial artery into the deep venous arterialization site and into the lateral plantar vein. 3.Initiation of catheter directed lysis at 1 mg/hr. Procedure in detail: The procedure, risks, possible complications, and the use of conscious sedation were explained to the patient and informed consent was obtained. The patient was brought to the angiography suite and placed supine on the table. The right groin and indwelling sheath was prepped and draped in the usual sterile fashion. A scout professional sports film of the abdomen was obtained, which demonstrated the lysis catheter extending through the deep venous arterialization stents into the venous system of the right foot Cochise obtained into the right common femoral artery. After placement of a 5 Japanese sheath, access obtained into the popliteal artery and then into the posterior tibial artery using a Navicross catheter. Posterior tibial angiogram was performed. Angiogram showed complete occlusion of the deep venous arterialization site with no flow into the veins in the foot. We decided to perform catheter slices. The 5 Japanese 40 cm Uniteam CommunicationNamara catheter was advanced into the posterior tibial artery and into the DVA and then into the lateral plantar vein. Catheter directed lysis was initiated at 1 mg/h. The catheter was secured to the skin... A sterile dressing was applied. The patient tolerated the procedure well and was transferred to the holding area in stable condition. There were no immediate complications associated with the procedure. Procedure Note Eugene Jacques MD - 10/16/2024 PROCEDURE: IR THROMBOLYSIS ARTERIAL DATE/TIME OF EXAM: 10/04/2024 11:20 AM CLINICAL INFORMATION: None relevant/not provided if blank. Indication: I73.9: PAD (peripheral artery disease) Z89.431: S/P transmetatarsal amputation of foot, right (HCC) Additional History: History: Status post deep vein arterialization, patient presenting withan occluded graft Operators: 1.Dr. Jacques, Attending Physician Anesthesia: 1.Local anesthesia - 10 mL of 1% lidocaine Sedation: Versed: 2 mg, Fentanyl: 100 mcg Sedation start time: 1042 hours Procedure start time: 1042 hours Procedure end time: 1115 hours Additional drugs: 10 mg tPA and Heparin Sodium 1000 mL @ 10 mL/hr Contrast: 20 mL of Isovue-370 Fluoroscopy time: 4.5 min Dose: 4 mGy Procedure: 1.Angiogram of the right lower extremity 2.Placement of a 5 Japanese 40 cm CraConverged Access-Van catheter in the posterior tibial artery into the deep venous arterialization site and into the lateral plantar vein. 3.Initiation of catheter directed lysis at 1 mg/hr. Procedure in detail: The procedure, risks, possible complications, and the use of conscious sedation were explained to the patient and informed consent wasobtained. The patient was brought to the angiography suite and placed supine onthe table. The right groin and indwelling sheath was prepped and draped inthe usual sterile fashion. A scout professional sports film of the abdomen was obtained, which demonstrated the lysis catheter extending through the deep venous arterialization stents into the venous system of the right foot Cochise obtained into the right common femoral artery. After placement of a5 Japanese sheath, access obtained into the popliteal artery and then intothe posterior tibial artery using a Navicross catheter. Posterior tibial angiogram was performed. Angiogram showed complete occlusion of the deep venous arterializationsite with no flow into the veins in the foot. We decided to perform catheter slices. The 5 Japanese 40 cm CraigMacNamara catheter was advanced into the posterior tibial artery and into the DVAand then into the lateral plantar vein. Catheter directed lysis wasinitiated at 1 mg/h. The catheter was secured to the skin... A sterile dressing was applied.The patient tolerated the procedure well and was transferred to the holding area in stable condition. There were no immediate complicationsassociated with the procedure. Impression: Initiation of catheter directed lysis within the occludedDVA at 1 mg per hour, as detailed above. Follow up: Patient is brought back to IR in 24 hours for evaluation IDr. Jacques, was present and performed/supervised the entireprocedure. Moderate sedation on this patient was ordered by me, administered intravenously in my presence, and monitored by the procedure nurse as an independent trained observer who was present throughout the procedure.The following parameters were monitored: oxygen saturation, heart rate,blood pressure, and response to care > Interpreting Provider: Eugene Jacques MD on 10/16/2024 4:25 PM Kathy FLORES IR ORDERABLES Final Result * IR Angiogram Right Leg (10/03/2024 10:57 AM CDT) Only the most recent of3 resultswithin the time period is included. Anatomical Region Laterality Modality Lower Extremity X-Ray Angiograph y 10/03/2024 4:05 PM CDT Impressions 10/03/2024 4:37 PM CDT Impression: Infrapopliteal single vessel runoff via peroneal artery with findings of occluded right posterior tibial DVA. Follow up: Plan for repeat right lower extremity angiogram 10/04/2024 with intervention including thrombolysis. IDr. Whipple, was present and performed/supervised the entire procedure. Moderate sedation on this adult patient was ordered by me, administered intravenously in my presence, and monitored by the procedure nurse as an independent trained observer who was present throughout the procedure. The following parameters were monitored: oxygen saturation, heart rate, blood pressure, and response to care. Intra-service sedation start time was 1015 and end time was 1058 during which I was present. Total physician intra-service sedation time was 43 minutes. For details on pre moderate sedation and post moderate sedation patient evaluation, please review the evaluation forms in [facility]. For details on monitored clinical parameters during the intra-service sedation time, please review the procedure nurse documentation in [facility]. > Dictated by Nurse Practitioner Physician Assistant I, Namita Whipple MD have personally reviewed and interpreted this examination/study. > Interpreting Provider: Namita Whipple MD on 10/03/2024 4:37 PM Narrative 10/03/2024 4:37 PM CDT History: 63 year old male with history of peripheral arterial disease s/p right lower extremity DVA 09/15/24 and right foot transmetatarsal amputation 09/26 with good dorsal intra-op perfusion. Repeat arterial duplex noted patent DVA with mildly decreased velocity to plantar vein. Operators: 1.Dr. Namita Whipple DO, Attending Physician 2.Dr. Edu Vera MD, Resident Physician Anesthesia: 1.Local anesthesia - 10 mL of 1% lidocaine 2.Intravenous conscious sedation - Versed 1.5 mg and Fentanyl 100 mcg Procedure: 1.Ultrasound-guided access of the left radial artery. 2.Selective catheterization of the abdominal aorta and angiogram. 3.Selective catheterization of the right common femoral artery (3rd order) and angiogram. 4.Selective catheterization of the right superficial femoral artery (4th order) and angiogram. 5.Hemostasis with radial TR band. Fluoroscopic time: 7.19 minutes Contrast: 110 mL of Visipaque Procedure in detail: The procedure, risks, possible complications, and the use of conscious sedation were explained to the patient and informed consent was obtained. The patient was brought to the angiography suite and placed supine on the table. The left wrist was prepped and draped in the usual sterile fashion. A scout professional sports radiograph of the abdomen/pelvis was obtained, which was unremarkable. Limited ultrasound of the left radial artery demonstrated a patent vessel. The left radial artery measured 2.6 mm in AP diameter, and a Barbeau type A waveform was observed. The left radial artery was accessed using a micropuncture needle under ultrasound guidance. The needle entry was documented. Following a series of exchanges, a 5-Japanese vascular sheath was placed. Sheath angiogram was performed, demonstrating patent left radial artery with contrast opacification of the ulnar and interosseous arteries. A radial cocktail consisting of 3000 units heparin, 300 mcg nitroglycerin, and 2.5 mg verapamil was administered intra-arterially through the sheath after appropriate hemodilution. The 4 Fr [place] catheter was advanced to the abdominal aorta and angiogram was performed. Selective catheterization of the right common femoral artery was achieved and angiogram was obtained. The 4 Japanese glide catheter was advanced into the right superficial femoral artery and angiogram was obtained. Catheter and sheath were removed. Hemostasis was achieved with a radial TR band (11 cc). A sterile dressing was applied. The patient tolerated the procedure well and was transferred to the holding area in stable condition. There were no immediate complications associated with the procedure. Findings: 1.Patent right common, deep, and superficial femoral arteries and right popliteal artery without flow-limiting stenosis. 2.Infrapopliteal single vessel runoff via the peroneal artery. Proximal anterior tibial artery occlusion. 3.Opacification of the proximal/mid posterior tibial artery to the level of the DVA anastomosis. No contrast opacification of the arterialized posterior tibial vein. Questionable opacification within the crow distal posterior tibial artery. Procedure Note Namita Whipple DO - 10/03/2024 History: 63 year old male with history of peripheral arterial diseases/p right lower extremity DVA 09/15/24 and right foot transmetatarsalamputation 09/26 with good dorsal intra-op perfusion. Repeat arterial duplex noted patent DVA with mildly decreased velocity to plantar vein. Operators: 1.Dr. Namita Whipple DO, Attending Physician 2.Dr. Edu Vera MD, Resident Physician Anesthesia: 1.Local anesthesia - 10 mL of 1% lidocaine 2.Intravenous conscious sedation - Versed 1.5 mg and Fentanyl 100 mcg Procedure: 1.Ultrasound-guided access of the left radial artery. 2.Selective catheterization of the abdominal aorta and angiogram. 3.Selective catheterization of the right common femoral artery (3rdorder) and angiogram. 4.Selective catheterization of the right superficial femoral artery (4th order) and angiogram. 5.Hemostasis with radial TR band. Fluoroscopic time: 7.19 minutes Contrast: 110 mL of Visipaque Procedure in detail: The procedure, risks, possible complications, and the use of conscious sedation were explained to the patient and informed consent wasobtained. The patient was brought to the angiography suite and placed supine onthe table. The left wrist was prepped and draped in the usual sterilefashion. A scout professional sports radiograph of the abdomen/pelvis was obtained, which was unremarkable. Limited ultrasound of the left radial artery demonstrated a patentvessel. The left radial artery measured 2.6 mm in AP diameter, and a Barbeau typeA waveform was observed. The left radial artery was accessed using a micropuncture needle under ultrasound guidance. The needle entry was documented. Following a series of exchanges, a 5-Japanese vascular sheathwas placed. Sheath angiogram was performed, demonstrating patent left radial artery with contrast opacification of the ulnar and interosseousarteries. A radial cocktail consisting of 3000 units heparin, 300 mcgnitroglycerin, and 2.5 mg verapamil was administered intra-arterially through thesheath after appropriate hemodilution. The 4 Fr [place] catheter was advanced to the abdominal aorta andangiogram was performed. Selective catheterization of the right common femoralartery was achieved and angiogram was obtained. The 4 Japanese glide catheter was advanced into the right superficial femoral artery and angiogram was obtained. Catheter and sheath were removed. Hemostasis was achieved with a radialTR band (11 cc). A sterile dressing was applied. The patient tolerated the procedure well and was transferred to the holding area in stablecondition. There were no immediate complications associated with the procedure. Findings: 1.Patent right common, deep, and superficial femoral arteries and right popliteal artery without flow-limiting stenosis. 2.Infrapopliteal single vessel runoff via the peroneal artery. Proximal anterior tibial artery occlusion. 3.Opacification of the proximal/mid posterior tibial artery to the levelof the DVA anastomosis. No contrast opacification of the arterialized posterior tibial vein. Questionable opacification within the nativedistal posterior tibial artery. Impression: Infrapopliteal single vessel runoff via peroneal artery with findings of occluded right posterior tibial DVA. Follow up: Plan for repeat right lower extremity angiogram 10/04/2024 with intervention including thrombolysis. I, Dr. Whipple, was present and performed/supervised the entire procedure. Moderate sedation on this adult patient was ordered by me, administered intravenously in my presence, and monitored by the procedure nurse as an independent trained observer who was present throughout the procedure.The following parameters were monitored: oxygen saturation, heart rate,blood pressure, and response to care. Intra-service sedation start time [id number] and end time was 1058 during which I was present. Total physician intra-service sedation time was 43 minutes. For details on pre moderate sedation and post moderate sedation patient evaluation, please reviewthe evaluation forms in [facility]. For details on monitored clinical parameters during the intra-service sedation time, please review the procedurenurse documentation in [facility]. > Dictated by Nurse Practitioner Physician Assistant I, Namita Whipple MD have personally reviewed and interpreted this examination/study. > Interpreting Provider: Namita Whipple MD on 10/03/2024 4:37 PM us Kathy FLORES IR ORDERABLES Final Result * VAS Right Arterial Duplex Le (09/30/2024 2:55 PM CDT) Only the most recent of2 resultswithin the time period is included. Anatomical Region Laterality Modality Lower Extremity Ultrasound 09/30/2024 1:29 PM CDT Narrative Procedure Note Eugene Jacques MD - 10/02/2024 [place] [address] Lower Extremity Arterial Ultrasound Report Pat.Name: JULIANNE VILLAFUERTE Pat.ID: [id number] .Date: 09/30/2024 Refer.MD: Eugene Jacques Exam Time: 1:29:00 PM Study Type:LE Arterial Age: 9 1960,63Y Sex: MALE Sonogrphr: Mary Lord RVT Pat. Stat.:Inpatient Room: 363 ICD - 9: PAD (peripheral artery disease) [I73.9 (ICD-10-CM)' CPT - 4: 24815 Reason for Study: Post-op evaluation History / Clinical: Left BKA Procedures: Lower Extremity Arterial Duplex - Right Race: Not or Visit ID: [id number] ++++++++++++++++++++++++++++++++++++ SUMMARY: ++++++++++++++++++++++++++++++++++++ The right DVA appears patent. Good velocities are noted in the proximal and mid DVA is. the lateral plantar vein shows flow, a the velocities appear mildly decreased. ++++++++++++++++++++++++++++++++++++ FINDINGS: ++++++++++++++++++++++++++++++++++++ Procedure: B-mode imaging, color flow Doppler and spectral analysis were used to examine the arteries of the right lower extremity. Study Quality: Limited exam due to wound vac and bandages on foot. Rt Leg: The right tibioperoneal trunk flow volume is 161 ml/min. The right DVA stent is patent with flow volumes at proximal 142.7 ml/min, mid 86.3 ml/min, distal 215.2 ml/min. The flow volume of the stent below the ankle is 52.7 ml/min. The flow volume in the plantar vein is 47.1 ml/min, and 2.3 ml/min. Signed 10/02/2024 12:14 PM Eugene Sheikh MD Eugnee Jacques MD VASCULAR LAB ORDERABLES Edite d * TRANSFUSE RED BLOOD CELL LEUKOREDUCED UNIT(S) (09/28/2024 2:22 AM CDT) Maren Garner PA-C NURSING - BLOOD PROD TRANSF USION Final Result * TRANSFUSE RED BLOOD CELL LEUKOREDUCED UNIT(S) (09/27/2024 11:27 AM CDT) Maren FLORES-C NURSING - BLOOD PROD TRANSF USION Final Result * XR Foot Right 2Vw (09/26/2024 9:56 AM CDT) Anatomical Region Laterality Modality Ankle / Foot Radiographic Jesica ging 09/26/2024 9:59 AM CDT Impressions 09/26/2024 10:00 AM CDT IMPRESSION: New amputations through all the metatarsals > Interpreting Provider: Ye Bryant MD on 09/26/2024 10:00 AM Narrative 09/26/2024 10:00 AM CDT PROCEDURE: XR FOOT RIGHT 2VW DATE/TIME OF EXAM: 09/26/2024 9:56 AM CLINICAL INFORMATION: None relevant/not provided if blank. Indication: M86.9: Osteomyelitis of right foot, unspecified type (HCC) Additional History: COMPARISON: Plain films from 09/05/2024 FINDINGS: Since the recent prior study there has been amputation through the mid portions of all the right metatarsals. Bandages overlie the operative site. The more proximal bones of the foot are intact. There is extensive peripheral atherosclerosis including vascular stents in the posterior tibial artery. Procedure Note Ye Bryant MD - 09/26/2024 PROCEDURE: XR FOOT RIGHT 2VW DATE/TIME OF EXAM: 09/26/2024 9:56 AM CLINICAL INFORMATION: None relevant/not provided if blank. Indication: M86.9: Osteomyelitis of right foot, unspecified type (HCC) Additional History: COMPARISON: Plain films from 09/05/2024 FINDINGS: Since the recent prior study there has been amputation through the mid portions of all the right metatarsals. Bandages overlie the operative site. The more proximal bones of the foot are intact. There isextensive peripheral atherosclerosis including vascular stents in the posterior tibial artery. IMPRESSION: New amputations through all the metatarsals > Interpreting Provider: Ye Bryant MD on 09/26/2024 10:00 AM Pablo Ortiz [facility] DIAGNOSTIC IMAGING ORDERABLES Final Result * CULTURE FUNGUS OTHER+FUNGUS SMEAR (09/26/2024 8:34 AM CDT) Culture No fungus isolated MELANY 10/23/2024 8:05 AM CDT [facility] MICROBIOLOGY Fungus Stain No yeast or hyphae seen 10/23/2024 8:05 AM CDT [facility] MICRO[facility] Microbiology SPECIMEN FROM WOUND / Unknown Collection / Unknown 09/26/2024 8:34 AM CDT 09/26/2024 9:41 AM CDT Comment:Pre-op diagnosis: Diagnosis unknown [R69] Narrative [facility] - 10/23/2024 8:05 AM CDT Surgical Description: Right Midfoot Cultures Pablo Ortiz DP LAB - MICROBIOLOGY ORDERABLES Final Result [facility] [address] [place] [address], [facility] [phone] * (ABNORMAL) CULTURE WOUND+GRAM STAIN (09/26/2024 8:34 AM CDT) Culture Light normal skin ricki 10/02/2024 11:53 AM CDT [facility] Culture Heavy Pseudomonas aeruginosa(A) MELANY 10/02/2024 11:53 AM CDT [facility] Culture Moderate Proteus mirabilis(A) MELANY 10/02/2024 11:53 AM CDT [facility] Gram Stain Rare Gram-negative bacilli 10/02/2024 11:53 AM CDT [facility] Gram Stain Rare Gram-positive cocci 10/02/2024 11:53 AM CDT [facility] Gram Stain Rare Polymorphonuclear cells 10/02/2024 11:53 AM CDT [facility] Microbiology SPECIMEN FROM WOUND / Unknown Collection / Unknown 09/26/2024 8:34 AM CDT 09/26/2024 9:41 AM CDT Comment:Pre-op diagnosis: Diagnosis unknown [R69] Narrative [facility] - 10/02/2024 11:53 AM CDT Surgical Description: Right Midfoot Cultures Organism Antibiotic Method Susceptibility Pseudomonas aeruginosa Cefepime MELANY 4 ug/mL: Intermediate Pseudomonas aeruginosa Ceftazidime MELANY 16 ug/mL: Intermediate Pseudomonas aeruginosa Ciprofloxacin MELANY <=0.25 ug/mL: Susceptible Pseudomonas aeruginosa Gentamicin MELANY Resistant Pseudomonas aeruginosa Meropenem MELANY <=0.25 ug/mL: Susceptible Pseudomonas aeruginosa Tobramycin MELANY <=1 ug/mL: Susceptible Pseudomonas aeruginosa Piperacillin-tazobactam KB Intermediate Proteus mirabilis Amikacin MELANY <=2 ug/mL: Susceptible Proteus mirabilis Ampicillin MELANY <=2 ug/mL: Susceptible Proteus mirabilis Ampicillin-sulbactam MELANY <=2 ug/mL: Susceptible Proteus mirabilis Cefazolin MELANY <=4 ug/mL: See Comment* Proteus mirabilis Cefepime MELANY <=1 ug/mL: Susceptible Proteus mirabilis Ceftriaxone MELANY <=1 ug/mL: Susceptible Proteus mirabilis Ciprofloxacin MELANY <=0.25 ug/mL: Susceptible Proteus mirabilis Gentamicin MELANY <=1 ug/mL: Susceptible Proteus mirabilis Meropenem MELANY <=0.25 ug/mL: Susceptible Proteus mirabilis Piperacillin-tazobactam MELANY <=4 ug/mL: Susceptible Proteus mirabilis Tobramycin MELANY <=1 ug/mL: Susceptible Proteus mirabilis Trimethoprim-sulfame thoxa zole MELANY <=20 ug/mL: Susceptible Comment:*Cefazolin MELANY of </ =4 cannot distinguish between susceptible or intermediate for systemic breakpoints. If further defined interpretation is needed, call Microbiology and a disk diffusion test will be performed. Pablo GALLEGO LAB - MICROBIOLOGY ORDERABLES Final Result Performing Organization Address City/[facility] de Phone Number [facility] [address] [place] [address], [facility] [phone] * CULTURE ANAEROBE (09/26/2024 8:34 AM CDT) Only the most recent of2 resultswithin the time period is included. Culture No anaerobic organisms isolated MELANY 10/01/2024 8:26 AM CDT [facility] Microbiology SPECIMEN FROM WOUND / Unknown Collection / Unknown 09/26/2024 8:34 AM CDT 09/26/2024 9:41 AM CDT Comment:Pre-op diagnosis: Diagnosis unknown [R69] Narrative [facility] - 10/01/2024 8:26 AM CDT Surgical Description: Right Midfoot Cultures Pablo Ortiz [facility] LAB - MICROBIOLOGY ORDERABLES Final Result [facility] MICROBIOLOG[facility] [address] [place] [address], [facility] [phone] * LARYNGEAL MASK AIRWAY (09/26/2024 7:57 AM CDT) Narrative Ayan Devine APRN-CRNA - 09/26/2024 7:57 AM CDT Ayan Devine APRN-CRNA 09/26/2024 7:58 AM LMA Placement Procedure/LDA Note: Patient Location: OR. LMA Insertion Date/Time: 09/26/2024 7:34 AM Procedure: LMA Pretreatment: 100% O2 Induction: standard IV Patient position: sniffing. Mask Ventilation: easy Type: LMA Size: 4 Number of Attempts: 1. Cuff volume (mL): 7 Placement verified by: direct visualization, bilateral breath sounds and CO2 monitor Dentition unchanged? Yes Procedure Start Time: 09/26/2024 7:34 AM. Staff Section Anesthesia Provider: Ayan Devine APRN-CRNA, Performed the procedure Juan Carlos Stanford MD GENERAL ANESTHESIA ORDERABL ES Final Result * BLOOD TYPE VERIFICATION (09/25/2024 6:09 PM CDT) ABO Rh O POS 09/25/2024 8:4 1 PM CDT [facility] Blood Bank BLOOD SPECIMEN / Unknown Venipuncture / Unknown 09/25/2024 6:09 PM CDT 09/25/2024 7:08 PM CDT David Keller MD LAB - BLOOD BANK ORDERABLES Herminia l Result [facility] [address] [place] [address], [facility] [phone] * SLIDE SCAN HEMATOLOGY (09/20/2024 4:19 AM CDT) RBC Morphology NORMAL 09/20/2024 5:40 AM CDT [facility] Blood BLOOD SPECIMEN / Unknown Venipuncture / Unknown 09/20/2024 4:19 AM CDT 09/20/2024 4:39 AM CDT us Jeb Menjivar MD LAB - HEMATOLOGY ORDERABLES F inal Result [facility] [address], [place] [id number] * TRANSFUSE RED BLOOD CELL LEUKOREDUCED UNIT(S) (09/19/2024 3:44 AM CDT) Jeb Menjivar MD NURSING - BLOOD PROD TRANSFUS ION Final Result * TRANSFUSE RED BLOOD CELL LEUKOREDUCED UNIT(S) (09/18/2024 11:59 PM CDT) Jeb Menjivar MD NURSING - BLOOD PROD TRANSFUS ION Final Result * IR Vein Arterialization Tib Per (09/15/2024 6:22 PM CDT) Anatomical Region Laterality Modality Lower Extremity X-Ray Angiograph y 09/19/2024 1:36 PM CDT Impressions 09/19/2024 1:41 PM CDT Impression: Deep venous arterialization by creation of an arteriovenous fistula between the tibioperoneal trunk and the posterior tibial vein using multiple access points and various techniques as described above. I, Dr. Jacques, was present and performed/supervised the entire procedure. > Interpreting Provider: Eugene Jacques MD on 09/19/2024 1:41 PM Narrative 09/19/2024 1:41 PM CDT History: 63 y/o M with hx of PAD and T2DM admitted for right 1st & 2nd toes osteomyelitis now s/p amputation of right 2nd toe, JEANNINE of right lower extremity, and angiogram of right lower extremity with right peroneal artery dilation that resulted in minor improvement in collateral filling. Angiogram findings are notable for severe stenosis of the distal right anterior tibial artery and distal occlusion of right anterior tibial, posterior tibial, and dorsalis pedis arteries. Given angiographic findings, plan for deep venous arterialization in IR today with anesthesia. Saw this patient today at bedside. Patient had an endovascular procedure in the past which has not resulted in significant clinical improvement possibly due to extensive nature of the disease as well as calcification (SAD with extensive MAC). Based on the clinical progression of the foot and In this clinical situation, due to lack of endovascular options ( tried before) and with lack of surgical options, it appears that Deep Venous Arterialization (DVA), a minimally invasive endovascular procedure may possibly help with arterialization of the veins and providing flow to the foot via the venous sytem. This was discussed with the patient's machine clipper and primary team. Based on recent data , DVA appears to be safe and promising treatment in patients with Critical Limb Ischemia (CLI) when no conventional surgical or endovascular revascularization treatment options are available. At 6 months, *66.1% of patients had amputation-free survival. *Limb salvage (avoidance of above-ankle amputation) was attained in 76% patients *Wounds were completely healed in 25% and in the process of healing in 51% of patients *No unanticipated device-related adverse events were reported. (Alex MH, Stevo RJ, Joanna MF, Camille A, Fredo JL, Krishan MC, Yifan AC, Carie , Hector JL, Maddi A, Italia DG; [employer]OMISE [employer] Investigators. Transcatheter Arterialization of Deep Veins in Chronic Limb-Threatening Ischemia. N Engl J Med. 2022May 28;388(13):4091-3718. doi: 10.1056/[id number]. PMID: [id number].) Patient and family were explained in detail about the risks and benefits of the procedure. The risks involved technically unsuccessful procedure, no improvement of the flow to the foot, worsening of the foot with need for amputation. Operators: 1.Dr.Keith Jacques, Attending Physician 2. Dr. Gavino Sousa, attending physician 3.Tal Villar MD nterventional Radiology, PGY-5 Modifier 22 Letter for Increased Procedural Services: This interventional procedure was more technically demanding and significantly more time consuming than as described by the usual CPT codes for this procedure The Intervention performed for this patient was much more demanding and time-consuming than similar cases on account of the following reasons: 1. Need for multiple access points including antegrade femoral access, plantar vein access in the foot, access in the calf to create the AV fistula 2. Creation of AV fistula using the on-site technique from the arterial and venous aspect. 3. Extensive balloon angioplasty with regular as well as cutting balloons in the entire posterior tibial vein up to the plantar veins. 4. Placement of multiple stents along the anterior aspect of the fistula as well as the posterior tibial vein. I estimate, all the above reasons make this case approximately 300 more work than described by CPT codes . Hence, I am requesting 30 % elevation of my normal fees for this intervention Anesthesia: 1.Mac anesthesia Procedure: Via right superficial femoral access and posterior tibial vein access, 1. Selective catheterization of femoral artery and lower extremity run-off angiogram. 2. Selective catheterization of the posterior tibial artery and angiogram. 3. Selective catheterization of the posterior tibial vein and venogram. 4. Creation of an AV fistula between the tibioperoneal trunk and the posterior tibial vein via a Gun Sight technique and externalization of wire from the femoral access into the posterior tibial vein access. 5. Balloon angioplasty of the fistulous communication as well as the proximal mid and distal posterior tibial veins using multiple high pressure angioplasty balloons as well as cutting balloons 6. Valvulotomy of the valves in the posterior tibial vein and lateral plantar vein using the [place] [employer] valvulotoy device. 6. Placement of the Viabahn Balloon expandable at the fistulous communication. Placement of multiple covered stents in the posterior tibial vein along the proximal mid and distal aspects. 7. Access of the plantar venous arch and venoplasty of the lateral plantar vein and portal venous arch extending into the anterior tibial vein 8. Final angiogram of the lower extremity 9. Hemostasis after femoral artery access achieved using Mynx device. Hemostasis at the plantar vein using manual compression Procedure: The procedure, risks, possible complications and the use of conscious sedation were explained to the patient and an informed consent was obtained. The patient was brought to the angio suite and placed supine on the table. The right groin, right foot as well as the entire right leg was prepped and draped in the usual sterile fashion. A scout professional sports film of pelvis was obtained, which was unremarkable abdomen. The patient was given Mac anesthesia Posterior tibial vein Access: Limited ultrasound of the posterior tibial veins was performed. Under ultrasound guidance and using a micropuncture needle, access obtained into the posterior tibial vein. After insertion of a 0.021 guidewire, a 7 Japanese Terumo glide sheath was advanced. A venogram was performed which showed normal anatomy of the veins in the tibial as well as plantar territory.Using the plantar vein access, a 10 mm snare was advanced into the posterior tibial vein. Prior to placement of the snare, venoplasty was performed using a 5 mm balloon of the posterior tibial vein Femoral access: Limited ultrasound of common femoral artery demonstrated patent vessel. The take off of profunda and other arteries were identified. A walters scale image was documented. The common femoral artery was accessed using a micro-puncture needle. The needle entry was documented. Following a series of exchanges, a 7 Japanese, 45 cm Terumo destination vascular sheath was placed.Using a 4 Fr [place] catheter and a 0.014 [place] adavantage wire, access obtained tibioperoneal trunk. An angiogram was performed which showed that the peroneal and tibial arteries are not patent. The catheter was exchanged for the 5 mm [place] snare in the tibioperoneal artery. Gun Sight Technique and flossing of wires: Both the snares from either access were made to overlap catheter under fluoroscopic view. A 21-gauge micropuncture was then advanced through both the stress into the soft tissues. A 0.014, and wire was advanced. The needle was then removed and the wire was left in situ. Using the arterial snare, the wire was pulled into the femoral access. Using the venous graft, the venous end of the wire was pulled out of the plantar vein access. The wire was then traversed using the catheter advanced from the femoral approach. Through and through access from the femoral artery on site to the AV fistula and into the vein. Preparation of outflow vein using venoplasty and valvulotomy: Multiple balloon venoplasty is were performed with 5 mm x 4 cm high-pressure [place] balloon. Multiple passes performed of the AV fistula, proximal posterior tibial vein, mid posterior tibial vein and distal posterior tibial vein. This was followed by cutting balloon angioplasty performed with the Bard Ultrascore balloon. Cutting balloon angioplasty was performed of the fistula, proximal posterior tibial vein, mid posterior tibial vein, distal posterior tibial vein. This was followed by valvulotomy. Using the over the wire Shirley Otto valvulotomy device 3 passes were made from the site of the AV fistula to the lateral plantar vein. Post balloon venoplasty and valvulotomy showed improved flow across the fistula into the posterior tibial veins and into the foot. Stent placements: We then decided to place covered stents along the posterior tibial vein. A 5 mm x 25 cm, 5 mm x 5 cm stent was placed in the proximal, mid and distal posterior tibial vein. A 5 mm x 29 mm VBx stent as then placed at the AV fistula.Post stent placement venogram showed improved flow across the fistula into the posterior tibial veins. There was however an area of narrowing/valve at the distal posterior tibial vein in close relation to the plantar vein Access of the plantar venous arch and venoplasty: Using of 4 Japanese Kahlil cross catheter and a 0.014 glide advantage wire, access obtained into the lateral plantar vein and then the plantar venous arch. The wire was advanced into the anterior tibial vein. Venogram was performed which showed that the wire was present in the arch. Multiple venoplasty is a performed using 2 mm and 3mm balloons. Post anoplasty venogram showed improved flow across the venous arch. Final angiogram: Final angiogram showed successful deep venous artery location with crossover at the level of the posterior tibial artery and vein. There is good flow across the stent into the lateral plantar vein and then into the into the plantar venous arch. All guidewires and catheters removed. Hemostasis of the femoral access was achieved with Mynx device. Hemostasis of the plantar venous access was obtained using manual pressure. A sterile dressing was applied. There were no immediate complications associated with the procedure. The patient tolerated the procedure well. The patient was transferred in stable condition. A sterile dressing was applied Procedure Note Eugene Jacques MD - 09/19/2024 History: 63 y/o M with hx of PAD and T2DM admitted for right 1st & 2nd toes osteomyelitis now s/p amputation of right 2nd toe, JEANNINE of rightlower extremity, and angiogram of right lower extremity with right peroneal artery dilation that resulted in minor improvement in collateral filling. Angiogram findings are notable for severe stenosis of the distal right anterior tibial artery and distal occlusion of right anterior tibial, posterior tibial, and dorsalis pedis arteries. Given angiographicfindings, plan for deep venous arterialization in IR today with anesthesia. Saw this patient today at bedside. Patient had an endovascularprocedure in the past which has not resulted in significant clinical improvement possibly due to extensive nature of the disease as well as calcification (SAD with extensive MAC). Based on the clinical progression of the foot and In this clinical situation, due to lack of endovascular options ( tried before) and with lack of surgical options, it appears that Deep Venous Arterialization (DVA), a minimally invasive endovascular procedure may possibly helpwith arterialization of the veins and providing flow to the foot via thevenous sytem. This was discussed with the patient's machine clipper and primaryteam. Based on recent data , DVA appears to be safe and promising treatment in patients with Critical Limb Ischemia (CLI) when no conventional surgicalor endovascular revascularization treatment options are available. At 6 months, *66.1% of patients had amputation-free survival. *Limb salvage (avoidance of above-ankle amputation) was attained in 76% patients *Wounds were completely healed in 25% and in the process of healing in51% of patients *No unanticipated device-related adverse events were reported. (Alex MH, Stevo RJ, Joanna MF, Camille A, Fredo JL, Krishan MC, Yifan AC, Carie , Hector JL, Maddi A, Italia DG; PROMISE II Investigators. Transcatheter Arterialization of Deep Veins in Chronic Limb-Threatening Ischemia. N Engl J Med. 2022May 28;388(13):2475-0672. doi: 10.1056/[id number]. PMID: [id number].) Patient and family were explained in detail about the risks and benefitsof the procedure. The risks involved technically unsuccessful procedure, no improvement of the flow to the foot, worsening of the foot with need for amputation. Operators: 1.Dr.Keith Jacques, Attending Physician 2. Dr. Gavino Sousa, attending physician 3.Tal Villar MD nterventional Radiology, PGY-5 Modifier 22 Letter for Increased Procedural Services: This interventional procedure was more technically demanding and significantly more time consuming than as described by the usual CPTcodes for this procedure The Intervention performed for this patient was much more demanding and time-consuming than similar cases on account of the following reasons: 1. Need for multiple access points including antegrade femoral access, plantar vein access in the foot, access in the calf to create the AV fistula 2. Creation of AV fistula using the on-site technique from the arterialand venous aspect. 3. Extensive balloon angioplasty with regular as well as cuttingballoons in the entire posterior tibial vein up to the plantar veins. 4. Placement of multiple stents along the anterior aspect of the fistulaas well as the posterior tibial vein. I estimate, all the above reasons make this case approximately 300 more work than described by CPT codes . Hence, I am requesting 30 % elevationof my normal fees for this intervention Anesthesia: 1.Mac anesthesia Procedure: Via right superficial femoral access and posterior tibial vein access, 1. Selective catheterization of femoral artery and lower extremityrun-off angiogram. 2. Selective catheterization of the posterior tibial artery andangiogram. 3. Selective catheterization of the posterior tibial vein and venogram. 4. Creation of an AV fistula between the tibioperoneal trunk and the posterior tibial vein via a Gun Sight technique and externalization ofwire from the femoral access into the posterior tibial vein access. 5. Balloon angioplasty of the fistulous communication as well as the proximal mid and distal posterior tibial veins using multiple highpressure angioplasty balloons as well as cutting balloons 6. Valvulotomy of the valves in the posterior tibial vein and lateral plantar vein using the [place] Maitre valvulotoy device. 6. Placement of the Viabahn Balloon expandable at the fistulous communication. Placement of multiple covered stents in the posterior tibial vein along the proximal mid and distal aspects. 7. Access of the plantar venous arch and venoplasty of the lateralplantar vein and portal venous arch extending into the anterior tibial vein 8. Final angiogram of the lower extremity 9. Hemostasis after femoral artery access achieved using Mynx device. Hemostasis at the plantar vein using manual compression Procedure: The procedure, risks, possible complications and the use of conscious sedation were explained to the patient and an informed consent was obtained. The patient was brought to the angio suite and placedsupine on the table. The right groin, right foot as well as the entire rightleg was prepped and draped in the usual sterile fashion. A scout professional sports film ofpelvis was obtained, which was unremarkable abdomen. The patient was given Mac anesthesia Posterior tibial vein Access: Limited ultrasound of the posterior tibial veins was performed. Under ultrasound guidance and using a micropuncture needle, access obtainedinto the posterior tibial vein. After insertion of a 0.021 guidewire, a 7French Terumo glide sheath was advanced. A venogram was performed which showed normal anatomy of the veins in the tibial as well as plantar territory.Using the plantar vein access, a 10 mm snare was advanced into the posterior tibial vein. Prior to placement of the snare, venoplastywas performed using a 5 mm balloon of the posterior tibial vein Femoral access: Limited ultrasound of common femoral artery demonstrated patent vessel.The take off of profunda and other arteries were identified. A walters scaleimage was documented. The common femoral artery was accessed using a micro-puncture needle. The needle entry was documented. Following aseries of exchanges, a 7 Japanese, 45 cm Terumo destination vascular sheath was placed.Using a 4 Fr Navicross catheter and a 0.014 [place] adavantagewire, access obtained tibioperoneal trunk. An angiogram was performed which showed that the peroneal and tibial arteries are not patent. Thecatheter was exchanged for the 5 mm gooseneck snare in the tibioperoneal artery. Gun Sight Technique and flossing of wires: Both the snares from either access were made to overlap catheter under fluoroscopic view. A 21-gauge micropuncture was then advanced throughboth the stress into the soft tissues. A 0.014, and wire was advanced. The needle was then removed and the wire was left in situ. Using thearterial snare, the wire was pulled into the femoral access. Using the venousgraft, the venous end of the wire was pulled out of the plantar vein access.The wire was then traversed using the catheter advanced from the femoral approach. Through and through access from the femoral artery on site tothe AV fistula and into the vein. Preparation of outflow vein using venoplasty and valvulotomy: Multiple balloon venoplasty is were performed with 5 mm x 4 cm high-pressure [place] balloon. Multiple passes performed of the AVfistula, proximal posterior tibial vein, mid posterior tibial vein and distal posterior tibial vein. This was followed by cutting balloon angioplasty performed with the Bard Ultrascore balloon. Cutting balloon angioplastywas performed of the fistula, proximal posterior tibial vein, mid posterior tibial vein, distal posterior tibial vein. This was followed by valvulotomy. Using the over the wire Shirley Otto valvulotomy device 3 passes were made from the site of the AV fistula to the lateral plantar vein. Post balloon venoplasty and valvulotomy showed improved flow across the fistula into the posterior tibial veins and into the foot. Stent placements: We then decided to place covered stents along the posterior tibial vein.A 5 mm x 25 cm, 5 mm x 5 cm stent was placed in the proximal, mid anddistal posterior tibial vein. A 5 mm x 29 mm VBx stent as then placed at the AV fistula.Post stent placement venogram showed improved flow across the fistula into the posterior tibial veins. There was however an area of narrowing/valve at the distal posterior tibial vein in close relation to the plantar vein Access of the plantar venous arch and venoplasty: Using of 4 Japanese Kahlil cross catheter and a 0.014 glide advantage wire, access obtained into the lateral plantar vein and then the plantarvenous arch. The wire was advanced into the anterior tibial vein. Venogram was performed which showed that the wire was present in the arch. Multiple venoplasty is a performed using 2 mm and 3mm balloons. Post anoplasty venogram showed improved flow across the venous arch. Final angiogram: Final angiogram showed successful deep venous artery location with crossover at the level of the posterior tibial artery and vein. There is good flow across the stent into the lateral plantar vein and then intothe into the plantar venous arch. All guidewires and catheters removed. Hemostasis of the femoral accesswas achieved with Mynx device. Hemostasis of the plantar venous access was obtained using manual pressure. A sterile dressing was applied. Therewere no immediate complications associated with the procedure. The patient tolerated the procedure well. The patient was transferred in stable condition. A sterile dressing was applied Impression: Deep venous arterialization by creation of an arteriovenous fistulabetween the tibioperoneal trunk and the posterior tibial vein using multipleaccess points and various techniques as described above. I, Dr. Jacques, was present and performed/supervised the entire procedure. > Interpreting Provider: Eugene Jacques MD on 09/19/2024 1:41 PM us Eugene Jacques MD IR ORDERABLES Final Result * LARYNGEAL MASK AIRWAY (09/15/2024 12:08 PM CDT) Narrative Ayan Devine APRN-ROLL PANNER - 09/15/2024 12:08 PM CDT Ayan Devine APRN-CHANTEL 09/15/2024 12:09 PM LMA Placement Procedure/LDA Note: Patient Location: Other - please comment (IVR). LMA Insertion Date/Time: 09/15/2024 11:56 AM Procedure: LMA Pretreatment: 100% O2 Induction: standard IV Patient position: supine. Mask Ventilation: easy Type: LMA Size: 5 Number of Attempts: 1. Cuff volume (mL): 7 Placement verified by: direct visualization, bilateral breath sounds and CO2 monitor Procedure Start Time: 09/15/2024 11:56 AM. Staff Section Anesthesia Provider: Ayan Devine APRN-ROLL PANNER, Performed the procedure us Ismael Redman MD GENERAL ANESTHESIA KRUPA ALCOCER Final Result * (ABNORMAL) HEMOGLOBIN A1C (09/15/2024 5:17 AM CDT) Only the most recent of2 resultswithin the time period is included. Hemoglobin A1c 6.1(H) <5.7 % 09/15/2024 9:46 AM CDT [facility] Estimated Average Glucose 128 mg/dL 09/15/2024 9:46 AM CDT [facility] Blood BLOOD SPECIMEN / Unknown Lab Venipuncture / Unknown 09/15/2024 5:17 AM CDT 09/15/2024 5:33 AM CDT Narrative [facility] - 09/15/2024 9:46 AM CDT HbA1c Interpretation: Normal: < 5.7% [...] Glycohemoglobin Standardization Program (NGSP) certified method. us Jeb Menjivar MD LAB - CHEMISTRY ORDERABLES Fi nal Result [facility] [address] [place] [id number] * (ABNORMAL) IRON + TRANSFERRIN PANEL (09/08/2024 4:25 AM CDT) Pathologist [facility] Iron 8(L) 50 - 175 ug/dL 09/08/2024 5:03 AM CDT [facility] Transferrin 173(L) 174 - 382 mg/dL 09/08/2024 5:03 AM CDT [facility] TIBC Calculated 216(L) 240 - 450 ug/dL 09/08/2024 5:03 AM CDT [facility] Iron Saturation % 4(L) 20 - 50 % 09/08/2024 5:03 AM CDT [facility] Blood BLOOD SPECIMEN / Unknown Lab Venipuncture / Unknown 09/08/2024 4:25 AM CDT 09/08/2024 4:32 AM CDT Tessa Arenas MD LAB - CHEMISTRY ORDERABLES F inal Result [facility] [address] [place] [address] * FERRITIN (09/08/2024 4:25 AM CDT) [facility] Ferritin 189 22 - 275 ng/mL 09/08/2024 5:19 AM CDT [facility] Blood BLOOD SPECIMEN / Unknown Lab Venipuncture / Unknown 09/08/2024 4:25 AM CDT 09/08/2024 4:32 AM CDT Tessa Arenas MD LAB - CHEMISTRY ORDERABLES F inal Result [facility] [address] [place] [id number] * LARYNGEAL MASK AIRWAY (09/07/2024 12:12 PM CDT) Narrative Ayan Devine APRN-ROLL PANNER - 09/07/2024 12:12 PM CDT Ayan Devine APRN-ROLL PANNER 09/07/2024 12:13 PM LMA Placement Procedure/LDA Note: Patient Location: OR. LMA Insertion Date/Time: 09/07/2024 12:06 PM Procedure: LMA Pretreatment: 100% O2 Induction: standard IV Patient position: sniffing. Mask Ventilation: not attempted Type: LMA Size: 5 Number of Attempts: 1. Cuff volume (mL): 8 Placement verified by: bilateral breath sounds and CO2 monitor Dentition unchanged? Yes Procedure Start Time: 09/07/2024 12:06 PM. Staff Section Anesthesia Provider: Ayan Devine APRN-CHANTEL, Performed the procedure Joel Livingston MD GENERAL ANESTHESIA ORDERABLES Final Result * VANCOMYCIN LEVEL TROUGH (09/06/2024 4:58 PM CDT) Vancomycin Trough 17.3 10.0 - 20.0 ug/mL 09/06/2024 5:40 PM [address] [facility] Blood BLOOD SPECIMEN / Unknown Lab Venipuncture / Unknown 09/06/2024 4:58 PM CDT 09/06/2024 5:06 PM CDT Tessa Arenas MD LAB - CHEMISTRY ORDERABLES F inal Result Performing Organization Address [facility] de Phone Number [facility] [address] [place] [address] * VANCOMYCIN LEVEL PEAK (09/05/2024 9:18 PM CDT) Only the most recent of2 resultswithin the time period is included. Vancomycin Peak 34.2 25.0 - 40.0 ug/mL 09/05/2024 9:52 PM CDT [facility] Blood BLOOD SPECIMEN / Unknown Lab Venipuncture / Unknown 09/05/2024 9:18 PM CDT 09/05/2024 9:28 PM CDT Tessa Arenas MD LAB - CHEMISTRY ORDERABLES F inal Result Performing Organization Address [facility] de Phone Number [facility] [address] [place] [address] [phone] * VAS Arterial Ankle Arm Index (09/05/2024 6:15 PM CDT) Anatomical Region Laterality Modality Ankle / Foot, Upper Extremity Ul trasound 09/05/2024 2:47 PM CDT Narrative Procedure Note Eugene Jacques MD - 09/07/2024 [place] [id number] Lower Extremity Arterial Doppler Report Pat.Name: JULIANNE VILLAFUERTE Pat.ID: [id number] .Date: 09/05/2024 Exam Time: 2:47:00 PM Study Type:JEANNINE/PVR Age: 9 1960,63Y Sex: MALE Sonogrphr: Mary Lord RVT Pat. Stat.:Inpatient Room: [facility] ICD - 9: Osteomyelitis of right foot, [M86.9 (ICD-10-CM)'; CPT - 4: 97086 Reason for Study: Non-healing wound-Right History / Clinical: Left BKA Procedures: Ankle Arm Index Visit ID: [id number] ++++++++++++++++++++++++++++++++++++ SUMMARY: ++++++++++++++++++++++++++++++++++++ Right-side: TBI is severely decreased with monophasic waveforms in the dorsalis pedis and posterior tibial. Findings suggestive of moderate to severe peripheral artery disease. Left side: Above knee amputation. ++++++++++++++++++++++++++++++++++++ FINDINGS: ++++++++++++++++++++++++++++++++++++ Procedure: The arterial vasculature of the lower extremities was evaluated by analysis of Doppler pressures and waveforms obtained in the legs at rest. Study Quality: This study is of adequate technical quality. JEANNINE: Unable to obtain accurate right Posterior Tibial and Dorsalis Pedis arteries pressures due to non-compressible arteries. Arterial doppler waveforms of the right OXYGEN TANK FILLER and DPA are monophasic. Unable to obtain an arterial waveform on the right great toe. ++++++++++++++++++++++++++++++++++++ MEASUREMENTS: ++++++++++++++++++++++++++++++++++++ PRESSURES Right 1st Digit GreatToe P 0 mmHg Right JEANNINE (DP) JEANNINE (DP) 0 Right JEANNINE (PT) JEANNINE (PT) 0 Ankle DP AnkleDP P 0 mmHg Right Ankle DP AnkleDP P 0 mmHg Ankle PT AnklePT P 0 mmHg Right Ankle PT AnklePT P 0 mmHg Left Brachial Brach P 0 mmHg Brach P 175 mmHg Signed 09/07/2024 05:25 PM Eugene Sheikh MD us Kathy [facility]OR[facility] ORDERABLES Edited * (ABNORMAL) CULTURE TISSUE+GRAM STAIN (09/05/2024 4:12 PM CDT) Culture Heavy Staphylococcus aureus(AA) MELANY 09/09/2024 12:19 AM [facility] Comment:Staphylococcus aureu s methicillin-susceptible (MSSA) detected by penicillin binding protein immunoassay. Culture Moderate Proteus mirabilis(AA) MELANY 09/09/2024 12:19 AM T [facility] Gram Stain Moderate Gram-positive cocci(AA) 09/09/2024 12:19 AM T [facility] Gram Stain Rare Gram-negative bacilli(AA) 09/09/2024 12:19 AM T [facility] Gram Stain Moderate Polymorphonuclear cells(AA) 09/09/2024 12:19 AM T [facility] Microbiology AMPUTATION OF TOE / Unknown 09/05/2024 4:12 PM CDT 09/05/2024 5:13 PM CDT Narrative [facility] - 09/09/2024 12:19 AM CDT Surgical Description: Right Foot Second Toe Organism Antibiotic Method Susceptibility Staphylococcus aureus Cefazolin MELANY Susceptible Staphylococcus aureus Clindamycin MELANY 0.25 ug/mL: Susceptible Staphylococcus aureus Doxycycline MELANY <=0.5 ug/mL: Susceptible Staphylococcus aureus Inducible Clindamy thee Resistance MELANY NEG ug/mL: Neg Staphylococcus aureus Oxacillin MELANY 1 ug/mL: Susceptible Staphylococcus aureus Trimethoprim-sulfa methoxa zole MELANY <=10 ug/mL: Susceptible Comment: Staphylococcus sensitivity to oxacillin predicts susceptibility for nafcillin, ampicillin/sulbactam, amoxicillin/clavulanate, piperacillin/tazobactam, all cephalosporins (except ceftazidime, ceftazidime/avibactam, ceftolozane/tazobactam), and all carbapenems. Proteus mirabilis Amikacin MELANY <=2 ug/mL: Susceptible Proteus mirabilis Ampicillin MELANY <=2 ug/mL: Susceptible Proteus mirabilis Ampicillin-sulbactam MELANY <=2 ug/mL: Susceptible Proteus mirabilis Cefazolin MELANY <=4 ug/mL: See Comment* Proteus mirabilis Cefepime MELANY <=1 ug/mL: Susceptible Proteus mirabilis Ceftriaxone MELANY <=1 ug/mL: Susceptible Proteus mirabilis Ciprofloxacin MELANY <=0.25 ug/mL: Susceptible Proteus mirabilis Gentamicin MELANY <=1 ug/mL: Susceptible Proteus mirabilis Meropenem MELANY <=0.25 ug/mL: Susceptible Proteus mirabilis Piperacillin-tazobactam MELANY <=4 ug/mL: Susceptible Proteus mirabilis Tobramycin MELANY <=1 ug/mL: Susceptible Proteus mirabilis Trimethoprim-sulfame thoxa zole MELANY <=20 ug/mL: Susceptible Comment:*Cefazolin MELANY of </ =4 cannot distinguish between susceptible or intermediate for systemic breakpoints. If further defined interpretation is needed, call Microbiology and a disk diffusion test will be performed. us Pablo Ortiz DPM LAB - MICROBIOLOGY ORDERABLES Final Result [facility] [address] [place] [address], [facility] [phone] * XR Foot Right 3Vw or More (09/05/2024 9:31 AM CDT) Anatomical Region Laterality Modality Ankle / Foot Radiographic Jesica ging 09/05/2024 10:0 0 AM CDT Impressions 09/05/2024 10:02 AM CDT IMPRESSION: 1. Age-indeterminate fracture distal phalanx right great toe. 2. Limited evaluation of the distal interphalangeal joint of the right second toe given overlapping structures. If there is concern for osteomyelitis or septic arthritis, recommend MRI. > Interpreting Provider: Elizabeth Farrell MD on 09/05/2024 10:02 AM Narrative 09/05/2024 10:02 AM CDT PROCEDURE: XR FOOT RIGHT 3VW OR MORE DATE/TIME OF EXAM: 09/05/2024 9:32 AM CLINICAL INFORMATION: None relevant/not provided if blank. Indication: M86.9: Osteomyelitis of right foot, unspecified type (HCC) Additional History: COMPARISON: None. FINDINGS: There is a linear lucency near the base of the distal phalanx of the right great toe. Alignment at the distal interphalangeal joint of the right second toe is not well assessed given overlapping structures. 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 There is first metatarsophalangeal arthritis. There is soft tissue swelling and atherosclerosis. Procedure Note Elizabeth Farrell MD - 09/05/2024 PROCEDURE: XR FOOT RIGHT 3VW OR MORE DATE/TIME OF EXAM: 09/05/2024 9:32 AM CLINICAL INFORMATION: None relevant/not provided if blank. Indication: M86.9: Osteomyelitis of right foot, unspecified type (HCC) Additional History: COMPARISON: None. FINDINGS: There is a linear lucency near the base of the distal phalanxof the right great toe. 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 There is first metatarsophalangeal arthritis.There is soft tissue swelling and atherosclerosis. IMPRESSION: 1. Age-indeterminate fracture distal phalanx right great toe. 2. Limited evaluation of the distal interphalangeal joint of the right second toe given overlapping structures. If there is concern for osteomyelitis or septic arthritis, recommend MRI. > Interpreting Provider: Elizabeth Farrell MD on 09/05/2024 10:02 AM Tessa Arenas MD DIAGNOSTIC IMAGING ORDERABLE S Final Result * CULTURE BLOOD (09/04/2024 11:26 PM CDT) Only the most recent of2 resultswithin the time period is included. Culture No growth day 5 MELANY 09/10/2024 1:31 AM CDT [facility] Blood PERIPHERAL BLOOD / Unknown Lab Venipuncture / Unknown 09/04/2024 11:26 PM CDT 09/04/2024 11:36 PM CDT [facility] Garner PA-C LAB - MICROBIOLOGY ORDERABL ES Final Result [facility] [address] [place] [address], [facility] [phone] * LACTIC ACID BLOOD REFLEX TO REPEAT (09/04/2024 11:18 PM CDT) Lactic Acid 1.222 <=2 mmol/L 09/05/2024 1:14 AM CDT [facility] Blood BLOOD SPECIMEN / Unknown Lab Venipuncture / Unknown 09/04/2024 11:18 PM CDT 09/05/2024 1:01 AM CDT Maren Garner PA-C LAB - CHEMISTRY ORDERABLES Final Result Performing Organization Address City/[facility]/ZIP Co de Phone Number [facility] [address] [place] [address] * (ABNORMAL) VITAMIN D 25-HYDROXY (09/04/2024 11:18 PM CDT) Vitamin D, 25 Hydroxy 24.7(L) 30 - 80 ng/mL 09/05/2024 12:19 AM CDT [facility] Blood BLOOD SPECIMEN / Unknown Lab Venipuncture / Unknown 09/04/2024 11:18 PM CDT 09/04/2024 11:37 PM CDT Narrative [facility] - 09/05/2024 12:19 AM CDT Vitamin D Status: Deficiency <20 ng/mL Insufficiency 20-30 ng/mL Sufficiency 30-100 ng/mL Toxicity >100 ng/mL Maren Garner PA-C LAB - CHEMISTRY ORDERABLES Final Result Performing Organization Address [facility]/ZIP Co de Phone Number [facility] [address] [place] [phone] * (ABNORMAL) LIPID PROFILE (09/04/2024 11:18 PM CDT) Cholesterol 86 <200 mg/dL 09/05/2024 12:02 AM CDT [facility] Triglycerides 96 <150 mg/dL 09/05/2024 12:02 AM CDT [facility] HDL Cholesterol 31(L) >40 mg/dL 12:02 AM CDT [facility] LDL Calculated 36 <130 mg/dL 09/05/2024 12:02 AM CDT [facility] VLDL Calculated 19 <=30 mg/dL 12:02 AM T [facility] Chol HDL Ratio 2.8 <4.5 09/05/2024 12:02 AM CDT [facility] LDL/HDL Ratio 1.2 <5.0 09/05/2024 12:02 AM CDT [facility] Blood BLOOD SPECIMEN / Unknown Lab Venipuncture / Unknown 09/04/2024 11:18 PM CDT 09/04/2024 11:37 PM CDT Maren Garner PA-C LAB - CHEMISTRY ORDERABLES Final Result Performing Organization Address City/[facility]/ZIP Co de Phone Number [facility] [address] [place] [phone] * (ABNORMAL) MICROALB/CREAT RATIO URINE RANDOM PANEL (01/12/2023 1:39 PM LITERACY TUTOR) Creatinine Urine 70.01 mg/dL 01/13/20 5:54 PM LITERACY TUTOR [facility] Microalbumin Urine 2.2 mg/dL 01/12/2023 5:54 PM LITERACY TUTOR [facility] Microalbumin/Crea tinine Ratio 31(H) <30 mg/g 01/12/2023 5:54 PM LITERACY TUTOR [facility] Urine URINE SPECIMEN OBTAINED BY CLEAN CATCH PROCEDURE / Unknown 01/12/2023 1:39 PM LITERACY TUTOR 01/12/2023 5:21 PM LITERACY TUTOR Latanya Dowd ERP ENGINEER-DRAPERY EXAMINER LAB - URINE CHEMISTRY KRUPA ALCOCER Final Result [facility] [address] [place] [address] from Last 3 Months or Most Recently Relevant to Health Maintenance Additional Health Concerns Infection Onset Date Last Indicated MDRO 09/26/2024 09/26/2024 Insurance [facility] [employer] [facility] [place]IC[place] ANTHEM Advance Directives * Full Code (Latest Code Status on File) Date Activated Date Inactivated Comments 10/04/2024 9:55 AM 10/25/2024 6:22 PM * Full Code Date Activated Date Inactivated Comments 09/04/2024 9:24 PM 10/04/2024 9:55 AM * Full Code Date Activated Date Inactivated Comments 01/08/2023 10:47 AM 01/22/2023 12:55 PM * Full Code Date Activated Date Inactivated Comments 12/21/2022 9:17 PM 01/07/2023 10:22 PM * Full Code Date Activated Date Inactivated Comments 12/21/2022 8:19 PM 12/21/2022 9:17 PM Care Teams Medical Collector Relationship Specialty Start Date End Date Gavino Srivastava, ERP ENGINEER-DRAPERY EXAMINER [address] [place] [address] PCP - General Nurse Practitioner 03/11/23
== END 2024-11-23 12:01 | disposition home or self-care (01) ==
LOC: CHSHH 12:02
PROVIDERS: PCP Nurse Practitioner; Visit Provider Nurse Practitioner
DX: E87.5 Hyperkalemia (principal); D64.9 Anemia, unspecified; Z47.81 Encounter for orthopedic aftercare following surgical amputation; Z89.511 Acquired absence of right leg below knee
CPT/HCPCS: 36415; 80048; 85027

== ENCOUNTER 2024-12-04 14:44 | Outpatient (NON) | payer MEDICARE, SELFPAY ==
[2024-12-04 15:11] LABS: Anion Gap 9 mmol/L (4-12); Blood Urea Nitrogen 25 mg/dL (9-20); Calcium 9.9 mg/dL (8.4-10.2); Carbon Dioxide 21 mmol/L (22-30); Chloride 111 mmol/L (98-107); Estimated Glomerular Filt Rate 59; Glucose 112 mg/dL (65-110); Osmolality Calculated 297 mOsm/kg (285-295); Potassium 5.7 mmol/L (3.4-5.0); Sodium 141 mmol/L (137-145)
--- OUTSIDE RECORDS SUMMARY | 2024-12-04 15:31 | XMS_ITS | Clinical Summary ---
Author Organization [facility] Address [address] [place] [address] Care Team Providers Care Printer Apprentice Name Role Phone Gavino Srivastava Primary Care Provider Source Comments [facility],non-owned Affiliates and Associated Physician Practices is amultiple site organization consisting of ambulatory clinics and hospital sitesin [place], [place] and [place]. This disclosure is being madepursuant to the Care Everywhere program and may not contain all information available regarding this patient. Last updated 17.[employer] [facility] Allergies No known active allergies Medications * [...] for 7 days 14 tablet 11/22/19 25 025 Active Problems Problem Noted Date Diagnosed Date [...] Encounters Date Type Department Care Team Description 11/29/2024 11:15 AM CDT Office Visit [facility]ician [facility] - Vascular Surgery [address] [place] [address], [place] [address] Wittgen, Thu, MD S/P BKA (below knee amputation), left (HCC) (Primary Dx) 11/29/2024 Travel 11/21/2024 12:54 PM CDT - 11/21/2024 5:20 PM CDT Emergency [facility] EM[facility] [address] [place] [address] Julius Miller MD Bitter, Cindy C, MD Cellulitis of right lower extremity (Primary Dx); Postoperative surgical complication involving musculoskeletal system associated with musculoskeletal procedure, unspecified complication Discharge Disposition: Home or Self Care 11/21/2024 Travel 11/20/2024 Telephone [facility] Physician [facility] - Vascular Surgery [address] [facility], [place] [phone] Daniel Holder MD Wound/Incision Check; Infection 11/15/2024 10:30 AM CDT Office Visit [facility] Physician [facility] Vascular Surgery [address], [address] [place] [phone] Raul Hardwick MD Volkerding, MD Dagoberto Urbano Suganya, MD Hambolu, Kehinde, MD Flores, MD Sera Miranda Sabina, MD Pereira, MD Mitch Aparicio, MD Dipak Knapp Ankit, MD Seleznev, Ilya, MD Nangle, Joanna Santo, DO Guzmán, MD Gallo Khanna Matthew R, MD 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) (Primary Dx) 11/15/2024 Travel 10/13/2024 2:20 PM CDT - 10/13/2024 4:07 PM CDT Surgery [facility] [address] [place] [id number] Daniel Holder MD BELOW-KNEE AMPUTATION - RIGHT 10/13/2024 2:04 PM CDT Anesthesia Event [facility] [address] [place] [phone] Chapin Palmer MD Schoenbeck, Alex C, GAS REGULATOR REPAIRER HELPER-BARREL RACER 10/05/2024 12:25 PM CDT Anesthesia Event [facility] [address] [place], [place] [phone] Ismael Redman MD 09/26/2024 7:23 AM CDT Anesthesia Event [facility] [address] [place] [address] Juan Carlos Stanford MD 09/26/2024 7:15 AM CDT - 09/26/2024 8:37 AM CDT Surgery [facility] [address] [place] [address] Pablo Ortiz, DPM AMPUTATION TRANSMETATARSAL - RIGHT 09/15/2024 11:40 AM CDT Anesthesia Event [facility] [address] [place] [address] Juan Carlos Stanford MD Ruter, Mark A, GAS REGULATOR REPAIRER HELPER-BARREL RACER 09/07/2024 11:47 AM CDT Anesthesia Event [facility] [address] [place] [address] Joel Livingston MD 09/05/2024 4:00 PM CDT Anesthesia Event [facility] [address] [place], [place] [phone] Katrin Galvan MD Will, Margaret H, GAS REGULATOR REPAIRER HELPER-BARREL RACER 09/05/2024 3:24 PM CDT - 09/05/2024 4:28 PM CDT Surgery [facility] [address] [place] [address] Pablo Ortiz, DPM RIGHT SECOND TOE AMPUTATION 09/04/2024 8:51 PM CDT - 10/25/2024 5:22 PM CDT Hospital Encounter 1E Surg - [address] [address] Raul Hardwick MD Volkerding, Andrea M, MD Marudhai, Suganya, MD Hambolu, Kehinde, MD Flores, MD Sera Miranda Sabina, MD Pereira, MD Mitch Aparicio, Paragkumar, MD Nahata, Bowen, MD Seleznev, Jason, MD Joanna Keenan DO Eke-Okoro, Ikechukwu, MD Mathew, Simi, MD Iqbal, Farrukh, MD Hospitalist Discharge Disposition: Rehab:Inpatient 09/04/2024 Travel 09/04/2024 Telephone [facility] [address] [phone] Raul Hardwick MD Hospitalization from Last 3 [...] Recorded Patient Health Questionnaire-2 Score 0 11/15/2024 [facility] [place] of Occupat ional Health - Occupational Stress [...] place to sleep or slept in a fpc (including now)? No 12/21/2022 Housing Stability Vital Sign Answer Randy e Recorded In the last 12 months, was t here a time when you were not able to pay the mortgage or rent on time? No 09/04/2024 In the past 12 months, how m any times have you moved where you were living? 1 09/04/2024 At any time in the past 12 m [facility], were you homeless or living in a fpc (including now)? No 09/04/2024 Sex and Gender Information Value Date Recorded Sex Assigned at Not on file Legal Sex Male 12:25 PM CDT Gender Identity Not on file Sexual Orientation Not on file Last Filed Vital Signs Vital Sign Reading Time Taken Comments Blood Pressure 137/76 11/29/2024 11:14 AM CDT Pulse 57 11/29/2024 11:14 AM CDT Temperature 37 C (98.6 F) 11/29/2024 11:14 AM CDT Respiratory Rate 18 11/29/2024 11:14 AM CDT Oxygen Saturation 97% 11/29/2024 11:14 AM CDT Inhaled Oxygen Concentration 21% 10/05/2024 1 1:26 PM CDT Weight 99.8 kg (220 lb) 11/29/2024 11:14 AM CDT Height 177.8 cm (5' 10) 11/29/2024 11:14 AM CDT Body Mass Index 31.57 11/29/2024 11:14 AM CDT Plan of Treatment Health Maintenance Due [...] 03/01/2021, 07/23/2020, 06/25/2020 INFLUENZA VACCINE (#1) 2024 AAA SCREENING 11/26/2024 DIABETES-HGB A1C 03/18/2025 09/15/2024, 08/2024, 12/22/2022 DIABETES-SERUM [...] this topic Medical Devices Implanted Type Area Lambskin Trimmer Device Identifier Shelf Expiration Date Model / Serial / Lot Vascular Closure Device Other (Type not listed) Right: Groin 06/07/2026 / / [id number] Stent - Vascular-10/06/19 Implanted:10/05 (Quantity not on file) Stent - Vascular 11/28/2026 / [id number] / Tidial Bearing Insert Implanted:Qty: 1 on 06/23/2022 by Daniel Corey MD at [facility] Right: Knee [employer] [id number] 04/15/2027 5531-G-7 09-E / / [id number] Cmpnt Fem Kn Rt 6 Crcte Rtn Bead Trthln Implanted:Qty: 1 on 06/23/2022 by Dnaiel Corey MD at [facility] Right: Knee [employer] 05/04/2027 [id number] / / [id number] Bsplt Tib Trthln 7 Kn Tritanium Implanted:Qty: 1 on 06/23/2022 by Daniel Corey MD at [facility] Right: Knee [employer] 04/21/2027 5536-B-7 00 / / [id number] Drsg 7x10cm Kerecis Or Mesh Omega3 Lf - [id number] Implanted:Qty: 1 on 04/05/2023 by Daniel Holder MD at [facility] Left: Knee [employer] 04/06/2024 [id number] D0D / [id number] D0D / Integra Mesh Dermal Regeneration Template Implanted:Qty: 1 on 08/02/2023 by Daniel Holder MD at [facility] Left: Leg Integra [employer] Bobbi 10/29/2024 [id number] / / [id number] Drsg Wnd Mtrx Puraply Sx 5x5cm Implanted:Qty: 1 on 09/05/2024 by Pablo Ortiz DPM at [facility] Right: Toe [employer] 05/03/2025 [id number] / / [id number] .1.1A Graft Skn Surgiclose 95cm M2 Melany Omega3 Implanted:Qty: 1 on 10/13/2024 by Daniel Holder MD at [facility] Right: Knee [employer] 09/20/2026 [id number] D0D / / [id number] Procedures Procedure Name Priority Date/Time Associated [...] amputation of right lower extremity, initial encounter ([facility]) MS AMPUTATION LOW LEG THRU TIB/FIB 10/13/2024 1:54 [...] foot, right (HCC) ACT LR - POCT ([facility]) Routine 10/05/2024 2:28 PM CDT ACT LR - POCT ([facility]) Routine 10/05/2024 1:25 PM CDT ACT LR - POCT ([facility]) Routine 10/05/2024 12:55 PM CDT ACT LR - POCT ([facility]) Routine 10/05/2024 11:51 AM CDT GLUCOSE - [...] MASK AIRWAY Routine 09/26/2024 7:57 AM CDT MS AMPUTATION FOOT,TRANSMETATARSAL 09/26/2024 6:40 AM CDT Diagnosis [...] unspecified type (HCC) ACT LR - POCT ([facility]) Routine 09/15/2024 6:20 PM CDT ACT LR - POCT ([facility]) Routine 09/15/2024 5:54 PM CDT ACT LR - POCT ([facility]) Routine 09/15/2024 5:29 PM CDT ACT LR - POCT ([facility]) Routine 09/15/2024 4:35 PM CDT ACT LR - POCT ([facility]) Routine 09/15/2024 4:32 PM CDT ACT LR - POCT ([facility]) Routine 09/15/2024 3:57 PM CDT ACT LR - POCT ([facility]) Routine 09/15/2024 3:29 PM CDT LARYNGEAL MASK [...] right foot (HCC) ACT LR - POCT ([facility]) Routine 09/07/2024 2:48 PM CDT ACT LR - POCT ([facility]) Routine 09/07/2024 2:03 PM CDT ACT LR - POCT ([facility]) Routine 09/07/2024 1:34 PM CDT ACT LR - POCT ([facility]) Routine 09/07/2024 12:56 PM CDT LARYNGEAL MASK [...] STAT 09/05/2024 4:12 PM CDT Diagnosis unknown MS AMPUTATION TOE,I-P JT 09/05/2024 3:50 PM CDT [...] URINE RANDOM PANEL Routine 01/12/2023 1:39 PM FINANCIAL INVESTIGATOR TRANSFUSE RED BLOOD CELL LEUKOREDUCED UNIT(S) Routine [...] Saini 11/21/2024 4:16 PM > Dictated by Discharge Specialist I, Benito Mendoza MD have personally reviewed and interpreted this examination/study. > Interpreting Provider: Benito Mendoza MD on 11/21/2024 4:36 PM Narrative 11/21/2024 4:36 PM CDT PROCEDURE: CT LOWER EXT RIGHT WO CONTRAST, DATE/TIME OF EXAM: 11/21/2024 3:57 PM, LOCATION [facility] INDICATION: M96.89: Postoperative surgical complication involving [...] CONTRAST, DATE/TIME OF EXAM:11/21/2024 3:57 PM, LOCATION [facility] INDICATION: M96.89: Postoperative surgical complication involving [...] Saini 11/21/2024 4:16 PM > Dictated by Discharge Specialist I, Bneito Mendoza MD have personally reviewed and interpreted this examination/study. > Interpreting Provider: Benito Mendoza MD on 11/21/2024 4:36 PM Leah Alvarenga MD CT ORDERABLES Final Result * C-REACTIVE PROTEIN (11/21/2024 11:54 AM CDT) Only the most recent of2 resultswithin the time period is included. C-Reactive Protein 0.5 <=0.5 mg/dL 11/21/2024 1:04 PM CDT [facility] Blood BLOOD SPECIMEN / Unknown Venipuncture / Unknown 11/21/2024 11:54 AM CDT 11/21/2024 12:04 PM CDT Laurel Ponce PA-C LAB - CHEMISTRY ORDERABLES Herminia l Result [facility] [address] [place] [phone], [facility] [phone] * (ABNORMAL) ERYTHROCYTE SEDIMENTATION RATE (11/21/2024 11:54 AM CDT) Only the most recent of2 resultswithin the time period is included. Erythrocyte Sedimentation Rate Westergren 61(H) 0 - 20 MM/HR 11/21/2024 12:40 PM [facility] Blood BLOOD SPECIMEN / Unknown Venipuncture / Unknown 11/21/2024 11:54 AM CDT 11/21/2024 12:04 PM CDT us Laurel Ponce PA-C LAB - HEMATOLOGY ORDERABLES Fin al Result [address] [address], [facility] [phone] * (ABNORMAL) CBC W AUTO DIFFERENTIAL (11/21/2024 11:54 AM CDT) Only the most recent of30 resultswithin the time period is included. WBC 6.7 4.0 - 10.7 x10E9/L 11/21/2024 12:20 PM [facility] RBC Count 3.64(L) 4.30 - 5.80 x10E12/L 11/21/2024 12:20 PM [facility] Hemoglobin 10.3(L) 13.3 - 17.5 g/dL 11/21/2024 12:20 PM [facility] Hematocrit 32.6(L) 38.7 - 51.1 % 11/21/2024 12:20 PM [facility] MCV 89.6 80.0 - 98.0 fL 11/21/2024 12:20 PM [facility] MCH 28.3 26.7 - 33.6 pg 11/21/2024 12:20 PM [facility] MCHC 31.6(L) 31.7 - 36.3 g/dL 11/21/2024 12:20 PM [facility] RDW-CV 17.3(H) 11.3 - 14.8 % 11/21/2024 12:20 PM [facility] Platelet Count 221 150 - 420 x10E9/L 11/21/2024 12:20 PM [facility] MPV 9.7 7.8 - 11.4 fL 11/21/2024 12:20 PM [facility] Neutrophil % 71.9 41.0 - 74.0 % 11/21/2024 12:20 PM [facility] Lymphocyte % 16.3(L) 17.0 - 47.0 % 11/21/2024 12:20 PM [facility] Monocyte % 6.6 3.0 - 11.0 % 11/21/2024 12:20 PM [facility] Eosinophil % 4.2 0.0 - 7.0 % 11/21/2024 12:20 PM [facility] Basophil % 0.7 0.0 - 1.6 % 11/21/2024 12:20 PM [facility] Immature Granulocytes % 0.3 0.0 - 1.0 % 11/21/2024 12:20 PM [facility] Neutrophil Absolute 4.81 1.60 - 7.50 x10E9/L 11/21/2024 12:20 PM [facility] Lymphocyte Absolute 1.09 1.00 - 4.40 x10E9/L 11/21/2024 12:20 PM [facility] Monocyte Absolute 0.44 0.15 - 1.00 x10E9/L 11/21/2024 12:20 PM [facility] Eosinophil Absolute 0.28 0.00 - 0.60 x10E9/L 11/21/2024 12:20 PM [facility] Basophil Absolute 0.05 0.00 - 0.13 x10E9/L 11/21/2024 12:20 PM [facility] Blood BLOOD SPECIMEN / Unknown Venipuncture / Unknown 11/21/2024 11:54 AM CDT 11/21/2024 12:04 PM [facility] us Laurel Ponce PA-C LAB - HEMATOLOGY ORDERABLES Fin al Result [facility] [address] [place] [address], [facility] [phone] * (ABNORMAL) COMPREHENSIVE METABOLIC PANEL (11/21/2024 11:54 AM [facility]) Only the most recent of20 resultswithin the time period is included. BUN 21 7 - 26 mg/dL 11/21/2024 1:04 PM [facility] Creatinine 1.40(H) 0.71 - 1.16 mg/dL 11/21/2024 1:04 PM [facility] Sodium 140 136 - 145 mmol/L 11/21/2024 1:04 PM [facility] Potassium 4.7(H) 3.5 - 4.5 mmol/L 11/21/2024 1:04 PM [facility] Chloride 113(H) 98 - 107 mmol/L 11/21/2024 1:04 PM [facility] CO2 19(L) 22 - 29 mmol/L 11/21/2024 1:04 PM [facility] Glucose 108(H) 70 - 99 mg/dL 11/21/2024 1:04 PM [facility] Calcium 8.4 8.4 - 10.2 mg/dL 11/21/2024 1:04 PM [facility] Protein Total 6.4 6.0 - 8.3 g/dL 11/21/2024 1:04 PM [facility] Albumin 3.2(L) 3.4 - 5.0 g/dL 11/21/2024 1:04 PM [facility] Bilirubin Total 0.3 0.2 - 1.2 mg/dL 11/21/2024 1:04 PM [facility] Alkaline Phosphatase 80 40 - 150 U/L 11/21/2024 1:04 PM [facility] ALT 22 5 - 55 U/L 11/21/2024 1:04 PM [facility] AST 18 5 - 34 U/L 11/21/2024 1:04 PM [facility] Anion Gap 8 6 - 16 11/21/2024 1:04 PM [facility] BUN/Creatinine Ratio 15 7 - 23 11/21/2024 1:04 PM [facility] Osmolality Calculated 294 275 - 295 mOsm/kg 11/21/2024 1:04 PM CDT [facility] Albumin/Globulin Ratio 1.0(L) 1.1 - 2.3 11/21/2024 1:04 PM CDT [facility] eGFR by CKD-EPI 56(L) >=90 mL/min/1.7 3 m2 11/21/2024 1:04 PM CDT [facility] Comment:Estimated Glomerular Filtration Rate (eGFR) calculated using the CKD-EPI Creatinine Equation (2020), per the National Kidney Foundation and [place] [employer] Nephrology recommendations. Blood BLOOD SPECIMEN / Unknown Venipuncture / Unknown 11/21/2024 11:54 AM CDT 11/21/2024 12:04 PM CDT us Laurel Ponce PA-C LAB - CHEMISTRY ORDERABLES Herminia l Result [facility] [address] [place] [phone], [facility] [phone] * CARDIAC RHYTHM STRIP ORDER (10/26/2024 5:25 PM CDT) Narrative 10/26/2024 5:25 PM CDT Ordered by an unspecified provider. us Scanned Document CARDIAC SERVICES ORDERABLES Jason eliza Result - Final * (ABNORMAL) GLUCOSE - POINT OF CARE (10/25/2024 1:16 PM CDT) Only the most recent of217 resultswithin the time period is included. Glucose WB/POC 123(H) 70 - 99 mg/dL 10/25/2024 1:25 PM CDT [facility] Specimen Type Arterial/C apillary 10/25/2024 1:25 PM CDT [facility] Blood BLOOD SPECIMEN / Unknown 10/25/2024 1:16 PM CDT 10/25/2024 1:25 PM CDT us Charlie Pina MD LAB - POINT OF CARE ORDERABLES Final Result Performing Organization Address City/[facility]/ZIP Co de Phone Number [facility] [address] [place], [place] [phone] * (ABNORMAL) CBC W/O DIFFERENTIAL (10/25/2024 1:27 AM CDT) Only the most recent of18 resultswithin the time period is included. [facility] WBC 8.4 4.0 - 10.7 x10E9/L 10/25/2024 2:26 AM CDT [facility] RBC Count 2.86(L) 4.30 - 5.80 x10E12/L 10/25/2024 2:26 AM CDT [facility] Hemoglobin 8.1(L) 13.3 - 17.5 g/dL 10/25/2024 2:26 AM CDT [facility] Hematocrit 25.3(L) 38.7 - 51.1 % 10/25/2024 2:26 AM CDT [facility] MCV 88.5 80.0 - 98.0 fL 10/25/2024 2:26 AM CDT [facility] MCH 28.3 26.7 - 33.6 pg 10/25/2024 2:26 AM CDT [facility] MCHC 32.0 31.7 - 36.3 g/dL 10/25/2024 2:26 AM CDT [facility] RDW-CV 18.7(H) 11.3 - 14.8 % 10/25/2024 2:26 AM CDT [facility] Platelet Count 380 150 - 420 x10E9/L 10/25/2024 2:26 AM CDT [facility] MPV 9.3 7.8 - 11.4 fL 10/25/2024 2:26 AM T [facility] Blood BLOOD SPECIMEN / Unknown Line Draw / Unknown 10/25/2024 1:27 AM CDT 10/25/2024 2:22 AM CDT us Charlie Pina MD LAB - HEMATOLOGY ORDERABLES Fin al Result [facility] [address] [phone] * (ABNORMAL) BASIC METABOLIC PANEL (CALCIUM TOTAL) (10/25/2024 1:27 AM CDT) Only the most recent of10 resultswithin the time period is included. Glucose 100(H) 70 - 99 mg/dL 10/25/2024 2:45 AM CDT [facility] Sodium 140 136 - 145 mmol/L 10/25/2024 2:45 AM CDT [facility] Potassium 5.2(H) 3.5 - 5.1 mmol/L 10/25/2024 2:45 AM CDT [facility] Chloride 109(H) 98 - 107 mmol/L 10/25/2024 2:45 AM T [facility] CO2 24 22 - 29 mmol/L 10/25/2024 2:45 AM T [facility] Calcium 8.9 8.4 - 10.4 mg/dL 10/25/2024 2:45 AM [facility] Anion Gap 7 6 - 16 mmol/L 10/25/2024 2:45 AM T [facility] BUN 32(H) 7 - 26 mg/dL 10/25/2024 2:45 AM T [facility] Creatinine 1.62(H) 0.72 - 1.25 mg/dL 10/25/2024 2:45 AM [facility] eGFR by CKD-EPI 47(L) >=90 mL/min/1.7 3 m2 10/25/2024 2:45 AM T [facility] Comment:Estimated Glomerular Filtration Rate (eGFR) calculated using the CKD-EPI Creatinine Equation (2020), per the National Kidney Foundation and [place] [employer] Nephrology recommendations. Blood BLOOD SPECIMEN / Unknown Line Draw / Unknown 10/25/2024 1:27 AM CDT 10/25/2024 2:22 AM CDT us Charlie Pina MD LAB - CHEMISTRY ORDERABLES Herminia l Result [facility] [address] [place] [address] * MAGNESIUM BLOOD (10/25/2024 1:27 AM CDT) Only the most recent of6 resultswithin the time period is included. Magnesium 1.9 1.6 - 2.6 mg/dL 10/25/2024 2:45 AM CDT [facility] Blood BLOOD SPECIMEN / Unknown Line Draw / Unknown 10/25/2024 1:27 AM CDT 10/25/2024 2:22 AM CDT Result [facility] Charlie Pina MD LAB - CHEMISTRY ORDERABLES Herminia l Result Performing Organization Address [facility] de Phone Number [facility] [address] [place], [place] [phone] * TRANSFUSE RED BLOOD CELL LEUKOREDUCED UNIT(S) (10/15/2024 9:01 PM CDT) Result [facility] Joanna Keenan DO NURSING - BLOOD PROD TRANSFUSI ON Final Result * (ABNORMAL) HGB HCT PANEL (10/15/2024 1:42 PM CDT) Only the most recent of10 resultswithin the time period is included. Hemoglobin 6.7(L) 13.3 - 17.5 g/dL 10/15/2024 2:11 PM CDT [facility] Hematocrit 21.7(L) 38.7 - 51.1 % 10/15/2024 2:11 PM CDT [facility] Blood BLOOD SPECIMEN / Unknown Venipuncture / Unknown 10/15/2024 1:42 PM CDT 10/15/2024 1:50 PM CDT Result [facility] Joanna Keenan DO LAB - HEMATOLOGY ORDERABLES Fi nal Result Performing Organization Address [facility] Co de Phone Number [facility] [address] [place] [address] * TRANSFUSE RED BLOOD CELL LEUKOREDUCED UNIT(S) (10/13/2024 3:50 PM CDT) Chapin Palmer MD NURSING - BLOOD PROD TRANSFU JACQUES Final Result * PATHOLOGY TISSUE EXAM (STL) (10/13/2024 2:52 PM CDT) Only the most recent of3 resultswithin the time period is included. Case Report Surgical Pathology Report Case: [id number] Authorizing Provider: Daniel Holder MD Collected: 10/13/2024 02:52 PM Ordering Location: [address] TELE Received: 10/16/2024 08:19 AM Pathologist: Patricia Evans MD Specimen: Amputation Leg BK, right BKA 10/18/2024 9:05 AM [facility] Final Diagnosis Extremity, right, below knee amputation - Calcific atherosclerosis with thrombosis - Posterior tibial artery stent - Soft tissue necrosis with acute inflammation and focal acute osteomyelitis - Margins viable and uninvolved by osteomyelitis 10/18/2024 9:05 AM [facility] at 0904 CDT Clinical History The patient is a 63-year-old man. Operative procedure: below-knee amputation - right. 10/18/2024 9:05 AM [facility] Gross Description The requisition and specimen(s) [...] mesh stent in the posterior tibial artery. Fish Culturist sections are submitted after selective decalcification as follows: A1: Tibial bone marrow margin A2: Fibula bone marrow margin A3: Closest soft tissue resection margin, perpendicular A4: Area of necrosis A5: Anterior tibial artery, decal A6: Posterior tibial artery, decal A7: Bone underlying area of necrosis, decal /SKS 10/18/2024 9:05 AM [facility] Microscopic Description Microscopic examination substantiates the above diagnosis. 10/18/2024 9:05 AM [facility] Pathologist Location at [facility] 10/18/2024 9:05 AM T [facility] Disclaimer All histochemical and/or immunohistochemical [...] be interpreted with caution. 10/18/2024 9:05 AM T [facility] Embedded Images 10/18/2024 9:05 AM T [facility] Pathology/Cytolo gy SPECIMEN OBTAINED BY AMPUTATION / Unknown 10/13/2024 2:52 PM CDT 10/16/2024 8:19 AM CDT Comment:Pre-op diagnosis: Diagnosis unknown [R69] Daniel Holder MD LAB - PATHOLOGY/CYTOLOGY KRUPA ALCOCER Final Result Performing Organization Address [facility]/State/[facility] Co de Phone Number [facility] [address] [place] [address] * [employer] (10/13/2024 2:26 PM CDT) Narrative Darrell Vasquez APRN-BARREL RACER - 10/13/2024 2:26 PM CDT Darrell Vasquez [...] 2:14 PM. Staff Section Anesthesia Provider: Darrell Vasquez, GAS REGULATOR REPAIRER HELPER-BARREL RACER, Performed the procedure Chapin Palmer MD GENERAL ANESTHESIA ORDERABLE S Final Result * PREPARE (CROSSMATCH) RBC UNIT(S), 1 Units (10/13/2024 2:07 PM CDT) Only the most recent of9 resultswithin the time period is included. Unit Description AS1 LR PRBC [facility] Unit ABO O [facility] Unit Rh POS [facility] Product [facility] [id number] [facility] Unit Donor # [id number] [facility] C BLOOD BANK LAB Unit Status transfused [facility] Product Code [id number] [facility] Blood Type Barcode 5100 [facility] BLOOD BANK LAB Expiration Date [id number] S [facility] BLOOD BANK LAB Blood Bank BLOOD SPECIMEN / Unknown 10/13/2024 2:07 PM CDT 10/13/2024 2:08 PM CDT Joanna Keenan DO LAB - BLOOD BANK ORDERABLES Fi nal Result Performing Organization Address [facility] de Phone Number [facility] BLOOD [facility] [address] [place] [address] * TYPE + SCREEN PANEL (10/13/2024 2:07 PM CDT) Only the most recent of4 resultswithin the time period is included. ABO Rh O POS 10/13/2024 2:38 PM CDT [facility] BLOOD BANK LAB Comment:History checked. Antibody Screen NEG 2:38 PM CDT [facility] BLOOD BANK LAB Blood Bank BLOOD SPECIMEN / Unknown Lab Venipuncture / Unknown 10/13/2024 2:07 PM CDT 10/13/2024 2:08 PM CDT Daniel Holder MD LAB - BLOOD BANK ORDERABLES F inal Result Performing Organization Address City/[facility]/ZIP Co de Phone Number [facility] BLOOD BANK LAB [address] [place] [id number] [phone] * (ABNORMAL) POTASSIUM BLOOD (10/13/2024 12:49 PM CDT) Pathologist [facility] Potassium 5.6(H) 3.5 - 5.1 mmol/L 10/13/2024 1:13 PM CDT [facility] Blood BLOOD SPECIMEN / Unknown Clinic Draw / Unknown 10/13/2024 12:49 PM CDT 10/13/2024 12:56 PM CDT Chapin Palmer MD LAB - CHEMISTRY ORDERABLES F inal Result Performing Organization Address [facility]/ZIP Co de Phone Number [facility] [address] [place] [phone] * TSH REFLEX FREE T4 (10/11/2024 5:47 AM CDT) Pathologist [facility] TSH 1.855 0.350 - 4.940 uIU/mL 10/11/2024 6:47 AM CDT [facility] Blood BLOOD SPECIMEN / Unknown Venipuncture / Unknown 10/11/2024 5:47 AM CDT 10/11/2024 6:08 AM CDT Joanna Keenan DO LAB - CHEMISTRY ORDERABLES Fin al Result Performing Organization Address [facility]/ZIP Co de Phone Number [facility] [address] [place] [phone] * (ABNORMAL) FOLATE (10/10/2024 2:10 AM CDT) Pathologist [facility] Folate 5.8(L) 7.0 - 31.4 ng/mL 10/10/2024 3:22 AM CDT [facility] Blood BLOOD SPECIMEN / Unknown Venipuncture / Unknown 10/10/2024 2:10 AM CDT 10/10/2024 2:30 AM CDT Joanna Keenan DO LAB - CHEMISTRY ORDERABLES Fin al Result Performing Organization Address City/[facility]/ZIP Co de Phone Number [facility] [address] [place] [address] * VITAMIN B12 (10/10/2024 2:10 AM CDT) Pathologist [facility] Vitamin B12 344 213 - 816 pg/mL 10/10/2024 3:22 AM CDT [facility] Blood BLOOD SPECIMEN / Unknown Venipuncture / Unknown 10/10/2024 2:10 AM CDT 10/10/2024 2:30 AM CDT Joanna Keenan DO LAB - CHEMISTRY ORDERABLES Fin al Result Performing Organization Address [facility] de Phone Number [facility] [address] [place] [address] * (ABNORMAL) RENAL FUNCTION PANEL (10/09/2024 5:52 AM CDT) Only the most recent of17 resultswithin the time period is included. Pathologist [facility] Glucose 154(H) 70 - 99 mg/dL 10/09/2024 6:17 AM CDT [facility] Sodium 138 136 - 145 mmol/L 10/09/2024 6:17 AM CDT [facility] Potassium 4.3 3.5 - 5.1 mmol/L 10/09/2024 6:17 AM CDT [facility] Chloride 106 98 - 107 mmol/L 10/09/2024 6:17 AM CDT [facility] CO2 25 22 - 29 mmol/L 10/09/2024 6:17 AM CDT [facility] Calcium 8.4 8.4 - 10.4 mg/dL 10/09/2024 6:17 AM CDT [facility] Anion Gap 7 6 - 16 mmol/L 10/09/2024 6:17 AM CDT [facility] BUN 21 7 - 26 mg/dL 10/09/2024 6:17 AM CDT [facility] Creatinine 1.26(H) 0.72 - 1.25 mg/dL 10/09/2024 6:17 AM CDT [facility] Albumin 1.9(L) 3.1 - 4.5 gm/dL 10/09/2024 6:17 AM CDT [facility] Phosphorus 2.7 2.5 - 4.5 mg/dL 10/09/2024 6:17 AM CDT [facility] eGFR by CKD-EPI 64(L) >=90 mL/min/1.7 3 m2 10/09/2024 6:17 AM CDT [facility] Comment:Estimated Glomerular Filtration Rate (eGFR) calculated using the CKD-EPI Creatinine Equation (2020), per the National Kidney Foundation and [place] [employer]ph[employer] recommendations. Blood BLOOD SPECIMEN / Unknown Venipuncture / Unknown 10/09/2024 5:52 AM CDT 10/09/2024 5:58 AM CDT us Jason Ayon MD LAB - CHEMISTRY ORDERABLES Herminia malin Result [facility] [address] [place] [address] * (ABNORMAL) URINALYSIS REFLEX TO MICROSCOPIC NO CULTURE (10/07/2024 12:42 AM CDT) Color UA Yellow Yellow, Straw 10/07/2024 1:43 AM CDT [facility] Clarity UA Clear Clear 10/07/2024 1:43 AM CDT [facility] Glucose UA Normal Normal 10/07/2024 1:43 AM CDT [facility] Bilirubin UA Negative Negative 10/07/2024 1:43 AM CDT [facility] Ketone UA Negative Negative 10/07/2024 1:43 AM CDT [facility] Specific [place] UA 1.014 1.005 - 1.030 10/07/2024 1:43 AM CDT [facility] Blood UA 2+(A) Negative 10/07/2024 1:43 AM CDT [facility] pH UA 6.0 5.0 - 8.0 10/07/2024 1:43 AM CDT [facility] Protein UA 2+(A) Negative 10/07/2024 1:43 AM CDT [facility] Urobilinogen UA Normal Normal mg/dL 10/07/2024 1:43 AM CDT [facility] Nitrite UA Negative Negative 10/07/2024 1:43 AM CDT [facility] Leukocyte Esterase UA 75 GOMEZ/uL(A) Negative 10/07/2024 1:43 AM CDT [facility] RBC UA 21-50(A) 0 - 5 # /hpf 10/07/2024 1:43 AM CDT [facility] WBC UA 21-50(A) 0 - 5 # /hpf 10/07/2024 1:43 AM CDT [facility] Bacteria UA None Seen None Seen 10/07/2024 1:43 AM CDT [facility] Squamous Epithelial Cells None Seen 0 - 5 /hpf 10/07/2024 1:43 AM CDT [facility] Urine URINE SPECIMEN OBTAINED BY CLEAN CATCH PROCEDURE / Unknown Collection / Unknown 10/07/2024 12:42 AM CDT 10/07/2024 1:12 AM CDT Narrative [facility] - 10/07/2024 1:43 AM CDT Radha Mai DO LAB - URINALYSIS ORDERABLES Fi nal Result Performing Organization Address City/State/[facility] Co de Phone Number [facility] [address] [place] [address] * (ABNORMAL) COAGULATION PANEL W D-DIMER (10/06/2024 4:35 AM CDT) PT 17.7(H) 12.1 - 14.8 sec 10/06/2024 5:38 AM CDT [facility] INR 1.5(H) 0.9 - 1.1 10/06/2024 5:38 AM CDT [facility] PTT 44.1(H) 23.0 - 38.4 sec 10/06/2024 5:38 AM CDT [facility] Fibrinogen 581(H) 200 - 400 mg/dL 10/06/2024 5:38 AM CDT [facility] D-Dimer 5.57(H) 0.27 - 0.50 ug/mL FEU 10/06/2024 5:38 AM CDT [facility] Platelet Count 243 150 - 420 x10E9/L 10/06/2024 5:38 AM CDT [facility] Blood BLOOD SPECIMEN / Unknown Venipuncture / Unknown 10/06/2024 4:35 AM CDT 10/06/2024 4:49 AM CDT [facility] - 10/06/2024 5:38 AM CDT Conventional Warfarin [...] = Non applicable Reference: Br. J. Haematol. 145:24-33,2008. Roberto Carlos Orozco MD LAB - COAGULATION ORDERABLES Fin al Result Performing Organization Address [facility] Co de Phone Number [facility] [address] [place] [phone] * PHOSPHORUS BLOOD (10/06/2024 4:35 AM CDT) Phosphorus 3.9 2.5 - 4.5 mg/dL 10/06/2024 5:35 AM CDT [facility] Blood BLOOD SPECIMEN / Unknown Venipuncture / Unknown 10/06/2024 4:35 AM CDT 10/06/2024 4:49 AM CDT Roberto Carlos Orozco MD LAB - CHEMISTRY ORDERABLES Final Result Performing Organization Address [facility] de Phone Number [facility] [address] [place] [address] * (ABNORMAL) FIBRINOGEN ACTIVITY (10/05/2024 4:09 PM CDT) Only the most recent of5 resultswithin the time period is included. Fibrinogen 584(H) 200 - 400 mg/dL 10/05/2024 4:59 PM CDT [facility] Blood BLOOD SPECIMEN / Unknown Line Draw / Unknown 10/05/2024 4:09 PM CDT 10/05/2024 4:16 PM CDT Gregoria Berrios MD LAB - COAGULATION ORDERABL ES Final Result Performing Organization Address [facility] Co de Phone Number [facility] [address] [place], [place] [phone] * (ABNORMAL) PTT (10/05/2024 4:09 PM CDT) Only the most recent of4 resultswithin the time period is included. PTT >200.0(HH) 23.0 - 38.4 sec 10/05/2024 5:13 PM CDT [facility] Blood BLOOD SPECIMEN / Unknown Line Draw / Unknown 10/05/2024 4:09 PM CDT 10/05/2024 4:16 PM CDT Narrative [facility] - 10/05/2024 5:13 PM CDT Heparin Therapeutic Range for PTT: 69.0 - 110.0 seconds. Gregoria Berrios MD LAB - COAGULATION ORDERABL ES Final Result Performing Organization Address [facility] de Phone Number [facility] [address] [place] [address] * CK BLOOD (10/05/2024 4:09 PM CDT) CK 91 30 - 200 U/L 10/05/2024 4:57 PM CDT [facility] Blood BLOOD SPECIMEN / Unknown Line Draw / Unknown 10/05/2024 4:09 PM CDT 10/05/2024 4:16 PM CDT Ra Meyer MD LAB - CHEMISTRY ORDERABLES F inal Result Performing Organization Address [facility] Co de Phone Number [facility] [address] [place] [phone] * IR Thrombolysis Recheck (10/05/2024 3:07 PM [...] across. 2.Thrombectomy was performed using CatRxand 6 Peruvian BOLT catheter from [facility]. 3.During the procedure the upper part [...] draped in the usual sterile fashion. A early head start director film of the abdomen was obtained, which [...] Using a CATRx and then a 6 Peruvian BOLT catheter multiple passes were made in [...] across. 2.Thrombectomy was performed [facility] CatRxand [facility] [place] [facility]. 3.During the procedure the upper part of [...] and draped inthe usual sterile fashion. A early head start director film of the abdomen was obtained, which [...] Result * (ABNORMAL) ACT LR - POCT ([facility]) (10/05/2024 2:28 PM CDT) Only the most recent of15 resultswithin the time period is included. [facility] ACT LR 207(H) 125 - 187 sec 10/05/2024 2:40 PM CDT [facility] Blood BLOOD SPECIMEN / Unknown 10/05/2024 2:28 PM CDT 10/05/2024 2:40 PM CDT Result [facility] Ra Meyer MD LAB - COAGULATION ORDERABLES Final Result Performing Organization Address [facility] de Phone Number [facility] [address] [place] [phone] * TRANSFUSE RED BLOOD CELL LEUKOREDUCED UNIT(S) (10/05/2024 6:16 AM CDT) Result [facility] Julio Moe MD NURSING - BLOOD PROD TRANSFU JACQUES Final Result * (ABNORMAL) PT-INR (10/05/2024 3:23 AM CDT) Only the most recent of3 resultswithin the time period is included. PT 21.4(H) 12.1 - 14.8 sec 10/05/2024 3:55 AM CDT [facility] INR 1.9(H) 0.9 - 1.1 10/05/2024 3:55 AM CDT [facility] Blood BLOOD SPECIMEN / Unknown Venipuncture / Unknown 10/05/2024 3:23 AM CDT 10/05/2024 3:35 AM CDT Narrative [facility] - 10/05/2024 3:55 AM CDT Conventional Warfarin Anticoagulant Therapy: INR Reference Range: 2.0-3.0 Intensive Warfarin Anticoagulant Therapy: INR Reference Range: 2.5-3.5 Result [facility] Gregoria Berrios MD LAB - COAGULATION ORDERABL ES Final Result Performing Organization Address [facility] Co de Phone Number [facility] [address] [place] [address] * (ABNORMAL) DIFFERENTIAL MANUAL (10/05/2024 1:04 AM CDT) Only the most recent of2 resultswithin the time period is included. Neutrophil % 97(H) 41 - 74 % 10/05/2024 4:10 AM CDT [facility] Lymphocyte % 3(L) 17 - 47 % 10/05/2024 4:10 AM CDT [facility] Neutrophil Absolute 23.57(H) 1.60 - 7.50 x10E9/L 10/05/2024 4:10 AM CDT [facility] Lymphocyte Absolute 0.73(L) 1.00 - 4.40 x10E9/L 10/05/2024 4:10 AM CDT [facility] RBC Morphology NORMAL 10/05/2024 4:10 AM CDT [facility] Blood BLOOD SPECIMEN / Unknown Venipuncture / Unknown 10/05/2024 1:04 AM CDT 10/05/2024 1:58 AM CDT Gregoria Berrios MD LAB - HEMATOLOGY ORDERABLE S Final Result [facility] [address] [place] [address] * IR Thrombolysis Arterial (10/04/2024 11:18 AM CDT) Anatomical Region Laterality Modality Pelvis, Upper Extremity, Lower Extremity X-Ray Angiography 10/16/2024 4:19 PM CDT Impressions 10/16/2024 4:25 PM CDT Impression: Initiation of catheter directed lysis within the occluded DVA at 1 mg per hour, as detailed above. Follow up: Patient is brought back to in 24 hours for evaluation I, Dr. [...] right lower extremity 2.Placement of a 5 Peruvian 40 cm CraDigiFit-Van catheter in the posterior tibial artery into [...] draped in the usual sterile fashion. A early head start director film of the abdomen was obtained, which demonstrated the lysis catheter extending through the deep venous arterialization stents into the venous system of the right foot [place] obtained into the right common femoral artery. After placement of a 5 Peruvian sheath, access obtained into the popliteal artery and then into the posterior tibial artery using a Navicross catheter. Posterior tibial angiogram was performed. Angiogram showed complete occlusion of the deep venous arterialization site with no flow into the veins in the foot. We decided to perform catheter slices. The 5 Peruvian 40 cm MarcusMaxCDNNamara catheter was advanced into the posterior tibial [...] right lower extremity 2.Placement of a 5 Peruvian 40 cm Cragg-Van catheter in the posterior tibial artery into [...] and draped inthe usual sterile fashion. A early head start director film of the abdomen was obtained, which demonstrated the lysis catheter extending through the deep venous arterialization stents into the venous system of the right foot [place] obtained into the right common femoral artery. After placement of a5 Peruvian sheath, access obtained into the popliteal artery and then intothe posterior tibial artery using a Navicross catheter. Posterior tibial angiogram was performed. Angiogram showed complete occlusion of the deep venous arterializationsite with no flow into the veins in the foot. We decided to perform catheter slices. The 5 Peruvian 40 cm CraigMacNamara catheter was advanced into [...] Eugene Jacques MD on 10/16/2024 4:25 PM us Kathy FLORES IR ORDERABLES Final [...] evaluation, please review the evaluation forms in [facility]. For details on monitored clinical parameters during the intra-service sedation time, please review the procedure nurse documentation in [facility]. > Dictated by Discharge Specialist INamita MD have personally reviewed and interpreted this [...] draped in the usual sterile fashion. A early head start director radiograph of the abdomen/pelvis was obtained, which was unremarkable. Limited ultrasound of the left radial artery demonstrated a patent vessel. The left radial artery measured 2.6 mm in AP diameter, and a Barbeau type A waveform was observed. The left radial artery was accessed using a micropuncture needle under ultrasound guidance. The needle entry was documented. Following a series of exchanges, a 5-Peruvian vascular sheath was placed. Sheath angiogram was performed, demonstrating patent left radial artery with contrast opacification of the ulnar and interosseous arteries. A radial cocktail consisting of 3000 units heparin, 300 mcg nitroglycerin, and 2.5 mg verapamil was administered intra-arterially through the sheath after appropriate hemodilution. The 4 Fr Almond catheter was advanced to the abdominal aorta and angiogram was performed. Selective catheterization of the right common femoral artery was achieved and angiogram was obtained. The 4 Peruvian glide catheter was advanced into the right [...] posterior tibial vein. Questionable opacification within the [place] distal posterior tibial artery. Procedure Note Namita [...] and draped in the usual sterilefashion. A early head start director radiograph of the abdomen/pelvis was obtained, which was unremarkable. Limited ultrasound of the left radial artery demonstrated a patentvessel. The left radial artery measured 2.6 mm in AP diameter, and a Barbeau typeA waveform was observed. The left radial artery was accessed using a micropuncture needle under ultrasound guidance. The needle entry was documented. Following a series of exchanges, a 5-Peruvian vascular sheathwas placed. Sheath angiogram was performed, demonstrating patent left radial artery with contrast opacification of the ulnar and interosseousarteries. A radial cocktail consisting of 3000 units heparin, 300 mcgnitroglycerin, and 2.5 mg verapamil was administered intra-arterially through thesheath after appropriate hemodilution. The 4 Fr Almond catheter was advanced to the abdominal aorta andangiogram was performed. Selective catheterization of the right common femoralartery was achieved and angiogram was obtained. The 4 Peruvian glide catheter was advanced into the right [...] extremity angiogram 10/04/2024 with intervention including thrombolysis. Dr. Sarabjit Gutiérrez, was present and performed/supervised the entire procedure. Moderate sedation on this adult patient was ordered by me, administered intravenously in my presence, and monitored by the procedure nurse as an independent trained observer who was present throughout the procedure.The following parameters were monitored: oxygen saturation, heart rate,blood pressure, and response to care. Intra-service sedation start time [id number] and end time was 1058 during which I was present. Total physician intra-service sedation time was 43 minutes. For details on pre moderate sedation and post moderate sedation patient evaluation, please reviewthe evaluation forms in [facility]. For details on monitored clinical parameters during the intra-service sedation time, please review the procedurenurse documentation in [facility]. > Dictated by Discharge Specialist INamita MD have personally reviewed and interpreted this [...] Procedure Note Eugene Jacques MD - 10/02/2024 [place] [id number] Lower Extremity Arterial Ultrasound Report Pat.Name: JULIANNE VILLAFUERTE Pat.ID: [id number] .Date: 09/30/2024 Refer.MD: Eugene Jacques Exam Time: 1:29:00 PM Study Type:LE Arterial Age: 9 1960,63Y Sex: MALE Sonogrphr: ZEKE Chung. Stat.:Inpatient Room: 363 ICD - 9: PAD (peripheral artery disease) [I73.9 (ICD-10-CM)' CPT - 4: 02823 Reason for Study: Post-op evaluation History / Clinical: Left BKA Procedures: Lower Extremity Arterial Duplex - Right Race: Not or Visit ID: [id number] ++++++++++++++++++++++++++++++++++++ SUMMARY: ++++++++++++++++++++++++++++++++++++ The right DVA appears [...] Signed 10/02/2024 12:14 PM Eugene Sheikh MD Eugene Jacques MD VASCULAR LAB ORDERABLES Edite d * TRANSFUSE RED BLOOD CELL LEUKOREDUCED UNIT(S) (09/28/2024 2:22 AM CDT) Maren Stonedel PA-C NURSING - BLOOD PROD TRANSF USION Final Result * TRANSFUSE RED BLOOD CELL LEUKOREDUCED UNIT(S) (09/27/2024 11:27 AM CDT) Maren Patsy PA-C NURSING - BLOOD PROD TRANSF USION [...] MD on 09/26/2024 10:00 AM Pablo Ortiz DPM DIAGNOSTIC IMAGING ORDERABLES Final Result * CULTURE FUNGUS OTHER+FUNGUS SMEAR (09/26/2024 8:34 AM CDT) Culture No fungus isolated MELANY 10/23/2024 8:05 AM CDT [facility] Fungus Stain No yeast or hyphae seen 10/23/2024 8:05 AM CDT [facility] Microbiology SPECIMEN FROM WOUND / Unknown Collection / Unknown 09/26/2024 8:34 AM CDT 09/26/2024 9:41 AM CDT Comment:Pre-op diagnosis: Diagnosis unknown [R69] Narrative [facility] - 10/23/2024 8:05 AM CDT Surgical Description: Right Midfoot Cultures Pablo Ortiz DPM LAB - MICROBIOLOGY ORDERABLES Final Result [facility] [address] [place] [address], [facility] [phone] * (ABNORMAL) CULTURE WOUND+GRAM STAIN (09/26/2024 8:34 AM CDT) Culture Light normal skin ricki 10/02/2024 11:53 AM CDT [facility] Culture Heavy Pseudomonas aeruginosa(A) MELANY 10/02/2024 11:53 AM CDT [facility] Culture Moderate Proteus mirabilis(A) MELANY 10/02/2024 11:53 AM CDT [facility] Gram Stain Rare Gram-negative bacilli 10/02/2024 11:53 AM CDT [facility] Gram Stain Rare Gram-positive cocci 10/02/2024 11:53 AM CDT [facility] Gram Stain Rare Polymorphonuclear cells 10/02/2024 11:53 AM CDT [facility] Microbiology SPECIMEN FROM WOUND / Unknown Collection / Unknown 09/26/2024 8:34 AM CDT 09/26/2024 9:41 AM CDT Comment:Pre-op diagnosis: Diagnosis unknown [R69] Narrative [facility] - 10/02/2024 11:53 AM CDT [...] disk diffusion test will be performed. Pablo Ortiz [facility] LAB - MICROBIOLOGY ORDERABLES Final Result Performing Organization Address [facility] de Phone Number [facility] [address] [place] [address], [facility] [phone] * CULTURE ANAEROBE (09/26/2024 8:34 AM CDT) Only the most recent of2 resultswithin the time period is included. Culture No anaerobic organisms isolated MELANY 10/01/2024 8:26 AM CDT [facility] Microbiology SPECIMEN FROM WOUND / Unknown Collection / Unknown 09/26/2024 8:34 AM CDT 09/26/2024 9:41 AM CDT Comment:Pre-op diagnosis: Diagnosis unknown [R69] Narrative [facility] - 10/01/2024 8:26 AM CDT Surgical Description: Right Midfoot Cultures Pablo Ortiz [facility] - MICROBIOLOGY ORDERABLES Final Result Performing Organization Address [facility] de Phone Number [facility] [address] [place] [address], [facility] [phone] * LARYNGEAL MASK AIRWAY (09/26/2024 7:57 AM [...] Provider: Ayan Devine APRN-CRNA, Performed the procedure Result [facility] Juan Carlos Stanford MD GENERAL ANESTHESIA ORDERABL ES Final Result * BLOOD TYPE VERIFICATION (09/25/2024 6:09 PM CDT) ABO Rh O POS 09/25/2024 8:4 1 PM CDT [facility] Blood Bank BLOOD SPECIMEN / Unknown Venipuncture / Unknown 09/25/2024 6:09 PM CDT 09/25/2024 7:08 PM CDT David Keller MD LAB - BLOOD BANK ORDERABLES Herminia l Result Performing Organization Address City/[facility]/ZIP Co de Phone Number [facility] [address] [place] [address] * SLIDE SCAN HEMATOLOGY (09/20/2024 4:19 AM CDT) RBC Morphology NORMAL 09/20/2024 5:40 AM CDT [facility] Blood BLOOD SPECIMEN / Unknown Venipuncture / Unknown 09/20/2024 4:19 AM CDT 09/20/2024 4:39 AM CDT Jeb Menjivar MD LAB - HEMATOLOGY ORDERABLES F inal Result Performing Organization Address City/[facility] Co de Phone Number [facility] [address] [place] [address] * TRANSFUSE RED BLOOD CELL LEUKOREDUCED UNIT(S) (09/19/2024 3:44 AM CDT) Jeb Menjivar MD NURSING - BLOOD PROD TRANSFUS ION Final Result * TRANSFUSE RED BLOOD CELL LEUKOREDUCED UNIT(S) (09/18/2024 11:59 PM CDT) us Jeb Menjivar MD NURSING - BLOOD PROD [...] sytem. This was discussed with the patient's print operator and primary team. Based on recent data [...] Limb-Threatening Ischemia. N Engl J Med. 2022May 28;388(13):6606-6061. doi: 10.1056/[id number]. PMID: [id number].) Patient and family were explained in detail [...] draped in the usual sterile fashion. A early head start director film of pelvis was obtained, which was unremarkable abdomen. The patient was given Mac anesthesia Posterior tibial vein Access: Limited ultrasound of the posterior tibial veins was performed. Under ultrasound guidance and using a micropuncture needle, access obtained into the posterior tibial vein. After insertion of a 0.021 guidewire, a 7 Peruvian Terumo glide sheath was advanced. A venogram [...] Following a series of exchanges, a 7 Peruvian, 45 cm Terumo destination vascular sheath was placed.Using a 4 Fr Navicross catheter and a 0.014 Almond adavantage wire, access obtained tibioperoneal trunk. An [...] with 5 mm x 4 cm high-pressure [place] balloon. Multiple passes performed of the AV fistula, proximal posterior tibial vein, mid posterior tibial vein and distal posterior tibial vein. This was followed by cutting balloon angioplasty performed with the Stylitics Ultrascore balloon. Cutting balloon angioplasty was performed of the fistula, proximal posterior tibial vein, mid posterior tibial vein, distal posterior tibial vein. This was followed by valvulotomy. Using the over the wire [place] valvulotomy device 3 passes were made from [...] venous arch and venoplasty: Using of 4 Peruvian Kahlil cross catheter and a 0.014 glide [...] sytem. This was discussed with the patient's print operator and primaryteam. Based on recent data , [...] unanticipated device-related adverse events were reported. (Alex FORD, Stevo DEAN, Joanna MF, Camille A, Sean-Luis Daniel JL, Krishan MC, Yifan AC, Carie , Hector JL, Maddi A, Italia ESTRADA; PROMISE II Investigators. Transcatheter Arterialization of Deep Veins in Chronic Limb-Threatening Ischemia. N Engl J Med. 2022May 28;388(13):5431-9194. doi: [id number]/[id number]. PMID: [id number].) Patient and family were explained in detail [...] draped in the usual sterile fashion. A early head start director film ofpelvis was obtained, which was unremarkable [...] documented. Following aseries of exchanges, a 7 Peruvian, 45 cm Terumo destination vascular sheath was placed.Using a 4 Fr Navicross catheter and a 0.014 Almond adavantagewire, access obtained tibioperoneal trunk. An angiogram [...] with 5 mm x 4 cm high-pressure [place] balloon. Multiple passes performed of the AVfistula, proximal posterior tibial vein, mid posterior tibial vein and distal posterior tibial vein. This was followed by cutting balloon angioplasty performed with the Stylitics Ultrascore balloon. Cutting balloon angioplastywas performed of the fistula, proximal posterior tibial vein, mid posterior tibial vein, distal posterior tibial vein. This was followed by valvulotomy. Using the over the wire Pe[place]apak valvulotomy device 3 passes were made from [...] venous arch and venoplasty: Using of 4 Peruvian Kahlil cross catheter and a 0.014 glide [...] Eugene Jacques MD on 09/19/2024 1:41 PM Eugene Jacques MD IR ORDERABLES Final Result * LARYNGEAL MASK AIRWAY (09/15/2024 12:08 PM CDT) Narrative Ayan Devine APRN-CRNA - 09/15/2024 12:08 PM CDT Ayan Devine APRN-CRNA 09/15/2024 12:09 PM LMA Placement Procedure/LDA Note: [...] Provider: Ayan Devine APRN-CRNA, Performed the procedure us Ismael Redman MD GENERAL ANESTHESIA ORDGal [facility] Final Result * (ABNORMAL) HEMOGLOBIN A1C (09/15/2024 5:17 AM CDT) Only the most recent of2 resultswithin the time period is included. Hemoglobin A1c 6.1(H) <5.7 % 09/15/2024 9:46 AM CDT [facility] Estimated Average Glucose 128 mg/dL 09/15/2024 9:46 AM CDT [facility] Blood BLOOD SPECIMEN / Unknown Lab Venipuncture / Unknown 09/15/2024 5:17 AM CDT 09/15/2024 5:33 AM CDT Narrative [facility] - 09/15/2024 9:46 AM CDT HbA1c [...] LAB - CHEMISTRY ORDERABLES Fi nal Result Performing Organization Address [facility] de Phone Number [facility] [address] [place], [place] [id number] * (ABNORMAL) IRON + TRANSFERRIN PANEL (09/08/2024 4:25 AM CDT) [facility] Iron 8(L) 50 - 175 ug/dL 09/08/2024 5:03 AM CDT [facility] Transferrin 173(L) 174 - 382 mg/dL 09/08/2024 5:03 AM CDT [facility] TIBC Calculated 216(L) 240 - 450 ug/dL 09/08/2024 5:03 AM CDT [facility] Iron Saturation % 4(L) 20 - 50 % 09/08/2024 5:03 AM CDT [facility] Blood BLOOD SPECIMEN / Unknown Lab Venipuncture / Unknown 09/08/2024 4:25 AM CDT 09/08/2024 4:32 AM CDT us Tessa Arenas MD LAB - CHEMISTRY ORDERABLES F inal Result Performing Organization Address [facility] Co de Phone Number [facility] [address] [place] [phone] * FERRITIN (09/08/2024 4:25 AM CDT) Ferritin 189 22 - 275 ng/mL 09/08/2024 5:19 AM CDT [facility] Blood BLOOD SPECIMEN / Unknown Lab Venipuncture / Unknown 09/08/2024 4:25 AM CDT 09/08/2024 4:32 AM CDT Tessa Arenas MD LAB - CHEMISTRY ORDERABLES F inal Result [facility] [address] [place] [address] * LARYNGEAL MASK AIRWAY (09/07/2024 12:12 PM CDT) Narrative Ayan Devine APRN-CRNA - 09/07/2024 12:12 PM CDT Ayan Devine APRN-CRNA 09/07/2024 12:13 PM LMA Placement Procedure/LDA Note: [...] PM. Staff Section Anesthesia Provider: Ayan Devine APRN-CRNA, Performed the procedure Joel Livingston MD GENERAL ANESTHESIA ORDERABLES Final Result * VANCOMYCIN LEVEL TROUGH (09/06/2024 4:58 PM CDT) Vancomycin Trough 17.3 10.0 - 20.0 ug/mL 09/06/2024 5:40 PM CDT [facility] Blood BLOOD SPECIMEN / Unknown Lab Venipuncture / Unknown 09/06/2024 4:58 PM CDT 09/06/2024 5:06 PM CDT Tessa Arenas MD LAB - CHEMISTRY ORDERABLES F inal Result Performing Organization Address [facility]/ZIP Co de Phone Number [facility] [address] [place] [address] * VANCOMYCIN LEVEL PEAK (09/05/2024 9:18 PM CDT) Only the most recent of2 resultswithin the time period is included. Vancomycin Peak 34.2 25.0 - 40.0 ug/mL 09/05/2024 9:52 PM CDT [facility] Blood BLOOD SPECIMEN / Unknown Lab Venipuncture / Unknown 09/05/2024 9:18 PM CDT 09/05/2024 9:28 PM CDT us Tessa Arenas MD LAB - CHEMISTRY ORDERABLES F inal Result Performing Organization Address [facility] Co de Phone Number [facility] [address] [place] [phone] * VAS Arterial Ankle Arm Index (09/05/2024 6:15 PM CDT) Anatomical Region Laterality Modality Ankle / Foot, Upper Extremity Ul trasound 09/05/2024 2:47 PM CDT Narrative Procedure Note Eugene Jacques MD - 09/07/2024 [facility] [address] [place] [id number] Lower Extremity Arterial Doppler Report Pat.Name: JULIANNE VILLAFUERTE.ID: [id number] .Date: 09/05/2024 Exam Time: 2:47:00 PM Study Type:JEANNINE/PVR Age: 9 1960,63Y Sex: MALE Sonogrphr: Mary Lord RVT Pat. Stat.:Inpatient Room: 363 ICD - 9: Osteomyelitis of right foot, [M86.9 (ICD-10-CM)'; CPT - 4: 22275 Reason for Study: Non-healing wound-Right History / Clinical: Left BKA Procedures: Ankle Arm Index Visit ID: [id number] ++++++++++++++++++++++++++++++++++++ SUMMARY: ++++++++++++++++++++++++++++++++++++ Right-side: TBI is severely [...] arteries. Arterial doppler waveforms of the right MAINTAINER OPERATOR and DPA are monophasic. Unable to obtain [...] Signed 09/07/2024 05:25 PM Eugene Sheikh MD Kathy FLORES [facility] LAB ORDERABLES Edited * (ABNORMAL) CULTURE TISSUE+GRAM STAIN (09/05/2024 4:12 PM CDT) Culture Heavy Staphylococcus aureus(AA) MELANY 09/09/2024 12:19 AM CDT [facility] Comment:Staphylococcus aureu s methicillin-susceptible (MSSA) detected by penicillin binding protein immunoassay. Culture Moderate Proteus mirabilis(AA) MELANY 09/09/2024 12:19 AM CDT [facility] Gram Stain Moderate Gram-positive cocci(AA) 09/09/2024 12:19 AM T [facility] Gram Stain Rare Gram-negative bacilli(AA) 09/09/2024 12:19 AM T [facility] Gram Stain Moderate Polymorphonuclear cells(AA) 09/09/2024 12:19 AM T [facility] Microbiology AMPUTATION OF TOE / Unknown 09/05/2024 4:12 PM CDT 09/05/2024 5:13 PM CDT Narrative [facility] - 09/09/2024 12:19 AM CDT [...] disk diffusion test will be performed. Pablo Ortiz DP LAB - MICROBIOLOGY ORDERABLES Final Result [facility] [address] [place] [address], [facility] [phone] * XR Foot Right 3Vw or More [...] day 5 MELANY 09/10/2024 1:31 AM CDT [facility] Blood PERIPHERAL BLOOD / Unknown Lab Venipuncture / Unknown 09/04/2024 11:26 PM CDT 09/04/2024 11:36 PM CDT Maren Garner PA-C LAB - MICROBIOLOGY ORDERABL ES Final Result [facility] [address] [place], [place] [address], [facility] [phone] * LACTIC ACID BLOOD REFLEX TO REPEAT (09/04/2024 11:18 PM CDT) Lactic Acid 1.222 <=2 mmol/L 09/05/2024 1:14 AM CDT [facility] Blood BLOOD SPECIMEN / Unknown Lab Venipuncture / Unknown 09/04/2024 11:18 PM CDT 09/05/2024 1:01 AM CDT Maren Garner PA-C LAB - CHEMISTRY ORDERABLES Final Result Performing Organization Address City/[facility]/ZIP Co de Phone Number [facility] [address] [place] [phone] * (ABNORMAL) VITAMIN D 25-HYDROXY (09/04/2024 11:18 PM CDT) Vitamin D, 25 Hydroxy 24.7(L) 30 - 80 ng/mL 09/05/2024 12:19 AM CDT [facility] Blood BLOOD SPECIMEN / Unknown Lab Venipuncture / Unknown 09/04/2024 11:18 PM CDT 09/04/2024 11:37 PM CDT Narrative [facility] - 09/05/2024 12:19 AM CDT Vitamin D Status: Deficiency <20 ng/mL Insufficiency 20-30 ng/mL Sufficiency 30-100 ng/mL Toxicity >100 ng/mL Maren Garner PA-C LAB - CHEMISTRY ORDERABLES Final Result [facility] [address] [place] [address] * (ABNORMAL) LIPID PROFILE (09/04/2024 11:18 PM CDT) Cholesterol 86 <200 mg/dL 09/05/2024 12:02 AM CDT [facility] Triglycerides 96 <150 mg/dL 09/05/2024 12:02 AM CDT [facility] HDL Cholesterol 31(L) >40 mg/dL 12:02 AM CDT [facility] LDL Calculated 36 <130 mg/dL 09/05/2024 12:02 AM CDT [facility] VLDL Calculated 19 <=30 mg/dL 12:02 AM CDT [facility] Chol HDL Ratio 2.8 <4.5 09/05/2024 12:02 AM CDT [facility] LDL/HDL Ratio 1.2 <5.0 09/05/2024 12:02 AM CDT [facility] Blood BLOOD SPECIMEN / Unknown Lab Venipuncture / Unknown 09/04/2024 11:18 PM CDT 09/04/2024 11:37 PM CDT Maren Garner PA-C LAB - CHEMISTRY ORDERABLES Final Result Performing Organization Address City/[facility] Co de Phone Number [facility] [address] [place] [address] * (ABNORMAL) MICROALB/CREAT RATIO URINE RANDOM PANEL (01/12/2023 1:39 PM FINANCIAL INVESTIGATOR) Pathologist [facility] Creatinine Urine 70.01 mg/dL 01/13/20 5:54 PM FINANCIAL INVESTIGATOR [facility] Microalbumin Urine 2.2 mg/dL 01/12/2023 5:54 PM FINANCIAL INVESTIGATOR [facility] Microalbumin/Crea tinine Ratio 31(H) <30 mg/g 01/12/2023 5:54 PM FINANCIAL INVESTIGATOR [facility] Urine URINE SPECIMEN OBTAINED BY CLEAN CATCH PROCEDURE / Unknown 01/12/2023 1:39 PM FINANCIAL INVESTIGATOR 01/12/2023 5:21 PM FINANCIAL INVESTIGATOR Latanya CHEW LAB - URINE CHEMISTRY ADANE CARLYN Final Result [facility] [address] [place] [address] from Last 3 Months or Most Recently Relevant to Health Maintenance Additional Health Concerns Infection Onset Date Last Indicated MDRO 09/26/2024 09/26/2024 Insurance [email or web address] MEDICARE Advance Directives * Full Code (Latest Code [...] 8:19 PM 12/21/2022 9:17 PM Care Teams Printer Apprentice Relationship Specialty Start Date End Date Gavino Srivastava, ANILA-ERGONOMICS ENGINEER [address] [place] [address] PCP - General Nurse Practitioner 03/11/23
== END 2024-12-04 14:45 | disposition home or self-care (01) ==
LOC: CHSHH 14:47
PROVIDERS: PCP Nurse Practitioner; Visit Provider Nurse Practitioner
DX: E87.5 Hyperkalemia (principal)
CPT/HCPCS: 36415; 80048

== ENCOUNTER 2024-12-25 10:51 | Outpatient (NON) | payer MEDICARE, SELFPAY ==
[2024-12-25 11:09] LABS: Anion Gap 4 mmol/L (4-12); Blood Urea Nitrogen 32 mg/dL (9-20); Calcium 9.6 mg/dL (8.4-10.2); Carbon Dioxide 19 mmol/L (22-30); Chloride 112 mmol/L (98-107); Estimated Glomerular Filt Rate 55; Glucose 117 mg/dL (65-110); Osmolality Calculated 287 mOsm/kg (285-295); Potassium 4.7 mmol/L (3.4-5.0); Sodium 135 mmol/L (137-145)
--- OUTSIDE RECORDS SUMMARY | 2024-12-25 12:27 | XMS_ITS | Clinical Summary ---
Author Organization [facility] Address [address] [place] [address] Care Team Providers Care E Business Manager Name Role Phone Gavino Srivastava Primary Care Provider Source Comments [facility],non-owned Affiliates and Associated Physician Practices is amultiple site organization consisting of ambulatory clinics and hospital sitesin [place], [place], [place] and [place]. This disclosure is being madepursuant to the Care Everywhere program and may not contain all information available regarding this patient. Last updated 17.[employer] [facility] Allergies No known active allergies Medications * [...] Description 11/29/2024 11:15 AM CDT Office Visit [facility] - Vascular Surgery [address] [place] [address], [place] [address] Wittgen, Thu, MD S/P BKA (below knee amputation), left (HCC) (Primary Dx) 11/29/2024 Travel 11/21/2024 12:54 PM CDT - 11/21/2024 5:20 PM CDT Emergency [facility] [address] [place] [address] Julius Miller MD Bitter, Cindy C, MD Cellulitis of right lower extremity (Primary Dx); Postoperative surgical complication involving musculoskeletal system associated with musculoskeletal procedure, unspecified complication Discharge Disposition: Home or Self Care 11/21/2024 Travel 11/20/2024 Telephone [facility] Physician [facility] - Vascular Surgery [address], [place] [phone] Daniel Holder MD Wound/Incision Check; Infection 11/15/2024 10:30 AM CDT Office Visit [facility] Vascular Surgery [address], [address] [place] [phone] Raul Hardwick MD Volkerding, MD Dagoberto Urbano [...] CDT - 10/13/2024 4:07 PM CDT Surgery [facility] [address] [place] [phone] Daniel Holder MD BELOW-KNEE AMPUTATION - RIGHT 10/13/2024 2:04 PM CDT Anesthesia Event [facility] [address] [place] [address] Chapin Palmer MD Schoenbeck, Alex C, JUNIOR SOFTWARE ENGINEER-ENVIRONMENTAL TEST TECHNICIAN 10/05/2024 12:25 PM CDT Anesthesia Event [facility] [address] [place] [address] Ismael Redman MD 09/26/2024 7:23 AM CDT Anesthesia Event [facility] [address] [place] [address] Juan Carlos Stanford MD 09/26/2024 7:15 AM CDT - 09/26/2024 8:37 AM CDT Surgery [facility] [address] [place] [phone] Pablo Ortiz, DPM AMPUTATION TRANSMETATARSAL - RIGHT 09/04/2024 8:51 PM CDT - 10/25/2024 5:22 PM CDT Hospital Encounter 1E Surg - [address] [address] Raul Hardwick MD Volkerding, MD Dagoberto Urbano Suganya, MD Hambolu, Kehinde, MD Flores, MD Sera Miranda Sabina, MD Pereira, Keith J, MD Patel, Paragkumar, MD Nahata, Ankit, MD Seleznev, Ilya, MD Nangle, Joanna Santo, Jey Leblanc MD Mathew, Simi, MD Iqbal, MD Charlie Hospitalist Discharge Disposition: Rehab:Inpatient from Last 3 Months Immunizations Immunization Administration [...] Recorded Patient Health Questionnaire-2 Score 0 11/15/2024 [facility] - Occupational Stress Questionnaire Answer Date Recorded [...] place to sleep or slept in a long-term (including now)? No 12/21/2022 Housing Stability Vital Sign Answer Randy e Recorded In the last 12 months, was t here a time when you were not able to pay the mortgage or rent on time? No 09/04/2024 In the past 12 months, how m any times have you moved where you were living? 1 09/04/2024 At any time in the past 12 [facility], were you homeless or living in a long-term (including now)? No 09/04/2024 Sex and Gender [...] DIABETES - URINE PROTEIN SCREENING 03/01/2024 01/12/2023, 01/12/2023 COVID-19 VACCINE (4 - 2024- season) 2024 03/01/2021, 07/23/2020, 06/25/2020 INFLUENZA VACCINE [...] this topic Medical Devices Implanted Type Area Software Qa Manager Device Identifier Shelf Expiration Date Model / Serial / Lot Vascular Closure Device Other (Type not listed) Right: Groin 06/07/2026 / / [id number] Stent - Vascular-10/06/19 Implanted:10/05 (Quantity not on file) Stent - Vascular 11/28/2026 / [id number] / Tidial Bearing Insert Implanted:Qty: 1 on 06/23/2022 by Daniel Corey [place] [facility] [place] [facility] Right: Knee [employer] [id number] 04/15/2027 5531-G-7 09-E / / [id number] Cmpnt Fem Kn Rt 6 Crcte Rtn Bead Trthln Implanted:Qty: 1 on 06/23/2022 by Daniel Corey MD at [facility] [place] [facility] [place] Right: Knee [employer] 05/04/2027 [id number] / / [id number] Bsplt Tib Trthln 7 Kn Tritanium Implanted:Qty: 1 on 06/23/2022 by Daniel Corey MD at [facility] [place] [facility] [place] Right: Knee [employer] 04/21/2027 5536-B-7 00 / / [id number] Drsg 7x10cm Kerecis Or Mesh Omega3 Lf - [id number] Implanted:Qty: 1 on 04/05/2023 by Daniel Holder MD at [facility] Left: Knee [employer] 04/06/2024 [id number] D0D / [id number] D0D / Integra Mesh Dermal Regeneration Template Implanted:Qty: 1 on 08/02/2023 by Daniel Holder MD at [facility] Left: Leg Integra [employer] Bobbi 10/29/2024 [id number] / / [id number] Drsg Wnd Mtrx Puraply Sx 5x5cm Implanted:Qty: 1 on 09/05/2024 by Pablo Ortiz DPM at [facility] Right: Toe [employer] 05/03/2025 [id number] / / [id number] .1.1A Graft Skn Surgiclose 95cm M2 Melany Omega3 Implanted:Qty: 1 on 10/13/2024 by Daniel Holder MD at [facility] Right: Knee [employer] 09/20/2026 [id number] D0D / / [id number] Procedures Procedure Name Priority Date/Time Associated [...] amputation of right lower extremity, initial encounter ([facility]) NV AMPUTATION LOW LEG THRU TIB/FIB 10/13/2024 1:54 [...] foot, right (HCC) ACT LR - POCT ([facility]) Routine 10/05/2024 2:28 PM CDT ACT LR - POCT ([facility]) Routine 10/05/2024 1:25 PM CDT ACT LR - POCT ([facility]) Routine 10/05/2024 12:55 PM CDT ACT LR - POCT ([facility]) Routine 10/05/2024 11:51 AM CDT GLUCOSE - [...] MASK AIRWAY Routine 09/26/2024 7:57 AM CDT NV AMPUTATION FOOT,TRANSMETATARSA L 09/26/2024 6:40 AM CDT Diagnosis unknown Special [...] OF CARE Routine 09/24/2024 7:51 AM CDT HEMOGLOBIN A1C STAT 09/15/2024 5:17 AM CDT MICROALB/CREAT RATIO URINE RANDOM PANEL Routine 01/12/2023 1:39 PM INJECTION MAINTENANCE TECHNICIAN TRANSFUSE RED BLOOD CELL LEUKOREDUCED UNIT(S) Routine [...] Saini 11/21/2024 4:16 PM > Dictated by Skiver Box Toe I, Benito Mendoza MD have personally reviewed and interpreted this examination/study. > Interpreting Provider: Benito Mendoza MD on 11/21/2024 4:36 PM Narrative 11/21/2024 4:36 PM CDT PROCEDURE: CT LOWER EXT RIGHT WO CONTRAST, DATE/TIME OF EXAM: 11/21/2024 3:57 PM, LOCATION [facility] INDICATION: M96.89: Postoperative surgical complication involving musculoskeletal [...] DATE/TIME OF EXAM:11/21/2024 3:57 PM, LOCATION [facility] INDICATION: M96.89: Postoperative surgical complication involving musculoskeletal [...] Saini 11/21/2024 4:16 PM > Dictated by Skiver Box Toe I, Benito Mendoza MD have personally reviewed and interpreted this examination/study. > Interpreting Provider: Benito Mendoza MD on 11/21/2024 4:36 PM Leah Alvarenga MD CT ORDERABLES Final Result * C-REACTIVE PROTEIN (11/21/2024 11:54 AM CDT) C-Reactive Protein 0.5 <=0.5 mg/dL 11/21/2024 1:04 PM CDT [facility] Blood BLOOD SPECIMEN / Unknown Venipuncture / Unknown 11/21/2024 11:54 AM CDT 11/21/2024 12:04 PM CDT Laurel Ponce PA-C LAB - CHEMISTRY ORDERABLES Herminia l Result Performing Organization Address City/[facility]/ZIP Co de Phone Number [address] [address], [facility] [phone] * (ABNORMAL) ERYTHROCYTE SEDIMENTATION RATE (11/21/2024 11:54 AM CDT) Erythrocyte Sedimentation Rate Westergren 61(H) 0 - 20 MM/HR 11/21/2024 12:40 PM CDT [facility] Blood BLOOD SPECIMEN / Unknown Venipuncture / Unknown 11/21/2024 11:54 AM CDT 11/21/2024 12:04 PM CDT Laurel Ponce PA-C LAB - HEMATOLOGY ORDERABLES Fin al Result Performing Organization Address [facility]/ZIP Co de Phone Number [address] [address], [place] [phone] * (ABNORMAL) CBC W AUTO DIFFERENTIAL (11/21/2024 11:54 AM CDT) Only the most recent of17 resultswithin the time period is included. WBC 6.7 4.0 - 10.7 x10E9/L 11/21/2024 12:20 PM [facility] RBC Count 3.64(L) 4.30 - 5.80 x10E12/L 11/21/2024 12:20 PM [facility] Hemoglobin 10.3(L) 13.3 - 17.5 g/dL 11/21/2024 12:20 PM [facility] Hematocrit 32.6(L) 38.7 - 51.1 % 11/21/2024 12:20 PM [facility] MCV 89.6 80.0 - 98.0 fL 11/21/2024 12:20 PM [facility] MCH 28.3 26.7 - 33.6 pg 11/21/2024 12:20 PM [facility] MCHC 31.6(L) 31.7 - 36.3 g/dL 11/21/2024 12:20 PM [facility] RDW-CV 17.3(H) 11.3 - 14.8 % 11/21/2024 12:20 PM [facility] Platelet Count 221 150 - 420 x10E9/L 11/21/2024 12:20 PM [facility] MPV 9.7 7.8 - 11.4 fL 11/21/2024 12:20 PM [facility] Neutrophil % 71.9 41.0 - 74.0 % 11/21/2024 12:20 PM [facility] Lymphocyte % 16.3(L) 17.0 - 47.0 % 11/21/2024 12:20 PM [facility] Monocyte % 6.6 3.0 - 11.0 % 11/21/2024 12:20 PM [facility] Eosinophil % 4.2 0.0 - 7.0 % 11/21/2024 12:20 PM [facility] Basophil % 0.7 0.0 - 1.6 % 11/21/2024 12:20 PM [facility] Immature Granulocytes % 0.3 0.0 - 1.0 % 11/21/2024 12:20 PM [facility] Neutrophil Absolute 4.81 1.60 - 7.50 x10E9/L 11/21/2024 12:20 PM [facility] Lymphocyte Absolute 1.09 1.00 - 4.40 x10E9/L 11/21/2024 12:20 PM [facility] Monocyte Absolute 0.44 0.15 - 1.00 x10E9/L 11/21/2024 12:20 PM [facility] Eosinophil Absolute 0.28 0.00 - 0.60 x10E9/L 11/21/2024 12:20 PM [facility] Basophil Absolute 0.05 0.00 - 0.13 x10E9/L 11/21/2024 12:20 PM [facility] Blood BLOOD SPECIMEN / Unknown Venipuncture / Unknown 11/21/2024 11:54 AM CDT 11/21/2024 12:04 PM T Laurel Ponce PA-C LAB - HEMATOLOGY ORDERABLES Fin al Result [facility] [address] [place] [address], [facility] [phone] * (ABNORMAL) COMPREHENSIVE METABOLIC PANEL (11/21/2024 11:54 AM [facility]) Only the most recent of7 resultswithin the time period is included. BUN 21 7 - 26 mg/dL 11/21/2024 1:04 PM [facility] Creatinine 1.40(H) 0.71 - 1.16 mg/dL 11/21/2024 1:04 PM [facility] Sodium 140 136 - 145 mmol/L 11/21/2024 1:04 PM [facility] Potassium 4.7(H) 3.5 - 4.5 mmol/L 11/21/2024 1:04 PM [facility] Chloride 113(H) 98 - 107 mmol/L 11/21/2024 1:04 PM [facility] CO2 19(L) 22 - 29 mmol/L 11/21/2024 1:04 PM [facility] Glucose 108(H) 70 - 99 mg/dL 11/21/2024 1:04 PM [facility] Calcium 8.4 8.4 - 10.2 mg/dL 11/21/2024 1:04 PM [facility] Protein Total 6.4 6.0 - 8.3 g/dL 11/21/2024 1:04 PM [facility] Albumin 3.2(L) 3.4 - 5.0 g/dL 11/21/2024 1:04 PM [facility] Bilirubin Total 0.3 0.2 - 1.2 mg/dL 11/21/2024 1:04 PM [facility] Alkaline Phosphatase 80 40 - 150 U/L 11/21/2024 1:04 PM [facility] ALT 22 5 - 55 U/L 11/21/2024 1:04 PM [facility] AST 18 5 - 34 U/L 11/21/2024 1:04 PM [facility] Anion Gap 8 6 - 16 11/21/2024 1:04 PM CDT [facility] BUN/Creatinine Ratio 15 7 - 23 11/21/2024 1:04 PM CDT [facility] Osmolality Calculated 294 275 - 295 mOsm/kg 11/21/2024 1:04 PM CDT [facility] Albumin/Globulin Ratio 1.0(L) 1.1 - 2.3 11/21/2024 1:04 PM T [facility] eGFR by CKD-EPI 56(L) >=90 mL/min/1.7 3 m2 11/21/2024 1:04 PM T [facility] Comment:Estimated Glomerular Filtration Rate (eGFR) calculated using the CKD-EPI Creatinine Equation (2020), per the National Kidney Foundation and [place] Society of Nephrology recommendations. Blood BLOOD SPECIMEN / Unknown Venipuncture / Unknown 11/21/2024 11:54 AM CDT 11/21/2024 12:04 PM CDT us Laurel Ponce PA-C LAB - CHEMISTRY ORDERABLES Herminia l Result [facility] [address] [place] [address], [facility] [phone] * CARDIAC RHYTHM STRIP ORDER (10/26/2024 5:25 PM CDT) Narrative 10/26/2024 5:25 PM CDT Ordered by an unspecified provider. us Scanned Document CARDIAC SERVICES ORDERABLES Jason eliza Result - Final * (ABNORMAL) GLUCOSE - POINT OF CARE (10/25/2024 1:16 PM CDT) Only the most recent of130 resultswithin the time period is included. Glucose WB/POC 123(H) 70 - 99 mg/dL 10/25/2024 1:25 PM CDT [facility] Specimen Type Arterial/C apillary 10/25/2024 1:25 PM CDT [facility] Blood BLOOD SPECIMEN / Unknown 10/25/2024 1:16 PM CDT 10/25/2024 1:25 PM CDT Charlie Pian MD LAB - POINT OF CARE ORDERABLES Final Result Performing Organization Address City/[facility]/ZIP Co de Phone Number [facility] [address] [place], [place] [id number] * (ABNORMAL) CBC W/O DIFFERENTIAL (10/25/2024 1:27 AM CDT) Only the most recent of11 resultswithin the time period is included. [facility] WBC 8.4 4.0 - 10.7 x10E9/L 10/25/2024 2:26 AM CDT [facility] RBC Count 2.86(L) 4.30 - 5.80 x10E12/L 10/25/2024 2:26 AM CDT [facility] Hemoglobin 8.1(L) 13.3 - 17.5 g/dL 10/25/2024 2:26 AM CDT [facility] Hematocrit 25.3(L) 38.7 - 51.1 % 10/25/2024 2:26 AM CDT [facility] MCV 88.5 80.0 - 98.0 fL 10/25/2024 2:26 AM CDT [facility] MCH 28.3 26.7 - 33.6 pg 10/25/2024 2:26 AM CDT [facility] MCHC 32.0 31.7 - 36.3 g/dL 10/25/2024 2:26 AM CDT [facility] RDW-CV 18.7(H) 11.3 - 14.8 % 10/25/2024 2:26 AM CDT [facility] Platelet Count 380 150 - 420 x10E9/L 10/25/2024 2:26 AM CDT [facility] MPV 9.3 7.8 - 11.4 fL 10/25/2024 2:26 AM T [facility] Blood BLOOD SPECIMEN / Unknown Line Draw / Unknown 10/25/2024 1:27 AM CDT 10/25/2024 2:22 AM CDT Charlie Pina MD LAB - HEMATOLOGY ORDERABLES Fin al Result Performing Organization Address City/[facility]/ZIP Co de Phone Number [facility] [address] [place] [address] * (ABNORMAL) BASIC METABOLIC PANEL (CALCIUM TOTAL) (10/25/2024 1:27 AM CDT) Only the most recent of10 resultswithin the time period is included. Glucose 100(H) 70 - 99 mg/dL 10/25/2024 2:45 AM CDT [facility] Sodium 140 136 - 145 mmol/L 10/25/2024 2:45 AM CDT [facility] Potassium 5.2(H) 3.5 - 5.1 mmol/L 10/25/2024 2:45 AM CDT [facility] Chloride 109(H) 98 - 107 mmol/L 10/25/2024 2:45 AM CDT [facility] CO2 24 22 - 29 mmol/L 10/25/2024 2:45 AM CDT [facility] Calcium 8.9 8.4 - 10.4 mg/dL 10/25/2024 2:45 AM CDT [facility] Anion Gap 7 6 - 16 mmol/L 10/25/2024 2:45 AM CDT [facility] BUN 32(H) 7 - 26 mg/dL 10/25/2024 2:45 AM CDT [facility] Creatinine 1.62(H) 0.72 - 1.25 mg/dL 10/25/2024 2:45 AM CDT [facility] eGFR by CKD-EPI 47(L) >=90 mL/min/1.7 3 m2 10/25/2024 2:45 AM CDT [facility] Comment:Estimated Glomerular Filtration Rate (eGFR) calculated using the CKD-EPI Creatinine Equation (2020), per the National Kidney Foundation and [place] Society of Nephrology recommendations. Blood BLOOD SPECIMEN / Unknown Line Draw / Unknown 10/25/2024 1:27 AM CDT 10/25/2024 2:22 AM CDT us Charlie Pina MD LAB - CHEMISTRY ORDERABLES Herminia malin Result [facility] [address] [place] [address] * MAGNESIUM BLOOD (10/25/2024 1:27 AM CDT) Only the most recent of6 resultswithin the time period is included. Magnesium 1.9 1.6 - 2.6 mg/dL 10/25/2024 2:45 AM CDT [facility] Blood BLOOD SPECIMEN / Unknown Line Draw / Unknown 10/25/2024 1:27 AM CDT 10/25/2024 2:22 AM CDT Charlie Pina MD LAB - CHEMISTRY ORDERABLES Herminia l Result [facility] [address] [place] [id number] * TRANSFUSE RED BLOOD CELL LEUKOREDUCED UNIT(S) (10/15/2024 9:01 PM CDT) Joanna Keenan DO NURSING - BLOOD PROD TRANSFUSI ON Final Result * (ABNORMAL) HGB HCT PANEL (10/15/2024 1:42 PM CDT) Only the most recent of10 resultswithin the time period is included. Hemoglobin 6.7(L) 13.3 - 17.5 g/dL 10/15/2024 2:11 PM CDT [facility] Hematocrit 21.7(L) 38.7 - 51.1 % 10/15/2024 2:11 PM CDT [facility] Blood BLOOD SPECIMEN / Unknown Venipuncture / Unknown 10/15/2024 1:42 PM CDT 10/15/2024 1:50 PM CDT Joanna Keenan DO LAB - HEMATOLOGY ORDERABLES Fi nal Result [facility] [address] [place] [address] * TRANSFUSE RED BLOOD CELL LEUKOREDUCED UNIT(S) (10/13/2024 3:50 PM CDT) Chapin Palmer MD NURSING - BLOOD PROD TRANSFU JACQUES Final Result * PATHOLOGY TISSUE EXAM (STL) (10/13/2024 2:52 PM CDT) Only the most recent of2 resultswithin the time period is included. Case Report Surgical Pathology Report Case: [id number] Authorizing Provider: Daniel Holder MD Collected: 10/13/2024 02:52 PM Ordering Location: [facility] 4 TELE Received: 10/16/2024 08:19 AM Pathologist: Patricia Evans MD Specimen: Amputation Leg BK, right BKA 10/18/2024 9:05 AM CDT [facility] Final Diagnosis Extremity, right, below knee amputation - Calcific atherosclerosis with thrombosis - Posterior tibial artery stent - Soft tissue necrosis with acute inflammation and focal acute osteomyelitis - Margins viable and uninvolved by osteomyelitis 10/18/2024 9:05 AM T [facility] at 0904 CDT Clinical History The patient is a 63-year-old man. Operative procedure: below-knee amputation - right. 10/18/2024 9:05 AM T [facility] Gross Description The requisition and [...] mesh stent in the posterior tibial artery. Manager Compliance sections are submitted after selective decalcification as follows: A1: Tibial bone marrow margin A2: Fibula bone marrow margin A3: Closest soft tissue resection margin, perpendicular A4: Area of necrosis A5: Anterior tibial artery, decal A6: Posterior tibial artery, decal A7: Bone underlying area of necrosis, decal /SKS 10/18/2024 9:05 AM T [facility] Microscopic Description Microscopic examination substantiates the above diagnosis. 10/18/2024 9:05 AM T [facility] Pathologist Location at [facility] 10/18/2024 9:05 AM CDT [facility] Disclaimer All histochemical and/or immunohistochemical results are interpreted with controls that demonstrate appropriate staining reactions before reporting results. Note on use of immunocytochemistry reagents: This test was developed and its performance characteristic determined by [facility], Department of Laboratory Medicine. It has not [...] be interpreted with caution. 10/18/2024 9:05 AM CDT [facility] Embedded Images 10/18/2024 9:05 AM T [facility] Pathology/Cytolo gy SPECIMEN OBTAINED BY AMPUTATION / Unknown 10/13/2024 2:52 PM CDT 10/16/2024 8:19 AM CDT Comment:Pre-op diagnosis: Diagnosis unknown [R69] us Daniel Holder MD LAB - PATHOLOGY/CYTOLOGY KRUPA ALCOCER Final Result Performing Organization Address City/State/[facility] Co de Phone Number [facility] [address] [place] [address] * LARYNGEAL MASK AIRWAY (10/13/2024 2:26 PM CDT) Narrative Darrell Vasquez APRN-ENVIRONMENTAL TEST TECHNICIAN - 10/13/2024 2:26 PM CDT Darrell Vasquez [...] PM. Staff Section Anesthesia Provider: Darrell Vasquez, ANILA-CHANTEL, Performed the procedure Chapin Palmer MD GENERAL ANESTHESIA ORDERABLE S Final Result * PREPARE (CROSSMATCH) RBC UNIT(S), 1 Units (10/13/2024 2:07 PM CDT) Only the most recent of8 resultswithin the time period is included. Unit Description AS1 LR PRBC [facility] Unit ABO O [facility] Unit Rh POS [facility] Product Number R02 [facility] Unit Donor # [id number] [facility] Unit Status transfused [facility] Product [facility] T1375O68 [facility] Blood Type Barcode 5100 [facility] Expiration Date [id number] [facility] Blood Bank BLOOD SPECIMEN / Unknown 10/13/2024 2:07 PM CDT 10/13/2024 2:08 PM CDT Joanna Keenan DO LAB - BLOOD BANK ORDERABLES Fi nal Result [facility] [address] [phone] * TYPE + SCREEN PANEL (10/13/2024 2:07 PM CDT) Only the most recent of3 resultswithin the time period is included. ABO Rh O POS 10/13/2024 2:38 PM CDT [facility] Comment:History checked. Antibody Screen NEG 2:38 PM CDT [facility] Blood Bank BLOOD SPECIMEN / Unknown Lab Venipuncture / Unknown 10/13/2024 2:07 PM CDT 10/13/2024 2:08 PM CDT Daniel Holder MD LAB - BLOOD BANK ORDERABLES F inal Result Performing Organization Address [facility] Co de Phone Number [facility] [address] [place] [address] * (ABNORMAL) POTASSIUM BLOOD (10/13/2024 12:49 PM CDT) Potassium 5.6(H) 3.5 - 5.1 mmol/L 10/13/2024 1:13 PM CDT [facility] Blood BLOOD SPECIMEN / Unknown Clinic Draw / Unknown 10/13/2024 12:49 PM CDT 10/13/2024 12:56 PM CDT Chapin Palmer MD LAB - CHEMISTRY ORDERABLES F inal Result Performing Organization Address [facility] Co de Phone Number [facility] [address] [place] [address] * TSH REFLEX FREE T4 (10/11/2024 5:47 AM CDT) TSH 1.855 0.350 - 4.940 uIU/mL 10/11/2024 6:47 AM CDT [facility] Blood BLOOD SPECIMEN / Unknown Venipuncture / Unknown 10/11/2024 5:47 AM CDT 10/11/2024 6:08 AM CDT Joanna Keenan DO LAB - CHEMISTRY ORDERABLES Fin al Result Performing Organization Address City/[facility]/ZIP Co de Phone Number [facility] [address] [place] [address] * (ABNORMAL) FOLATE (10/10/2024 2:10 AM CDT) Folate 5.8(L) 7.0 - 31.4 ng/mL 10/10/2024 3:22 AM CDT [facility] Blood BLOOD SPECIMEN / Unknown Venipuncture / Unknown 10/10/2024 2:10 AM CDT 10/10/2024 2:30 AM CDT Joanna E Aminakarlenee DO LAB - CHEMISTRY ORDERABLES Fin al Result Performing Organization Address City/[facility]/ZIP Co de Phone Number [facility] [address] [place] [id number] * VITAMIN B12 (10/10/2024 2:10 AM CDT) Pathologist [facility] Vitamin B12 [phone] - 816 pg/mL 10/10/2024 3:22 AM CDT [facility] Blood BLOOD SPECIMEN / Unknown Venipuncture / Unknown 10/10/2024 2:10 AM CDT 10/10/2024 2:30 AM CDT Joanna Gal Ree LAB - CHEMISTRY ORDERABLES Fin al Result Performing Organization Address [facility] Center/[facility] de Phone Number [facility] [address] [place] [phone] * (ABNORMAL) RENAL FUNCTION PANEL (10/09/2024 5:52 AM CDT) Only the most recent of10 resultswithin the time period is included. Pathologist [facility] Glucose 154(H) 70 - 99 mg/dL 10/09/2024 6:17 AM CDT [facility] Sodium 138 136 - 145 mmol/L 10/09/2024 6:17 AM CDT [facility] Potassium 4.3 3.5 - 5.1 mmol/L 10/09/2024 6:17 AM CDT [facility] Chloride 106 98 - 107 mmol/L 10/09/2024 6:17 AM CDT [facility] CO2 25 22 - 29 mmol/L 10/09/2024 6:17 AM CDT [facility] Calcium 8.4 8.4 - 10.4 mg/dL 10/09/2024 6:17 AM CDT [facility] Anion Gap 7 6 - 16 mmol/L 10/09/2024 6:17 AM CDT [facility] BUN 21 7 - 26 mg/dL 10/09/2024 6:17 AM CDT [facility] Creatinine 1.26(H) 0.72 - 1.25 mg/dL 10/09/2024 6:17 AM CDT [facility] Albumin 1.9(L) 3.1 - 4.5 gm/dL 10/09/2024 6:17 AM CDT [facility] Phosphorus 2.7 2.5 - 4.5 mg/dL 10/09/2024 6:17 AM CDT [facility] eGFR by CKD-EPI 64(L) >=90 mL/min/1.7 3 m2 10/09/2024 6:17 AM T [facility] Comment:Estimated Glomerular Filtration Rate (eGFR) calculated using the CKD-EPI Creatinine Equation (2020), per the National Kidney Foundation and [place] Society of Nephrology recommendations. Blood BLOOD SPECIMEN / Unknown Venipuncture / Unknown 10/09/2024 5:52 AM CDT 10/09/2024 5:58 AM CDT us Jason Ayon MD LAB - CHEMISTRY ORDERABLES Herminia malin Result [facility] [address] [place] [address] * (ABNORMAL) URINALYSIS REFLEX TO MICROSCOPIC NO CULTURE (10/07/2024 12:42 AM CDT) Color UA Yellow Yellow, Straw 10/07/2024 1:43 AM CDT [facility] Clarity UA Clear Clear 10/07/2024 1:43 AM CDT [facility] Glucose UA Normal Normal 10/07/2024 1:43 AM CDT [facility] Bilirubin UA Negative Negative 10/07/2024 1:43 AM CDT [facility] Ketone UA Negative Negative 10/07/2024 1:43 AM CDT [facility] Specific Kenefic UA 1.014 1.005 - 1.030 10/07/2024 1:43 AM CDT [facility] Blood UA 2+(A) Negative 10/07/2024 1:43 AM CDT [facility] pH UA 6.0 5.0 - 8.0 10/07/2024 1:43 AM CDT [facility] Protein UA 2+(A) Negative 10/07/2024 1:43 AM CDT [facility] Urobilinogen UA Normal Normal mg/dL 10/07/2024 1:43 AM CDT [facility] Nitrite UA Negative Negative 10/07/2024 1:43 AM CDT [facility] Leukocyte Esterase UA 75 GOMEZ/uL(A) Negative 10/07/2024 1:43 AM CDT [facility] RBC UA 21-50(A) 0 - 5 # /hpf 10/07/2024 1:43 AM CDT [facility] WBC UA 21-50(A) 0 - 5 # /hpf 10/07/2024 1:43 AM CDT [facility] Bacteria UA None Seen None Seen 10/07/2024 1:43 AM CDT [facility] Squamous Epithelial Cells None Seen 0 - 5 /hpf 10/07/2024 1:43 AM CDT [facility] Urine URINE SPECIMEN OBTAINED BY CLEAN CATCH PROCEDURE / Unknown Collection / Unknown 10/07/2024 12:42 AM CDT 10/07/2024 1:12 AM CDT [facility] - 10/07/2024 1:43 AM CDT us Radha Mai DO LAB - URINALYSIS ORDERABLES Fi nal Result Performing Organization Address City/State/[facility] Co de Phone Number [facility] [address] [place] [address] * (ABNORMAL) COAGULATION PANEL W D-DIMER (10/06/2024 4:35 AM CDT) PT 17.7(H) 12.1 - 14.8 sec 10/06/2024 5:38 AM CDT [facility] INR 1.5(H) 0.9 - 1.1 10/06/2024 5:38 AM CDT [facility] PTT 44.1(H) 23.0 - 38.4 sec 10/06/2024 5:38 AM CDT [facility] Fibrinogen 581(H) 200 - 400 mg/dL 10/06/2024 5:38 AM CDT [facility] D-Dimer 5.57(H) 0.27 - 0.50 ug/mL FEU 10/06/2024 5:38 AM CDT [facility] Platelet Count 243 150 - 420 x10E9/L 10/06/2024 5:38 AM T [facility] Blood BLOOD SPECIMEN / Unknown Venipuncture / Unknown 10/06/2024 4:35 AM CDT 10/06/2024 4:49 AM CDT [facility] - 10/06/2024 5:38 AM CDT Conventional [...] Non applicable Reference: Br. J. Haematol. 145:24-33,2009. Roberto Carlos Orozco MD LAB - COAGULATION ORDERABLES Fin al Result Performing Organization Address City/[facility] Co de Phone Number [facility] [address] [place] [address] * PHOSPHORUS BLOOD (10/06/2024 4:35 AM CDT) Phosphorus 3.9 2.5 - 4.5 mg/dL 10/06/2024 5:35 AM CDT [facility] Blood BLOOD SPECIMEN / Unknown Venipuncture / Unknown 10/06/2024 4:35 AM CDT 10/06/2024 4:49 AM CDT Roberto Carlos Orozco MD LAB - CHEMISTRY ORDERABLES Final Result Performing Organization Address [facility] de Phone Number [facility] [address] [place] [address] * (ABNORMAL) FIBRINOGEN ACTIVITY (10/05/2024 4:09 PM CDT) Only the most recent of5 resultswithin the time period is included. Fibrinogen 584(H) 200 - 400 mg/dL 10/05/2024 4:59 PM CDT [facility] Blood BLOOD SPECIMEN / Unknown Line Draw / Unknown 10/05/2024 4:09 PM CDT 10/05/2024 4:16 PM CDT Gregoria Berrios MD LAB - COAGULATION ORDERABL ES Final Result Performing Organization Address [facility] de Phone Number [facility] [address] [place] [phone] * (ABNORMAL) PTT (10/05/2024 4:09 PM CDT) Only the most recent of4 resultswithin the time period is included. PTT >200.0(HH) 23.0 - 38.4 sec 10/05/2024 5:13 PM CDT [facility] Blood BLOOD SPECIMEN / Unknown Line Draw / Unknown 10/05/2024 4:09 PM CDT 10/05/2024 4:16 PM CDT Narrative [facility] - 10/05/2024 5:13 PM CDT Heparin Therapeutic Range for PTT: 69.0 - 110.0 seconds. Gregoria Berrios MD LAB - COAGULATION ORDERABL ES Final Result Performing Organization Address [facility] de Phone Number [facility] [address] [place] [address] * CK BLOOD (10/05/2024 4:09 PM CDT) CK 91 30 - 200 U/L 10/05/2024 4:57 PM CDT [facility] Blood BLOOD SPECIMEN / Unknown Line Draw / Unknown 10/05/2024 4:09 PM CDT 10/05/2024 4:16 PM CDT Ra Meyer MD LAB - CHEMISTRY ORDERABLES F inal Result Performing Organization Address City/[facility] de Phone Number [facility] [address] [place] [address] * IR Thrombolysis Recheck (10/05/2024 3:07 PM [...] across. 2.Thrombectomy was performed using CatRxand 6 [place]raini BOLT catheter from [facility]. 3.During the procedure the upper part [...] draped in the usual sterile fashion. A welding operator film of the abdomen was obtained, which [...] Using a CATRx and then a 6 Bahraini BOLT catheter multiple passes were made in [...] across. 2.Thrombectomy was performed using CatRxand 6 [place]raini BOLT catheter from [facility]. 3.During the procedure the upper part [...] and draped inthe usual sterile fashion. A welding operator film of the abdomen was obtained, which [...] Result * (ABNORMAL) ACT LR - POCT ([facility]) (10/05/2024 2:28 PM CDT) Only the most recent of4 resultswithin the time period is included. ACT LR 207(H) 125 - 187 sec 10/05/2024 2:40 PM CDT [facility] Blood BLOOD SPECIMEN / Unknown 10/05/2024 2:28 PM CDT 10/05/2024 2:40 PM CDT Ra Meyer MD LAB - COAGULATION ORDERABLES Final Result Performing Organization Address [facility] Co de Phone Number [facility] [address] [place], [place] [phone] * TRANSFUSE RED BLOOD CELL LEUKOREDUCED UNIT(S) (10/05/2024 6:16 AM CDT) Julio Moe MD NURSING - BLOOD PROD TRANSFU JACQUES Final Result * (ABNORMAL) PT-INR (10/05/2024 3:23 AM CDT) Only the most recent of2 resultswithin the time period is included. PT 21.4(H) 12.1 - 14.8 sec 10/05/2024 3:55 AM CDT [facility] INR 1.9(H) 0.9 - 1.1 10/05/2024 3:55 AM CDT [facility] Blood BLOOD SPECIMEN / Unknown Venipuncture / Unknown 10/05/2024 3:23 AM CDT 10/05/2024 3:35 AM CDT Narrative [facility] - 10/05/2024 3:55 AM CDT Conventional Warfarin Anticoagulant Therapy: INR Reference Range: 2.0-3.0 Intensive Warfarin Anticoagulant Therapy: INR Reference Range: 2.5-3.5 Gregoria Berrios MD LAB - COAGULATION ORDERABL ES Final Result Performing Organization Address City/[facility]/ZIP Co de Phone Number [facility] [address] [place] [phone] * (ABNORMAL) DIFFERENTIAL MANUAL (10/05/2024 1:04 AM CDT) Neutrophil % 97(H) 41 - 74 % 10/05/2024 4:10 AM CDT [facility] Lymphocyte % 3(L) 17 - 47 % 10/05/2024 4:10 AM CDT [facility] Neutrophil Absolute 23.57(H) 1.60 - 7.50 x10E9/L 10/05/2024 4:10 AM CDT [facility] Lymphocyte Absolute 0.73(L) 1.00 - 4.40 x10E9/L 10/05/2024 4:10 AM CDT [facility] RBC Morphology NORMAL 10/05/2024 4:10 AM CDT [facility] Blood BLOOD SPECIMEN / Unknown Venipuncture / Unknown 10/05/2024 1:04 AM CDT 10/05/2024 1:58 AM CDT us Gregoria Berrios MD LAB - HEMATOLOGY ORDERABLE S Final Result Performing Organization Address City/State/[facility] Co de Phone Number [facility] [address] [place] [address] * IR Thrombolysis Arterial (10/04/2024 11:18 AM [...] right lower extremity 2.Placement of a 5 Bahraini 40 cm Cragg-Van catheter in the posterior [...] draped in the usual sterile fashion. A welding operator film of the abdomen was obtained, which demonstrated the lysis catheter extending through the deep venous arterialization stents into the venous system of the right foot [place] obtained into the right common femoral artery. After placement of a 5 Bahraini sheath, access obtained into the popliteal artery and then into the posterior tibial artery using a Navicross catheter. Posterior tibial angiogram was performed. Angiogram showed complete occlusion of the deep venous arterialization site with no flow into the veins in the foot. We decided to perform catheter slices. The 5 Bahraini 40 cm Marcus MacNamara catheter was advanced into the posterior tibial [...] right lower extremity 2.Placement of a 5 [place]i 40 cm Cragg-Van catheter in the posterior [...] and draped inthe usual sterile fashion. A welding operator film of the abdomen was obtained, which demonstrated the lysis catheter extending through the deep venous arterialization stents into the venous system of the right foot [place] obtained into the right common femoral artery. After placement of a5 Bahraini sheath, access obtained into the popliteal artery and then intothe posterior tibial artery using a Navicross catheter. Posterior tibial angiogram was performed. Angiogram showed complete occlusion of the deep venous arterializationsite with no flow into the veins in the foot. We decided to perform catheter slices. The 5 [place]i 40 cm CraigMacNamara catheter was advanced into [...] Angiogram Right Leg (10/03/2024 10:57 AM CDT) Anatomical Region Laterality Modality Lower Extremity [...] evaluation, please review the evaluation forms in [facility]. For details on monitored clinical parameters during the intra-service sedation time, please review the procedure nurse documentation in [facility]. > Dictated by Skiver Box Toe INamita MD have personally reviewed and interpreted [...] draped in the usual sterile fashion. A welding operator radiograph of the abdomen/pelvis was obtained, which was unremarkable. Limited ultrasound of the left radial artery demonstrated a patent vessel. The left radial artery measured 2.6 mm in AP diameter, and a Barbeau type A waveform was observed. The left radial artery was accessed using a micropuncture needle under ultrasound guidance. The needle entry was documented. Following a series of exchanges, a 5-Bahraini vascular sheath was placed. Sheath angiogram was performed, demonstrating patent left radial artery with contrast opacification of the ulnar and interosseous arteries. A radial cocktail consisting of 3000 units heparin, 300 mcg nitroglycerin, and 2.5 mg verapamil was administered intra-arterially through the sheath after appropriate hemodilution. The 4 Fr [place] catheter was advanced to the abdominal aorta and angiogram was performed. Selective catheterization of the right common femoral artery was achieved and angiogram was obtained. The 4 Bahraini glide catheter was advanced into the right [...] posterior tibial vein. Questionable opacification within the de[place] distal posterior tibial artery. Procedure Note Namita [...] and draped in the usual sterilefashion. A welding operator radiograph of the abdomen/pelvis was obtained, which was unremarkable. Limited ultrasound of the left radial artery demonstrated a patentvessel. The left radial artery measured 2.6 mm in AP diameter, and a Barbeau typeA waveform was observed. The left radial artery was accessed using a micropuncture needle under ultrasound guidance. The needle entry was documented. Following a series of exchanges, a 5-Bahraini vascular sheathwas placed. Sheath angiogram was performed, demonstrating patent left radial artery with contrast opacification of the ulnar and interosseousarteries. A radial cocktail consisting of 3000 units heparin, 300 mcgnitroglycerin, and 2.5 mg verapamil was administered intra-arterially through thesheath after appropriate hemodilution. The 4 Fr [place] catheter was advanced to the abdominal aorta andangiogram was performed. Selective catheterization of the right common femoralartery was achieved and angiogram was obtained. The 4 Bahraini glide catheter was advanced into the right [...] response to care. Intra-service sedation start time [id number] and end time was 1058 during which I was present. Total physician intra-service sedation time was 43 minutes. For details on pre moderate sedation and post moderate sedation patient evaluation, please reviewthe evaluation forms in [facility]. For details on monitored clinical parameters during the intra-service sedation time, please review the procedurenurse documentation in [facility]. > Dictated by Skiver Box Toe INamita MD have personally reviewed and interpreted this examination/study. > Interpreting Provider: Namita Whipple MD on 10/03/2024 4:37 PM us Kathy FLORES IR ORDERABLES Final Result * VAS Right Arterial Duplex Le (09/30/2024 2:55 PM CDT) Anatomical Region Laterality Modality Lower Extremity Ultrasound 09/30/2024 1:29 PM CDT Narrative Procedure Note Eugene Jacques MD - 10/02/2024 [place] [phone] Lower Extremity Arterial Ultrasound Report Pat.Name: JULIANNE VILLAFUERTE Pat.ID: [id number] .Date: 09/30/2024 Refer.MD: Eugene Jacques Exam Time: 1:29:00 PM Study Type:LE Arterial Age: 9 1960,63Y Sex: MALE Sonogrphr: ZEKE Chung. Stat.:Inpatient Room: [facility] ICD - 9: PAD (peripheral artery disease) [I73.9 (ICD-10-CM)' CPT - 4: 91577 Reason for Study: Post-op evaluation History / Clinical: Left BKA Procedures: Lower Extremity Arterial Duplex - Right Race: Not or Visit ID: [id number] ++++++++++++++++++++++++++++++++++++ SUMMARY: ++++++++++++++++++++++++++++++++++++ The right DVA appears [...] Signed 10/02/2024 12:14 PM Eugene Sheikh MD Result [facility] Eugene Jacques MD VASCULAR LAB ORDERABLES Edite d * TRANSFUSE RED BLOOD CELL LEUKOREDUCED UNIT(S) (09/28/2024 2:22 AM CDT) Maren Garner PA-C NURSING - BLOOD PROD TRANSF USION Final Result * TRANSFUSE RED BLOOD CELL LEUKOREDUCED UNIT(S) (09/27/2024 11:27 AM CDT) Result [facility] Maren Garner PA-C NURSING - BLOOD PROD [...] fungus isolated MELANY 10/23/2024 8:05 AM CDT [facility] Fungus Stain No yeast or hyphae seen 10/23/2024 8:05 AM CDT [facility] Microbiology SPECIMEN FROM WOUND / Unknown Collection / Unknown 09/26/2024 8:34 AM CDT 09/26/2024 9:41 AM CDT Comment:Pre-op diagnosis: Diagnosis unknown [R69] Narrative [facility] - 10/23/2024 8:05 AM CDT Surgical Description: Right Midfoot Cultures Pablo Ortiz DPM LAB - MICROBIOLOGY ORDERABLES Final Result [facility] [address] [place] [address], [facility] [phone] * (ABNORMAL) CULTURE WOUND+GRAM STAIN (09/26/2024 8:34 AM CDT) Culture Light normal skin ricki 10/02/2024 11:53 AM CDT [facility] Culture Heavy Pseudomonas aeruginosa(A) MELANY 10/02/2024 11:53 AM CDT [facility] Culture Moderate Proteus mirabilis(A) MELANY 10/02/2024 11:53 AM CDT [facility] Gram Stain Rare Gram-negative bacilli 10/02/2024 11:53 AM T [facility] Gram Stain Rare Gram-positive cocci 10/02/2024 11:53 AM CDT [facility] Gram Stain Rare Polymorphonuclear cells 10/02/2024 11:53 AM CDT [facility] Microbiology SPECIMEN FROM WOUND / Unknown Collection / Unknown 09/26/2024 8:34 AM CDT 09/26/2024 9:41 AM CDT Comment:Pre-op diagnosis: Diagnosis unknown [R69] Narrative [facility] - 10/02/2024 11:53 AM CDT Surgical [...] disk diffusion test will be performed. Pablo Pearl Manuelronald [facility] LAB - MICROBIOLOGY ORDERABLES Final Result Performing Organization Address [facility] Co de Phone Number [facility] [address] [place] [address], [facility] [phone] * CULTURE ANAEROBE (09/26/2024 8:34 AM CDT) Culture No anaerobic organisms isolated MELANY 10/01/2024 8:26 AM CDT [facility] Microbiology SPECIMEN FROM WOUND / Unknown Collection / Unknown 09/26/2024 8:34 AM CDT 09/26/2024 9:41 AM CDT Comment:Pre-op diagnosis: Diagnosis unknown [R69] Narrative [facility] - 10/01/2024 8:26 AM CDT Surgical Description: Right Midfoot Cultures Pablo Pearl Manuelronald [facility] LAB - MICROBIOLOGY ORDERABLES Final Result Performing Organization Address [facility] de Phone Number [facility] [address] [place] [address], [facility] [phone] * LARYNGEAL MASK AIRWAY (09/26/2024 7:57 AM [...] O POS 09/25/2024 8:4 1 PM CDT [facility] Blood Bank BLOOD SPECIMEN / Unknown Venipuncture / Unknown 09/25/2024 6:09 PM CDT 09/25/2024 7:08 PM CDT David Keller MD LAB - BLOOD BANK ORDERABLES Herminia l Result [facility] [address] [phone] * (ABNORMAL) HEMOGLOBIN A1C (09/15/2024 5:17 AM CDT) Hemoglobin A1c 6.1(H) <5.7 % 09/15/2024 9:46 AM CDT [facility] Estimated Average Glucose 128 mg/dL 09/15/2024 9:46 AM CDT [facility] Blood BLOOD SPECIMEN / Unknown Lab Venipuncture / Unknown 09/15/2024 5:17 AM CDT 09/15/2024 5:33 AM CDT Narrative [facility] - 09/15/2024 9:46 AM CDT [...] National Glycohemoglobin Standardization Program (NGSP) certified method. Jeb Menjivar MD LAB - CHEMISTRY ORDERABLES Fi nal Result Performing Organization Address City/[facility]/ZIP Co de Phone Number [facility] [address] [place] [address] * (ABNORMAL) MICROALB/CREAT RATIO URINE RANDOM PANEL (01/12/2023 1:39 PM INJECTION MAINTENANCE TECHNICIAN) Creatinine Urine 70.01 mg/dL 01/13/20 5:54 PM INJECTION MAINTENANCE TECHNICIAN [facility] Microalbumin Urine 2.2 mg/dL 01/12/2023 5:54 PM INJECTION MAINTENANCE TECHNICIAN [facility] Microalbumin/Crea tinine Ratio 31(H) <30 mg/g 01/12/2023 5:54 PM INJECTION MAINTENANCE TECHNICIAN [facility] Urine URINE SPECIMEN OBTAINED BY CLEAN CATCH PROCEDURE / Unknown 01/12/2023 1:39 PM INJECTION MAINTENANCE TECHNICIAN 01/12/2023 5:21 PM INJECTION MAINTENANCE TECHNICIAN Latanya Dowd JUNIOR SOFTWARE ENGINEER-CASE MANAGEMENT ASSOCIATE LAB - URINE CHEMISTRY ORDE RABARMAND Final Result Performing Organization Address City/[facility] Co de Phone Number [facility] [address] [place] [address] from Last 3 Months or Most Recently Relevant to Health Maintenance Additional Health Concerns Infection Onset Date Last Indicated MDRO 09/26/2024 09/26/2024 Insurance ANTHEM [employer] [place] MEDICARE [facility] Advance Directives * Full Code (Latest Code [...] 8:19 PM 12/21/2022 9:17 PM Care Teams E Business Manager Relationship Specialty Start Date End Date Gavino Srivastava, JUNIOR SOFTWARE ENGINEER-CASE MANAGEMENT ASSOCIATE [address] [place] [address] PCP - General Nurse Practitioner 03/11/23
--- OUTSIDE RECORDS SUMMARY | 2024-12-25 12:27 | XMS_ITS | Clinical Summary ---
Author Organization [facility] Address [address] [place] [address] Care Team Providers Care Compliance Professional Name Role Phone Unavailable Primary Care Provider [...] Comments Blood Pressure 145/78 01/22/2023 7:50 AM HONING MACHINE OPERATOR PRODUCTION Pulse 71 01/22/2023 7:50 AM HONING MACHINE OPERATOR PRODUCTION Temperature 36.6 C (97.8 F) 01/22/2023 7:50 AM HONING MACHINE OPERATOR PRODUCTION Respiratory Rate 18 01/22/2023 7:50 AM HONING MACHINE OPERATOR PRODUCTION Oxygen Saturation 95% 01/22/2023 7:50 AM HONING MACHINE OPERATOR PRODUCTION Inhaled Oxygen Concentration - - Weight 107 kg (236 lb) 01/07/2023 9:52 PM HONING MACHINE OPERATOR PRODUCTION Height 180.3 cm (5' 11) 01/07/2023 9:52 PM HONING MACHINE OPERATOR PRODUCTION Body Mass Index 32.92 01/07/2023 9:52 PM HONING MACHINE OPERATOR PRODUCTION Plan of Treatment Health Maintenance Due Date Last Done Comments CT Colonography 1959 Colonoscopy 1960 Colorectal Cancer Screening 1959 FIT-DNA (Cologuard) 1959 FIT 1959 FOBT 1960 Sigmoidoscopy 1960 Annual Visit Topic 11/26/1960 MMR Vaccines (1 of 1 - Stand felipe series) 11/26/1960 Hepatitis C Screening 11/26/1977 DTaP/Tdap/Td Vaccines (1 - Tdap) 11/26/1978 Pneumococcal Vaccine: 65+ Ye ars (1 of 2 - PCV) 11/26/2009 PSA Test 11/26/2014 HIB Vaccines Aged Out [...]
== END 2024-12-25 10:52 | disposition home or self-care (01) ==
LOC: CHSHH 10:54
PROVIDERS: PCP Nurse Practitioner; Visit Provider Nurse Practitioner
DX: E87.5 Hyperkalemia (principal); Z47.81 Encounter for orthopedic aftercare following surgical amputation; Z89.511 Acquired absence of right leg below knee; I12.9 Hypertensive chronic kidney disease with stage 1 through stage 4 chronic kidney disease, or unspecified chronic kidney disease; E11.22 Type 2 diabetes mellitus with diabetic chronic kidney disease
CPT/HCPCS: 36415; 80048